=== PATIENT | female | born 1925 | race Caucasian/White ===

== ENCOUNTER 2016-04-01 08:57 | Inpatient (IN) | payer OTHER ==
[2016-04-01] VITALS (7 sets, daily range): BP systolic 138–169; BP diastolic 48–67; PULSE 56–63; TEMP 36.7–37.2; O2SAT 90–96; Ht 154.9 cm; Wt 88.8 kg
[~2016-04-01] VITALS: Ht 154.9 cm; Wt 88.8 kg
[~2016-04-01 08:57] MED LIST: ACET30TA PO; ASPEC81 PO; ATOR10TA88 PO; ATV5 PO; CHOL1TAB46 PO; CLOP1TAB15 PO; COEN1CAP17 PO; CZR50 PO; FURO-85 PO; HYDR100T12 PO; IPRA1AER2 INH; ISOS120T5 PO; LSX20 PO; METO1TAB69 PO; MULT-506 PO; NRV5 PO; NTRGSL/4 UT; OXGN; PRLSR20 PO; [UNRECOGNIZED DRUG - CODE] PO
[2016-04-01 09:45] LABS: BASO % 0.4 %; BASO ABS # 0.03 K/uL (0-0.2); COMPLETE YES; EOS % 4.8 %; HEMATOCRIT 33.4 % (37-47); IG% 0.3 %; LYMPH % 13.2 %; LYMPH ABS # 1.04 K/uL (1.2-3.4); MEAN CELL VOLUME 95.7 fL (80-100); MEAN CORPUSCULAR HEMOGLOBIN 29.5 pg (25-34); MEAN CORPUSCULAR HGB CONC 30.8 g/dl (32-36); MEAN PLATELET VOLUME 10.5 fL (7.4-10.4); MONO % 7.4 %; NEUT % 73.9 %; PLATELET COUNT 337 K/uL (130-400); RED BLOOD COUNT 3.49 M/uL (4.2-5.4); WHITE BLOOD COUNT 7.87 K/uL (4.8-10.8)
--- NOTE | 2016-04-01 09:50 | DIAGNOSTIC IMAGING REPORT ---
SINGLE VIEW CHEST CLINICAL HISTORY: Dyspnea. Hypoxia. FINDINGS: An AP, portable, upright chest radiograph is compared to study dated 01/14/2016 and correlated with chest CT dated 08/26/2015. The examination is degraded by portable technique and patient rotation. The patient is status post midline sternotomy. The heart is enlarged and there is mild pulmonary vascular congestion. Changes of chronic interstitial lung disease are similar to previous. There is no evidence of superimposed airspace consolidation. Small pleural effusions are suspected. No pneumothorax is seen. The skeletal structures are osteopenic. Degenerative change is noted in the shoulders and thoracic spine. IMPRESSION: 1. Cardiomegaly with mild pulmonary vascular congestion. 2. Changes of chronic interstitial lung disease are similar to previous. There is no evidence of superimposed airspace consolidation. 3. Small pleural effusions are suspected. Electronically signed by: Audi Dunn M.D. 04/01/2016 9:48 AM Dictated Date/Time: 04/01/2016 9:46 AM
[2016-04-01 09:52] LABS: CALCIUM 9.1 mg/dl (8.5-10.1); CREATININE 1.7 mg/dl (0.60-1.20); POTASSIUM 4.6 mmol/L (3.5-5.1)
[2016-04-01 09:55] LABS: POINT OF CARE TROPONIN I 0.02 ng/ml (0-0.045)
[2016-04-01 09:55] LABS: PARTIAL THROMBOPLASTIN RATIO 1.1; PROTHROMBIN TIME (PATIENT) 10.8 SECONDS (9.0-12.0)
[2016-04-01 09:56] LABS: CKMB/CK RATIO 1.6 (0-3.0)
[2016-04-01] MEDS ORDERED: ONDANSETRON INJ 2 MG/ML 2 ML VIAL IV PRN (11:45)
[2016-04-01] MEDS ORDERED: FUROSEMIDE INJ 40 MG in SYRINGE 0 ML IV ONE (11:45)
[2016-04-01] MEDS ORDERED: NITROGLYCERIN 0.4 MG SL PER TAB CHARGE SL PRN (11:45)
[2016-04-01] MEDS ORDERED: FUROSEMIDE 40 MG/4 ML VIAL ONE (11:51)
[2016-04-01] MEDS ORDERED: TRAM-453 PO (11:54)
[2016-04-01] MEDS ORDERED: ASPEC81 PO (11:54)
[2016-04-01] MEDS ORDERED: ESCI1TAB9 PO (11:54)
[2016-04-01] MEDS ORDERED: LORAZEPAM 0.5 MG TAB PO PRN (12:00)
[2016-04-01] MEDS ORDERED: TRAMADOL HCL 50 MG TAB PO PRN (12:00)
[2016-04-01 12:03] LABS: URINE APPEARANCE CLEAR (CLEAR); URINE BILIRUBIN NEG (NEG); URINE COLOR YELLOW; URINE NITRITE NEG (NEG); URINE PH 5.5 (4.5-7.5); URINE SPECIFIC GRAVITY 1.004 (1.000-1.030); UROBILINOGEN NEG (NEG); ZZUR CULT IF INDIC CLEAN CATCH YES
[2016-04-01 12:07] LABS: MANUAL MICROSCOPIC REQUIRED? NO; REVIEW REQ? NO
--- NOTE | 2016-04-01 12:17 | History and Physical ---
History & Physical Date & Time of Service: Apr 01, 2016 at 11:56 Chief Complaint: Low Oxygen Levels Primary Care Physician: Chuck Luna D.OKalani History of Present Illness Source: patient, family, clinic records, hospital records Patient seen and examined. 89 year old female with PMHx of Interstitial lung disease with chronic respiratory failure, USMAN on CPAP HS, Systolic CHF, Pulmonary HTN, CAD, PAD, Depression and other problems listed below presents to the ED complaining of increased SOB/low pulse ox readings x 1 month. Patient and family report that her respiratory status has been gradually worsening over the last month. A month ago she was saturating well on 4L NC. Since then she has been having worsening SOB and low pulse ox readings. They called her Deportation Examiner Dr. Gonzalez who suggested increasing her oxygen but if she ever needed more than 7L to come to the ED. She then saw her PCP who recommended she take her Combivent QID which has provided little relief. The patient has continued to increase her Oxygen and over the last week she has been using 6- 6.5 liters continuously. She continues to have hypoxic episodes. Patient is 14 steps from her bathroom and she routinely becomes hypoxic with this exertion. Today family went to visit patient and she was a sleep. He nocturnal pulse ox was in the 80s. When she awoke she ambulated to the bathroom 14 steps away and her saturations decreased to 62%. At this point the family decided to bring the patient to the ED. Patient reports that she has been an extra pillow at night d/ t SOB. She states her weight is stable and denies increased peripheral edema. She states she has been having some nausea and poor po intake. She denies fevers , chills, URI symptoms, cough, chest pain, palpitations, vomiting, diarrhea, dysuria, calf pain and edema. In the ED patient was hypoxic at 88% on 7L. She is saturating well on 10L via mask at 95%. BP is slightly elevated. CXR shows mild vascular congestion, BNP is 1941. Troponin is negative. She will be admitted for further workup and treatment. Past Medical/Surgical History Medical Problems: (1) Carotid stenosis Status: Chronic (2) Chronic respiratory failure Permanent Comment: home O2 Status: Chronic (3) Coronary artery disease Status: Chronic (4) Diverticulosis of colon Status: Chronic (5) DM type 2 (diabetes mellitus, type 2) Status: Chronic (6) Dyslipidemia Status: Chronic (7) GERD (gastroesophageal reflux disease) Status: Chronic (8) History of breast cancer Permanent Comment: right breast Status: Chronic (9) Hypertension Status: Chronic (10) Osteoarthritis Status: Chronic (11) Pulmonary fibrosis Permanent Comment: Followed by Dr. Gonzalez Status: Chronic (12) Renal artery stenosis, [place] Permanent Comment: [place] [facility] Status: Chronic (13) Sleep apnea Status: Chronic Surgical Problems: (1) S/P CABG (coronary artery bypass graft) Permanent Comment: x2 Status: Chronic (2) S/P carotid endarterectomy Status: Chronic (3) S/P cholecystectomy Status: Chronic (4) S/P coronary artery stent placement Status: Chronic (5) S/P insertion of iliac artery stent Permanent Comment: 2005- bilateral Status: Chronic (6) S/P laparoscopic cholecystectomy Status: Chronic (7) s/p renal artery stent Permanent Comment: 2005- right Status: Chronic (8) Status post partial mastectomy of right breast Status: Chronic Family History FH: cancer FH: gallbladder disease FH: heart disease FH: lung disease Hypertension Social History Smoking Status: Never Smoker Alcohol Use: none Drug Use: none Marital Status: Housing status: lives alone Occupational Status: retired Immunizations History of Influenza Vaccine: Yes History of Tetanus Vaccine?: Yes History of Pneumococcal: Yes History of Hepatitis B Vaccine: No Multi-Drug Resistant Organisms History of MDRO: No Allergies Coded Allergies: Adhesives (Verified Adverse Reaction, Unknown, TAPE - IRRITATION AT SITE, 04/01/16) Clonidine (Verified Adverse Reaction, Unknown, CATAPRES PATCH ALLERGY, 01/05) Home Medications Scheduled Amlodipine Besylate (Amlodipine Besylate), 10 MG PO QAM Aspirin (Aspirin EC Low Dose), 81 MG PO DAILY Atorvastatin (Lipitor), 10 MG PO 5XD Cholecalciferol (Vitamin D3), 1 TAB PO DAILY Clopidogrel (Plavix), 75 MG PO DAILY Coenzyme Q10 (Ubidecarenone) (Co Q 10), 200 MG PO DAILY Escitalopram Oxalate (Lexapro), 1 TAB PO DAILY Furosemide (Furosemide), 20 MG PO Q2D Furosemide (Lasix), 40 MG PO Q2D Hydralazine Hcl (Apresoline), 1 TAB PO TID Ipratropium-Albuterol (Combivent Respimat), 1 PUFFS INH QID Isosorbide Mononitrate Ext Rel (Imdur Ext Rel), 120 MG PO DAILY Losartan Potassium (Losartan Potassium), 50 MG PO BID17 Methyldopa (Aldomet), 1,000 MG PO BID Metoprolol Succ (Toprol Xl) (Toprol-Xl ), 100 MG PO DAILY Multivitamin (Multivitamin), 1 TAB PO DAILY Nitroglycerin (Nitrostat), 0.4 MG UT PRN Omeprazole (Prilosec), 20 MG PO BID Oxygen (Oxygen), 3-4 LITERS NA CONTINOUS Scheduled PRN Lorazepam (Lorazepam), 0.5 MG PO Q12 PRN for Anxiety Tramadol Hcl (Ultram), 50 MG PO Q12H PRN for Pain Review of Systems Constitutional: No chills, No fever Eyes: No worsening of vision ENT: No nasal symptoms Respiratory: + dyspnea at rest, + dyspnea on exertion, + shortness of breath, No cough Cardiovascular: + edema, + orthopnea, No chest pain, No palpitations Abdomen: + nausea, No constipation, No diarrhea, No pain, No vomiting Musculoskeletal: No calf pain, No swelling Genitourinary - Female: No dysuria Neurologic: No numbness/tingling, No vertigo Psychiatric: No anxiety Endocrine: No fatigue Hematologic / Lymphatic: No abnormal bleeding/bruising, No clotting problems Integumentary: No itch, No rash Allergic / Immunologic: No environmental allergies Physical Exam Vital Signs Date Time Temp Pulse Resp B/P Pulse Ox O2 Delivery O2 Flow Rate FiO2 04/01/16 11:04 70 24 178/60 94 Mask 9.0 04/01/16 09:44 65 20 178/79 95 Mask 10.0 04/01/16 09:20 67 04/01/16 09:12 96 Mask 10.0 04/01/16 09:10 96 Mask 10.0 04/01/16 09:05 88 Nasal Cannula 7.0 04/01/16 09:01 37.1 69 22 162/58 88 7.0 General Appearance: + pertinent finding (Very pleasant WD/WN 89 year old female lying in bed in NAD with family at bedside ) Head: normocephalic, atraumatic Eyes: PERRL, EOMI, sclerae normal ENT: hearing grossly normal, pharynx normal Neck: supple, no JVD Respiratory/Chest: chest non-tender, no respiratory distress, no accessory muscle use, + pertinent finding (Trace Bibasilar crackles, trace scattered wheezes ) Cardiovascular: regular rate, rhythm, no gallop, no JVD, no murmur, normal peripheral pulses Abdomen/GI: normal bowel sounds, non tender, soft Back: normal inspection, no muscle spasm Extremities/Musculoskelatal: no calf tenderness, normal capillary refill, + pedal edema (+1-2 BL pitting edema to mid doe ) Neurologic/Psych: alert, oriented x 3, + pertinent finding (no motor or sensory deficits noted on gross exam ) Skin: normal color, warm/dry, no rash Lymphatic: no adenopathy Diagnostics Laboratory Results Results Past 24 Hours Test 04/01/16 09:14 04/01/16 09:35 04/01/16 11:04 Range/Units White Blood Count 7.87 4.8-10.8 K/uL Red Blood Count 3.49 4.2-5.4 M/uL Hemoglobin 10.3 12.0-16.0 g/dL Hematocrit 33.4 37-47 % Mean Corpuscular Volume 95.7 80-100 fL Mean Corpuscular Hemoglobin 29.5 25-34 pg Mean Corpuscular Hemoglobin Concent 30.8 32-36 g/dl Platelet Count 337 130-400 K/uL Mean Platelet Volume 10.5 7.4-10.4 fL Neutrophils (%) (Auto) 73.9 % Lymphocytes (%) (Auto) 13.2 % Monocytes (%) (Auto) 7.4 % Eosinophils (%) (Auto) 4.8 % Basophils (%) (Auto) 0.4 % Neutrophils # (Auto) 5.82 1.4-6.5 K/uL Lymphocytes # (Auto) 1.04 1.2-3.4 K/uL Monocytes # (Auto) 0.58 0.11-0.59 K/uL Eosinophils # (Auto) 0.38 0-0.5 K/uL Basophils # (Auto) 0.03 0-0.2 K/uL RDW Standard Deviation 53.7 36.4-46.3 fL RDW Coefficient of Variation 15.6 11.5-14.5 % Immature Granulocyte % (Auto) 0.3 % Immature Granulocyte # (Auto) 0.02 0.00-0.02 K/uL Prothrombin Time 10.8 9.0-12.0 SECONDS Prothromb Time International Ratio 1.0 0.9-1.1 Activated Partial Thromboplast Time 28.9 21.0-31.0 SECONDS Partial Thromboplastin Ratio 1.1 Sodium Level 139 136-145 mmol/L Potassium Level 4.6 3.5-5.1 mmol/L Chloride Level 100 98-107 mmol/L Carbon Dioxide Level 29 21-32 mmol/L Anion Gap 10.0 3-11 mmol/L Blood Urea Nitrogen 31 7-18 mg/dl Creatinine 1.70 0.60-1.20 mg/dl Est Creatinine Clear Calc Drug Dose 23.6 ml/min Estimated GFR () 30.7 Estimated GFR (Non- 26.5 BUN/Creatinine Ratio 18.0 10-20 Random Glucose 116 70-99 mg/dl Calcium Level 9.1 8.5-10.1 mg/dl Total Bilirubin 0.6 0.2-1 mg/dl Direct Bilirubin 0.2 0-0.2 mg/dl Aspartate Amino Transf (AST/SGOT) 13 15-37 U/L Alanine Aminotransferase (ALT/SGPT) 17 12-78 U/L Alkaline Phosphatase 85 45-117 U/L Total Creatine Kinase 43 26-192 U/L Creatine Kinase MB 0.7 0.5-3.6 ng/ml Creatine Kinase MB Ratio 1.6 0-3.0 Total Protein 6.9 6.4-8.2 gm/dl Albumin 3.0 3.4-5.0 gm/dl Lipase 248 73-393 U/L Bedside Troponin I 0.020 0-0.045 ng/ml RY-Xbn-T-Type Natriuretic Peptide 1941 0-1800 pg/ml Diagnostic Radiology CXR Per radiologist read: IMPRESSION: 1. Cardiomegaly with mild pulmonary vascular congestion. 2. Changes of chronic interstitial lung disease are similar to previous. There is no evidence of superimposed airspace consolidation. 3. Small pleural effusions are suspected. EKG Sinus Rhythmn with PACs 74 BPM, incomplete RBBB QTc 439 Impression Assessment and Plan 89 year old female with interstitial lung disease presents to the ED with gradual worsening of SOB and hypoxia over the last month ACUTE ON CHRONIC HYPOXIC RESPIRATORY FAILURE -Admit to tele -? cause differential diagnosis to include worsening chronic lung disease, acute exacerbation of CHF, infectious causes, and other etiology -Continue oxygen supplementation as need -Continue home inhalers -1 dose IV Lasix now for possible CHF -Pulmonology consult placed for further input - R/O Influenza, PCR flu pending -no indication for Abx, steroids at this time -CBC, PRP, Mg daily POSSIBLE ACUTE DECOMPENSATION OF CHRONIC SYSTOLIC HEART FAILURE -? CXR with mild vascular congestion, BNP 194 +orthopnea, +crackles, +edema -Last Echo with EF of 50-55%, mild valvular disease, pulmonary HTN -Give 40mg IV Lasix now -AHA, Low sodium diet -Monitor I&Os, Daily weights -Check repeat CXR in AM -Check PRP in AM - assess renal function in AM prior to additional doses of Lasix -Potassium 4.6, follow supplement prn in setting of diuretic use -defer repeat Echo to attending physician INTERSTITIAL LUNG DISEASE -Follows with Dr. Gonzalez, consult placed -?if current symptomatology is the result of worsening chronic lung disease -continue Oxygen -Continue Combivent CKD STAGE 3 -Crea 1.7, has been running between 1.3-1.6 over last several months -Avoid nephrotoxic agents as able -cautious dosing of diuretics -follow PRP daily CAD -stable -continue BB, Statin, ASA, Plavix, Imdur -follows with Luis Fernando Borrero as outpatient -monitor in tele PULMONARY HTN -Per last Echo -continue Losartan HTN -running slightly high - review of records patient's BP is usually high -continue Hydralazine, Imdur, Losartan, BB, methyldopa -monitor in tele PERIPHERAL ARTERIAL DISEASE -H/O renal artery stent, carotid endarterectomy -continue ASA, Plavix DEPRESSION -continue Lexapro -Ativan prn USAMN -continue CPAP HS DVT PROPHYLAXIS: Sq heparin CODE STATUS: LEVEL 5 DNR per my discussion with the patient DISPO:In my clinical judgment this beneficiary meets acute admission criteria, established by [facility], that includes being hospitalized through two midnights. discharge planning eval Patient seen in collaboration with Dr. Coe VTE Prophylaxis VTE Risk Assessment Done? Y/N: Yes Risk Level: Moderate Note ATTENDING ADDENDUM Record reviewed. Patient interviewed and examined. Care coordinated with Yesenia Corey PA-C. Please refer to her documentation for patient's history. Briefly, 89 YO female with progressive interstitial lung disease on home O2. Gradually worsening dyspnea at rest and on exertion over past several weeks requiring increasing amounts of O2 to maintain oxygenation. Chronic nonproductive cough unchanged. No fever. No chest pain. Dependent edema about the same. Does not weigh herself daily; wts felt to be fairly stable. More dyspneic today with O2 sats on 6-7 L in the 80's at rest and down to 60's with minimal exertion. EXAM: General- no acute distress VS- as noted Neck- + JVD Lungs- diffuse rales, more pronounced at bases Heart- RRR, III/ systolic murmur at base and left sternal border; no gallop appreciated Abdomen- + BS, soft, mild epigastric / RUQ tenderness Extremities- 3+ pretibial edema; no calf tenderness Neuro- alert DATA: WBC 7870, Hgb 10.3 creatinine 1.7 BNP 1941 Other lab studies as noted. EKG performed at 09:12 reviewed and demonstrated NSR with PAC's with aberrancy at 74 / minute, inverted T-waves inferiorly. Portable chest x-ray: IMPRESSION: 1. Cardiomegaly with mild pulmonary vascular congestion. 2. Changes of chronic interstitial lung disease are similar to previous. There is no evidence of superimposed airspace consolidation. 3. Small pleural effusions are suspected. Electronically signed by: Audi Dunn M.D. 04/01/2016 9:48 AM ASSESSMENT AND PLAN: Progressive interstitial lung disease with cor pulmonale requiring home O2. Gradually worsening hypoxia and associated dyspnea. Does not have fever, worsening cough, leukocytosis, or radiographic evidence of pulmonary infection. Chest x-ray shows pulmonary vascular congestion and BNP is elevated. May benefit from more aggressive diuresis. Furosemide 40 mg IV x 1 today, then reassess symptoms, exam, labs in the morning. Consult Pulmonary Medicine for their input. UA ordered in ED- moderate leukocyte esterase, 10-30 WBC's, 10-20 epithelial cells, no bacteria. Urine C&S pending. No fever, leukocytosis, or urinary symptoms. Will not Rx at this time. Please refer to RICK Corey's documentation for discussion of other issues. Daniel Coe MD .
[2016-04-01] MEDS ORDERED: FUROSEMIDE 40 MG/4 ML VIAL IV ONE (12:30)
--- NOTE | 2016-04-01 15:34 | EMERGENCY ROOM VISIT NOTE ---
History First contact with patient: 09:07 Chief Complaint: SHORTNESS OF BREATH Stated Complaint: LOW OXYGEN LEVELS Nursing Triage Summary: Increased SOB, history of pulmonary fibrosis. History of Present Illness The patient is a 89 year old female who presents to the Emergency Room with complaints of increasing shortness of breath. The patient has a history of pulmonary fibrosis. She is normally on 5 L of oxygen and on continuous pulse ox while she is at home. She has been getting more short of breath the last week. The daughter states that she increased her oxygen to 6 L over the past several days and the patient still seems short of breath. The patient states today and yesterday when she walked about 12-14 steps her oxygen saturation went down to 65. The patient denies any chest pain, dizziness. She does admit to seeing images twice last evening. She states this has happened in the past when her oxygen was low. The patient also states that she has an appointment to see Dr. Lieberman in 2 weeks to reevaluate her C Pap which she has had for at least 10 years. The patient is followed by Dr. Gonzalez for her pulmonary issues. The patient states she has chronic lower extremity edema. She denies any recent URI symptoms of fever, cough, head congestion, ear pain or sore throat Review of Systems 10 system review was performed and was negative unless stated otherwise history of present illness. Past Medical/Surgical History Medical Problems: (1) Acute and chronic respiratory failure (2) Carotid stenosis (3) Chronic respiratory failure (4) Coronary artery disease (5) Diverticulosis of colon (6) DM type 2 (diabetes mellitus, type 2) (7) Dyslipidemia (8) GERD (gastroesophageal reflux disease) (9) History of breast cancer (10) Hypertension (11) Osteoarthritis (12) Pulmonary fibrosis (13) Renal artery stenosis, [place] (14) Sleep apnea Surgical Problems: (1) S/P CABG (coronary artery bypass graft) (2) S/P carotid endarterectomy (3) S/P cholecystectomy (4) S/P coronary artery stent placement (5) S/P insertion of iliac artery stent (6) S/P laparoscopic cholecystectomy (7) s/p renal artery stent (8) Status post partial mastectomy of right breast Family History FH: cancer FH: gallbladder disease FH: heart disease FH: lung disease Hypertension Social History Smoking Status: Never Smoker Alcohol Use: none Drug Use: none Marital Status: Housing Status: lives alone Occupation Status: retired Current/Historical Medications Scheduled Amlodipine Besylate (Amlodipine Besylate), 10 MG PO QAM Aspirin (Aspirin EC Low Dose), 81 MG PO DAILY Atorvastatin (Lipitor), 10 MG PO 5XD Cholecalciferol (Vitamin D3), 1 TAB PO DAILY Clopidogrel (Plavix), 75 MG PO DAILY Coenzyme Q10 (Ubidecarenone) (Co Q 10), 200 MG PO DAILY Escitalopram Oxalate (Lexapro), 1 TAB PO DAILY Furosemide (Furosemide), 20 MG PO Q2D Furosemide (Lasix), 40 MG PO Q2D Hydralazine Hcl (Apresoline), 1 TAB PO TID Ipratropium-Albuterol (Combivent Respimat), 1 PUFFS INH QID Isosorbide Mononitrate Ext Rel (Imdur Ext Rel), 120 MG PO DAILY Losartan Potassium (Losartan Potassium), 50 MG PO BID17 Methyldopa (Aldomet), 1,000 MG PO BID Metoprolol Succ (Toprol Xl) (Toprol-Xl ), 100 MG PO DAILY Multivitamin (Multivitamin), 1 TAB PO DAILY Nitroglycerin (Nitrostat), 0.4 MG UT PRN Omeprazole (Prilosec), 20 MG PO BID Oxygen (Oxygen), 3-4 LITERS NA CONTINOUS Scheduled PRN Lorazepam (Lorazepam), 0.5 MG PO Q12 PRN for Anxiety Tramadol Hcl (Ultram), 50 MG PO Q12H PRN for Pain Allergies Coded Allergies: Adhesives (Verified Adverse Reaction, Unknown, TAPE - IRRITATION AT SITE, 04/01/16) Clonidine (Verified Adverse Reaction, Unknown, CATAPRES PATCH ALLERGY, 01/05) Physical Exam Vital Signs Date Time Temp Pulse Resp B/P Pulse Ox O2 Delivery O2 Flow Rate FiO2 04/01/16 09:44 65 20 178/79 95 Mask 10.0 04/01/16 09:20 67 04/01/16 09:12 96 Mask 10.0 04/01/16 09:10 96 Mask 10.0 04/01/16 09:05 88 Nasal Cannula 7.0 04/01/16 09:01 37.1 69 22 162/58 88 7.0 Physical Exam GENERAL: 89-year-old white female appears in mild respiratory distress. MENTAL STATUS: Alert and oriented 3. EYES: PERRLA. EOMs intact. EARS: Canals clear. TMs without fluid level noted. NECK: Supple, no lymphadenopathy noted. No carotid bruits noted. LUNGS: Poor air exchange bilaterally. The patient has crackles noted at both bases CARDIAC: Regular rate and rhythm with a 2/6 murmur noted at the left sternal border. Pulses is full and equal throughout. ABDOMEN: Positive bowel sounds all 4 quadrants. Soft, nontender to palpation without organomegaly or masses. LOWER EXTREMITIES: Patient has 1+ pitting edema of bilateral lower extremities. No cyanosis or erythema noted. Calves are nontender. Medical Decision & Procedures ER Provider Diagnostic Interpretation: SINGLE VIEW CHEST CLINICAL HISTORY: Dyspnea. Hypoxia. FINDINGS: An AP, portable, upright chest radiograph is compared to study dated 01/14/2016 and correlated with chest CT dated 08/26/2015. The examination is degraded by portable technique and patient rotation. The patient is status post midline sternotomy. The heart is enlarged and there is mild pulmonary vascular congestion. Changes of chronic interstitial lung disease are similar to previous. There is no evidence of superimposed airspace consolidation. Small pleural effusions are suspected. No pneumothorax is seen. The skeletal structures are osteopenic. Degenerative change is noted in the shoulders and thoracic spine. IMPRESSION: 1. Cardiomegaly with mild pulmonary vascular congestion. 2. Changes of chronic interstitial lung disease are similar to previous. There is no evidence of superimposed airspace consolidation. 3. Small pleural effusions are suspected. Electronically signed by: Audi Dunn M.D. 04/01/2016 9:48 AM Dictated Date/Time: 04/01/2016 9:46 AM Laboratory Results 04/01/16 09:14 Red Blood Count 3.49, Mean Corpuscular Volume 95.7, Mean Corpuscular Hemoglobin 29.5, Mean Corpuscular Hemoglobin Concent 30.8, Mean Platelet Volume 10.5, Neutrophils (%) (Auto) 73.9, Lymphocytes (%) (Auto) 13.2, Monocytes (%) (Auto) 7.4, Eosinophils (%) (Auto) 4.8, Basophils (%) (Auto) 0.4, Neutrophils # (Auto) 5.82, Lymphocytes # (Auto) 1.04, Monocytes # (Auto) 0.58, Eosinophils # (Auto) 0.38, Basophils # (Auto) 0.03 04/01/16 09:14 Test 04/01/16 09:14 04/01/16 09:35 White Blood Count 7.87 K/uL (4.8-10.8) Red Blood Count 3.49 M/uL (4.2-5.4) Hemoglobin 10.3 g/dL (12.0-16.0) Hematocrit 33.4 % (37-47) Mean Corpuscular Volume 95.7 fL (80-100) Mean Corpuscular Hemoglobin 29.5 pg (25-34) Mean Corpuscular Hemoglobin Concent 30.8 g/dl (32-36) Platelet Count 337 K/uL (130-400) Mean Platelet Volume 10.5 fL (7.4-10.4) Neutrophils (%) (Auto) 73.9 % Lymphocytes (%) (Auto) 13.2 % Monocytes (%) (Auto) 7.4 % Eosinophils (%) (Auto) 4.8 % Basophils (%) (Auto) 0.4 % Neutrophils # (Auto) 5.82 K/uL (1.4-6.5) Lymphocytes # (Auto) 1.04 K/uL (1.2-3.4) Monocytes # (Auto) 0.58 K/uL (0.11-0.59) Eosinophils # (Auto) 0.38 K/uL (0-0.5) Basophils # (Auto) 0.03 K/uL (0-0.2) RDW Standard Deviation 53.7 fL (36.4-46.3) RDW Coefficient of Variation 15.6 % (11.5-14.5) Immature Granulocyte % (Auto) 0.3 % Immature Granulocyte # (Auto) 0.02 K/uL (0.00-0.02) Prothrombin Time 10.8 SECONDS (9.0-12.0) Prothromb Time International Ratio 1.0 (0.9-1.1) Activated Partial Thromboplast Time 28.9 SECONDS (21.0-31.0) Partial Thromboplastin Ratio 1.1 Anion Gap 10.0 mmol/L (3-11) Est Creatinine Clear Calc Drug Dose 23.6 ml/min Estimated GFR () 30.7 Estimated GFR (Non- 26.5 BUN/Creatinine Ratio 18.0 (10-20) Calcium Level 9.1 mg/dl (8.5-10.1) Total Bilirubin 0.6 mg/dl (0.2-1) Direct Bilirubin 0.2 mg/dl (0-0.2) Aspartate Amino Transf (AST/SGOT) 13 U/L (15-37) Alanine Aminotransferase (ALT/SGPT) 17 U/L (12-78) Alkaline Phosphatase 85 U/L (45-117) Total Creatine Kinase 43 U/L (26-192) Creatine Kinase MB 0.7 ng/ml (0.5-3.6) Creatine Kinase MB Ratio 1.6 (0-3.0) Total Protein 6.9 gm/dl (6.4-8.2) Albumin 3.0 gm/dl (3.4-5.0) Lipase 248 U/L (73-393) Bedside Troponin I 0.020 ng/ml (0-0.045) KE-Bac-V-Type Natriuretic Peptide 1941 pg/ml (0-1800) ECG Indication: SOB/dyspnea Rhythm: normal sinus Findings: no acute ischemic change Change: no significant change ED Course The patient was evaluated. The patient's EMR was reviewed. EKG was ordered and interpreted as above without any acute findings The patient was placed on 10 L of oxygen by mask to get her O2 sat up to 94. IV access was obtained. She was placed on a monitor and continuous pulse ox. CBC and differential, renal profile, coags, troponin, BNP was ordered. Urinalysis was ordered. Chest x-ray was interpreted as above without any acute findings. Her chronic state was unchanged.. The patient was independently evaluated by Dr. Turner who agreed with treatment plan. The patient's labs are reviewed. The patient's white count was normal. Troponin was negative. BNP was elevated. Coags were normal. The hospitalist was consulted for admission. Medical Decision Differential diagnosis include pneumonia, influenza, worsening pulmonary fibrosis, acute [place], Impression Primary Impression: Shortness of breath Additional Impressions: Pulmonary fibrosis Hypoxia Departure Information Dispostion Being Evaluated By Hospitalist Condition GOOD Referrals Chuck Luna D.O. (PCP) Patient Instructions [facility] Problem Qualifiers
[2016-04-01] MEDS: IPRATROPIUM BROMIDE/ALBUTEROL respimat INH INH SCH ×3 (16:53→20:25)
[2016-04-01 17:21] LABS: INFLUENZA A PCR Neg for Influ A (NEG); INFLUENZA B PCR Neg for Influ B (NEG)
[2016-04-01] MEDS: LOSARTAN POTASSIUM 50 MG TAB PO SCH (17:29)
[2016-04-01] MEDS: PANTOprazole SOD 40 MG TAB PO SCH (20:25)
[2016-04-01] MEDS: ATORVASTATIN 10 MG TAB PO SCH (20:25)
[2016-04-01] MEDS: METHYLDOPA 250 MG TAB PO SCH (20:25)
[2016-04-01] MEDS: HEPARIN SOD 5000 UNIT/0.5 ML CARP SQ SCH (20:27)
[2016-04-01] MEDS ORDERED: HEPARIN SOD 5000 UNIT/0.5 ML CARP SQ SCH (21:00)
[2016-04-02] VITALS (9 sets, daily range): BP systolic 117–149; BP diastolic 47–69; PULSE 51–60; TEMP 36.6–37.1; O2SAT 91–97
[2016-04-02] MEDS: ACETAMINOPHEN 325 MG TAB PO PRN (00:32)
[2016-04-02] MEDS ORDERED: ALUMINUM/MAGNESIUM/SIMETH (MAALOX MAX) 30 ML UDC PO PRN (03:45)
[2016-04-02] MEDS: HEPARIN SOD 5000 UNIT/0.5 ML CARP SQ SCH ×3 (05:38→21:00)
[2016-04-02 07:05] LABS: HEMATOCRIT 29.5 % (37-47); MEAN CELL VOLUME 95.5 fL (80-100); MEAN CORPUSCULAR HEMOGLOBIN 29.4 pg (25-34); MEAN CORPUSCULAR HGB CONC 30.8 g/dl (32-36); MEAN PLATELET VOLUME 10.3 fL (7.4-10.4); PLATELET COUNT 292 K/uL (130-400); RED BLOOD COUNT 3.09 M/uL (4.2-5.4)
[2016-04-02 07:38] LABS: BUN/CREATININE RATIO 18.1 (10-20); CALCIUM 8.9 mg/dl (8.5-10.1); MAGNESIUM 2.3 mg/dl (1.8-2.4); POTASSIUM 4.5 mmol/L (3.5-5.1)
[2016-04-02] MEDS: LOSARTAN POTASSIUM 50 MG TAB PO SCH ×2 (08:17→17:02)
[2016-04-02] MEDS: IPRATROPIUM BROMIDE/ALBUTEROL respimat INH INH SCH ×4 (08:17→19:28)
[2016-04-02] MEDS: METHYLDOPA 250 MG TAB PO SCH ×2 (08:17→19:30)
[2016-04-02] MEDS: ISOSORBIDE MONONITRATE 60 MG TABCR PO SCH (08:18)
[2016-04-02] MEDS: ASPIRIN 81 MG ECTAB PO SCH (08:18)
[2016-04-02] MEDS: MULTIVITAMIN TAB PO SCH (08:18)
[2016-04-02] MEDS: AMLODIPINE BESYLATE 5 MG TAB PO SCH (08:18)
[2016-04-02] MEDS: ESCITALOPRAM OXALATE 10 MG TAB PO SCH (08:18)
[2016-04-02] MEDS: CLOPIDOGREL BISULFATE 75 MG TAB PO SCH (08:18)
[2016-04-02] MEDS: PANTOprazole SOD 40 MG TAB PO SCH ×2 (08:19→19:31)
[2016-04-02] MEDS: CHOLECALCIFEROL 1000 INTER.UNIT TAB PO SCH (08:19)
[2016-04-02] MEDS: METOPROLOL SUCC 50MG EXT REL TAB PO SCH (08:19)
--- NOTE | 2016-04-02 08:37 | PULMONARY CONSULTATION ---
DATE OF CONSULTATION: 04/02/2016 HISTORY OF PRESENT ILLNESS: The patient is a very pleasant 89-year-old female whom I have followed since spring with interstitial lung disease. She had been seen in [facility] interstitial lung disease clinic, but I never did receive those records. She had been followed by the [facility] system, is now followed by Dr. Chuck Luna. She was admitted yesterday, Dr. Coe called and asked me to evaluate the patient from a pulmonary standpoint. She has had worsening oxygen desaturation at home, especially with walking. She has had worsening shortness of breath over the last month to the point that she has difficulty with even going out shopping. She has a pulse oximeter at home and apparently has been down in the low 80s. She increased her oxygen to 7 liters, feels great at the present time. She denies cough, aspiration, hoarseness, sore throat or any symptoms of infection. She did develop some peripheral edema if she sits for long periods of time, has not been on a low-salt diet. With Lasix yesterday that has resolved. She denies any other significant symptoms. I reviewed her outpatient records. She has never had a lung biopsy but her CT scan is consistent with probable usual interstitial pneumonitis with traction bronchiectasis, honeycombing at the lung bases, subpleural reticulation, thickening of the pulmonary septae with minimal ground-glass abnormalities. She does have some mild pleural involvement as well. Her weight has been stable. Her travel history and environmental histories have been unremarkable. Review of systems is otherwise unremarkable. In the ER, her oxygen saturation is 88%, initially up to 95% on a 10 liter mask. PAST MEDICAL HISTORY: Well outlined in records includes obstructive sleep apnea which is severe and she had that study done in [address] Ferrer. She has been on CPAP, probably as auto CPAP 03/07. She has a history of carotid stenosis, chronic respiratory failure, obesity, diabetes mellitus, hyperlipidemia, GERD, carcinoma of the right breast around 1997 where she had a partial mastectomy by Dr. Desouza. She has a history of renal artery stenosis, coronary artery disease with bypass surgery done in the past and carotid endarterectomy, cholecystectomy, stent placement in the coronary artery, stent placement in the iliac artery, renal artery stent and again the partial mastectomy. FAMILY HISTORY: Significant for gallbladder disease, chronic obstructive lung disease and hypertension. SOCIAL HISTORY: She has never been a tobacco or alcohol user. She is , lives alone and has not had any industrial exposures. She is up to date with her immunizations. ALLERGIES: CLONIDINE AND ADHESIVE TAPE CAUSES SKIN IRRITATION. MEDICATIONS: Noted. She has not been on steroids. From what I can glean from the records I do not believe she has been treated with prednisone in the past. According to the patient when she was in [place] no treatment was recommended. PHYSICAL EXAMINATION: VITAL SIGNS: Her blood pressure 149/64, pulse is 60 and regular, respiratory rate 20, oxygen saturation is 92% on 6 liters. She is afebrile. Her weight is stable at 94.4 kilograms, is 90 kilograms stated by the patient. According to nurses' note she had a fairly good night last night with no significant problems. She had been on CPAP. HEENT: Reveals a very small posterior pharynx with no thrush. She has a normal pendulous uvula, large tongue, normal soft palate. No adenopathy is noted. Temporomandibular joints and mandible normal. No adenopathy is noted. No muscular hypertrophy noted. CHEST: Shows good expansion with deep inspiration. HEART: Regular rate and rhythm, second heart sound is accentuated. No murmurs are heard. LUNGS: Reveal Velcro type crackles in all the lung nettles. From my last visit last year this is worse. No wheezing is noted. ABDOMEN: Soft and obese, nontender. EXTREMITIES: She has no cyanosis, clubbing or edema and there is no clinical evidence of DVT. DIAGNOSTIC DATA: Electrocardiogram reveals normal sinus rhythm with premature ventricular contractions, incomplete right bundle-branch block and age indeterminate anterior wall AL. When compared to previous EKG of December of last year PVCs are new and anterior infarction is present. The chest film reveals changes consistent with chronic interstitial lung disease with cardiomegaly. The patient is rotated. There is a small pleural effusion perhaps on the right side is suggested as well. No significant masses or infiltrates are noted. LABORATORY DATA: White count 7.87, hemoglobin 10.3, hematocrit 33.4%, platelet count 337,000 with an unremarkable differential. Coagulation profile unremarkable. BUN is elevated at 31, creatinine 1.7, sugar 116, CK enzymes are unremarkable. BNP 1941. Urinalysis revealed a few inflammatory cells and the culture is pending. The influenza PCR for A and B is negative. IMPRESSION: 1. Interstitial lung disease. I suspect this by the CT scan is usual interstitial pneumonitis and is worse. This explains her hypoxemia. She also has some myocardial ischemia and perhaps an anterior wall AL noted on the EKG and I would be concerned about worsening coronary artery disease since she has known coronary artery disease with bypass surgery and stent in the past. She does not have any symptoms of angina. 2. Obstructive sleep apnea. 3. Pulmonary hypertension, grade IV. 4. Diabetes mellitus. RECOMMENDATIONS: 1. At this point, I have placed the patient on some Solu-Medrol. I think 80 mg IV q. 8 hours for 3 days would be appropriate to see if there is an improvement in the crackles in her lungs, to see if she would have an improvement in her overall functional capability. 2. Echocardiogram to assess the anterior wall for a right ventricular dysfunction. She did have peripheral edema suggesting she may have some cor pulmonale. 3. High flow O2. That can be adjusted to keep her saturation above 88%. 4. Good glucose control on the steroids. 5. Good DVT prophylaxis. Thanks for asking me to evaluate Kalani Sherman and Dr. Ramirez will be on this week and I will ask him to follow her during her hospital stay.
[2016-04-02] MEDS ORDERED: NON-FORMULARY MEDICATION (Coenzyme Q10 (Ubidecarenone) (Co Q 10) 200 MG) PO SCH (09:00)
--- NOTE | 2016-04-02 09:41 | DIAGNOSTIC IMAGING REPORT ---
CHEST 2 VIEWS ROUTINE CLINICAL HISTORY: Hypoxia. Follow-up possible congestive heart failure. COMPARISON STUDY: Chest radiograph April 01, 2016. FINDINGS: There are median sternotomy wires. Cardiomegaly is unchanged. There is a small left pleural effusion. Interstitial thickening and bilateral opacities persist. There is no pneumothorax. IMPRESSION: 1. Interstitial thickening and bilateral opacities. The findings could reflect pulmonary edema or an infectious process superimposed upon chronic interstitial lung disease. 2. Small left pleural effusion. Electronically signed by: Ryan Rich M.D. 04/02/2016 9:39 AM Dictated Date/Time: 04/02/2016 9:36 AM
--- NOTE | 2016-04-02 10:29 | EMERGENCY ROOM VISIT NOTE ---
ED Visit Note First contact with patient: 09:07 89-year-old female with fibrotic lung disease was fully evaluated by Lisa Sagastume PA-C. Please see her note. I also independently evaluated the patient. The patient is hypoxic. The patient will require further evaluation in the hospital. The hospitalist was consulted.
--- NOTE | 2016-04-02 15:39 | Progress Note ---
Medicine Progress Note Date & Time of Visit: Apr 02, 2016 at 15:17. Subjective Patient seen and examined. Family present at bedside. Patient denies any chest pain or SOB. Feels tired. Objective Last 8 Hrs Date Time Temp Pulse Resp B/P Pulse Ox O2 Delivery O2 Flow Rate FiO2 04/02/16 12:22 95 Nasal Cannula 6.0 04/02/16 12:06 36.6 51 19 117/65 97 Nasal Cannula 5.0 04/02/16 08:01 95 Nasal Cannula 6.0 Physical Exam: General-sleeping but arousable Eyes-EOMI; no scleral icterus Neck-no stridor; trachea midline Lungs-diffuse expiratory crackles Heart-RRR Abdomen-soft; NTND; nBS Extremities-trace LE edema; no deformity Neuro-no gross focal deficits; oriented x3 Laboratory Results: Last 24 Hours Test 04/01/16 15:25 04/02/16 06:44 04/02/16 07:34 Influenza Type A (RT-PCR) Neg for Influ A Influenza Type B (RT-PCR) Neg for Influ B White Blood Count 6.40 K/uL Red Blood Count 3.09 M/uL Hemoglobin 9.1 g/dL Hematocrit 29.5 % Mean Corpuscular Volume 95.5 fL Mean Corpuscular Hemoglobin 29.4 pg Mean Corpuscular Hemoglobin Concent 30.8 g/dl RDW Standard Deviation 54.0 fL RDW Coefficient of Variation 15.5 % Platelet Count 292 K/uL Mean Platelet Volume 10.3 fL Sodium Level 140 mmol/L Potassium Level 4.5 mmol/L Chloride Level 98 mmol/L Carbon Dioxide Level 34 mmol/L Anion Gap 8.0 mmol/L Blood Urea Nitrogen 36 mg/dl Creatinine 2.00 mg/dl Est Creatinine Clear Calc Drug Dose 20.4 ml/min Estimated GFR () 25.2 Estimated GFR (Non- 21.7 BUN/Creatinine Ratio 18.1 Random Glucose 96 mg/dl Calcium Level 8.9 mg/dl Magnesium Level 2.3 mg/dl Bedside Glucose 112 mg/dl Assessment & Plan 89 year old female with interstitial lung disease presents to the ED with gradual worsening of SOB and hypoxia over the last month ACUTE ON CHRONIC HYPOXIC RESPIRATORY FAILURE -most likely related to worsening underlying interstitial lung disease -continue oxygen supplementation -continue Combivent inhaler -Pulmonology consulted -flu negative -methylprednisolone 80mg q8 x3 days -may require BiPAP for respiratory support CAD -Echo with EF of 50-55%, mild valvular disease, pulmonary HTN (06/2014) -received 40mg IV Lasix -troponin negative and EKG without acute ischemic changes -continue metoprolol, atorvastatin, ASA, Plavix, Imdur, losartan CKD STAGE 3 -creatinine 1.7 (on admission) -has been running between 1.3-1.6 over last several months -slight bump in creatinine after Lasix dose HTN -elevated on admission -improved -continue Hydralazine, Imdur, Losartan, metoprolol, methyldopa PERIPHERAL ARTERIAL DISEASE -H/O renal artery stent, carotid endarterectomy -continue ASA, Plavix DEPRESSION -continue Lexapro -Ativan prn USMAN -continue CPAP HS DVT PROPHYLAXIS: Sq heparin CODE STATUS: LEVEL 5 DNR Consultants: Pulmonary Current Inpatient Medications: Current Inpatient Medications Medications (Trade) Dose Ordered Sig/Rey Route Start Time Stop Time Status Last Admin Dose Admin Acetaminophen (Tylenol Tab) 650 mg Q4H PRN PO 04/01/16 11:45 05/01/16 11:44 04/02/16 00:32 650 MG Ondansetron HCl (Zofran Inj) 4 mg Q6H PRN IV 04/01/16 11:45 05/01/16 11:44 04/02/16 03:25 4 MG Nitroglycerin (Nitrostat Tab) 0.4 mg UD PRN SL 04/01/16 11:45 05/01/16 11:44 Amlodipine Besylate (Norvasc Tab) 10 mg QAM PO 04/02/16 09:00 05/02/16 08:59 04/02/16 08:18 10 MG Aspirin (Ecotrin Tab) 81 mg DAILY PO 04/02/16 09:00 05/02/16 08:59 04/02/16 08:18 81 MG Atorvastatin Calcium (Lipitor Tab) 10 mg HS PO 04/01/16 21:00 05/01/16 20:59 04/01/16 20:25 10 MG Clopidogrel Bisulfate (plAVix TAB) 75 mg DAILY PO 04/02/16 09:00 05/02/16 08:59 04/02/16 08:18 75 MG Escitalopram Oxalate (Lexapro Tab) 10 mg DAILY PO 04/02/16 09:00 05/02/16 08:59 04/02/16 08:18 10 MG Hydralazine HCl (Apresoline Tab) 100 mg TID PO 04/01/16 14:00 05/01/16 13:59 04/02/16 13:09 100 MG Albuterol/ Ipratropium (Combivent Respimat Inh) 1 puffs QID INH 04/01/16 13:00 05/01/16 12:59 04/02/16 13:08 1 PUFFS Isosorbide Mononitrate (Imdur Ext Rel Tab) 120 mg DAILY PO 04/02/16 09:00 05/02/16 08:59 04/02/16 08:18 120 MG Lorazepam (Ativan Tab) 0.5 mg Q12 PRN PO 04/01/16 12:00 05/01/16 11:59 Losartan Potassium (coZAAR TAB) 50 mg BID17 PO 04/01/16 17:00 05/01/16 16:59 04/02/16 08:17 50 MG Methyldopa (Aldomet Tab) 1,000 mg BID PO 04/01/16 21:00 05/01/16 20:59 04/02/16 08:17 1,000 MG Metoprolol Succinate (Toprol Xl Tab) 100 mg DAILY PO 04/02/16 09:00 05/02/16 08:59 04/02/16 08:19 100 MG Multivitamins (Multivitamin Tab) 1 tab DAILY PO 04/02/16 09:00 05/02/16 08:59 04/02/16 08:18 1 TAB Tramadol HCl (Ultram Tab) 50 mg Q12H PRN PO 04/01/16 12:00 05/01/16 11:59 Cholecalciferol (Vitamin D Tab) 5,000 inter.unit DAILY PO 04/02/16 09:00 05/02/16 08:59 04/02/16 08:19 5,000 INTER.UNIT Pantoprazole Sodium (Protonix Tab) 40 mg BID PO 04/01/16 21:00 05/01/16 20:59 04/02/16 08:19 40 MG Heparin Sodium (Porcine) (Heparin Sq 5000 Unit/0.5ml) 5,000 unit Q8 SQ 04/01/16 21:00 05/01/16 20:59 04/02/16 13:15 5,000 UNIT Al Hydrox/Mg Hydrox/ Simethicone 15 ml 15 ml Q6H PRN PO 04/02/16 03:45 05/02/16 03:44 04/02/16 03:47 15 ML Methylprednisolone Sodium Succinate/ Syringe (Solu-Medrol IV/ Syringe) 1.28 ml @ 1.5 mls/min Q8H IV 04/02/16 16:00 05/02/16 14:29
[2016-04-02] MEDS: METHYLPREDNISOLONE IV 80 MG in SYRINGE 0 ML IV SCH (17:04)
[2016-04-02] MEDS: ATORVASTATIN 10 MG TAB PO SCH (19:30)
[2016-04-03] VITALS (7 sets, daily range): BP systolic 135–172; BP diastolic 64–89; PULSE 58–62; TEMP 36.3–36.9; O2SAT 92–98
[2016-04-03] MEDS: METHYLPREDNISOLONE IV 80 MG in SYRINGE 0 ML IV SCH ×4 (00:17→23:40)
[2016-04-03] MEDS: HEPARIN SOD 5000 UNIT/0.5 ML CARP SQ SCH ×3 (05:38→21:44)
--- NOTE | 2016-04-03 06:59 | Clinical Documentation Query ---
[facility] : CLINICAL DOCUMENTATION QUERY Patient is an 89 year old female admitted with acute on chronic hypoxic respiratory failure, "most likely related to worsening underlying interstitial lung disease". Per pulmonary consultation, "Interstitial lung disease. I suspect this by the CT scan is usual interstitial pneumonitis and is worse". She is being treated with IV steroids, supplemental oxygen, Combivent inhaler, and is being monitored on telemetry. In your clinical opinion is this patient being managed for: ( X ) (Acute) Interstitial pneumonitis ( ) Other explanation of clinical findings (Please Explain) ( ) Unable to determine (Please Define) ( ) Need to Discuss ( ) Not Agree The medical record reflects the following clinical findings, treatment, and risk factors. Clinical Indicators: As above Treatment: She is being treated with IV steroids, supplemental oxygen, Combivent inhaler, and is being monitored on telemetry. Risk Factors: Known ILD Please clarify and document your clinical opinion in the progress notes and discharge summary. Terms such as "probable", "suspected", "likely", "questionable", "possible", or "still to be ruled out" are acceptable. IF IN AGREEMENT, YOU MUST DOCUMENT ABOVE DIAGNOSTIC STATEMENT IN DAILY PROGRESS NOTES AND DISCHARGE SUMMARY. This document is not part of the patient's record. Thank You, Shakeel Sierra RN [phone]
[2016-04-03 07:29] LABS: HEMATOCRIT 30.9 % (37-47); MEAN CELL VOLUME 94.2 fL (80-100); MEAN CORPUSCULAR HEMOGLOBIN 29.3 pg (25-34); MEAN CORPUSCULAR HGB CONC 31.1 g/dl (32-36); MEAN PLATELET VOLUME 10.6 fL (7.4-10.4); PLATELET COUNT 297 K/uL (130-400); RED BLOOD COUNT 3.28 M/uL (4.2-5.4); WHITE BLOOD COUNT 4.93 K/uL (4.8-10.8)
[2016-04-03] MEDS: IPRATROPIUM BROMIDE/ALBUTEROL respimat INH INH SCH ×4 (07:41→20:45)
[2016-04-03] MEDS: ESCITALOPRAM OXALATE 10 MG TAB PO SCH (07:41)
[2016-04-03] MEDS: CLOPIDOGREL BISULFATE 75 MG TAB PO SCH (07:41)
[2016-04-03] MEDS: METOPROLOL SUCC 50MG EXT REL TAB PO SCH (07:42)
[2016-04-03] MEDS: ISOSORBIDE MONONITRATE 60 MG TABCR PO SCH (07:42)
[2016-04-03] MEDS: MULTIVITAMIN TAB PO SCH (07:43)
[2016-04-03] MEDS: LOSARTAN POTASSIUM 50 MG TAB PO SCH (07:43)
[2016-04-03] MEDS: PANTOprazole SOD 40 MG TAB PO SCH ×2 (07:43→20:44)
[2016-04-03] MEDS: METHYLDOPA 250 MG TAB PO SCH ×2 (07:43→20:44)
[2016-04-03] MEDS: ASPIRIN 81 MG ECTAB PO SCH (07:44)
[2016-04-03] MEDS: AMLODIPINE BESYLATE 5 MG TAB PO SCH (07:44)
[2016-04-03] MEDS: CHOLECALCIFEROL 1000 INTER.UNIT TAB PO SCH (07:44)
[2016-04-03 08:22] LABS: BUN/CREATININE RATIO 22.1 (10-20); CALCIUM 8.8 mg/dl (8.5-10.1); CREATININE 2.3 mg/dl (0.60-1.20); MAGNESIUM 2.6 mg/dl (1.8-2.4); POTASSIUM 5.2 mmol/L (3.5-5.1)
--- NOTE | 2016-04-03 16:02 | Pulmonology Progress Note ---
Pulmonary Progress Note Date of Service Apr 03, 2016. Attending Cable Subjective Dyspnea is controlled at rest. Did ambulate to the restroom today with O2 maurizio : 82% - per patient. No increased cough or wheeze. Reports increased dyspnea in supine position and reports she is more comfortable in chair. Appetite in-tact. Denies chest pain. Objective 89-yo female admitted to [facility] 04/01/16 with hypoxia and dyspnea. Prior records were reviewed. PMHx includes: O2-dependant ILD with traction bronchiectasis, Pulmonary nodules, CKD III, right sided breast CA s/p excision and radiation, CAD s/p CABG x 2 + PCTA, severe sleep apnea on auto-CPAP, diabetes mellitus, GERD, Severe PVD s/p stent to right renal artery and bilateral iliacs. PFTs 10/2014: moderate restriction with reduction in DLCO. Patient admitted to [facility] with 1-month history of progressive dyspnea and hypoxia requiring up-titration of her home O2. On admission CT suggestive of progression of her ILD with mild pulmonary vascular congestion. ProBNP: 1941. Other labs indicated mild anemia, no leukocytosis and FRANDY on CKD III. She is treated with supplemental O2 and IV steroid. Today: - Slept on CPAP - O2: 94-96% 5LPM via NC - WBC: 4.93, Hgb.Hct: 9.6/30.9 - Creatinine increased to 2.3 Physical Exam: Constitutional: Well developed, well nourished obese elderly female. No acute distress. Head: + facial symmetry Eyes: EOMi, PERRLA, no conjunctival injection Mouth: Moist mucous membranes. No erythema, exudate, or post nasal gtt Neck: Trachea midline. No adenopathy or masses Respiratory: Non-labored respirations. Fine bilateral rales most prominent at bases. Decreased breath sounds right posterionr. No clubbing or cyanosis. Cardiovascular: RRR, I/ systolic murmur +2 radial pulses. <1s capillary refill. MSK/Extremities: Moving and developed symmetrically. No peripheral edema. No calf tenderness. Neurologic: A&O, data recall in-tact. Appropriate affect. Assessment & Plan 89-yo female presents to the office progression of ILD and hypoxia. She is currently stable on current O2 and treatment plan. Would recommend echocardiogram at this time. Additionally, avoidance of nephrotoxins, aggressive diuresis and consider nephrology consultation if continued decline in renal function on AM labs. Data Medications: Current Inpatient Medications Medications (Trade) Dose Ordered Sig/Rey Route Start Time Stop Time Status Last Admin Dose Admin Acetaminophen (Tylenol Tab) 650 mg Q4H PRN PO 04/01/16 11:45 05/01/16 11:44 04/02/16 00:32 650 MG Ondansetron HCl (Zofran Inj) 4 mg Q6H PRN IV 04/01/16 11:45 05/01/16 11:44 04/02/16 03:25 4 MG Nitroglycerin (Nitrostat Tab) 0.4 mg UD PRN SL 04/01/16 11:45 05/01/16 11:44 Amlodipine Besylate (Norvasc Tab) 10 mg QAM PO 04/02/16 09:00 05/02/16 08:59 04/03/16 07:44 10 MG Aspirin (Ecotrin Tab) 81 mg DAILY PO 04/02/16 09:00 05/02/16 08:59 04/03/16 07:44 81 MG Atorvastatin Calcium (Lipitor Tab) 10 mg HS PO 04/01/16 21:00 05/01/16 20:59 04/02/16 19:30 10 MG Clopidogrel Bisulfate (plAVix TAB) 75 mg DAILY PO 04/02/16 09:00 05/02/16 08:59 04/03/16 07:41 75 MG Escitalopram Oxalate (Lexapro Tab) 10 mg DAILY PO 04/02/16 09:00 05/02/16 08:59 04/03/16 07:41 10 MG Hydralazine HCl (Apresoline Tab) 100 mg TID PO 04/01/16 14:00 05/01/16 13:59 04/03/16 13:14 100 MG Albuterol/ Ipratropium (Combivent Respimat Inh) 1 puffs QID INH 04/01/16 13:00 05/01/16 12:59 04/03/16 13:14 1 PUFFS Isosorbide Mononitrate (Imdur Ext Rel Tab) 120 mg DAILY PO 04/02/16 09:00 05/02/16 08:59 04/03/16 07:42 120 MG Lorazepam (Ativan Tab) 0.5 mg Q12 PRN PO 04/01/16 12:00 05/01/16 11:59 Losartan Potassium (coZAAR TAB) 50 mg BID17 PO 04/01/16 17:00 05/01/16 16:59 04/03/16 07:43 50 MG Methyldopa (Aldomet Tab) 1,000 mg BID PO 04/01/16 21:00 05/01/16 20:59 04/03/16 07:43 1,000 MG Metoprolol Succinate (Toprol Xl Tab) 100 mg DAILY PO 04/02/16 09:00 05/02/16 08:59 04/03/16 07:42 100 MG Multivitamins (Multivitamin Tab) 1 tab DAILY PO 04/02/16 09:00 05/02/16 08:59 04/03/16 07:43 1 TAB Tramadol HCl (Ultram Tab) 50 mg Q12H PRN PO 04/01/16 12:00 05/01/16 11:59 Cholecalciferol (Vitamin D Tab) 5,000 inter.unit DAILY PO 04/02/16 09:00 05/02/16 08:59 04/03/16 07:44 5,000 INTER.UNIT Pantoprazole Sodium (Protonix Tab) 40 mg BID PO 04/01/16 21:00 05/01/16 20:59 04/03/16 07:43 40 MG Heparin Sodium (Porcine) (Heparin Sq 5000 Unit/0.5ml) 5,000 unit Q8 SQ 04/01/16 21:00 05/01/16 20:59 04/03/16 13:18 5,000 UNIT Al Hydrox/Mg Hydrox/ Simethicone 15 ml 15 ml Q6H PRN PO 04/02/16 03:45 05/02/16 03:44 04/02/16 03:47 15 ML Methylprednisolone Sodium Succinate/ Syringe (Solu-Medrol IV/ Syringe) 1.28 ml @ 1.5 mls/min Q8H IV 04/02/16 16:00 05/02/16 14:29 04/03/16 07:40 1.5 MLS/MIN I & O: 24-Hour Column 04/03/16 07:59 Intake Total 1450 ml Output Total 1100 ml Balance 350 ml Vital Signs: Date Time Temp Pulse Resp B/P Pulse Ox O2 Delivery O2 Flow Rate FiO2 04/03/16 12:19 36.4 60 18 159/64 92 Nasal Cannula 4.0 04/03/16 12:00 Nasal Cannula 04/03/16 08:00 Nasal Cannula 04/03/16 07:59 36.5 58 18 172/89 96 CPAP 04/03/16 04:00 Nasal Cannula 5.0 04/03/16 03:43 36.8 61 21 171/71 97 BiPAP 04/03/16 00:02 36.9 62 19 159/66 94 Nasal Cannula 04/03/16 00:00 Nasal Cannula 5.0 04/02/16 22:15 6.0 04/02/16 20:00 Nasal Cannula 5.0 04/02/16 19:24 37.1 58 20 130/47 96 Nasal Cannula 6.0 04/02/16 16:24 95 Nasal Cannula 6.0 04/02/16 15:24 36.9 52 22 127/55 91 BiPAP Laboratory Results: Last 24 Hours Test 04/03/16 06:35 04/03/16 11:25 White Blood Count 4.93 K/uL Red Blood Count 3.28 M/uL Hemoglobin 9.6 g/dL Hematocrit 30.9 % Mean Corpuscular Volume 94.2 fL Mean Corpuscular Hemoglobin 29.3 pg Mean Corpuscular Hemoglobin Concent 31.1 g/dl RDW Standard Deviation 51.5 fL RDW Coefficient of Variation 15.2 % Platelet Count 297 K/uL Mean Platelet Volume 10.6 fL Sodium Level 137 mmol/L Potassium Level 5.2 mmol/L Chloride Level 97 mmol/L Carbon Dioxide Level 34 mmol/L Anion Gap 6.0 mmol/L Blood Urea Nitrogen 51 mg/dl Creatinine 2.30 mg/dl Est Creatinine Clear Calc Drug Dose 17.2 ml/min Estimated GFR () 21.3 Estimated GFR (Non- 18.4 BUN/Creatinine Ratio 22.1 Random Glucose 135 mg/dl Calcium Level 8.8 mg/dl Magnesium Level 2.6 mg/dl Bedside Glucose 152 mg/dl
--- NOTE | 2016-04-03 16:03 | Progress Note ---
Medicine Progress Note Date & Time of Visit: Apr 03, 2016 at 15:55. Subjective Patient seen and examined. Sister present at bedside. Patient feels well today. Denies chest pain or SOB. Oxygenation has improved today compared to yesterday. Nursing staff reported that patient ambulated to bathroom and O2 sat did not drop below 88%. Objective Last 8 Hrs Date Time Temp Pulse Resp B/P Pulse Ox O2 Delivery O2 Flow Rate FiO2 04/03/16 15:39 36.5 58 22 135/69 98 Nasal Cannula 6.0 04/03/16 12:19 36.4 60 18 159/64 92 Nasal Cannula 4.0 04/03/16 12:00 Nasal Cannula 04/03/16 08:00 Nasal Cannula 04/03/16 07:59 36.5 58 18 172/89 96 CPAP Physical Exam: General-awake; alert; NAD; sitting in bedside chair Eyes-EOMI; no scleral icterus Neck-no stridor; trachea midline Lungs-diffuse expiratory crackles Heart-RRR Abdomen-soft; NTND; nBS Extremities-trace LE edema; no deformity Neuro-no gross focal deficits; oriented x3 Laboratory Results: Last 24 Hours Test 04/03/16 06:35 04/03/16 11:25 White Blood Count 4.93 K/uL Red Blood Count 3.28 M/uL Hemoglobin 9.6 g/dL Hematocrit 30.9 % Mean Corpuscular Volume 94.2 fL Mean Corpuscular Hemoglobin 29.3 pg Mean Corpuscular Hemoglobin Concent 31.1 g/dl RDW Standard Deviation 51.5 fL RDW Coefficient of Variation 15.2 % Platelet Count 297 K/uL Mean Platelet Volume 10.6 fL Sodium Level 137 mmol/L Potassium Level 5.2 mmol/L Chloride Level 97 mmol/L Carbon Dioxide Level 34 mmol/L Anion Gap 6.0 mmol/L Blood Urea Nitrogen 51 mg/dl Creatinine 2.30 mg/dl Est Creatinine Clear Calc Drug Dose 17.2 ml/min Estimated GFR () 21.3 Estimated GFR (Non- 18.4 BUN/Creatinine Ratio 22.1 Random Glucose 135 mg/dl Calcium Level 8.8 mg/dl Magnesium Level 2.6 mg/dl Bedside Glucose 152 mg/dl Assessment & Plan 89 year old female with interstitial lung disease presented to the ED with gradual worsening of SOB and hypoxia over the last month ACUTE INTERSTITIAL PNEUMONITIS -most likely related to worsening underlying interstitial lung disease -continue oxygen supplementation -continue Combivent inhaler -Pulmonology consulted -flu negative -methylprednisolone 80mg q8 x3 days (started 04/02/16) and then likely taper -may require BiPAP for respiratory support ACUTE RENAL INSUFFICIENCY -likely 2/2 IV Lasix dose received on admission -hold losartan -avoid nephrotoxins CAD -Echo with EF of 50-55%, mild valvular disease, pulmonary HTN (06/2014) -received 40mg IV Lasix on admission -troponin negative and EKG without acute ischemic changes -continue metoprolol, atorvastatin, ASA, Plavix, Imdur -TTE pending CKD STAGE 3 -creatinine 1.7 (on admission) -has been running between 1.3-1.6 over last several months HTN -elevated on admission -improved -continue Hydralazine, Imdur, metoprolol, methyldopa -hold losartan as above PERIPHERAL ARTERIAL DISEASE -H/O renal artery stent, carotid endarterectomy -continue ASA, Plavix DEPRESSION -continue Lexapro -Ativan prn USMAN -continue CPAP HS DVT PROPHYLAXIS: Sq heparin CODE STATUS: LEVEL 5 DNR Patient's family requesting discharge to rehab when medically stable. PT/OT evaluations recommending rehab. enterprise services manager consulted. Consultants: Pulmonary Current Inpatient Medications: Current Inpatient Medications Medications (Trade) Dose Ordered Sig/Rey Route Start Time Stop Time Status Last Admin Dose Admin Acetaminophen (Tylenol Tab) 650 mg Q4H PRN PO 04/01/16 11:45 05/01/16 11:44 04/02/16 00:32 650 MG Ondansetron HCl (Zofran Inj) 4 mg Q6H PRN IV 04/01/16 11:45 05/01/16 11:44 04/02/16 03:25 4 MG Nitroglycerin (Nitrostat Tab) 0.4 mg UD PRN SL 04/01/16 11:45 05/01/16 11:44 Amlodipine Besylate (Norvasc Tab) 10 mg QAM PO 04/02/16 09:00 05/02/16 08:59 04/03/16 07:44 10 MG Aspirin (Ecotrin Tab) 81 mg DAILY PO 04/02/16 09:00 05/02/16 08:59 04/03/16 07:44 81 MG Atorvastatin Calcium (Lipitor Tab) 10 mg HS PO 04/01/16 21:00 05/01/16 20:59 04/02/16 19:30 10 MG Clopidogrel Bisulfate (plAVix TAB) 75 mg DAILY PO 04/02/16 09:00 05/02/16 08:59 04/03/16 07:41 75 MG Escitalopram Oxalate (Lexapro Tab) 10 mg DAILY PO 04/02/16 09:00 05/02/16 08:59 04/03/16 07:41 10 MG Hydralazine HCl (Apresoline Tab) 100 mg TID PO 04/01/16 14:00 05/01/16 13:59 04/03/16 13:14 100 MG Albuterol/ Ipratropium (Combivent Respimat Inh) 1 puffs QID INH 04/01/16 13:00 05/01/16 12:59 04/03/16 13:14 1 PUFFS Isosorbide Mononitrate (Imdur Ext Rel Tab) 120 mg DAILY PO 04/02/16 09:00 05/02/16 08:59 04/03/16 07:42 120 MG Lorazepam (Ativan Tab) 0.5 mg Q12 PRN PO 04/01/16 12:00 05/01/16 11:59 Losartan Potassium (coZAAR TAB) 50 mg BID17 PO 04/01/16 17:00 05/01/16 16:59 04/03/16 07:43 50 MG Methyldopa (Aldomet Tab) 1,000 mg BID PO 04/01/16 21:00 05/01/16 20:59 04/03/16 07:43 1,000 MG Metoprolol Succinate (Toprol Xl Tab) 100 mg DAILY PO 04/02/16 09:00 05/02/16 08:59 04/03/16 07:42 100 MG Multivitamins (Multivitamin Tab) 1 tab DAILY PO 04/02/16 09:00 05/02/16 08:59 04/03/16 07:43 1 TAB Tramadol HCl (Ultram Tab) 50 mg Q12H PRN PO 04/01/16 12:00 05/01/16 11:59 Cholecalciferol (Vitamin D Tab) 5,000 inter.unit DAILY PO 04/02/16 09:00 05/02/16 08:59 04/03/16 07:44 5,000 INTER.UNIT Pantoprazole Sodium (Protonix Tab) 40 mg BID PO 04/01/16 21:00 05/01/16 20:59 04/03/16 07:43 40 MG Heparin Sodium (Porcine) (Heparin Sq 5000 Unit/0.5ml) 5,000 unit Q8 SQ 04/01/16 21:00 05/01/16 20:59 04/03/16 13:18 5,000 UNIT Al Hydrox/Mg Hydrox/ Simethicone 15 ml 15 ml Q6H PRN PO 04/02/16 03:45 05/02/16 03:44 04/02/16 03:47 15 ML Methylprednisolone Sodium Succinate/ Syringe (Solu-Medrol IV/ Syringe) 1.28 ml @ 1.5 mls/min Q8H IV 04/02/16 16:00 05/02/16 14:29 04/03/16 07:40 1.5 MLS/MIN
[2016-04-03] MEDS: ATORVASTATIN 10 MG TAB PO SCH (20:45)
[2016-04-03] MEDS: ACETAMINOPHEN 325 MG TAB PO PRN (23:40)
[2016-04-04] VITALS (8 sets, daily range): BP systolic 148–186; BP diastolic 52–71; PULSE 54–60; TEMP 36.3–36.6; O2SAT 93–96
[2016-04-04] MEDS: HEPARIN SOD 5000 UNIT/0.5 ML CARP SQ SCH ×3 (06:02→21:45)
[2016-04-04] MEDS: METHYLPREDNISOLONE IV 80 MG in SYRINGE 0 ML IV SCH (07:31)
[2016-04-04] MEDS: CLOPIDOGREL BISULFATE 75 MG TAB PO SCH (07:31)
[2016-04-04] MEDS: ESCITALOPRAM OXALATE 10 MG TAB PO SCH (07:31)
[2016-04-04] MEDS: IPRATROPIUM BROMIDE/ALBUTEROL respimat INH INH SCH ×4 (07:31→20:12)
[2016-04-04] MEDS: AMLODIPINE BESYLATE 5 MG TAB PO SCH (07:32)
[2016-04-04] MEDS: ISOSORBIDE MONONITRATE 60 MG TABCR PO SCH (07:32)
[2016-04-04] MEDS: METOPROLOL SUCC 50MG EXT REL TAB PO SCH (07:32)
[2016-04-04] MEDS: ASPIRIN 81 MG ECTAB PO SCH (07:33)
[2016-04-04] MEDS: CHOLECALCIFEROL 1000 INTER.UNIT TAB PO SCH (07:34)
[2016-04-04] MEDS: METHYLDOPA 250 MG TAB PO SCH ×2 (07:35→20:12)
[2016-04-04] MEDS: PANTOprazole SOD 40 MG TAB PO SCH ×2 (07:36→20:13)
[2016-04-04] MEDS: MULTIVITAMIN TAB PO SCH (07:36)
[2016-04-04 07:51] LABS: HEMATOCRIT 32.1 % (37-47); MEAN CELL VOLUME 94.1 fL (80-100); MEAN CORPUSCULAR HEMOGLOBIN 29.3 pg (25-34); MEAN CORPUSCULAR HGB CONC 31.2 g/dl (32-36); MEAN PLATELET VOLUME 10.8 fL (7.4-10.4); PLATELET COUNT 333 K/uL (130-400); RED BLOOD COUNT 3.41 M/uL (4.2-5.4); WHITE BLOOD COUNT 9.07 K/uL (4.8-10.8)
[2016-04-04 08:15] LABS: BUN/CREATININE RATIO 28.2 (10-20); CALCIUM 8.6 mg/dl (8.5-10.1); CREATININE 2.1 mg/dl (0.60-1.20); MAGNESIUM 2.9 mg/dl (1.8-2.4)
--- NOTE | 2016-04-04 11:40 | ECHOCARDIOGRAM REPORT ---
*NOTICE TO RECEIVING [employer] This information is strictly Confidential and protected under [place] law. [place] law prohibits you from making any further disclosure of this information unless further disclosure is expressly permitted by the written consent of the person to whom it pertains or is authorized by law. A general authorization for the release of medical or other information is not sufficient for this purpose. Hospital accepts no responsibility if the information is made available to any other person, INCLUDING THE PATIENT. Interpretation Summary * Name: RUBEN RODRIGUEZ Study Date: 04/04/2016 07:19 AM * Patient Location: .2T\S\E222\S\1 HR: 60 * : 1925 (M/d/yyyy) Gender: Female Height: 61 in * Age: 89 yrs Ethnicity: [place] Weight: 197 lb * Ordering Physician: Piedad Sanchez * Referring Physician: Self, Referred * Performed By: Nisha Tubbs RCS * * Reason For Study: MURMUR / HYPOXIA * BSA: 1.9 m2 * -- Conclusions -- * There is moderate concentric left ventricular hypertrophy. * The left ventricular wall motion is normal. * Ejection Fraction = 55-60%. * The right ventricle is normal in size and function. * Moderate aortic valve sclerosis without stenosis is present. * Mild aortic regurgitation. * Moderate pulmonic valvular regurgitation. * There is moderate mitral regurgitation. * There is moderate tricuspid regurgitation. * Moderate pulmonary hypertension is present. * The pulmonary artery systolic pressure is calculated to be 57 mmHg. * Compared to the prior study dated 12/11/14, there is no significant interval change. Procedure Details * A complete two-dimensional transthoracic echocardiogram was performed (2D, M-mode, Doppler and color flow Doppler). Left Ventricle * The left ventricle is normal in size. * There is moderate concentric left ventricular hypertrophy. * Left ventricular systolic function is normal. * Ejection Fraction = 55-60%. * The left ventricular wall motion is normal. Right Ventricle * The right ventricle is normal in size and function. * The right ventricular systolic function is normal as assessed by tricuspid annular plane systolic excursion (TAPSE) (normal >1.5 cm). Atria * The left atrium is moderately dilated. * Right atrial size is normal. * There is no evidence of atrial septal defect, but resolution does not allow assessment for a patent foramen ovale. Mitral Valve * The mitral valve is normal. * There is no mitral valve stenosis. * There is moderate mitral regurgitation. Tricuspid Valve * The tricuspid valve is normal. * There is no tricuspid stenosis. * There is moderate tricuspid regurgitation. * Moderate pulmonary hypertension is present. The pulmonary artery systolic pressure is calculated to be 57 mmHg. Aortic Valve * The aortic valve is trileaflet. * Moderate aortic valve sclerosis without stenosis is present. * Mild aortic regurgitation. Pulmonic Valve * The pulmonary valve is inadequately visualized, but the Doppler data is adequate for interpretation. * Pulmonic stenosis is absent. * Moderate pulmonic valvular regurgitation. Great Vessels * The aortic root and proximal ascending aorta are normal sized. Pericardium/Pleural * There is no pericardial effusion. Great Vessels * Normal inferior vena cava diameter and respiratory variation suggests normal central venous pressure. Left Ventricular Diastolic Function * The LV diastolic function is abnormal but not graded due to the presence of underlying mitral valve pathology. MMode 2D Measurements and Calculations IVSd 1.9 cm IVSs 2.7 cm LVIDd 4.1 cm LVIDs 3.0 cm LVPWd 1.3 cm LVPWs 1.6 cm IVS/LVPW 1.4 FS 26.8 % EDV(Teich) 75.8 ml ESV(Teich) 35.8 ml EF(Teich) 52.8 % EDV(cubed) 70.8 ml ESV(cubed) 27.7 ml EF(cubed) 60.8 % % IVS thick 45.1 % % LVPW thick 25.6 % LV mass(C)d 264.7 grams LV mass(C)dI 141.0 grams/m\S\2 LV mass(C)s 308.6 grams LV mass(C)sI 164.4 grams/m\S\2 SV(Teich) 40.0 ml SI(Teich) 21.3 ml/m\S\2 SV(cubed) 43.1 ml SI(cubed) 22.9 ml/m\S\2 Ao root diam 3.4 cm Ao root area 9.1 cm\S\2 LA dimension 5.1 cm LA/Ao 1.5 LVOT diam 1.7 cm LVOT area 2.4 cm\S\2 LVAd ap4 32.6 cm\S\2 LVLd ap4 8.4 cm EDV(MOD-sp4) 100.6 ml EDV(sp4-el) 108.0 ml LVAs ap4 17.6 cm\S\2 LVLs ap4 6.0 cm ESV(MOD-sp4) 41.1 ml ESV(sp4-el) 43.5 ml EF(MOD-sp4) 59.1 % EF(sp4-el) 59.7 % LVAd ap2 24.8 cm\S\2 LVLd ap2 7.6 cm EDV(MOD-sp2) 66.4 ml EDV(sp2-el) 68.7 ml LVAs ap2 14.3 cm\S\2 LVLs ap2 6.4 cm ESV(MOD-sp2) 26.7 ml ESV(sp2-el) 27.4 ml EF(MOD-sp2) 59.9 % EF(sp2-el) 60.1 % LVLd %diff -9.97 % EDV(MOD-bp) 86.6 ml LVLs %diff 5.5 % ESV(MOD-bp) 34.0 ml EF(MOD-bp) 60.7 % SV(MOD-sp4) 59.5 ml SI(MOD-sp4) 31.7 ml/m\S\2 SV(MOD-sp2) 39.8 ml SI(MOD-sp2) 21.2 ml/m\S\2 SV(MOD-bp) 52.6 ml SI(MOD-bp) 28.0 ml/m\S\2 SV(sp4-el) 64.4 ml SI(sp4-el) 34.3 ml/m\S\2 SV(sp2-el) 41.3 ml SI(sp2-el) 22.0 ml/m\S\2 Doppler Measurements and Calculations MV E max placido 132.1 cm/sec MV A max placido 107.8 cm/sec MV E/A 1.2 MV P1/2t max placido 146.0 cm/sec MV P1/2t 40.0 msec MVA(P1/2t) 5.5 cm\S\2 MV dec slope 1069.6 cm/sec\S\2 MV dec time 0.17 sec Ao V2 max 172.6 cm/sec Ao max PG 11.9 mmHg Ao max PG (full) 9.2 mmHg KEVIN(V,A) 1.1 cm\S\2 KEVIN(V,D) 1.1 cm\S\2 AI max placido 339.5 cm/sec AI max PG 46.1 mmHg AI dec slope 249.0 cm/sec\S\2 AI P1/2t 399.3 msec LV V1 max PG 2.8 mmHg LV V1 max 83.0 cm/sec MR max placido 528.1 cm/sec MR max PG 111.9 mmHg PA V2 max 96.5 cm/sec PA max PG 3.7 mmHg PI max placido 220.1 cm/sec PI max PG 19.4 mmHg PI dec slope 234.9 cm/sec\S\2 PI P1/2t 274.5 msec TR max placido 334.5 cm/sec
--- NOTE | 2016-04-04 12:21 | PROGRESS NOTE ---
DATE: 04/04/2016 PROBLEM LIST: Includes: 1. Hypoxia. 2. Oxygen dependent interstitial lung disease. 3. Pulmonary fibrosis. SUBJECTIVE: The patient reports that she is feeling better today. Her daughter was in the room with her today as well and reports that she seems to be feeling better and looks better according to the daughter. The patient reports that she is not as short of breath. She does not have to work as hard to breathe. She is not really having any coughing at this time. No increased wheezing. She states that she is able to use her walker and move back and forth from the bathroom. She states that she does get short of breath and her oxygen drops down to the low 80% range, but comes right back up right away. She denies any other concerns or problems at this time. She is not having any chest pain. No palpitations, no chest heaviness. She is voiding pretty well. She does have some swelling in her legs that comes and goes. She states that she is still feeling very weak and run down and that her strength is not back yet. OBJECTIVE: GENERAL: The patient is an 89-year-old female sitting at bedside in no acute distress, does not appear in any respiratory distress, appears comfortable. She is interactive and cooperative. She is alert and oriented. VITAL SIGNS: Temp 36.6, pulse 58, respirations 24, blood pressure is 186/71, pulse ox 96% on 6 liters. HEENT: Normocephalic, atraumatic. Pupils equal, round and reactive to light and accommodation. Extraocular movements are intact. [place] moist gingival and buccal mucosa. NECK: Supple. There is no mass. No adenopathy. No bruit. Trachea is in midline. No JVD. CHEST: The patient does have some decreased breath sounds predominantly on the right. There are a few faint bibasilar rales noted. No rhonchi or wheezing noted. CARDIOVASCULAR: Regular rate and rhythm. The patient has a 2/6 systolic murmur. No gallops or rubs noted. ABDOMEN: Bowel sounds are present. Abdomen soft, nontender. No guarding, rigidity or organomegaly. EXTREMITIES: No erythema, no edema, no cyanosis or clubbing noted. NEUROLOGIC: Cranial nerves II-XII are intact. No focal deficit. LABORATORY DATA: Shows white count of 9000, H\T\H of 10.0 and 32.1, platelet count of 333,000. BUN is 59, creatinine is down to 2.1, was 2.3 yesterday. No new imaging data. IMPRESSION: This is an 89-year-old female with longstanding history of interstitial lung disease/pulmonary fibrosis who presented due to hypoxia and was felt to have progression, as well as possible pneumonitis. At this time, the patient has responded well to steroids. Currently is still on 80 mg IV q. 8 hours. At this time, I would like to decrease the patient's steroids to 60 mg q. 8 hours and taper slowly, as I am afraid that patient may not tolerate too rapid of a drop. This was explained to the patient and daughter and they are agreeable to this. I would also like for the patient to have a CAT scan without contrast to see if we can get a better evaluation if there has been progression of her disease. The family is agreeable to this as well. Otherwise, would recommend to continue meds as they are. Her creatinine has bumped down from 2.3 to 2.1. Continue to monitor. In reviewing the chart, it does look like it was recommended that the patient go to therapy. Family is in agreement with this. I also feel that due to patient's overall decline, short term rehabilitation would be prudent for this patient. Will continue to follow through hospitalization.
--- NOTE | 2016-04-04 13:16 | DIAGNOSTIC IMAGING REPORT ---
CHEST CT WITHOUT CONTRAST CT DOSE: 492.12 mGy.cm HISTORY: Dyspnea Dyspnea, ILD/Pulm Fibrosis TECHNIQUE: Multiaxial CT images of the chest were performed without contrast. COMPARISON: 08/26/2015 FINDINGS: Diffuse bilateral parenchymal fibrotic change. Superimposed components of mild congestive failure. Chronic pleural thickening over both hemithoraces. Left pleural effusion slightly increased in volume from the prior study. IMPRESSION: Diffuse chronic parenchymal fibrosis with superimposed components of mild congestive failure. 2. Moderate stable cardiomegaly. 3. Small left pleural effusion slightly increased in volume from the prior study. Electronically signed by: Luis Fernando Sagastume M.D. 04/04/2016 1:14 PM Dictated Date/Time: 04/04/2016 1:06 PM
[2016-04-04] MEDS: METHYLPREDNISOLONE IV 60 MG in SYRINGE 0 ML IV SCH ×2 (16:20→23:26)
--- NOTE | 2016-04-04 16:37 | Progress Note ---
Subjective Date of Service: Apr 04, 2016. Subjective Pt evaluation today including: conversation w/ patient, physical exam, lab review, review of studies, review of inpatient medication list Saw/examined the patient in room 222 breathing status improved slightly Still requiring 6L O2 via nasal cannula +ambulating - hypoxic during ambulation Problem List Medical Problems: (1) Hypoxia Status: Acute (2) Pulmonary fibrosis Permanent Comment: Followed by Dr. Gonzalez Status: Chronic (3) Shortness of breath Status: Acute (4) Weakness Status: Acute Review of Systems Constitutional: + fatigue, + weakness, No chills, No fever Respiratory: + dyspnea on exertion, No cough, No shortness of breath, No sputum Cardiac: No chest pain, No edema, No palpitations Abdomen: No diarrhea, No nausea, No pain, No vomiting Medications Current Inpatient Medications Medications (Trade) Dose Ordered Sig/Rey Route Start Time Stop Time Status Last Admin Dose Admin Acetaminophen (Tylenol Tab) 650 mg Q4H PRN PO 04/01/16 11:45 05/01/16 11:44 04/03/16 23:40 650 MG Ondansetron HCl (Zofran Inj) 4 mg Q6H PRN IV 04/01/16 11:45 05/01/16 11:44 04/02/16 03:25 4 MG Nitroglycerin (Nitrostat Tab) 0.4 mg UD PRN SL 04/01/16 11:45 05/01/16 11:44 Amlodipine Besylate (Norvasc Tab) 10 mg QAM PO 04/02/16 09:00 05/02/16 08:59 04/04/16 07:32 10 MG Aspirin (Ecotrin Tab) 81 mg DAILY PO 04/02/16 09:00 05/02/16 08:59 04/04/16 07:33 81 MG Atorvastatin Calcium (Lipitor Tab) 10 mg HS PO 04/01/16 21:00 05/01/16 20:59 04/03/16 20:45 10 MG Clopidogrel Bisulfate (plAVix TAB) 75 mg DAILY PO 04/02/16 09:00 05/02/16 08:59 04/04/16 07:31 75 MG Escitalopram Oxalate (Lexapro Tab) 10 mg DAILY PO 04/02/16 09:00 05/02/16 08:59 04/04/16 07:31 10 MG Hydralazine HCl (Apresoline Tab) 100 mg TID PO 04/01/16 14:00 05/01/16 13:59 04/04/16 13:17 100 MG Albuterol/ Ipratropium (Combivent Respimat Inh) 1 puffs QID INH 04/01/16 13:00 05/01/16 12:59 04/04/16 16:20 1 PUFFS Isosorbide Mononitrate (Imdur Ext Rel Tab) 120 mg DAILY PO 04/02/16 09:00 05/02/16 08:59 04/04/16 07:32 120 MG Lorazepam (Ativan Tab) 0.5 mg Q12 PRN PO 04/01/16 12:00 05/01/16 11:59 Losartan Potassium (coZAAR TAB) 50 mg BID17 PO 04/01/16 17:00 05/01/16 16:59 Future Hold 04/03/16 07:43 50 MG Methyldopa (Aldomet Tab) 1,000 mg BID PO 04/01/16 21:00 05/01/16 20:59 04/04/16 07:35 1,000 MG Metoprolol Succinate (Toprol Xl Tab) 100 mg DAILY PO 04/02/16 09:00 05/02/16 08:59 04/04/16 07:32 100 MG Multivitamins (Multivitamin Tab) 1 tab DAILY PO 04/02/16 09:00 05/02/16 08:59 04/04/16 07:36 1 TAB Tramadol HCl (Ultram Tab) 50 mg Q12H PRN PO 04/01/16 12:00 05/01/16 11:59 Cholecalciferol (Vitamin D Tab) 5,000 inter.unit DAILY PO 04/02/16 09:00 05/02/16 08:59 04/04/16 07:34 5,000 INTER.UNIT Pantoprazole Sodium (Protonix Tab) 40 mg BID PO 04/01/16 21:00 05/01/16 20:59 04/04/16 07:36 40 MG Heparin Sodium (Porcine) (Heparin Sq 5000 Unit/0.5ml) 5,000 unit Q8 SQ 04/01/16 21:00 05/01/16 20:59 04/04/16 13:19 5,000 UNIT Al Hydrox/Mg Hydrox/ Simethicone 15 ml 15 ml Q6H PRN PO 04/02/16 03:45 05/02/16 03:44 04/02/16 03:47 15 ML Methylprednisolone Sodium Succinate/ Syringe (Solu-Medrol IV/ Syringe) 0.96 ml @ 1.5 mls/min Q8H IV 04/04/16 16:00 05/04/16 15:59 04/04/16 16:20 1.5 MLS/MIN Objective Vital Signs Date Time Temp Pulse Resp B/P Pulse Ox O2 Delivery O2 Flow Rate FiO2 04/04/16 16:00 Nasal Cannula 6.0 04/04/16 12:04 36.3 55 20 149/52 93 Nasal Cannula 6.0 04/04/16 12:00 Nasal Cannula 6.0 04/04/16 11:27 Nasal Cannula 6.0 04/04/16 08:00 Nasal Cannula 6.0 04/04/16 07:36 36.6 58 24 186/71 96 Nasal Cannula 6.0 04/04/16 04:00 CPAP 04/04/16 03:35 36.6 60 20 175/63 94 BiPAP 04/04/16 00:35 95 6.0 04/04/16 00:01 Nasal Cannula 6.0 04/03/16 23:26 36.4 58 20 165/65 96 Nasal Cannula 6.0 04/03/16 20:00 Nasal Cannula 6.0 04/03/16 19:40 36.3 58 22 164/67 97 Nasal Cannula 6.0 Physical Exam General Appearance: no apparent distress Respiratory/Chest: no respiratory distress, no accessory muscle use, + decreased breath sounds Cardiovascular: regular rate, rhythm, no edema, no murmur Abdomen: normal bowel sounds, non tender, soft Extremities: normal inspection, no pedal edema Neurologic/Psychiatric: no motor/sensory deficits, alert, normal mood/affect Laboratory Results Last 24 Hours Test 04/03/16 20:12 04/04/16 06:34 04/04/16 07:01 04/04/16 11:09 Bedside Glucose 155 mg/dl 134 mg/dl 170 mg/dl White Blood Count 9.07 K/uL Red Blood Count 3.41 M/uL Hemoglobin 10.0 g/dL Hematocrit 32.1 % Mean Corpuscular Volume 94.1 fL Mean Corpuscular Hemoglobin 29.3 pg Mean Corpuscular Hemoglobin Concent 31.2 g/dl RDW Standard Deviation 52.3 fL RDW Coefficient of Variation 15.2 % Platelet Count 333 K/uL Mean Platelet Volume 10.8 fL Sodium Level 136 mmol/L Potassium Level 5.0 mmol/L Chloride Level 95 mmol/L Carbon Dioxide Level 29 mmol/L Anion Gap 12.0 mmol/L Blood Urea Nitrogen 59 mg/dl Creatinine 2.10 mg/dl Est Creatinine Clear Calc Drug Dose 19.2 ml/min Estimated GFR () 23.8 Estimated GFR (Non- 20.5 BUN/Creatinine Ratio 28.2 Random Glucose 132 mg/dl Calcium Level 8.6 mg/dl Magnesium Level 2.9 mg/dl Assessment and Plan This is an 89 year old female with PMH of oxygen dependent interstitial lung disease and pulmonary fibrosis, CAD s/p CABG, USMAN on CPAP nocturnally, PAD presents with worsening shortness of breath Acute on Chronic Respiratory Failure secondary to interstitial lung disease progression patient presented with respiratory failure, worse than baseline dyspnea at rest and exertion on presentation with oxygen therapy, nebulizers, and steroids, patient feels slightly better appreciate pulmonary input steroids tapered to 60mg q8hrs continue oxygen as needed to maintain O2 saturation > 92% chest CT obtained showing interstitial lung disease and possible congestion Acute Kidney Injury superimposed on CKD stage 3 patient presented with creat of 1.7 received Lasix in the ER on presentation causing creat to jump to 2.3 it is now down to 2.0 and will monitor closely; avoiding nephrotoxic agents when able holding ARB for now CAD s/p CABG no acute findings, troponin negative no EKG changes noted continue current regimen of medications, including aspirin, Plavix, Imdur, b- kareem, CCB, statin HTN continue current medications holding ARB while kidneys are recovering Peripheral Artery Disease significant vascular issues including bilateral carotid disease s/p carotid endarterectomy renal artery stenosis - requiring renal artery stenting 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 home meds USMAN continue CPAP HS DVT ppx subq heparin DNR
[2016-04-04] MEDS: ATORVASTATIN 10 MG TAB PO SCH (20:13)
[2016-04-04 22:03] LABS: COMPLETE YES; HEMATOCRIT 31.1 % (37-47); IG% 0.1 %; LYMPH % 3.6 %; MEAN CELL VOLUME 93.4 fL (80-100); MEAN CORPUSCULAR HEMOGLOBIN 29.4 pg (25-34); MEAN CORPUSCULAR HGB CONC 31.5 g/dl (32-36); MEAN PLATELET VOLUME 10.1 fL (7.4-10.4); MONO % 4.3 %; PLATELET COUNT 311 K/uL (130-400); RED BLOOD COUNT 3.33 M/uL (4.2-5.4); WHITE BLOOD COUNT 8.43 K/uL (4.8-10.8)
--- NOTE | 2016-04-04 23:40 | Progress Note ---
Internal Med Progress Note Date of Service: Apr 04, 2016. Provider Documentation: Made aware by RN of blood oozing from Heparin SQ admin sites on the px's abd wall. HH stable Hold antiplatelet rx, Heparin SQ for now. Will relay to AM provider. Vital Signs: Date Time Temp Pulse Resp B/P Pulse Ox O2 Delivery O2 Flow Rate FiO2 04/05/16 07:30 36.5 55 20 170/71 97 CPAP 04/05/16 04:00 95 CPAP 6.0 04/05/16 03:19 36.5 58 18 168/66 96 CPAP 04/05/16 00:28 60 93 6.0 04/05/16 00:01 CPAP 04/04/16 23:00 36.4 55 18 157/71 93 Nasal Cannula 5.0 04/04/16 20:00 95 Nasal Cannula 6.0 04/04/16 19:35 36.3 55 18 157/70 95 Nasal Cannula 6.0 04/04/16 16:36 36.3 54 16 148/67 96 Nasal Cannula 6.0 04/04/16 16:00 Nasal Cannula 6.0 04/04/16 12:04 36.3 55 20 149/52 93 Nasal Cannula 6.0 04/04/16 12:00 Nasal Cannula 6.0 04/04/16 11:27 Nasal Cannula 6.0 Lab Results: Results Past 24 Hours Test 04/04/16 11:09 04/04/16 16:05 04/04/16 20:06 04/04/16 21:55 Range/Units Bedside Glucose 170 135 165 70-90 mg/dl White Blood Count 8.43 4.8-10.8 K/uL Red Blood Count 3.33 4.2-5.4 M/uL Hemoglobin 9.8 12.0-16.0 g/dL Hematocrit 31.1 37-47 % Mean Corpuscular Volume 93.4 80-100 fL Mean Corpuscular Hemoglobin 29.4 25-34 pg Mean Corpuscular Hemoglobin Concent 31.5 32-36 g/dl Platelet Count 311 130-400 K/uL Mean Platelet Volume 10.1 7.4-10.4 fL Neutrophils (%) (Auto) 92.0 % Lymphocytes (%) (Auto) 3.6 % Monocytes (%) (Auto) 4.3 % Eosinophils (%) (Auto) 0.0 % Basophils (%) (Auto) 0.0 % Neutrophils # (Auto) 7.76 1.4-6.5 K/uL Lymphocytes # (Auto) 0.30 1.2-3.4 K/uL Monocytes # (Auto) 0.36 0.11-0.59 K/uL Eosinophils # (Auto) 0.00 0-0.5 K/uL Basophils # (Auto) 0.00 0-0.2 K/uL RDW Standard Deviation 51.3 36.4-46.3 fL RDW Coefficient of Variation 15.0 11.5-14.5 % Immature Granulocyte % (Auto) 0.1 % Immature Granulocyte # (Auto) 0.01 0.00-0.02 K/uL Test 04/05/16 05:58 04/05/16 06:29 Range/Units White Blood Count 6.92 4.8-10.8 K/uL Red Blood Count 3.33 4.2-5.4 M/uL Hemoglobin 9.8 12.0-16.0 g/dL Hematocrit 30.8 37-47 % Mean Corpuscular Volume 92.5 80-100 fL Mean Corpuscular Hemoglobin 29.4 25-34 pg Mean Corpuscular Hemoglobin Concent 31.8 32-36 g/dl RDW Standard Deviation 50.9 36.4-46.3 fL RDW Coefficient of Variation 15.0 11.5-14.5 % Platelet Count 287 130-400 K/uL Mean Platelet Volume 10.5 7.4-10.4 fL Sodium Level 134 136-145 mmol/L Potassium Level 5.2 3.5-5.1 mmol/L Chloride Level 96 98-107 mmol/L Carbon Dioxide Level 30 21-32 mmol/L Anion Gap 8.0 3-11 mmol/L Blood Urea Nitrogen 71 7-18 mg/dl Creatinine 2.00 0.60-1.20 mg/dl Est Creatinine Clear Calc Drug Dose 20.0 ml/min Estimated GFR () 25.2 Estimated GFR (Non- 21.7 BUN/Creatinine Ratio 35.6 10-20 Random Glucose 134 70-99 mg/dl Calcium Level 8.4 8.5-10.1 mg/dl Magnesium Level 2.8 1.8-2.4 mg/dl Bedside Glucose 134 70-90 mg/dl
[2016-04-05] VITALS (8 sets, daily range): BP systolic 149–172; BP diastolic 61–74; PULSE 54–66; TEMP 36.3–36.6; O2SAT 93–97
[2016-04-05] MEDS: ACETAMINOPHEN 325 MG TAB PO PRN (01:09)
[2016-04-05 06:20] LABS: HEMATOCRIT 30.8 % (37-47); MEAN CELL VOLUME 92.5 fL (80-100); MEAN CORPUSCULAR HEMOGLOBIN 29.4 pg (25-34); MEAN CORPUSCULAR HGB CONC 31.8 g/dl (32-36); MEAN PLATELET VOLUME 10.5 fL (7.4-10.4); PLATELET COUNT 287 K/uL (130-400); RED BLOOD COUNT 3.33 M/uL (4.2-5.4); WHITE BLOOD COUNT 6.92 K/uL (4.8-10.8)
[2016-04-05 06:54] LABS: BUN/CREATININE RATIO 35.6 (10-20); CALCIUM 8.4 mg/dl (8.5-10.1); MAGNESIUM 2.8 mg/dl (1.8-2.4); POTASSIUM 5.2 mmol/L (3.5-5.1)
[2016-04-05] MEDS: METOPROLOL SUCC 50MG EXT REL TAB PO SCH (07:37)
[2016-04-05] MEDS: ISOSORBIDE MONONITRATE 60 MG TABCR PO SCH (07:37)
[2016-04-05] MEDS: IPRATROPIUM BROMIDE/ALBUTEROL respimat INH INH SCH ×4 (07:37→20:31)
[2016-04-05] MEDS: METHYLPREDNISOLONE IV 60 MG in SYRINGE 0 ML IV SCH (07:37)
[2016-04-05] MEDS: AMLODIPINE BESYLATE 5 MG TAB PO SCH (07:38)
[2016-04-05] MEDS: CHOLECALCIFEROL 1000 INTER.UNIT TAB PO SCH (07:38)
[2016-04-05] MEDS: ESCITALOPRAM OXALATE 10 MG TAB PO SCH (07:38)
[2016-04-05] MEDS: METHYLDOPA 250 MG TAB PO SCH ×2 (07:39→20:33)
[2016-04-05] MEDS: MULTIVITAMIN TAB PO SCH (07:39)
[2016-04-05] MEDS: PANTOprazole SOD 40 MG TAB PO SCH ×2 (07:39→20:34)
--- NOTE | 2016-04-05 11:35 | Progress Note ---
Subjective Date of Service: Apr 05, 2016. Subjective Pt evaluation today including: conversation w/ patient, physical exam, lab review, review of studies, conversation w/ senior product consultant, review of inpatient medication list Saw/examined the patient in room 222 Doing much better today Breathing seems to be closer to her baseline Denies chest pain or edema, no other problems to note today Problem List Medical Problems: (1) Hypoxia Status: Acute (2) Pulmonary fibrosis Permanent Comment: Followed by Dr. Gonzalez Status: Chronic (3) Shortness of breath Status: Acute (4) Weakness Status: Acute Review of Systems Constitutional: + fatigue, + weakness, No chills, No fever Respiratory: + dyspnea on exertion, + shortness of breath, No cough, No sputum , No wheezing Cardiac: No chest pain, No edema, No palpitations Abdomen: No diarrhea, No nausea, No pain, No vomiting Heme: No abnormal bleeding/bruising Medications Current Inpatient Medications Medications (Trade) Dose Ordered Sig/Rey Route Start Time Stop Time Status Last Admin Dose Admin Acetaminophen (Tylenol Tab) 650 mg Q4H PRN PO 04/01/16 11:45 05/01/16 11:44 04/05/16 01:09 650 MG Ondansetron HCl (Zofran Inj) 4 mg Q6H PRN IV 04/01/16 11:45 05/01/16 11:44 04/02/16 03:25 4 MG Nitroglycerin (Nitrostat Tab) 0.4 mg UD PRN SL 04/01/16 11:45 05/01/16 11:44 Amlodipine Besylate (Norvasc Tab) 10 mg QAM PO 04/02/16 09:00 05/02/16 08:59 04/05/16 07:38 10 MG Aspirin (Ecotrin Tab) 81 mg DAILY PO 04/02/16 09:00 05/02/16 08:59 Future Hold 04/04/16 07:33 81 MG Atorvastatin Calcium (Lipitor Tab) 10 mg HS PO 04/01/16 21:00 05/01/16 20:59 04/04/16 20:13 10 MG Clopidogrel Bisulfate (plAVix TAB) 75 mg DAILY PO 04/02/16 09:00 05/02/16 08:59 Future Hold 04/04/16 07:31 75 MG Escitalopram Oxalate (Lexapro Tab) 10 mg DAILY PO 04/02/16 09:00 05/02/16 08:59 04/05/16 07:38 10 MG Hydralazine HCl (Apresoline Tab) 100 mg TID PO 04/01/16 14:00 05/01/16 13:59 04/05/16 07:39 100 MG Albuterol/ Ipratropium (Combivent Respimat Inh) 1 puffs QID INH 04/01/16 13:00 05/01/16 12:59 04/05/16 07:37 1 PUFFS Isosorbide Mononitrate (Imdur Ext Rel Tab) 120 mg DAILY PO 04/02/16 09:00 05/02/16 08:59 04/05/16 07:37 120 MG Lorazepam (Ativan Tab) 0.5 mg Q12 PRN PO 04/01/16 12:00 05/01/16 11:59 Losartan Potassium (coZAAR TAB) 50 mg BID17 PO 04/01/16 17:00 05/01/16 16:59 Future Hold 04/03/16 07:43 50 MG Methyldopa (Aldomet Tab) 1,000 mg BID PO 04/01/16 21:00 05/01/16 20:59 04/05/16 07:39 1,000 MG Metoprolol Succinate (Toprol Xl Tab) 100 mg DAILY PO 04/02/16 09:00 05/02/16 08:59 04/05/16 07:37 100 MG Multivitamins (Multivitamin Tab) 1 tab DAILY PO 04/02/16 09:00 05/02/16 08:59 04/05/16 07:39 1 TAB Tramadol HCl (Ultram Tab) 50 mg Q12H PRN PO 04/01/16 12:00 05/01/16 11:59 Cholecalciferol (Vitamin D Tab) 5,000 inter.unit DAILY PO 04/02/16 09:00 05/02/16 08:59 04/05/16 07:38 5,000 INTER.UNIT Pantoprazole Sodium (Protonix Tab) 40 mg BID PO 04/01/16 21:00 05/01/16 20:59 04/05/16 07:39 40 MG Heparin Sodium (Porcine) (Heparin Sq 5000 Unit/0.5ml) 5,000 unit Q8 SQ 04/01/16 21:00 3/13/17 20:59 Future Hold 04/04/16 13:19 5,000 UNIT Al Hydrox/Mg Hydrox/Simethicone (Maalox Max Susp) 15 ml Q6H PRN PO 04/02/16 03:45 05/02/16 03:44 04/02/16 03:47 15 ML Diphenhydramine HCl 25 mg 25 mg Q6H PRN PO 04/05/16 01:45 05/05/16 01:44 04/05/16 01:39 25 MG Methylprednisolone Sodium Succinate/ Syringe (Solu-Medrol IV/ Syringe) 0.48 ml @ 1.5 mls/min Q8H IV 04/05/16 16:00 05/05/16 15:59 UNV Objective Vital Signs Date Time Temp Pulse Resp B/P Pulse Ox O2 Delivery O2 Flow Rate FiO2 04/05/16 08:00 Nasal Cannula 6.0 04/05/16 07:30 36.5 55 20 170/71 97 CPAP 04/05/16 04:00 95 CPAP 6.0 04/05/16 03:19 36.5 58 18 168/66 96 CPAP 04/05/16 00:28 60 93 6.0 04/05/16 00:01 CPAP 04/04/16 23:00 36.4 55 18 157/71 93 Nasal Cannula 5.0 04/04/16 20:00 95 Nasal Cannula 6.0 04/04/16 19:35 36.3 55 18 157/70 95 Nasal Cannula 6.0 04/04/16 16:36 36.3 54 16 148/67 96 Nasal Cannula 6.0 04/04/16 16:00 Nasal Cannula 6.0 04/04/16 12:04 36.3 55 20 149/52 93 Nasal Cannula 6.0 04/04/16 12:00 Nasal Cannula 6.0 Physical Exam General Appearance: no apparent distress Respiratory/Chest: lungs clear, normal breath sounds, no respiratory distress, no accessory muscle use Cardiovascular: regular rate, rhythm, no edema, no murmur Abdomen: normal bowel sounds, non tender, soft Extremities: normal inspection, no pedal edema Neurologic/Psychiatric: no motor/sensory deficits, alert, normal mood/affect Laboratory Results Last 24 Hours Test 04/04/16 16:05 04/04/16 20:06 04/04/16 21:55 04/05/16 05:58 Bedside Glucose 135 mg/dl 165 mg/dl White Blood Count 8.43 K/uL 6.92 K/uL Red Blood Count 3.33 M/uL 3.33 M/uL Hemoglobin 9.8 g/dL 9.8 g/dL Hematocrit 31.1 % 30.8 % Mean Corpuscular Volume 93.4 fL 92.5 fL Mean Corpuscular Hemoglobin 29.4 pg 29.4 pg Mean Corpuscular Hemoglobin Concent 31.5 g/dl 31.8 g/dl Platelet Count 311 K/uL 287 K/uL Mean Platelet Volume 10.1 fL 10.5 fL Neutrophils (%) (Auto) 92.0 % Lymphocytes (%) (Auto) 3.6 % Monocytes (%) (Auto) 4.3 % Eosinophils (%) (Auto) 0.0 % Basophils (%) (Auto) 0.0 % Neutrophils # (Auto) 7.76 K/uL Lymphocytes # (Auto) 0.30 K/uL Monocytes # (Auto) 0.36 K/uL Eosinophils # (Auto) 0.00 K/uL Basophils # (Auto) 0.00 K/uL RDW Standard Deviation 51.3 fL 50.9 fL RDW Coefficient of Variation 15.0 % 15.0 % Immature Granulocyte % (Auto) 0.1 % Immature Granulocyte # (Auto) 0.01 K/uL Sodium Level 134 mmol/L Potassium Level 5.2 mmol/L Chloride Level 96 mmol/L Carbon Dioxide Level 30 mmol/L Anion Gap 8.0 mmol/L Blood Urea Nitrogen 71 mg/dl Creatinine 2.00 mg/dl Est Creatinine Clear Calc Drug Dose 20.0 ml/min Estimated GFR () 25.2 Estimated GFR (Non- 21.7 BUN/Creatinine Ratio 35.6 Random Glucose 134 mg/dl Calcium Level 8.4 mg/dl Magnesium Level 2.8 mg/dl Test 04/05/16 06:29 Bedside Glucose 134 mg/dl Assessment and Plan This is an 89 year old female with PMH of oxygen dependent interstitial lung disease and pulmonary fibrosis, CAD s/p CABG, USMAN on CPAP nocturnally, PAD presents with worsening shortness of breath Acute on Chronic Respiratory Failure secondary to interstitial lung disease progression 04/05 patient is closer to her baseline requiring O2 - 5-6L O2, baseline is at around 5L steroids will be tapered off today 30mg q8 if she tolerates this, will change to PO steroids in AM d/c planning to rehab - referral made to [facility] 04/04 patient presented with respiratory failure, worse than baseline dyspnea at rest and exertion on presentation with oxygen therapy, nebulizers, and steroids, patient feels slightly better appreciate pulmonary input steroids tapered to 60mg q8hrs continue oxygen as needed to maintain O2 saturation > 92% chest CT obtained showing interstitial lung disease and possible congestion Acute Kidney Injury superimposed on CKD stage 3 patient presented with creat of 1.7 received Lasix in the ER on presentation causing creat to jump to 2.3 it is now down to 2.0 and will monitor closely; avoiding nephrotoxic agents when able holding ARB for now CAD s/p CABG no acute findings, troponin negative no EKG changes noted continue current regimen of medications, including aspirin, Plavix, Imdur, b- kareem, CCB, statin HTN continue current medications holding ARB while kidneys are recovering Peripheral Artery Disease significant vascular issues including bilateral carotid disease s/p carotid endarterectomy renal artery stenosis - requiring renal artery stenting 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 home meds USMAN continue CPAP HS DVT ppx subq heparin DNR Discharge planning: rehab hospital
--- NOTE | 2016-04-05 12:05 | PROGRESS NOTE ---
DATE: 04/05/2016 DATE: 04/05/2016. PROBLEM LIST: Includes: 1. Interstitial lung disease/pulmonary fibrosis. 2. Hypoxia. SUBJECTIVE: The patient reports that she is feeling better today. She states that her breathing continues to show improvement. We did try a tapering down the steroids a little bit yesterday and she did well. At this time I think we can be a little bit more aggressive with the taper. The patient reports that she does not really have any cough or congestion at this time, no wheezing. She states that she did have a little bit of difficulty with her breathing with her sleep last night. She states that the SCDs that were placed on her bilateral legs and she did not sleep well. She denies any other concerns or problems. She states that apparently she had a little bit of oozing from the heparin injection site, but otherwise she is doing well. She denies any other concerns or problems. No chest pain, no palpitations, no chest heaviness. No abdominal pain, no nausea or vomiting, no indigestion or heartburn. She has not had any difficulty with her bowels. No difficulty with her legs other than restless leg kept her from sleeping last night. The patient did have a CAT scan of her chest yesterday for evaluation of her pulmonary fibrosis. It does appear that her pulmonary fibrosis is worsened compared to August slightly. It also appears the patient has a little bit of pleural effusion which was a little bit worse in August as well. OBJECTIVE: GENERAL: The patient is an 89-year-old female sitting at the bedside. She is alert and oriented x3. Mood is good. Affect is good. VITAL SIGNS: Temp 36.5, pulse 55, respirations 20, blood pressure 170/71, pulse ox 97% on 6 liters. HEAD, EYES, EARS, NOSE, AND THROAT: Normocephalic, atraumatic. Pupils equal, round and reactive to light and accommodation. Extraocular movements are intact. [place] moist gingival and buccal mucosa. NECK: Supple. No mass. No adenopathy. No bruit. CHEST: Clear breath sounds throughout. She does have decreased breath sounds bilaterally, but I do not appreciate any wheeze at this time. There were some faint fibrotic/Velcro rales that I did hear that I do not remember hearing yesterday. This is in the bases, more on the left. CARDIOVASCULAR: Regular rate and rhythm. The patient has 2/6 systolic murmur. No gallops or rubs appreciated. ABDOMEN: Bowel sounds are present. Abdomen soft, nontender. No guarding, rigidity or organomegaly. EXTREMITIES: No erythema or edema. No cyanosis or clubbing. NEUROLOGIC: Cranial nerves II through XII are intact. No focal deficit. LABORATORY DATA: Shows white count 6,000, H\T\H 9.8 and 30.8, platelet count 287,000. Creatinine is down to 2.0. CAT scan as noted does show diffuse parenchymal fibrosis with some mild congestive changes and small left pleural effusion which is slightly increased from prior study. IMPRESSION: 1. Pulmonary fibrosis, interstitial lung disease with hypoxia. At this point the patient has responded well to steroids. She did tolerate the decrease in dose yesterday. Would like to decrease a little bit more aggressively today. Would like to take her down to 30 mg IV q. 8 hours and if she tolerates that then we can transition over to oral prednisone 40 b.i.d. starting tomorrow and do a slow taper off of there. In regards to her hypoxia I would recommend to continue oxygen and wean her down to her normal if possible. 2. Pleural effusion. I am not sure if this is from little bit of congestive change. May need to consider doing a low dose of Lasix or maybe 1 time dose of Lasix however will wait until tomorrow to see how she does. I do not feel that her pleural effusion on the left is contributing significantly to her hypoxia at this time. I will continue to follow through hospitalization.
[2016-04-05] MEDS: METHYLPREDNISOLONE IV 30 MG in SYRINGE 0 ML IV SCH (15:54)
[2016-04-05] MEDS: ATORVASTATIN 10 MG TAB PO SCH (20:33)
[2016-04-06] VITALS (8 sets, daily range): BP systolic 133–190; BP diastolic 62–79; PULSE 52–58; TEMP 36.4–36.7; O2SAT 95–98
[2016-04-06] MEDS: METHYLPREDNISOLONE IV 30 MG in SYRINGE 0 ML IV SCH ×2 (00:15→07:41)
[2016-04-06] MEDS: ISOSORBIDE MONONITRATE 60 MG TABCR PO SCH (07:38)
[2016-04-06] MEDS: CHOLECALCIFEROL 1000 INTER.UNIT TAB PO SCH (07:39)
[2016-04-06] MEDS: PANTOprazole SOD 40 MG TAB PO SCH ×2 (07:39→22:15)
[2016-04-06] MEDS: ESCITALOPRAM OXALATE 10 MG TAB PO SCH (07:39)
[2016-04-06] MEDS: IPRATROPIUM BROMIDE/ALBUTEROL respimat INH INH SCH ×4 (07:40→22:16)
[2016-04-06] MEDS: METOPROLOL SUCC 50MG EXT REL TAB PO SCH (07:40)
[2016-04-06] MEDS: METHYLDOPA 250 MG TAB PO SCH ×2 (07:40→22:16)
[2016-04-06] MEDS: MULTIVITAMIN TAB PO SCH (07:41)
[2016-04-06] MEDS: AMLODIPINE BESYLATE 5 MG TAB PO SCH (07:42)
[2016-04-06 07:46] LABS: HEMATOCRIT 30.5 % (37-47); MEAN CELL VOLUME 90.5 fL (80-100); MEAN CORPUSCULAR HEMOGLOBIN 29.4 pg (25-34); MEAN CORPUSCULAR HGB CONC 32.5 g/dl (32-36); MEAN PLATELET VOLUME 10.5 fL (7.4-10.4); PLATELET COUNT 297 K/uL (130-400); RED BLOOD COUNT 3.37 M/uL (4.2-5.4); WHITE BLOOD COUNT 5.63 K/uL (4.8-10.8)
[2016-04-06 08:53] LABS: BUN/CREATININE RATIO 43.1 (10-20); CALCIUM 8.8 mg/dl (8.5-10.1); CREATININE 1.7 mg/dl (0.60-1.20); MAGNESIUM 2.9 mg/dl (1.8-2.4); POTASSIUM 5.1 mmol/L (3.5-5.1)
--- NOTE | 2016-04-06 09:22 | DIAGNOSTIC IMAGING REPORT ---
CHEST 2 VIEWS ROUTINE CLINICAL HISTORY: Left pleural effusion. COMPARISON STUDY: Chest CT April 04, 2016. FINDINGS: There are median sternotomy wires. Moderate cardiomegaly is unchanged. No pneumothorax is present. Diffuse interstitial thickening persists. A small left pleural effusion is noted. There is a trace right pleural effusion. There is no pneumothorax. IMPRESSION: 1. Small left and trace right pleural effusions. 2. Interstitial thickening which may reflect pulmonary edema or an infectious process superimposed upon interstitial lung disease. Electronically signed by: Ryan Rich M.D. 04/06/2016 9:21 AM Dictated Date/Time: 04/06/2016 9:12 AM
[2016-04-06] MEDS ORDERED: LOSARTAN POTASSIUM 50 MG TAB PO ONE ×2 (10:00→10:45)
[2016-04-06] MEDS ORDERED: CLOPIDOGREL BISULFATE 75 MG TAB PO ONE (10:45)
[2016-04-06] MEDS ORDERED: ASPIRIN 81 MG ECTAB PO ONE (10:45)
--- NOTE | 2016-04-06 11:24 | Progress Note ---
Subjective Date of Service: Apr 06, 2016. Subjective Pt evaluation today including: conversation w/ patient, physical exam, lab review, review of studies, review of inpatient medication list Saw/examined the patient in room 222 She is feeling better today, daughter in the room with her Daughter states the patient looks much better Oxygen settings down to 5L daily Problem List Medical Problems: (1) Hypoxia Status: Acute (2) Pulmonary fibrosis Permanent Comment: Followed by Dr. Gonzalez Status: Chronic (3) Shortness of breath Status: Acute (4) Weakness Status: Acute Review of Systems Constitutional: No chills, No fever Respiratory: + cough, + shortness of breath, + sputum, No dyspnea at rest, No dyspnea on exertion, No hemoptysis, No wheezing Cardiac: No chest pain, No edema, No palpitations Abdomen: No diarrhea, No nausea, No pain, No vomiting Female : No dysuria, No urinary frequency Psychiatric: No depression symptoms Heme: No abnormal bleeding/bruising Medications Current Inpatient Medications Medications (Trade) Dose Ordered Sig/Rey Route Start Time Stop Time Status Last Admin Dose Admin Acetaminophen (Tylenol Tab) 650 mg Q4H PRN PO 04/01/16 11:45 05/01/16 11:44 04/05/16 01:09 650 MG Ondansetron HCl (Zofran Inj) 4 mg Q6H PRN IV 04/01/16 11:45 05/01/16 11:44 04/02/16 03:25 4 MG Nitroglycerin (Nitrostat Tab) 0.4 mg UD PRN SL 04/01/16 11:45 05/01/16 11:44 Amlodipine Besylate (Norvasc Tab) 10 mg QAM PO 04/02/16 09:00 05/02/16 08:59 04/06/16 07:42 10 MG Aspirin (Ecotrin Tab) 81 mg DAILY PO 04/02/16 09:00 05/02/16 08:59 Future hold 04/04/16 07:33 81 MG Atorvastatin Calcium (Lipitor Tab) 10 mg HS PO 04/01/16 21:00 05/01/16 20:59 04/05/16 20:33 10 MG Clopidogrel Bisulfate (plAVix TAB) 75 mg DAILY PO 04/02/16 09:00 05/02/16 08:59 Future hold 04/04/16 07:31 75 MG Escitalopram Oxalate (Lexapro Tab) 10 mg DAILY PO 04/02/16 09:00 05/02/16 08:59 04/06/16 07:39 10 MG Hydralazine HCl (Apresoline Tab) 100 mg TID PO 04/01/16 14:00 05/01/16 13:59 04/06/16 07:41 100 MG Albuterol/ Ipratropium (Combivent Respimat Inh) 1 puffs QID INH 04/01/16 13:00 05/01/16 12:59 04/06/16 07:40 1 PUFFS Isosorbide Mononitrate (Imdur Ext Rel Tab) 120 mg DAILY PO 04/02/16 09:00 05/02/16 08:59 04/06/16 07:38 120 MG Lorazepam (Ativan Tab) 0.5 mg Q12 PRN PO 04/01/16 12:00 05/01/16 11:59 Losartan Potassium (coZAAR TAB) 50 mg BID17 PO 04/01/16 17:00 05/01/16 16:59 Future hold 04/03/16 07:43 50 MG Methyldopa (Aldomet Tab) 1,000 mg BID PO 04/01/16 21:00 05/01/16 20:59 04/06/16 07:40 1,000 MG Metoprolol Succinate (Toprol Xl Tab) 100 mg DAILY PO 04/02/16 09:00 05/02/16 08:59 04/06/16 07:40 100 MG Multivitamins (Multivitamin Tab) 1 tab DAILY PO 04/02/16 09:00 05/02/16 08:59 04/06/16 07:41 1 TAB Tramadol HCl (Ultram Tab) 50 mg Q12H PRN PO 04/01/16 12:00 05/01/16 11:59 Cholecalciferol (Vitamin D Tab) 5,000 inter.unit DAILY PO 04/02/16 09:00 05/02/16 08:59 04/06/16 07:39 5,000 INTER.UNIT Pantoprazole Sodium (Protonix Tab) 40 mg BID PO 04/01/16 21:00 05/01/16 20:59 04/06/16 07:39 40 MG Heparin Sodium (Porcine) (Heparin Sq 5000 Unit/0.5ml) 5,000 unit Q8 SQ 04/01/16 21:00 05/01/16 20:59 Future hold 04/04/16 13:19 5,000 UNIT Al Hydrox/Mg Hydrox/Simethicone (Maalox Max Susp) 15 ml Q6H PRN PO 04/02/16 03:45 05/02/16 03:44 04/02/16 03:47 15 ML Diphenhydramine HCl 25 mg 25 mg Q6H PRN PO 04/05/16 01:45 05/05/16 01:44 04/05/16 20:52 25 MG Methylprednisolone Sodium Succinate/ Syringe (Solu-Medrol IV/ Syringe) 0.48 ml @ 1.5 mls/min Q8H IV 04/05/16 16:00 05/05/16 15:59 04/06/16 07:41 1.5 MLS/MIN Objective Vital Signs Date Time Temp Pulse Resp B/P Pulse Ox O2 Delivery O2 Flow Rate FiO2 04/06/16 08:59 179/79 04/06/16 08:00 Nasal Cannula 5.0 04/06/16 07:24 36.4 56 20 190/66 95 Nasal Cannula 5.0 187/70 04/06/16 04:11 36.7 58 20 174/63 98 BiPAP 04/06/16 04:00 98 CPAP 5.0 04/06/16 00:00 Nasal Cannula 5.0 04/05/16 23:45 36.4 57 20 172/66 95 Nasal Cannula 5.0 04/05/16 20:00 Nasal Cannula 5.0 04/05/16 19:55 36.6 66 20 149/70 96 04/05/16 16:00 Nasal Cannula 5.0 04/05/16 15:59 36.3 56 18 158/61 97 Nasal Cannula 5.0 04/05/16 12:00 36.4 54 20 154/74 93 5.0 04/05/16 12:00 Nasal Cannula 5.0 Physical Exam General Appearance: no apparent distress Respiratory/Chest: no respiratory distress, no accessory muscle use, + decreased breath sounds Cardiovascular: regular rate, rhythm, no edema, no murmur Abdomen: normal bowel sounds, non tender, soft Extremities: normal inspection, no pedal edema Neurologic/Psychiatric: no motor/sensory deficits, alert, normal mood/affect Laboratory Results Last 24 Hours Test 04/05/16 16:28 04/06/16 06:31 04/06/16 07:00 04/06/16 07:20 Bedside Glucose 151 mg/dl 134 mg/dl Sodium Level 136 mmol/L Potassium Level 5.1 mmol/L Chloride Level 99 mmol/L Carbon Dioxide Level 26 mmol/L Anion Gap 11.0 mmol/L Blood Urea Nitrogen 73 mg/dl Creatinine 1.70 mg/dl Est Creatinine Clear Calc Drug Dose 24.1 ml/min Estimated GFR () 30.7 Estimated GFR (Non- 26.5 BUN/Creatinine Ratio 43.1 Random Glucose 127 mg/dl Calcium Level 8.8 mg/dl Magnesium Level 2.9 mg/dl White Blood Count 5.63 K/uL Red Blood Count 3.37 M/uL Hemoglobin 9.9 g/dL Hematocrit 30.5 % Mean Corpuscular Volume 90.5 fL Mean Corpuscular Hemoglobin 29.4 pg Mean Corpuscular Hemoglobin Concent 32.5 g/dl RDW Standard Deviation 50.0 fL RDW Coefficient of Variation 15.1 % Platelet Count 297 K/uL Mean Platelet Volume 10.5 fL Assessment and Plan This is an 89 year old female with PMH of oxygen dependent interstitial lung disease and pulmonary fibrosis, CAD s/p CABG, USMAN on CPAP nocturnally, PAD presents with worsening shortness of breath Acute on Chronic Respiratory Failure secondary to interstitial lung disease progression 04/06 clinically improved appreciate pulm input will send out with a prednisone taper - slow taper currently on 5L of O2 - baseline d/c [facility]u for bipap setting adjustments 04/05 patient is closer to her baseline requiring O2 - 5-6L O2, baseline is at around 5L steroids will be tapered off today 30mg q8 if she tolerates this, will change to PO steroids in AM d/c planning to rehab - [facility] 04/04 patient presented with respiratory failure, worse than baseline dyspnea at rest and exertion on presentation with oxygen therapy, nebulizers, and steroids, patient feels slightly better appreciate pulmonary input steroids tapered to 60mg q8hrs continue oxygen as needed to maintain O2 saturation > 92% chest CT obtained showing interstitial lung disease and possible congestion Acute Kidney Injury superimposed on CKD stage 3 04/06 creat down to 1.7, probably closer to baseline follows with nephrology as an outpatient, to see after [facility] 04/04 patient presented with creat of 1.7 received Lasix in the ER on presentation causing creat to jump to 2.3 it is now down to 2.0 and will monitor closely; avoiding nephrotoxic agents when able holding ARB for now CAD s/p CABG no acute findings, troponin negative no EKG changes noted continue current regimen of medications, including aspirin, Plavix, Imdur, b- kareem, CCB, statin HTN continue current medications restarted ARB on 04/06 Peripheral Artery Disease significant vascular issues including bilateral carotid disease s/p carotid endarterectomy renal artery stenosis - requiring renal artery stenting 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 home meds USMAN continue CPAP HS DVT ppx subq heparin DNR Discharge planning: rehab hospital
--- NOTE | 2016-04-06 12:55 | PROGRESS NOTE ---
DATE: 04/06/2016 PROBLEM LIST: Includes 1. Interstitial lung disease/pulmonary fibrosis. 2. Hypoxia. SUBJECTIVE: The patient reports that she is feeling better today. She states that she slept well last night and that has made a big difference for her. States that in regards to her breathing she is continuing to improve. She states that she is having less shortness of breath. She feels that she is breathing much easier. She states that she does notice that when she talks her oxygen saturations drop, but she does not feel any different. She has not had any difficulty with coughing or wheezing at this time. No chest congestion or tightness. No chest heaviness. She states that her appetite is doing well. No nausea or vomiting, no indigestion or heartburn. She has not had any difficulty with her bowels. No difficulty voiding. No swelling in her extremities. OBJECTIVE: GENERAL: The patient is an 89-year-old female sitting at bedside eating her lunch. She is alert and oriented x3. Mood is good. Affect is good. VITAL SIGNS: Temp 36.6, pulse 62, respirations 20, blood pressure is 162/72, pulse ox 97% on 5 liters. HEENT: Normocephalic, atraumatic. Pupils equal, round and reactive to light and accommodation. Extraocular movements are intact. [place] moist gingival and buccal mucosa. NECK: Short and thick. No mass. No adenopathy. No bruit. CHEST: The patient has some faint Velcro type rales at the bases bilaterally. Rest of lung nettles are pretty clear. I do not appreciate any wheeze, rale or rhonchi at this time. CARDIOVASCULAR: Regular rate and rhythm. The patient has a 2/6 systolic murmur. No gallops or rubs appreciated. ABDOMEN: Bowel sounds are present throughout. Abdomen soft, nontender. No guarding, rigidity or organomegaly. EXTREMITIES: No erythema or edema. No cyanosis or clubbing. NEUROLOGIC: Cranial nerves II through XII are intact. There are no focal deficits noted. LABORATORY DATA: Shows white count of 5000, H\T\H 11.9 and 30.5, platelet count 297,000. Creatinine is down to 1.7. The patient did have a chest x-ray done today continues to show small left and trace right pleural effusion, unchanged from previous. IMPRESSION: Pulmonary fibrosis/interstitial lung disease with hypoxia. The patient seems to be doing well. Her oxygen saturation is in the upper 90s on 5 liters, I believe she was at 4 liters on baseline. Also seems like she is tolerating the transition down on the steroids, so at this point I would like to transition her over to oral prednisone and do 30 mg twice daily. In this case with Raya I would like for her to have a slow taper consisting of tapering by 5 mg about every 3 days. 2. Pleural effusion. At this point, this is stable, I do not feel we need to do anything with this. 3. General debility. Patient is working with physical therapy and recommendation is that the patient go to [facility]. She is agreeable to this. From pulmonary standpoint, I think if she tolerate the transition over to oral prednisone over the next 24 hours that she should be ready for transitional if bed is available. I will continue to follow through hospitalization. MTDD
[2016-04-06] MEDS: HEPARIN SOD 5000 UNIT/0.5 ML CARP SQ SCH ×2 (15:18→22:22)
[2016-04-06] MEDS: LOSARTAN POTASSIUM 50 MG TAB PO SCH (17:13)
[2016-04-06] MEDS ORDERED: PRED10TA PO (17:40)
--- NOTE | 2016-04-06 17:44 | Discharge Instructions ---
Discharge Instructions Admission Reason for Admission: Acute And Chronic Respiratory Failure Discharge Discharge Diagnosis / Problem: Acute on Chronic Respiratory Failure secondary to Interstitial Lung Disease Discharge Goals Goal(s): Decrease discomfort, Improve function, Increase independence Activity Recommendations Activity Limitations: resume your previous activity . Instructions / Follow-Up Instructions / Follow-Up Please take the following prednisone taper: Patient should be on 10mg of prednisone twice a day for 04/12 and 04/13 Patient should be on 10mg of prednisone daily on 04/14, 04/15, 04/16 Patient should be on 5mg of prednisone on 04/17, 04/18, 04/19 Follow with pulmonology after stay at [facility] Follow with PCP after stay at [facility] Follow up with nephrology after [facility] You may need a repeat sleep study for adjustments to CPAP machine Current Hospital Diet Patient's current hospital diet: AHA Diet (Heart Healthy), Renal Diet, Low Sodium Diet (2gm Na) Discharge Diet Recommended Diet: AHA Diet (Heart Healthy), Renal Diet Pending Studies Studies pending at discharge: no Laboratory Results Hemoglobin A1c Test 01/15/16 05:29 Range/Units Estimated Average Glucose 128 mg/dl Hemoglobin A1c 6.1 H 4.5-5.6 % Medical Emergencies . Who to Call and When: Medical Emergencies: If at any time you feel your situation is an emergency, please call 911 immediately. . Non-Emergent Contact Non-Emergency issues call your: Primary Care Provider, Gymnastics Coach . . "Provider Documentation" section prepared by Cristhian Lance. VTE Core Measure Inpt VTE Proph given/why not?: Unfractionated heparin SQ
[2016-04-06] MEDS: ATORVASTATIN 10 MG TAB PO SCH (22:15)
[2016-04-07] VITALS (11 sets, daily range): BP systolic 149–199; BP diastolic 52–67; PULSE 49–61; TEMP 36.3–36.6; O2SAT 95–98
[2016-04-07] MEDS: HEPARIN SOD 5000 UNIT/0.5 ML CARP SQ SCH (05:30)
[2016-04-07 07:00] LABS: HEMATOCRIT 32.8 % (37-47); MEAN CELL VOLUME 91.9 fL (80-100); MEAN CORPUSCULAR HEMOGLOBIN 29.1 pg (25-34); MEAN CORPUSCULAR HGB CONC 31.7 g/dl (32-36); MEAN PLATELET VOLUME 10.6 fL (7.4-10.4); PLATELET COUNT 315 K/uL (130-400); RED BLOOD COUNT 3.57 M/uL (4.2-5.4); WHITE BLOOD COUNT 8.47 K/uL (4.8-10.8)
[2016-04-07 07:30] LABS: BUN/CREATININE RATIO 41.3 (10-20); CALCIUM 8.5 mg/dl (8.5-10.1); CREATININE 1.8 mg/dl (0.60-1.20); MAGNESIUM 2.8 mg/dl (1.8-2.4); POTASSIUM 5.1 mmol/L (3.5-5.1)
[2016-04-07] MEDS: ASPIRIN 81 MG ECTAB PO SCH (08:52)
[2016-04-07] MEDS: ISOSORBIDE MONONITRATE 60 MG TABCR PO SCH (08:53)
[2016-04-07] MEDS: CLOPIDOGREL BISULFATE 75 MG TAB PO SCH (08:53)
[2016-04-07] MEDS: ESCITALOPRAM OXALATE 10 MG TAB PO SCH (08:53)
[2016-04-07] MEDS: PANTOprazole SOD 40 MG TAB PO SCH ×2 (08:53→20:55)
[2016-04-07] MEDS: CHOLECALCIFEROL 1000 INTER.UNIT TAB PO SCH (08:53)
[2016-04-07] MEDS: AMLODIPINE BESYLATE 5 MG TAB PO SCH (08:53)
[2016-04-07] MEDS: IPRATROPIUM BROMIDE/ALBUTEROL respimat INH INH SCH ×4 (08:54→20:53)
[2016-04-07] MEDS: MULTIVITAMIN TAB PO SCH (08:54)
[2016-04-07] MEDS: METOPROLOL SUCC 50MG EXT REL TAB PO SCH (08:54)
[2016-04-07] MEDS: LOSARTAN POTASSIUM 50 MG TAB PO SCH (08:54)
[2016-04-07] MEDS: METHYLDOPA 250 MG TAB PO SCH ×2 (08:55→20:54)
--- NOTE | 2016-04-07 12:23 | PULMONARY PROGRESS NOTE ---
DATE: 04/07/2016 FOR: Dr. Connor Ramirez. PROBLEM LIST: Includes: 1. Interstitial lung disease/pulmonary fibrosis. 2. Hypoxia. Subjective: The patient reports that she feels well today. She has no difficulty or problems. She states that her breathing is getting closer to be back towards her baseline. She states that she was able to wash her hair this morning without becoming significantly short of breath and her oxygen level didn't drop tremendously. She feels overall much improved. She is having some difficulty with weakness. She states that her legs are weak and unsteady, but otherwise she feels well. She denies any other problem since the time. No chest pain or palpitations. No abdominal pain, no nausea or vomiting, no difficulty with her bowels or with voiding. No swelling in her extremities. OBJECTIVE: VITAL SIGNS: The patient is an 89-year-old female, in no acute distress. She is alert and oriented x3. Mood is good. Affect is good. VITAL SIGNS: Temperature 36.6, pulse 56, respirations 18, blood pressure is 174/52, pulse ox 95% on 5 liters. HEENT: Normocephalic, atraumatic. Pupils equal, round and reactive to light and accommodation. Extraocular movements are intact. [place] and moist gingiva with buccal mucosa. NECK: Supple. There is no mass, no adenopathy, no bruit. CHEST: Actually improved breath sounds. I do not appreciate the rhonchi or rales as loud as yesterday. No rhonchi noted. No wheezing noted. CARDIOVASCULAR: Regular rate and rhythm. There are no murmurs, gallops or rubs. ABDOMEN: Bowel sounds are present. Abdomen is soft and nontender. No significant edema. No cyanosis or clubbing noted. LABORATORY DATA: Shows white count of 8,000, H\T\H 10.4, 32.8, platelet count of 315,000. Creatinine did bump slightly to 1.8 from 1.7. IMPRESSION: Pulmonary fibrosis/interstitial lung disease and hypoxia. PLAN: The patient is doing well. Oxygen saturation is in the mid to upper 90s on 5 liters. At this time, she is doing well on the oral prednisone and I feel that currently from a pulmonary standpoint, she is stable for discharge. In my note yesterday, I mentioned about slowly tapering her prednisone, however, Dr. Ramirez made the recommendation for her to continue her prednisone at 40 mg a day until she is seen in the office. So, will follow his recommendation. Will continue to follow the patient through hospitalization. AMAN
[2016-04-07] MEDS ORDERED: NURSING VERBAL MED ORDER ONE (13:00)
[2016-04-07] MEDS: ATORVASTATIN 10 MG TAB PO SCH (20:55)
--- NOTE | 2016-04-07 21:21 | Progress Note ---
Internal Med Progress Note Date of Service: Apr 07, 2016. Provider Documentation: SUBJECTIVE: sitting up on chair feels much better on 5 L via nasal canula denies of any SOB OBJECTIVE: Vital Signs-as noted below Exam: General-very please elderly female , no sign of distress Eyes-sclera non icteric Lungs-no wheeze or rales Heart-regular S1/S2 Abdomen-soft , non tender Extremities-no lower ext edema Neuro-no focal deficit Lab data as noted below. ASSESSMENT & PLAN: Acute on Chronic Respiratory Failure secondary to interstitial lung disease progression clinically improved chest CT obtained showing interstitial lung disease and possible congestion appreciate pulm input on slow prednisone taper currently respiratory status at baseline( chronically on 5L of O2 - baseline ) Acute Kidney Injury superimposed on CKD stage 3 creat down to 1.7, probably closer to baseline follows with nephrology as an outpatient, CAD s/p CABG no acute findings, troponin negative no EKG changes noted continue current regimen of medications, including aspirin, Plavix, Imdur, b- kareem, CCB, statin HTN continue current medications restarted ARB on 04/06 Peripheral Artery Disease significant vascular issues including bilateral carotid disease s/p carotid endarterectomy renal artery stenosis - s/p renal artery stenting 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 home meds USMAN continue CPAP HS DVT ppx subq heparin DNR DISPOSITION referral made for [facility] transfer to Rehab on Sunday04/10/16 Vital Signs: Date Time Temp Pulse Resp B/P Pulse Ox O2 Delivery O2 Flow Rate FiO2 04/07/16 21:11 61 199/66 04/07/16 16:17 36.3 54 22 163/56 97 Nasal Cannula 5.0 04/07/16 16:00 95 Nasal Cannula 5.0 04/07/16 14:33 36.6 56 18 95 5.0 04/07/16 12:04 Nasal Cannula 5.0 04/07/16 11:19 36.6 56 18 174/52 95 5.0 04/07/16 08:06 Nasal Cannula 5.0 04/07/16 07:50 36.5 49 18 179/65 95 5.0 04/07/16 04:05 36.5 50 16 149/66 97 BiPAP 04/07/16 04:00 98 CPAP 5.0 04/07/16 00:27 36.6 52 18 160/67 95 04/07/16 00:00 97 Nasal Cannula 5.0 04/06/16 22:31 57 97 6.0 Lab Results: Results Past 24 Hours Test 04/07/16 06:22 Range/Units White Blood Count 8.47 4.8-10.8 K/uL Red Blood Count 3.57 4.2-5.4 M/uL Hemoglobin 10.4 12.0-16.0 g/dL Hematocrit 32.8 37-47 % Mean Corpuscular Volume 91.9 80-100 fL Mean Corpuscular Hemoglobin 29.1 25-34 pg Mean Corpuscular Hemoglobin Concent 31.7 32-36 g/dl RDW Standard Deviation 51.3 36.4-46.3 fL RDW Coefficient of Variation 15.1 11.5-14.5 % Platelet Count 315 130-400 K/uL Mean Platelet Volume 10.6 7.4-10.4 fL Sodium Level 138 136-145 mmol/L Potassium Level 5.1 3.5-5.1 mmol/L Chloride Level 100 98-107 mmol/L Carbon Dioxide Level 28 21-32 mmol/L Anion Gap 10.0 3-11 mmol/L Blood Urea Nitrogen 74 7-18 mg/dl Creatinine 1.80 0.60-1.20 mg/dl Est Creatinine Clear Calc Drug Dose 22.6 ml/min Estimated GFR () 28.6 Estimated GFR (Non- 24.7 BUN/Creatinine Ratio 41.3 10-20 Random Glucose 115 70-99 mg/dl Calcium Level 8.5 8.5-10.1 mg/dl Magnesium Level 2.8 1.8-2.4 mg/dl
[2016-04-07] MEDS: HydrALAZINE HCL 20 MG/ML VIAL IV. PRN (23:40)
[2016-04-08] VITALS (15 sets, daily range): BP systolic 145–198; BP diastolic 53–78; PULSE 51–62; TEMP 36.3–36.8; O2SAT 94–99
[2016-04-08 07:41] LABS: BUN/CREATININE RATIO 39.6 (10-20); CALCIUM 8.4 mg/dl (8.5-10.1); CREATININE 1.8 mg/dl (0.60-1.20); MAGNESIUM 2.8 mg/dl (1.8-2.4); POTASSIUM 5.3 mmol/L (3.5-5.1)
[2016-04-08] MEDS: IPRATROPIUM BROMIDE/ALBUTEROL respimat INH INH SCH ×4 (08:20→21:08)
[2016-04-08] MEDS: METHYLDOPA 250 MG TAB PO SCH ×2 (08:22→21:11)
[2016-04-08] MEDS: ASPIRIN 81 MG ECTAB PO SCH (08:24)
[2016-04-08] MEDS: ESCITALOPRAM OXALATE 10 MG TAB PO SCH (08:25)
[2016-04-08] MEDS: ISOSORBIDE MONONITRATE 60 MG TABCR PO SCH (08:25)
[2016-04-08] MEDS: MULTIVITAMIN TAB PO SCH (08:26)
[2016-04-08] MEDS: AMLODIPINE BESYLATE 5 MG TAB PO SCH (08:26)
[2016-04-08] MEDS: CLOPIDOGREL BISULFATE 75 MG TAB PO SCH (08:27)
[2016-04-08] MEDS: PANTOprazole SOD 40 MG TAB PO SCH ×2 (08:28→21:14)
[2016-04-08] MEDS: METOPROLOL SUCC 50MG EXT REL TAB PO SCH (08:29)
[2016-04-08] MEDS: CHOLECALCIFEROL 1000 INTER.UNIT TAB PO SCH (08:30)
[2016-04-08] MEDS ORDERED: SODIUM POLYST. SULF SUSP 15G/60ML PO STA (16:18)
--- NOTE | 2016-04-08 16:23 | Progress Note ---
Internal Med Progress Note Date of Service: Apr 08, 2016. Provider Documentation: SUBJECTIVE: offers no complain bed was uncomfortable ,able to fall asleep in salesperson hosiery no worsening of SOB , has minimum no productive cough no fever or chills on 5 L 02 via nasal canula ( baseline ) OBJECTIVE: Vital Signs-as noted below Exam: General-very please elderly female , no sign of distress Eyes-sclera non icteric Lungs-no wheeze or rales Heart-regular S1/S2 Abdomen-soft , non tender Extremities-no lower ext edema Neuro-no focal deficit Lab data as noted below. ASSESSMENT & PLAN: Acute on Chronic Respiratory Failure secondary to interstitial lung disease progression clinically improved-remains stable chest CT obtained showing interstitial lung disease and possible congestion appreciate pulm input on slow prednisone taper currently respiratory status at baseline( chronically on 5L of O2 - baseline ) Acute Kidney Injury superimposed on CKD stage 3 CR 1.8 follow PRP Hyperkalemia : due to above not on any ACEI /ARB on low K /renal diet ordered for Kayexalate repeat PRP nephrology eval if renal function and K level continued to worsen CAD s/p CABG no acute findings, troponin negative no EKG changes noted continue current regimen of medications, including aspirin, Plavix, Imdur, b- kareem, CCB, statin BRADYCARDIA : HR in 50's at baseline no symptom of dizzy spell will reduce Toprol XL to 50 mg daily to be held if HR is < 60 HTN on multiple BP meds Beta kareem dose adjusted due3 to bradycardia Peripheral Artery Disease significant vascular issues including bilateral carotid disease s/p carotid endarterectomy renal artery stenosis - s/p renal artery stenting 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 home meds USMAN continue CPAP HS DVT ppx subq heparin DNR DISPOSITION [facility] transfer [facility] Rehab on Sunday04/10/16 Vital Signs: Date Time Temp Pulse Resp B/P Pulse Ox O2 Delivery O2 Flow Rate FiO2 04/08/16 15:26 36.5 54 18 170/65 95 Nasal Cannula 4.5 04/08/16 14:28 36.8 51 21 145/62 95 Nasal Cannula 4.5 04/08/16 08:10 62 04/08/16 08:00 96 Nasal Cannula 5.0 04/08/16 07:17 36.7 53 20 150/53 99 BiPAP 04/08/16 00:25 54 98 5.0 04/08/16 00:20 168/64 04/08/16 00:14 36.4 54 18 189/70 97 5.0 04/08/16 00:00 Nasal Cannula 5.0 04/07/16 21:11 61 199/66 Lab Results: Results Past 24 Hours Test 04/08/16 06:42 Range/Units Sodium Level 140 136-145 mmol/L Potassium Level 5.3 3.5-5.1 mmol/L Chloride Level 104 98-107 mmol/L Carbon Dioxide Level 28 21-32 mmol/L Anion Gap 8.0 3-11 mmol/L Blood Urea Nitrogen 71 7-18 mg/dl Creatinine 1.80 0.60-1.20 mg/dl Est Creatinine Clear Calc Drug Dose 22.1 ml/min Estimated GFR () 28.6 Estimated GFR (Non- 24.7 BUN/Creatinine Ratio 39.6 10-20 Random Glucose 138 70-99 mg/dl Calcium Level 8.4 8.5-10.1 mg/dl Magnesium Level 2.8 1.8-2.4 mg/dl
[2016-04-08] MEDS ORDERED: FUROSEMIDE 20 MG TAB PO SCH (16:30)
[2016-04-08] MEDS: HydrALAZINE HCL 20 MG/ML VIAL IV. PRN (19:15)
[2016-04-08] MEDS: ATORVASTATIN 10 MG TAB PO SCH (21:15)
[2016-04-09] VITALS (12 sets, daily range): BP systolic 86–195; BP diastolic 54–80; PULSE 53–71; TEMP 36.2–36.5; O2SAT 91–98
[2016-04-09] MEDS ORDERED: AMLODIPINE BESYLATE 5 MG TAB PO STA (00:21)
[2016-04-09 00:28] LABS: BUN/CREATININE RATIO 40.2 (10-20); CALCIUM 8.5 mg/dl (8.5-10.1); CREATININE 1.8 mg/dl (0.60-1.20); MAGNESIUM 2.6 mg/dl (1.8-2.4); POTASSIUM 4.9 mmol/L (3.5-5.1)
--- NOTE | 2016-04-09 01:16 | Progress Note ---
Internal Med Progress Note Date of Service: Apr 09, 2016. Provider Documentation: Made aware by RN of consistently elevated BP yesterday 140-190s. Px asymptomatic. EMR /med regimen reviewed. change Lopressor to Coreg for now. Will relay to AM provider. Vital Signs: Date Time Temp Pulse Resp B/P Pulse Ox O2 Delivery O2 Flow Rate FiO2 04/09/16 09:11 71 160/54 04/09/16 07:37 36.5 53 20 173/55 98 BiPAP 04/09/16 05:55 53 174/67 04/09/16 01:00 57 98 6.0 04/09/16 00:41 58 162/65 04/09/16 00:00 CPAP 5.0 04/08/16 23:21 36.3 58 20 94 5.0 04/08/16 23:19 60 190/78 04/08/16 22:50 198/56 04/08/16 21:10 58 190/63 04/08/16 20:26 62 163/61 04/08/16 20:00 Nasal Cannula 5.0 04/08/16 18:47 61 172/61 04/08/16 16:00 94 Nasal Cannula 5.0 04/08/16 15:26 36.5 54 18 170/65 95 Nasal Cannula 4.5 04/08/16 14:28 36.8 51 21 145/62 95 Nasal Cannula 4.5 Lab Results: Results Past 24 Hours Test 04/08/16 23:49 04/09/16 06:10 Range/Units Sodium Level 141 140 136-145 mmol/L Potassium Level 4.9 5.0 3.5-5.1 mmol/L Chloride Level 105 104 98-107 mmol/L Carbon Dioxide Level 27 29 21-32 mmol/L Anion Gap 9.0 7.0 3-11 mmol/L Blood Urea Nitrogen 72 72 7-18 mg/dl Creatinine 1.80 1.70 0.60-1.20 mg/dl Est Creatinine Clear Calc Drug Dose 22.1 23.3 ml/min Estimated GFR () 28.6 30.7 Estimated GFR (Non- 24.7 26.5 BUN/Creatinine Ratio 40.2 42.1 10-20 Random Glucose 119 124 70-99 mg/dl Calcium Level 8.5 8.4 8.5-10.1 mg/dl Magnesium Level 2.6 2.6 1.8-2.4 mg/dl
[2016-04-09 07:34] LABS: BUN/CREATININE RATIO 42.1 (10-20); CALCIUM 8.4 mg/dl (8.5-10.1); CREATININE 1.7 mg/dl (0.60-1.20); MAGNESIUM 2.6 mg/dl (1.8-2.4)
[2016-04-09] MEDS: PANTOprazole SOD 40 MG TAB PO SCH ×2 (07:50→20:39)
[2016-04-09] MEDS: CHOLECALCIFEROL 1000 INTER.UNIT TAB PO SCH (07:51)
[2016-04-09] MEDS: MULTIVITAMIN TAB PO SCH (07:53)
[2016-04-09] MEDS: ESCITALOPRAM OXALATE 10 MG TAB PO SCH (07:53)
[2016-04-09] MEDS: CLOPIDOGREL BISULFATE 75 MG TAB PO SCH (07:53)
[2016-04-09] MEDS: ASPIRIN 81 MG ECTAB PO SCH (07:54)
[2016-04-09] MEDS: ISOSORBIDE MONONITRATE 60 MG TABCR PO SCH (07:54)
[2016-04-09] MEDS: METHYLDOPA 250 MG TAB PO SCH ×2 (07:54→20:38)
[2016-04-09] MEDS: IPRATROPIUM BROMIDE/ALBUTEROL respimat INH INH SCH ×4 (07:56→20:35)
[2016-04-09] MEDS: CARVEDILOL 3.125 MG TAB PO SCH ×2 (07:57→20:37)
[2016-04-09] MEDS ORDERED: METOPROLOL SUCC 50MG EXT REL TAB PO SCH (08:00)
--- NOTE | 2016-04-09 20:19 | Progress Note ---
Internal Med Progress Note Date of Service: Apr 09, 2016. Provider Documentation: SUBJECTIVE: had episode of Hypertension last night BP remains stable in AM denies of any symptom no cough or SOB OBJECTIVE: Vital Signs-as noted below Exam: General-very please elderly female , no sign of distress Eyes-sclera non icteric Lungs-no wheeze or rales Heart-regular S1/S2 Abdomen-soft , non tender Extremities-no lower ext edema Neuro-no focal deficit Lab data as noted below. ASSESSMENT & PLAN: Acute on Chronic Respiratory Failure secondary to interstitial lung disease progression respiratory status improve to baseline clinically improved-remains stable chest CT obtained showing interstitial lung disease and possible congestion appreciate pulm input on slow prednisone taper currently respiratory status at baseline( chronically on 5L of O2 - baseline ) Acute Kidney Injury superimposed on CKD stage 3 resolved Cr 1,7 baseline Hyperkalemia : resolved not on any ACEI /ARB on low K /renal diet given Kayexalate Lasix resumed CAD s/p CABG no acute findings, troponin negative no EKG changes noted continue current regimen of medications, including aspirin, Plavix, Imdur, b- kareem, CCB, statin HTN on multiple meds Beta kareem changed to Coreg for relative bradycardia BP improved after adjustment of meds cont to monitor Peripheral Artery Disease significant vascular issues including bilateral carotid disease s/p carotid endarterectomy renal artery stenosis - s/p renal artery stenting 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 home meds USMAN continue CPAP HS DVT ppx subq heparin DNR DISPOSITION referral made for [facility] transfer to Rehab on Sunday04/10/16 Vital Signs: Date Time Temp Pulse Resp B/P Pulse Ox O2 Delivery O2 Flow Rate FiO2 04/09/16 20:00 Nasal Cannula 5.0 04/09/16 16:00 Nasal Cannula 5.0 04/09/16 14:41 36.2 67 20 131/62 91 Nasal Cannula 2.0 04/09/16 09:50 64 150/80 04/09/16 09:11 71 160/54 04/09/16 08:00 98 BiPAP 6.0 04/09/16 07:37 36.5 53 20 173/55 98 BiPAP 04/09/16 05:55 53 174/67 04/09/16 01:00 57 98 6.0 04/09/16 00:41 58 162/65 04/09/16 00:00 CPAP 5.0 04/08/16 23:21 36.3 58 20 94 5.0 04/08/16 23:19 60 190/78 04/08/16 22:50 198/56 04/08/16 21:10 58 190/63 04/08/16 20:26 62 163/61 Lab Results: Results Past 24 Hours Test 04/08/16 23:49 04/09/16 06:10 Range/Units Sodium Level 141 140 136-145 mmol/L Potassium Level 4.9 5.0 3.5-5.1 mmol/L Chloride Level 105 104 98-107 mmol/L Carbon Dioxide Level 27 29 21-32 mmol/L Anion Gap 9.0 7.0 3-11 mmol/L Blood Urea Nitrogen 72 72 7-18 mg/dl Creatinine 1.80 1.70 0.60-1.20 mg/dl Est Creatinine Clear Calc Drug Dose 22.1 23.3 ml/min Estimated GFR () 28.6 30.7 Estimated GFR (Non- 24.7 26.5 BUN/Creatinine Ratio 40.2 42.1 10-20 Random Glucose 119 124 70-99 mg/dl Calcium Level 8.5 8.4 8.5-10.1 mg/dl Magnesium Level 2.6 2.6 1.8-2.4 mg/dl
[2016-04-09] MEDS: ATORVASTATIN 10 MG TAB PO SCH (20:36)
[2016-04-09] MEDS: HydrALAZINE HCL 20 MG/ML VIAL IV. PRN (23:54)
[2016-04-10] VITALS (11 sets, daily range): BP systolic 137–197; BP diastolic 53–72; PULSE 58–66; TEMP 36.5–36.7; O2SAT 93–98
[2016-04-10 07:32] LABS: BUN/CREATININE RATIO 42.4 (10-20); CALCIUM 8.5 mg/dl (8.5-10.1); CREATININE 1.5 mg/dl (0.60-1.20); MAGNESIUM 2.5 mg/dl (1.8-2.4); POTASSIUM 5.2 mmol/L (3.5-5.1)
[2016-04-10] MEDS: MULTIVITAMIN TAB PO SCH (08:58)
[2016-04-10] MEDS: IPRATROPIUM BROMIDE/ALBUTEROL respimat INH INH SCH ×4 (08:58→21:46)
[2016-04-10] MEDS: PANTOprazole SOD 40 MG TAB PO SCH ×2 (08:59→21:47)
[2016-04-10] MEDS: ASPIRIN 81 MG ECTAB PO SCH (09:00)
[2016-04-10] MEDS: METHYLDOPA 250 MG TAB PO SCH ×2 (09:00→21:47)
[2016-04-10] MEDS: CLOPIDOGREL BISULFATE 75 MG TAB PO SCH (09:01)
[2016-04-10] MEDS: AMLODIPINE BESYLATE 5 MG TAB PO SCH (09:01)
[2016-04-10] MEDS: ISOSORBIDE MONONITRATE 60 MG TABCR PO SCH (09:02)
[2016-04-10] MEDS: CHOLECALCIFEROL 1000 INTER.UNIT TAB PO SCH (09:04)
[2016-04-10] MEDS: CARVEDILOL 3.125 MG TAB PO SCH (09:04)
[2016-04-10] MEDS: ESCITALOPRAM OXALATE 10 MG TAB PO SCH (09:05)
[2016-04-10] MEDS ORDERED: LOSARTAN POTASSIUM 50 MG TAB PO ONE (11:45)
[2016-04-10] MEDS ORDERED: METOPROLOL SUCC 50MG EXT REL TAB PO STA (14:40)
[2016-04-10] MEDS ORDERED: FUROSEMIDE 20 MG TAB PO ONE (14:45)
--- NOTE | 2016-04-10 15:01 | Cardiology Consultation ---
Cardiology Consultation Date of Consultation: Apr 10, 2016 History of Present Illness Patient is a 89 year old female seen in cardiology consultation per the request of Dr Whiteside for evaluation of difficult to control HTN. Pt is well known to our cardiology service and typically follows as an outpt with Luis Fernando Borrero PA-C with most recent oupt visit last month. Patient was admitted for shortness of breath which as improved with treatment for an acute exacerbation of COPD. I was asked to see patient to assist in blood pressure treatment. Patient has baseline difficult to control BP and is on multiple medications. She was previously admitted for hypertensive urgency. Last evening blood pressures had trended up, with reading of 195/61 mm Hg. Pt had been on high dose methylprednisolone which has since been weaned. She denies chest discomfort. History Past Medical History: Diffuse atherosclerotic disease Bilateral carotid occlusive disease s/p bilateral carotid endarterectomies in May and July 2004 ASCVD s/p CABG x 2 in 1997 with an SVG to the distal RCA and LAD Presentation with unstable angina in June 2007 with catheterization demonstrating significant vein graft stenosis requiring PCI of the SVG to the LAD with a BMS and PCI of the SVG to the RCA with two BMS's STEMI in June [address] Thibodeaux revealing a total occlusion in the proximal segment of the right PDA which was the area of prior stenting. She underwent PTCA and stenting of the saphenous vein bypass graft to the right posterior descending coronary arter with a Promus drug eluting stent uneventfully. Complete angiography at that time revealed a total proximal LAD stenosis with a patent SVG to the mid LAD, mild atherosclertoic disease in the left circumflex coronary artery, and a total mid RCA occlusion with the total proximal SVG to the right PDA. Overall LV systolic function was perserved with inferior and inferoapical hypokinesis. Her post intervention course was complicated by mild CHF. Renal artery stenosis status post right renal artery stenting in August 2005 PAD with bilateral aortoiliac stenting in October 2005. Severe end stage pulmonary fibrosis with profound hypoxemia Right upper lobe pulmonary nodules. Hypertension with hypertensive heart disease Hyperlipidemia Valvular heart disease Type II diabetes mellitus Past hyperkalemia with ACEI/A2RBs Obesity Obstructive sleep apnea currently on BiPAP therapy Breast cancer status post radiation therapy Hepatic steatosis Review Of Systems SOB improving. 10 point ROS otherwise negative Allergies Coded Allergies: Adhesives (Verified Adverse Reaction, Unknown, TAPE - IRRITATION AT SITE, 04/01/16) Clonidine (Verified Adverse Reaction, Unknown, CATAPRES PATCH ALLERGY, 01/05) Medications Prehospital Home Medications Scheduled Amlodipine Besylate (Amlodipine Besylate), 10 MG PO QAM Furosemide (Furosemide), 20 MG PO daily alternating with 40 mg daily Hydralazine Hcl (Apresoline) 100 mg, 1 TAB PO TID Isosorbide Mononitrate Ext Rel (Imdur Ext Rel), 120 MG PO DAILY Losartan Potassium (Losartan Potassium), 50 MG PO BID Methyldopa (Aldomet), 1,000 MG PO BID Metoprolol Succ (Toprol Xl) (Toprol-Xl ), 100 MG PO DAILY Current Inpatient Medications Medications (Trade) Dose Ordered Sig/Rey Route Start Time Stop Time Status Last Admin Dose Admin Acetaminophen (Tylenol Tab) 650 mg Q4H PRN PO 04/01/16 11:45 05/01/16 11:44 04/05/16 01:09 650 MG Ondansetron HCl (Zofran Inj) 4 mg Q6H PRN IV 04/01/16 11:45 05/01/16 11:44 04/02/16 03:25 4 MG Nitroglycerin (Nitrostat Tab) 0.4 mg UD PRN SL 04/01/16 11:45 05/01/16 11:44 Aspirin (Ecotrin Tab) 81 mg DAILY PO 04/02/16 09:00 05/02/16 08:59 Future hold 04/10/16 09:00 81 MG Atorvastatin Calcium (Lipitor Tab) 10 mg HS PO 04/01/16 21:00 05/01/16 20:59 04/09/16 20:36 10 MG Clopidogrel Bisulfate (plAVix TAB) 75 mg DAILY PO 04/02/16 09:00 05/02/16 08:59 Future hold 04/10/16 09:01 75 MG Escitalopram Oxalate (Lexapro Tab) 10 mg DAILY PO 04/02/16 09:00 05/02/16 08:59 04/10/16 09:05 10 MG Hydralazine HCl (Apresoline Tab) 100 mg TID PO 04/01/16 14:00 05/01/16 13:59 04/10/16 13:51 100 MG Albuterol/ Ipratropium (Combivent Respimat Inh) 1 puffs QID INH 04/01/16 13:00 05/01/16 12:59 04/10/16 12:07 1 PUFFS Isosorbide Mononitrate (Imdur Ext Rel Tab) 120 mg DAILY PO 04/02/16 09:00 05/02/16 08:59 04/10/16 09:02 120 MG Lorazepam (Ativan Tab) 0.5 mg Q12 PRN PO 04/01/16 12:00 05/01/16 11:59 Methyldopa (Aldomet Tab) 1,000 mg BID PO 04/01/16 21:00 05/01/16 20:59 04/10/16 09:00 1,000 MG Multivitamins (Multivitamin Tab) 1 tab DAILY PO 04/02/16 09:00 05/02/16 08:59 04/10/16 08:58 1 TAB Tramadol HCl (Ultram Tab) 50 mg Q12H PRN PO 04/01/16 12:00 05/01/16 11:59 Cholecalciferol (Vitamin D Tab) 5,000 inter.unit DAILY PO 04/02/16 09:00 05/02/16 08:59 04/10/16 09:04 5,000 INTER.UNIT Pantoprazole Sodium (Protonix Tab) 40 mg BID PO 04/01/16 21:00 05/01/16 20:59 04/10/16 08:59 40 MG Al Hydrox/Mg Hydrox/Simethicone (Maalox Max Susp) 15 ml Q6H PRN PO 04/02/16 03:45 05/02/16 03:44 04/02/16 03:47 15 ML Diphenhydramine HCl (Benadryl Cap) 25 mg Q6H PRN PO 04/05/16 01:45 05/05/16 01:44 04/07/16 19:04 25 MG Hydralazine HCl (HydrALAZINE INJ) 10 mg Q8 PRN IV. 04/07/16 14:30 05/07/16 14:29 04/09/16 23:54 10 MG Prednisone (PredniSONE TAB) 20 mg BID PO 04/08/16 20:00 05/08/16 19:59 04/10/16 09:00 20 MG Furosemide (Lasix Tab) 20 mg Q2D PO 04/08/16 16:30 05/08/16 16:29 04/08/16 17:33 20 MG Amlodipine Besylate (Norvasc Tab) 10 mg QAM PO 04/10/16 08:00 05/10/16 07:59 04/10/16 09:01 10 MG Carvedilol (Coreg Tab) 3.125 mg BID PO 04/09/16 08:00 05/09/16 07:59 04/10/16 09:04 3.125 MG Losartan Potassium (coZAAR TAB) 50 mg BID PO 04/10/16 20:00 05/10/16 19:59 Physical Exam Vital Signs (Last 8hrs): Last 8 Hrs Date Time Temp Pulse Resp B/P Pulse Ox O2 Delivery O2 Flow Rate FiO2 04/10/16 13:23 151/72 165/56 04/10/16 11:30 59 172/62 04/10/16 11:12 173/61 04/10/16 10:11 61 173/69 04/10/16 07:33 36.6 59 17 169/72 98 Blood pressure measurements performed personally by Dr Rosenthal with appropriately sized manual BP cuff (regular sized) Right upper Arm: 151/72 Left upper Arm: 142/70 left upper arm with dynamap in her room, taken just after the above reading, 165 /56. General Appearance: Alert and Oriented x3. NAD. Head: Normocephalic Atraumatic. Eyes: PERRLA, EOMI, conjunctiva and sclera clear Neck: Supple. No carotid bruits noted. No JVD. No HJD. Respiratory: Breath sounds clear to auscultation bilaterally. No w/r/r. Cardiovascular: Reg rate and rhythm. S1 and S2 noted. No murmurs, rubs, gallops. PMI non displace. Abdomen: Normal bowel sounds, soft nontender. no abdominal bruits. Extremities:1+ ankle , pedal edema Neuro: No focal deficits. Psychiatric: Normal affect. Data Last Resulted 04/07/16 06:22 Last Resulted 04/10/16 06:08 Assessment & Plan Impression: Elevated blood pressure readings. Mild hyperkalemia s/p FRANDY with improving creatine Discussion / Plan: Patient is on maximum doses of losartan, amlodipine, and methyldopa at baseline. She is on high dose metoprolol succinate. There have been recent changes/ outpt BP meds transiently held. Last metoprolol dose was on 04/08/16. Then received coreg last nigh as ordered by taxation agent provider. Lasix had been held due to FRANDY. High bp likely exacerbated by the IV steroids. In addition , I do have concerns the pt may have component of pseudohypertension , from upper extremity atherosclerosis. BP readings taken personally with manual cuff = SBP reading of 23 mm Hg less than automated machine. Recommend all BP s taken with manual cuff, and appropriate cuff size. DC coreg. Resume prior to hospital metoprolol succinate dose as of tomorrow. Resume prior to hospital furosemide 20 mg daily / alternating with 40 Mg daily. DC multivitamin due to hyperkalemia, hypermagnesemia. Repeat Chem panel in am. Stable for transfer to rehab from my standpoint as long as BMP can be followed. Zulay Rosenthal, DO
[2016-04-10] MEDS: ATORVASTATIN 10 MG TAB PO SCH (21:49)
[2016-04-10] MEDS: LOSARTAN POTASSIUM 50 MG TAB PO SCH (21:49)
--- NOTE | 2016-04-10 22:35 | Progress Note ---
Internal Med Progress Note Date of Service: Apr 10, 2016. Provider Documentation: SUBJECTIVE: transfer to [facility] was cancelled as patient remains persistently hypertensive today denies of any symptom of chest pain or sob respiratory status remains stable no fever or chills no cough OBJECTIVE: Vital Signs-as noted below Exam: General-very please elderly female , no sign of distress Eyes-sclera non icteric Lungs-no wheeze or rales Heart-regular S1/S2 Abdomen-soft , non tender Extremities-no lower ext edema Neuro-no focal deficit Lab data as noted below. ASSESSMENT & PLAN: Acute on Chronic Respiratory Failure secondary to interstitial lung disease progression respiratory status improve to baseline clinically improved-remains stable chest CT obtained showing interstitial lung disease and possible congestion appreciate pulm input on slow prednisone taper currently respiratory status at baseline( chronically on 5L of O2 - baseline ) HYPERTENSIVE URGENCY : difficult to control BP on multiple antihypertensive meds Cardiology consulted appreciate input Losartan resumed Out pt Lasix resumed with prior dose cont to monitor transfer pt to rehab when BP remains controlled Daughter given update over the phone Acute Kidney Injury superimposed on CKD stage 3 resolved Cr 1,7 baseline Hyperkalemia : resolved not on any ACEI /ARB on low K /renal diet given Kayexalate Lasix resumed CAD s/p CABG no acute findings, troponin negative no EKG changes noted continue current regimen of medications, including aspirin, Plavix, Imdur, b- kareem, CCB, statin Peripheral Artery Disease significant vascular issues including bilateral carotid disease s/p carotid endarterectomy renal artery stenosis - s/p renal artery stenting 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 home meds USMAN continue CPAP HS DVT ppx subq heparin DNR DISPOSITION accepted at [facility] transfer to Rehab when BP better controlled Vital Signs: Date Time Temp Pulse Resp B/P Pulse Ox O2 Delivery O2 Flow Rate FiO2 04/10/16 23:52 36.5 59 20 192/53 93 Nasal Cannula 5.0 04/10/16 16:11 60 152/67 04/10/16 16:00 Nasal Cannula 5.0 04/10/16 15:08 36.7 58 18 137/55 93 5.0 04/10/16 13:23 151/72 165/56 04/10/16 11:30 59 172/62 04/10/16 11:12 173/61 04/10/16 10:11 61 173/69 04/10/16 08:00 Nasal Cannula 5.0 04/10/16 07:33 36.6 59 17 169/72 98 04/10/16 02:09 64 162/69 Lab Results: Results Past 24 Hours Test 04/10/16 06:08 Range/Units Sodium Level 142 136-145 mmol/L Potassium Level 5.2 3.5-5.1 mmol/L Chloride Level 105 98-107 mmol/L Carbon Dioxide Level 29 21-32 mmol/L Anion Gap 8.0 3-11 mmol/L Blood Urea Nitrogen 64 7-18 mg/dl Creatinine 1.50 0.60-1.20 mg/dl Est Creatinine Clear Calc Drug Dose 26.4 ml/min Estimated GFR () 35.7 Estimated GFR (Non- 30.8 BUN/Creatinine Ratio 42.4 10-20 Random Glucose 112 70-99 mg/dl Calcium Level 8.5 8.5-10.1 mg/dl Magnesium Level 2.5 1.8-2.4 mg/dl
[2016-04-11 07:10] LABS: BUN/CREATININE RATIO 37.5 (10-20); CALCIUM 8.2 mg/dl (8.5-10.1); CREATININE 1.7 mg/dl (0.60-1.20); MAGNESIUM 2.3 mg/dl (1.8-2.4); POTASSIUM 4.7 mmol/L (3.5-5.1)
[2016-04-11 07:22] VITALS: BP 169/55; PULSE 76; TEMP 36.6; O2SAT 97
[2016-04-11 07:54] VITALS: BP 146/68
[2016-04-11] MEDS ORDERED: METOPROLOL SUCC 50MG EXT REL TAB PO SCH (08:00)
[2016-04-11] MEDS: IPRATROPIUM BROMIDE/ALBUTEROL respimat INH INH SCH ×2 (08:14→11:28)
[2016-04-11] MEDS: CLOPIDOGREL BISULFATE 75 MG TAB PO SCH (08:15)
[2016-04-11] MEDS: ISOSORBIDE MONONITRATE 60 MG TABCR PO SCH (08:15)
[2016-04-11] MEDS: ESCITALOPRAM OXALATE 10 MG TAB PO SCH (08:15)
[2016-04-11] MEDS: AMLODIPINE BESYLATE 5 MG TAB PO SCH (08:15)
[2016-04-11] MEDS: LOSARTAN POTASSIUM 50 MG TAB PO SCH (08:16)
[2016-04-11] MEDS: CHOLECALCIFEROL 1000 INTER.UNIT TAB PO SCH (08:17)
[2016-04-11] MEDS: PANTOprazole SOD 40 MG TAB PO SCH (08:18)
[2016-04-11] MEDS: ASPIRIN 81 MG ECTAB PO SCH (08:18)
[2016-04-11] MEDS: METHYLDOPA 250 MG TAB PO SCH (08:19)
[2016-04-11] MEDS ORDERED: FUROSEMIDE 40 MG TAB PO SCH (09:00)
--- NOTE | 2016-04-11 09:37 | Cardiology Follow-Up ---
Subjective General Date of Service: Apr 11, 2016. Chief Complaint: Hypertension Pt evaluation today including: conversation w/ patient, physical exam, chart review, lab review, review of studies, review of inpatient medication list History of Present Illness Admitted on 04/01/2016 with worsening dyspnea and hypoxemia. Known severe pulmonary fibrosis with profound hypoxemia. Cardiology consultation obtained on 04/10/2016 secondary to hypertensive urgency. Known significant coronary artery disease and hypertensive cardiovascular disease BP 146/68 this AM No chest pain. No palpitations. Life limiting dyspnea is at baseline ROS + for a cough with difficulty expectorating, chest congestion, and mild epistasis. Telemetry: Nonmonitored bed Allergies Coded Allergies: Adhesives (Verified Adverse Reaction, Unknown, TAPE - IRRITATION AT SITE, 04/01/16) Clonidine (Verified Adverse Reaction, Unknown, CATAPRES PATCH ALLERGY, 01/05) Social History Smoking Status: Never Smoker Hx Tobacco Use In Past Year?: No Hx Alcohol Use - Type And Amou: No Hx Substance Use - Type And Am: No Problem List Medical Problems: (1) Hypoxia Status: Acute (2) Pulmonary fibrosis Permanent Comment: Followed by Dr. Gonzalez Status: Chronic (3) Shortness of breath Status: Acute (4) Weakness Status: Acute Physical Exam Vital Signs Last Vital Signs Documentation Date Time Temp Pulse Resp B/P Pulse Ox O2 Delivery O2 Flow Rate FiO2 04/11/16 08:00 Nasal Cannula 5.0 04/11/16 07:54 146/68 04/11/16 07:22 36.6 76 18 97 Physical Exam Constitutional: General Apperance: overweight Level of Distress: NAD Psychiatric: Mental Status: active & alert Orientation: to time, to place, to person Memory: recent memory normal, remote memory normal Head: normocephalic, atraumatic Eyes: Pupils: PERRLA Neck: pertinent finding (Bilateral carotid endarterectomy scars. Bilateral carotid bruits. No JVD) Lungs: Auscultation: no wheezing, deminished air movement, decreased breath sounds , rales/crackles on the left, rales/crackles on the right Cardiovascular: Heart Auscultation: RRR, II/ LIVE Peripheral Pulses: Dorsalis Pedis Pulse: absent on the left, absent on the right Abdomen: Bowel Sounds: normal Extremities: edema (1+ left greater than right lower extremity edema. ) Neurologic: Cranial Nerves: grossly intact Assessment and Plan Assessment and Plan Admission on 04/01/2016 with worsening dyspnea and hypoxemia. Known severe pulmonary fibrosis with profound hypoxemia. Hypertensive urgency. History of hypertension, hypertensive cardiovascular disease Diffuse atherosclerotic disease including significant coronary artery disease. Stable. Chronic kidney disease with intermittent hyperkalemia. Continue current medications as prescribed. Closely monitor renal function and potassium Outpatient cardiology follow-up on 05/03/2016 at 10:15 AM, sooner if needed. CARDIOLOGY ATTENDING ADDENDUM: Case discussed with Mr. BernabeGissell. Patient discharged before I had opportunity to see her. Agree with Luis Fernando Borrero PA-C's findings and plans as documented above. Laboratory Results Last 24 Hours Test 04/11/16 06:10 Sodium Level 142 mmol/L Potassium Level 4.7 mmol/L Chloride Level 105 mmol/L Carbon Dioxide Level 28 mmol/L Anion Gap 9.0 mmol/L Blood Urea Nitrogen 64 mg/dl Creatinine 1.70 mg/dl Est Creatinine Clear Calc Drug Dose 23.2 ml/min Estimated GFR () 30.7 Estimated GFR (Non- 26.5 BUN/Creatinine Ratio 37.5 Random Glucose 92 mg/dl Calcium Level 8.2 mg/dl Magnesium Level 2.3 mg/dl
--- NOTE | 2016-04-11 12:50 | Progress Note ---
Subjective Date of Service: Apr 11, 2016. Subjective Pt evaluation today including: conversation w/ patient, physical exam, lab review, review of studies, review of inpatient medication list Saw/examined the patient in room 450 Doing well today Denies shortness of breath - seems to be at baseline Denies chest pain/palpitations Problem List Medical Problems: (1) Hypoxia Status: Acute (2) Pulmonary fibrosis Permanent Comment: Followed by Dr. Gonzalez Status: Chronic (3) Shortness of breath Status: Acute (4) Weakness Status: Acute Review of Systems Constitutional: No chills, No fever Respiratory: + shortness of breath (baseline), No cough, No dyspnea at rest, No dyspnea on exertion, No hemoptysis, No sputum, No wheezing Cardiac: No chest pain, No edema, No palpitations Abdomen: No diarrhea, No nausea, No pain, No vomiting Heme: No abnormal bleeding/bruising Medications Current Inpatient Medications Medications (Trade) Dose Ordered Sig/Rey Route Start Time Stop Time Status Last Admin Dose Admin Acetaminophen (Tylenol Tab) 650 mg Q4H PRN PO 04/01/16 11:45 05/01/16 11:44 04/05/16 01:09 650 MG Ondansetron HCl (Zofran Inj) 4 mg Q6H PRN IV 04/01/16 11:45 05/01/16 11:44 04/02/16 03:25 4 MG Nitroglycerin (Nitrostat Tab) 0.4 mg UD PRN SL 04/01/16 11:45 05/01/16 11:44 Aspirin (Ecotrin Tab) 81 mg DAILY PO 04/02/16 09:00 05/02/16 08:59 Future hold 04/11/16 08:18 81 MG Atorvastatin Calcium (Lipitor Tab) 10 mg HS PO 04/01/16 21:00 05/01/16 20:59 04/10/16 21:49 10 MG Clopidogrel Bisulfate (plAVix TAB) 75 mg DAILY PO 04/02/16 09:00 05/02/16 08:59 Future hold 04/11/16 08:15 75 MG Escitalopram Oxalate (Lexapro Tab) 10 mg DAILY PO 04/02/16 09:00 05/02/16 08:59 04/11/16 08:15 10 MG Hydralazine HCl (Apresoline Tab) 100 mg TID PO 04/01/16 14:00 05/01/16 13:59 04/11/16 08:16 100 MG Albuterol/ Ipratropium (Combivent Respimat Inh) 1 puffs QID INH 04/01/16 13:00 05/01/16 12:59 04/11/16 11:28 1 PUFFS Isosorbide Mononitrate (Imdur Ext Rel Tab) 120 mg DAILY PO 04/02/16 09:00 05/02/16 08:59 04/11/16 08:15 120 MG Lorazepam (Ativan Tab) 0.5 mg Q12 PRN PO 04/01/16 12:00 05/01/16 11:59 Methyldopa (Aldomet Tab) 1,000 mg BID PO 04/01/16 21:00 05/01/16 20:59 04/11/16 08:19 1,000 MG Tramadol HCl (Ultram Tab) 50 mg Q12H PRN PO 04/01/16 12:00 05/01/16 11:59 Cholecalciferol (Vitamin D Tab) 5,000 inter.unit DAILY PO 04/02/16 09:00 05/02/16 08:59 04/11/16 08:17 5,000 INTER.UNIT Pantoprazole Sodium (Protonix Tab) 40 mg BID PO 04/01/16 21:00 05/01/16 20:59 04/11/16 08:18 40 MG Al Hydrox/Mg Hydrox/Simethicone (Maalox Max Susp) 15 ml Q6H PRN PO 04/02/16 03:45 05/02/16 03:44 04/02/16 03:47 15 ML Diphenhydramine HCl (Benadryl Cap) 25 mg Q6H PRN PO 04/05/16 01:45 05/05/16 01:44 04/07/16 19:04 25 MG Hydralazine HCl (HydrALAZINE INJ) 10 mg Q8 PRN IV. 04/07/16 14:30 05/07/16 14:29 04/09/16 23:54 10 MG Amlodipine Besylate (Norvasc Tab) 10 mg QAM PO 04/10/16 08:00 05/10/16 07:59 04/11/16 08:15 10 MG Losartan Potassium (coZAAR TAB) 50 mg BID PO 04/10/16 20:00 05/10/16 19:59 04/11/16 08:16 50 MG Furosemide (Lasix Tab) 40 mg Q2D@0900 PO 04/11/16 09:00 05/11/16 08:59 04/11/16 08:17 40 MG Metoprolol Succinate (Toprol Xl Tab) 100 mg QAM PO 04/11/16 08:00 05/11/16 07:59 04/11/16 08:18 100 MG Furosemide (Lasix Tab) 20 mg Q2D@0900 PO 04/12/16 09:00 05/12/16 08:59 Prednisone (PredniSONE TAB) 10 mg BID PO 04/10/16 20:00 05/10/16 19:59 04/11/16 08:18 10 MG Objective Vital Signs Date Time Temp Pulse Resp B/P Pulse Ox O2 Delivery O2 Flow Rate FiO2 04/11/16 08:00 Nasal Cannula 5.0 04/11/16 07:54 146/68 04/11/16 07:22 36.6 76 18 169/55 97 CPAP 5.0 04/10/16 23:59 Nasal Cannula 5.0 04/10/16 23:52 36.5 59 20 192/53 93 Nasal Cannula 5.0 04/10/16 23:00 62 97 6.0 04/10/16 16:11 60 152/67 04/10/16 16:00 Nasal Cannula 5.0 04/10/16 15:08 36.7 58 18 137/55 93 5.0 04/10/16 13:23 151/72 165/56 Physical Exam General Appearance: no apparent distress Respiratory/Chest: lungs clear, normal breath sounds, no respiratory distress, no accessory muscle use Cardiovascular: regular rate, rhythm, no edema, no murmur Abdomen: normal bowel sounds, non tender, soft Extremities: normal inspection, no pedal edema Neurologic/Psychiatric: no motor/sensory deficits, alert, normal mood/affect Laboratory Results Last 24 Hours Test 04/11/16 06:10 Sodium Level 142 mmol/L Potassium Level 4.7 mmol/L Chloride Level 105 mmol/L Carbon Dioxide Level 28 mmol/L Anion Gap 9.0 mmol/L Blood Urea Nitrogen 64 mg/dl Creatinine 1.70 mg/dl Est Creatinine Clear Calc Drug Dose 23.2 ml/min Estimated GFR () 30.7 Estimated GFR (Non- 26.5 BUN/Creatinine Ratio 37.5 Random Glucose 92 mg/dl Calcium Level 8.2 mg/dl Magnesium Level 2.3 mg/dl Assessment and Plan This is an 89 year old female with PMH of oxygen dependent interstitial lung disease and pulmonary fibrosis, CAD s/p CABG, USMAN on CPAP nocturnally, PAD presents with worsening shortness of breath Acute on Chronic Respiratory Failure secondary to interstitial lung disease progression 04/11 I saw the patient today; clinically feeling much better on 5L of O2 currently, uses between 4-5L at home will discharge on prednisone d/c to [facility] 04/06 clinically improved appreciate pulm input will send out with a prednisone taper - slow taper currently on 5L of O2 - baseline d/c planning to [facility] outpatient f/u for bipap setting adjustments 04/05 patient is closer to her baseline requiring O2 - 5-6L O2, baseline is at around 5L steroids will be tapered off today 30mg q8 if she tolerates this, will change to PO steroids in AM d/c planning to rehab - referral made to [facility] 04/04 patient presented with respiratory failure, worse than baseline dyspnea at rest and exertion on presentation with oxygen therapy, nebulizers, and steroids, patient feels slightly better appreciate pulmonary input steroids tapered to 60mg q8hrs continue oxygen as needed to maintain O2 saturation > 92% chest CT obtained showing interstitial lung disease and possible congestion Acute Kidney Injury superimposed on CKD stage 3 04/06 creat down to 1.7, probably closer to baseline follows with nephrology as an outpatient, to see after stay at [facility] 04/04 patient presented with creat of 1.7 received Lasix in the ER on presentation causing creat to jump to 2.3 it is now down to 2.0 and will monitor closely; avoiding nephrotoxic agents when able holding ARB for now CAD s/p CABG no acute findings, troponin negative no EKG changes noted continue current regimen of medications, including aspirin, Plavix, Imdur, b- kareem, CCB, statin HTN continue current medications restarted ARB on 04/06 Peripheral Artery Disease significant vascular issues including bilateral carotid disease s/p carotid endarterectomy renal artery stenosis - requiring renal artery stenting 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 home meds USMAN continue CPAP HS DVT ppx subq heparin DNR Discharge planning: rehab hospital
[2016-04-11] MEDS ORDERED: PRED10TA PO (12:51)
--- NOTE | 2016-04-11 12:55 | Discharge Summary ---
Discharge Summary Admission Date: Apr 01, 2016 at 10:56 Discharge Date: Apr 10, 2016 Discharge Disposition: residential facility Principal Diagnosis: Oxygen dependent interstitial lung disease and pulmonary fibrosis CAD s/p CABG USMAN on CPAP nocturnally PAD presents Consultations: Pulmonary Medication Reconciliation New Medications: Prednisone Tab (Prednisone) 10 Mg Tab 10 MG PO BID for 5 Days, #5 TAB use as directed Continued Medications: Amlodipine Besylate (Amlodipine Besylate) 5 Mg Tab 10 MG PO QAM for 30 Days, #60 TAB Aspirin (Aspirin EC Low Dose) 81 Mg Ectab 81 MG PO DAILY Atorvastatin (Lipitor) 10 Mg Tab 10 MG PO 5XD, TAB Cholecalciferol (Vitamin D3) 5,000 Unit Tab 1 TAB PO DAILY Clopidogrel (Plavix) 75 Mg Tab 75 MG PO DAILY Coenzyme Q10 (Ubidecarenone) (Co Q 10) 100 Mg Cap 200 MG PO DAILY Escitalopram Oxalate (Lexapro) 10 Mg Tab 1 TAB PO DAILY for 30 Days, #30 TAB 3 Refills Furosemide (Furosemide) 20 Mg Tab 20 MG PO Q2D, #135 Furosemide (Lasix) 20 Mg Tab 40 MG PO Q2D, TAB Hydralazine Hcl (Apresoline) 100 Mg Tab 1 TAB PO TID for 30 Days, #90 TAB 5 Refills Ipratropium-Albuterol (Combivent Respimat) 1 Aer Aer 1 PUFFS INH QID, INH Isosorbide Mononitrate Ext Rel (Imdur Ext Rel) 120 Mg Ertab 120 MG PO DAILY, #31 Lorazepam (Lorazepam) 0.5 Mg Tab 0.5 MG PO Q12 PRN for Anxiety for 10 Days, #20 TAB Take 1/2 to 1 tab po BID prn for anxiety Losartan Potassium (Losartan Potassium) 50 Mg Tab 50 MG PO BID17 for 30 Days, #60 TAB Methyldopa (Aldomet) 500 Mg Tab 1000 MG PO BID, #120 Metoprolol Succ (Toprol Xl) (Toprol-Xl ) 100 Mg Tabcr 100 MG PO DAILY Multivitamin (Multivitamin) Tab 1 TAB PO DAILY, TAB Nitroglycerin (Nitrostat) 0.4 Mg Tab 0.4 MG UT PRN, 0 Refills Omeprazole (Prilosec) 20 Mg Capcr 20 MG PO BID, CAP Oxygen (Oxygen) Gas 3-4 LITERS NA CONTINOUS MAY INCREASE TO 5 LITERS FOR ACTIVITY Tramadol Hcl (Ultram) 50 Mg Tab 50 MG PO Q12H PRN for Pain, TAB PRN PAIN Admission Information HPI (per Admitting provider): Patient seen and examined. 89 year old female with PMHx of Interstitial lung disease with chronic respiratory failure, USMAN on CPAP HS, Systolic CHF, Pulmonary HTN, CAD, PAD, Depression and other problems listed below presents to the ED complaining of increased SOB/low pulse ox readings x 1 month. Patient and family report that her respiratory status has been gradually worsening over the last month. A month ago she was saturating well on 4L NC. Since then she has been having worsening SOB and low pulse ox readings. They called her C[employer] Dr. Gonzalez who suggested increasing her oxygen but if she ever needed more than 7L to come to the ED. She then saw her PCP who recommended she take her Combivent QID which has provided little relief. The patient has continued to increase her Oxygen and over the last week she has been using 6- 6.5 liters continuously. She continues to have hypoxic episodes. Patient is 14 steps from her bathroom and she routinely becomes hypoxic with this exertion. Today family went to visit patient and she was a sleep. He nocturnal pulse ox was in the 80s. When she awoke she ambulated to the bathroom 14 steps away and her saturations decreased to 62%. At this point the family decided to bring the patient to the ED. Patient reports that she has been an extra pillow at night d/ t SOB. She states her weight is stable and denies increased peripheral edema. She states she has been having some nausea and poor po intake. She denies fevers , chills, URI symptoms, cough, chest pain, palpitations, vomiting, diarrhea, dysuria, calf pain and edema. In the ED patient was hypoxic at 88% on 7L. She is saturating well on 10L via mask at 95%. BP is slightly elevated. CXR shows mild vascular congestion, BNP is 1941. Troponin is negative. She will be admitted for further workup and treatment. Physical Exam (per Admitting): General Appearance: + pertinent finding (Very pleasant WD/WN 89 year old female lying in bed in NAD with family at bedside ) Head: normocephalic, atraumatic Eyes: PERRL, EOMI, sclerae normal ENT: hearing grossly normal, pharynx normal Neck: supple, no JVD Respiratory/Chest: chest non-tender, no respiratory distress, no accessory muscle use, + pertinent finding (Trace Bibasilar crackles, trace scattered wheezes ) Cardiovascular: regular rate, rhythm, no gallop, no JVD, no murmur, normal peripheral pulses Abdomen/GI: normal bowel sounds, non tender, soft Back: normal inspection, no muscle spasm Extremities/Musculoskelatal: no calf tenderness, normal capillary refill, + pedal edema (+1-2 BL pitting edema to mid doe ) Neurologic/Psych: alert, oriented x 3, + pertinent finding (no motor or sensory deficits noted on gross exam ) Skin: normal color, warm/dry, no rash Lymphatic: no adenopathy Hospital Course This is an 89 year old female with PMH of oxygen dependent interstitial lung disease and pulmonary fibrosis, CAD s/p CABG, USMAN on CPAP nocturnally, PAD presents with worsening shortness of breath Acute on Chronic Respiratory Failure secondary to interstitial lung disease progression 04/11 I saw the patient today; clinically feeling much better on 5L of O2 currently, uses between 4-5L at home will discharge on prednisone d/c to [facility] 04/06 clinically improved appreciate pulm input will send out with a prednisone taper - slow taper currently on 5L of O2 - baseline d/c planning to [facility] outpatient f/u for bipap setting adjustments 04/05 patient is closer to her baseline requiring O2 - 5-6L O2, baseline is at around 5L steroids will be tapered off today 30mg q8 if she tolerates this, will change to PO steroids in AM d/c planning to rehab - referral made to [facility] 04/04 patient presented with respiratory failure, worse than baseline dyspnea at rest and exertion on presentation with oxygen therapy, nebulizers, and steroids, patient feels slightly better appreciate pulmonary input steroids tapered to 60mg q8hrs continue oxygen as needed to maintain O2 saturation > 92% chest CT obtained showing interstitial lung disease and possible congestion Acute Kidney Injury superimposed on CKD stage 3 04/06 creat down to 1.7, probably closer to baseline follows with nephrology as an outpatient, to see after stay at [facility] 04/04 patient presented with creat of 1.7 received Lasix in the ER on presentation causing creat to jump to 2.3 it is now down to 2.0 and will monitor closely; avoiding nephrotoxic agents when able holding ARB for now CAD s/p CABG no acute findings, troponin negative no EKG changes noted continue current regimen of medications, including aspirin, Plavix, Imdur, b- kareem, CCB, statin HTN continue current medications restarted ARB on 04/06 Peripheral Artery Disease significant vascular issues including bilateral carotid disease s/p carotid endarterectomy renal artery stenosis - requiring renal artery stenting 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 home meds USMAN continue CPAP HS DVT ppx subq heparin DNR Discharge planning: rehab hospital Total time spent on discharge = 40 minutes This includes examination of the patient, discharge planning, medication reconciliation, and communication with other providers. Discharge Instructions Please take the following prednisone taper: Patient should be on 10mg of prednisone twice a day for 04/12 and 04/13 Patient should be on 10mg of prednisone daily on 04/14, 04/15, 04/16 Patient should be on 5mg of prednisone on 04/17, 04/18, 04/19 Follow with pulmonology after stay at [facility] Follow with PCP after stay at [facility] Follow up with nephrology after [facility] You may need a repeat sleep study for adjustments to CPAP machine
[2016-04-11 13:19] VITALS: BP 136/60
[2016-04-11 13:44] VITALS: PULSE 60; O2SAT 96
[2016-04-11 14:37] VITALS: BP 136/60; PULSE 60; TEMP 36.6; O2SAT 96
[2016-04-11 15:37] VITALS: BP 142/63; PULSE 52; TEMP 36.6; O2SAT 97
[2016-04-12] MEDS ORDERED: FUROSEMIDE 20 MG TAB PO SCH (09:00)
[2016-04-27] MEDS ORDERED: ATV5 PO (11:02)
[2016-04-27] MEDS ORDERED: CRG125 PO (11:02)
[2016-04-27] MEDS ORDERED: IPRA1AER2 INH (11:02)
[2016-04-27] MEDS ORDERED: PRD10 PO (11:02)
[2016-05-17] MEDS ORDERED: PRED-301 PO (11:36)
[2016-05-17] MEDS ORDERED: FURO40TA3 PO (11:36)
[2016-07-24] MEDS ORDERED: CALC0.2510 PO (15:43)
[2016-07-24] MEDS ORDERED: CARV12.52 PO (15:49)
[2016-07-24] MEDS ORDERED: ACET-1311 PO (16:04)
[2016-07-24] MEDS ORDERED: GUAI100S25 PO (16:11)
[2016-07-24] MEDS ORDERED: RBTUDL5 PO (16:16)
[2016-07-24] MEDS ORDERED: IPRASOL4 INH (16:19)
[2016-07-24] MEDS ORDERED: SALINE NASAL SPRAY NAE (16:21)
[2016-07-27] MEDS ORDERED: PRED10TA PO (11:40)
[2016-07-27] MEDS ORDERED: LSX80 PO (11:40)
[2016-07-27] MEDS ORDERED: CRG125 PO (11:40)
[2016-07-27] MEDS ORDERED: SACC250C3 PO (11:40)
[2016-07-27] MEDS ORDERED: LEVO1TAB35 PO (11:40)
[2016-07-27] MEDS ORDERED: LXP10 PO (11:40)
== END 2016-04-11 16:08 | DRG 196 ==
LOC: ENRESERVDT → ENRESERVTM → C.EDB 08:58 → C.2T 10:56 → C.MS4W 04-07 16:06
PROVIDERS: ADMIT Hospitalist; ATTEND Family Medicine
DX: J84.9 Interstitial pulmonary disease, unspecified (principal); J96.21 Acute and chronic respiratory failure with hypoxia; I50.23 Acute on chronic systolic (congestive) heart failure; I13.0 Hypertensive heart and chronic kidney disease with heart failure and stage 1 through stage 4 chronic kidney disease, or unspecified chronic kidney disease; J84.114 Acute interstitial pneumonitis; N17.9 Acute kidney failure, unspecified; G47.33 Obstructive sleep apnea (adult) (pediatric); I25.10 Atherosclerotic heart disease of native coronary artery without angina pectoris; N18.3 Chronic kidney disease, stage 3 (moderate); E11.21 Type 2 diabetes mellitus with diabetic nephropathy; I70.1 Atherosclerosis of renal artery; Z95.5 Presence of coronary angioplasty implant and graft; Z79.82 Long term (current) use of aspirin; Z66 Do not resuscitate; I73.9 Peripheral vascular disease, unspecified; F32.9 Major depressive disorder, single episode, unspecified; Z85.3 Personal history of malignant neoplasm of breast; Z92.3 Personal history of irradiation; Z99.81 Dependence on supplemental oxygen

== ENCOUNTER 2016-04-20 12:10 | Inpatient (IN) | payer OTHER ==
[2016-04-20] VITALS (9 sets, daily range): BP systolic 132–148; BP diastolic 63–66; PULSE 57–81; TEMP 36.6–36.9; O2SAT 90–94; Ht 154.9 cm; Wt 83.8 kg
[~2016-04-20] VITALS: Ht 154.9 cm; Wt 83.8 kg
[~2016-04-20 12:10] MED LIST changes: -ACET30TA PO; +ESCI1TAB9 PO; +PRED10TA PO; +TRAM-453 PO
[2016-04-20] MEDS ORDERED: ALBUT/IPRATROP 3MG/0.5MG NEB 3 ML VIAL INH ONE (13:30)
[2016-04-20 13:33] LABS: BASO % 0.1 %; BASO ABS # 0.01 K/uL (0-0.2); EOS % 1.3 %; HEMATOCRIT 27.9 % (37-47); IG% 0.3 %; LYMPH % 6.2 %; LYMPH ABS # 0.49 K/uL (1.2-3.4); MEAN CELL VOLUME 92.7 fL (80-100); MEAN CORPUSCULAR HEMOGLOBIN 29.2 pg (25-34); MEAN CORPUSCULAR HGB CONC 31.5 g/dl (32-36); MEAN PLATELET VOLUME 10.9 fL (7.4-10.4); NEUT % 85.1 %; PLATELET COUNT 189 K/uL (130-400); RED BLOOD COUNT 3.01 M/uL (4.2-5.4); WHITE BLOOD COUNT 7.89 K/uL (4.8-10.8)
[2016-04-20 13:37] LABS: PROTHROMBIN TIME (PATIENT) 11.1 SECONDS (9.0-12.0)
[2016-04-20 13:41] LABS: BUN/CREATININE RATIO 35.3 (10-20); CALCIUM 8.3 mg/dl (8.5-10.1); CREATININE 1.6 mg/dl (0.60-1.20); MAGNESIUM 2.5 mg/dl (1.8-2.4); POTASSIUM 4.6 mmol/L (3.5-5.1)
--- NOTE | 2016-04-20 13:43 | EMERGENCY ROOM VISIT NOTE ---
History Report prepared by Olga: Heaven Kothari Under the Supervision of: Dr. Nella Joseph M.D. First contact with patient: 12:18 Stated Complaint: sob History of Present Illness The patient is a 89 year old female who presents to the Emergency Room with complaints of persistent shortness of breath for the last couple of weeks. She has previously been to the ED for hypoxia. She has a history of respiratory failure, pulmonary fibrosis, and sleep apnea. The patient is unsure if her symptoms are due to her lung disease. She denies any fever or abdominal pain. She reports that she is currently on antibiotics for pneumonia. She is on 5 L of oxygen through nasal cannula at home. Source of History: patient Onset: couple weeks ago Position: other (lungs) Quality: other (shortness of breath) Associated Symptoms: No abdominal pain, No fevers Review of Systems See HPI for pertinent positives & negatives. A total of 10 systems reviewed and were otherwise negative. Past Medical & Surgical Medical Problems: (1) Carotid stenosis (2) Chronic respiratory failure (3) Coronary artery disease (4) Diverticulosis of colon (5) DM type 2 (diabetes mellitus, type 2) (6) Dyslipidemia (7) GERD (gastroesophageal reflux disease) (8) History of breast cancer (9) Hypertension (10) Osteoarthritis (11) Pulmonary fibrosis (12) Renal artery stenosis, nondalton (13) Sleep apnea Surgical Problems: (1) S/P CABG (coronary artery bypass graft) (2) S/P carotid endarterectomy (3) S/P cholecystectomy (4) S/P coronary artery stent placement (5) S/P insertion of iliac artery stent (6) S/P laparoscopic cholecystectomy (7) s/p renal artery stent (8) Status post partial mastectomy of right breast Family History FH: cancer FH: gallbladder disease FH: heart disease FH: lung disease Hypertension Social History Smoking Status: Never Smoker Alcohol Use: none Drug Use: none Marital Status: Housing Status: lives alone Occupation Status: retired Current/Historical Medications Scheduled Amlodipine Besylate (Amlodipine Besylate), 10 MG PO QAM Amoxicillin & Pot Clavulanate (Augmentin 875-125 mg), 1 TAB PO BID Aspirin (Aspirin EC Low Dose), 81 MG PO DAILY Atorvastatin (Lipitor), 10 MG PO DAILY Cholecalciferol (Vitamin D3), 1 TAB PO DAILY Clopidogrel (Plavix), 75 MG PO DAILY Escitalopram Oxalate (Lexapro), 1 TAB PO DAILY Furosemide (Furosemide), 20 MG PO Q2D Furosemide (Lasix), 40 MG PO Q2D Hydralazine Hcl (Apresoline), 1 TAB PO TID Ipratropium-Albuterol (Combivent Respimat), 1 PUFFS INH QID Isosorbide Mononitrate Ext Rel (Imdur Ext Rel), 120 MG PO DAILY Losartan Potassium (Losartan Potassium), 50 MG PO BID17 Methyldopa (Aldomet), 1,000 MG PO BID Metoprolol Succinate (Toprol Xl), 50 MG PO DAILY Multivitamin (Multivitamin), 1 TAB PO DAILY Nitroglycerin (Nitrostat), 0.4 MG UT PRN Oxygen (Oxygen), 3-4 LITERS NA CONTINOUS Pantoprazole Sodium (Protonix), 40 MG PO DAILY Scheduled PRN Lorazepam (Lorazepam), 0.5 MG PO Q12 PRN for Anxiety Tramadol Hcl (Ultram), 50 MG PO Q12H PRN for Pain Allergies Coded Allergies: Adhesives (Verified Adverse Reaction, Unknown, TAPE - IRRITATION AT SITE, 04/20/16) Clonidine (Verified Adverse Reaction, Unknown, CATAPRES PATCH ALLERGY, 04/20) Physical Exam Vital Signs Date Time Temp Pulse Resp B/P Pulse Ox O2 Delivery O2 Flow Rate FiO2 04/20/16 15:12 65 25 138/54 92 Nasal Cannula 5.0 04/20/16 14:07 59 24 152/49 100 Nebulizer 04/20/16 13:46 55 22 134/47 100 Nebulizer 04/20/16 13:40 57 25 94 Nasal Cannula 5.0 04/20/16 13:03 54 22 141/57 92 Nasal Cannula 5.0 04/20/16 12:56 93 Nasal Cannula 5.0 04/20/16 12:55 87 Nasal Cannula 5.0 04/20/16 12:54 90 Nasal Cannula 5.0 04/20/16 12:41 61 04/20/16 12:25 36.8 52 24 150/52 100 Non-Rebreather 04/20/16 12:25 100 Non-Rebreather 15.0 Physical Exam Vital signs reviewed. General: Elderly, chronically ill-appearing, in no significant distress. On NRB. HEENT: No scleral icterus, PERRLA, neck supple. Atraumatic. Cardiovascular: Rate controlled and irregular rhythm, no extra sounds. Pulmonary: Scattered wheezes to bilateral lung nettles, increased work of breathing. Abdomen: Soft, nontender, nondistended, positive bowel sounds. Musculoskeletal: Atraumatic, no peripheral edema. Neurologic: Patient awake alert and oriented x 3, full strength in all 4 extremities. Cranial nerves 2 through 12 grossly intact. Skin: Warm, dry, no rash Medical Decision & Procedures ER Provider Diagnostic Interpretation: X-ray results as stated below per interpretation by me and the radiologist: CHEST ONE VIEW PORTABLE CLINICAL HISTORY: SOB WHEEZING COMPARISON STUDY: 04/06/2016 FINDINGS: There are postsurgical changes of a midline sternotomy. The heart remains enlarged. There is diffuse interstitial thickening similar to the prior study.[ IMPRESSION: Cardiomegaly and diffuse interstitial thickening/edema, relatively similar to the preceding study given the differences in technique. Underlying interstitial lung disease is suspected. Superimposed pulmonary edema or an inflammatory process may be present Electronically signed by: Dhaval Wilson M.D. 04/20/2016 1:41 PM Laboratory Results Test 04/20/16 12:52 04/20/16 13:35 Red Blood Cell Morphology Unremarkable Prothrombin Time 11.1 SECONDS (9.0-12.0) Prothromb Time International Ratio 1.0 (0.9-1.1) Activated Partial Thromboplast Time 26.8 SECONDS (21.0-31.0) Partial Thromboplastin Ratio 1.0 Total Bilirubin 0.4 mg/dl (0.2-1) Direct Bilirubin 0.1 mg/dl (0-0.2) Aspartate Amino Transf (AST/SGOT) 12 U/L (15-37) Alanine Aminotransferase (ALT/SGPT) 36 U/L (12-78) Alkaline Phosphatase 70 U/L (45-117) Total Creatine Kinase 22 U/L (26-192) Total Protein 6.2 gm/dl (6.4-8.2) Albumin 2.3 gm/dl (3.4-5.0) Bedside Troponin I 0.090 ng/ml (0-0.045) [id number]-Lfn-[id number]-Type Natriuretic Peptide 3392 pg/ml (0-1800) Laboratory results per my review. Medications Administered Medications (Trade) Dose Ordered Sig/Rey Route Start Time Stop Time Status Last Admin Dose Admin Albuterol/ Ipratropium (Duoneb) 12 ml ONE ONCE INH 04/20/16 13:30 04/20/16 13:31 DC 04/20/16 13:39 12 ML Furosemide (Lasix Inj) 20 mg NOW STAT IV 04/20/16 14:00 04/20/16 14:01 DC 04/20/16 14:08 20 MG Methylprednisolone Sodium Succinate (Solu-Medrol IV) 125 mg NOW STAT IV 04/20/16 14:53 04/20/16 14:55 DC 04/20/16 15:12 125 MG Acetaminophen (Tylenol Tab) 650 mg Q4H PRN PO 04/20/16 15:30 05/20/16 15:29 04/22/16 20:40 650 MG ECG Indication: SOB/dyspnea Rate (beats per minute): 57 Rhythm: sinus bradycardia (with sinus arrythmia) Findings: nonspecific-ST abn (Inferior), no ectopy ED Course 1241: Past medical records reviewed. The patient was evaluated in room C7. A complete history and physical examination was performed. 1330: Duoneb 12 ml INH. 1400: Lasix Inj 20 mg IV. 1453: Solu-Medrol IV 125 mg IV. 1456: I spoke with Amarilys Breen NP - [facility]. We discussed the patients results and treatment plan. The patient will be evaluated by the [employer] Hospitalist for further management. 1513: I reassessed the patient at this time. She is feeling better and resting comfortably. I discussed the results and treatment plan with the patient. I answered all pertaining questions that she had. She expressed understanding and verbalized agreement. Medical Decision Differential diagnosis: Etiologies such as infections, reactive airway disease, pneumonia, pneumothorax , COPD, CHF, cardiac ischemia, pulmonary embolism, musculoskeletal, gastrointestinal, as well as others were entertained. This pt was evaluated and appeared to be in no distress. IV access was obtained and lab work was drawn. Pt was placed on the ict trainer. CXR was obtained and reveals chronic interstitial dx and superimposed edema. Lab work reveals elevated BNP and trop (0.09). EKG reveals a sinus tirso with nonspecific ST changes. Pt was given 20 mg IV lasix as her creatinine is 1.6 with BUN of 56. Pt was resting comfortably on NRB on my eval, but I switched her to 5 L n/c for which she is tolerating. Pt had a desat on her home 5 L n/c on arrival. Pt was d/w the hospitalist service for further management. Consults Time Called: 1450 Consulting Physician: LESLEY Read. Returned Call: [phone] We discussed the patients results and treatment plan. The patient will be evaluated by the [facility] Hospitalist for further management. Impression Primary Impression: Pulmonary fibrosis Additional Impression: Pulmonary edema Scribe Attestation The scribe's documentation has been prepared under my direction and personally reviewed by me in its entirety. I confirm that the note above accurately reflects all work, treatment, procedures, and medical decision making performed by me. Departure Information Dispostion Being Evaluated By Hospitalist Referrals Chuck Luna, D.O. (PCP) Problem Qualifiers Additional Impression: Pulmonary edema Chronicity: acute Qualified Codes: J81.0 - Acute pulmonary edema
[2016-04-20 13:46] LABS: CKMB/CK RATIO 2.3 (0-3.0)
[2016-04-20 13:54] LABS: POINT OF CARE TROPONIN I 0.09 ng/ml (0-0.045)
[2016-04-20 13:56] LABS: COMPLETE YES
[2016-04-20] MEDS ORDERED: FUROSEMIDE 40 MG/4 ML VIAL IV STA (14:00)
[2016-04-20] MEDS ORDERED: METHYLPREDNISOLONE 125 MG VIAL IV STA (14:53)
[2016-04-20] MEDS ORDERED: AMOX875T PO (15:23)
[2016-04-20] MEDS ORDERED: PRED-441 PO (15:23)
[2016-04-20] MEDS ORDERED: METO1TAB66 PO (15:23)
[2016-04-20] MEDS ORDERED: PANT40TA PO (15:23)
[2016-04-20] MEDS ORDERED: ACETAMINOPHEN 325 MG TAB PO PRN (15:30)
[2016-04-20] MEDS ORDERED: ONDANSETRON INJ 2 MG/ML 2 ML VIAL IV PRN (15:30)
[2016-04-20] MEDS ORDERED: TRAMADOL HCL 50 MG TAB PO PRN (16:00)
[2016-04-20] MEDS ORDERED: ALBUT/IPRATROP 3MG/0.5MG NEB 3 ML VIAL INH SCH (16:00)
[2016-04-20] MEDS ORDERED: LORAZEPAM 0.5 MG TAB PO PRN (16:00)
[2016-04-20] MEDS: AMOXICILLIN/CLAVULANATE TAB 875 MG TAB PO SCH (17:21)
[2016-04-20] MEDS: LOSARTAN POTASSIUM 50 MG TAB PO SCH (17:21)
--- NOTE | 2016-04-20 17:38 | History and Physical ---
History & Physical Date & Time of Service: Apr 20, 2016 at 17:02 Chief Complaint: Shortness of Breath, Hypoxia Primary Care Physician: Chuck Lnua D.O. History of Present Illness 89 year old female who was sent to the ER from [facility] for shortness of breath and hypoxia. Patient has history of severe oxygen dependent pulmonary fibrosis. She was admitted to [facility] 04/01 - 04/11 for acute on chronic hypoxic respiratory failure. She was treated with one dose of IV diuresis and IV steroids. Patient was discharged to [facility] on a steroid taper. Per the staff at [facility], patient has been having intermittent episodes of hypoxia since being there. She had been running low grade fevers and a chest XR was obtained that showed BL lower lobes infiltrates vs congestion, R>L. Patient was started on a 10 day course of Augmentin on 04/16. She has been afebrile since then. This morning patient's oxygen was set to a lower rate than she normally uses and was found to be hypoxic. Oxygen was increased and patient continued to have hypoxia. She was then placed on BiPap and hypoxia still continued. EMS was then called. En route, patient reports one episode of left lower chest pain that was brought on with deep breaths. She was given nitro spray x 1. She reports resolution of the pain. She also had associated nausea. She denies diaphoresis. She has chronic lower extremity edema which is unchanged. She reports therapy has been overall going well at [facility]. She denies abdominal pain, vomiting, and diarrhea. No urinary symptoms. In the ER, patient was 87% on her chronic 5L. This improved with nebulizer treatment. CXR shows chronic changes. She was also given IV steroids. Trop was also mildly elevated at 0.09. EKG is unchanged from prior. Past Medical/Surgical History Medical Problems: (1) Carotid stenosis Status: Chronic (2) Chronic respiratory failure Permanent Comment: home O2 Status: Chronic (3) Coronary artery disease Permanent Comment: 1997 - CABG x 2 2007 - vein graft stenosis, PCI of SVG -> LAD s/p BMS, PCI of SVG -> RCA s/p BMS x 20 Jun 2010 - STEMI, total occlusion of proximal segment of the right PDA which was the area of prior stenting, s/p PTCA and stenting of the saphenous vein bypass graft to the right PDA with REBEL posterior Complete angiography at that time revealed a total proximal LAD stenosis with a patent SVG to the mid LAD, mild atherosclertoic disease in the left circumflex coronary artery, and a total mid RCA occlusion with the total proximal SVG to the right PDA. Status: Chronic (4) Diverticulosis of colon Status: Chronic (5) DM type 2 (diabetes mellitus, type 2) Status: Chronic (6) Dyslipidemia Status: Chronic (7) GERD (gastroesophageal reflux disease) Status: Chronic (8) History of breast cancer Permanent Comment: right breast Status: Chronic (9) Hypertension Status: Chronic (10) Osteoarthritis Status: Chronic (11) Pulmonary fibrosis Permanent Comment: Followed by Dr. Gonzalez Status: Chronic (12) Renal artery stenosis, [place] Permanent Comment: [place] [facility] [place] Status: Chronic (13) Sleep apnea Status: Chronic Surgical Problems: (1) S/P CABG (coronary artery bypass graft) Permanent Comment: x2 Status: Chronic (2) S/P carotid endarterectomy Status: Chronic (3) S/P cholecystectomy Status: Chronic (4) S/P coronary artery stent placement Status: Chronic (5) S/P insertion of iliac artery stent Permanent Comment: 2005- bilateral Status: Chronic (6) S/P laparoscopic cholecystectomy Status: Chronic (7) s/p renal artery stent Permanent Comment: 2005- right Status: Chronic (8) Status post partial mastectomy of right breast Status: Chronic Family History non contributory due to patient's age Social History Smoking Status: Never Smoker Alcohol Use: none Immunizations History of Influenza Vaccine: Yes Influenza Vaccine Date: Dec 07, 2015 History of Tetanus Vaccine?: Yes Tetanus Immunization Date: Oct 27, 2014 History of Pneumococcal: Yes Pneumococcal Date: June 26, 2014 Multi-Drug Resistant Organisms History of MDRO: No Allergies Coded Allergies: Adhesives (Verified Adverse Reaction, Unknown, TAPE - IRRITATION AT SITE, 04/20/16) Clonidine (Verified Adverse Reaction, Unknown, CATAPRES PATCH ALLERGY, 04/20) Home Medications Scheduled Amlodipine Besylate (Amlodipine Besylate), 10 MG PO QAM Amoxicillin & Pot Clavulanate (Augmentin 875-125 mg), 1 TAB PO BID Aspirin (Aspirin EC Low Dose), 81 MG PO DAILY Atorvastatin (Lipitor), 10 MG PO DAILY Cholecalciferol (Vitamin D3), 1 TAB PO DAILY Clopidogrel (Plavix), 75 MG PO DAILY Escitalopram Oxalate (Lexapro), 1 TAB PO DAILY Furosemide (Furosemide), 20 MG PO Q2D Furosemide (Lasix), 40 MG PO Q2D Hydralazine Hcl (Apresoline), 1 TAB PO TID Ipratropium-Albuterol (Combivent Respimat), 1 PUFFS INH QID Isosorbide Mononitrate Ext Rel (Imdur Ext Rel), 120 MG PO DAILY Losartan Potassium (Losartan Potassium), 50 MG PO BID17 Methyldopa (Aldomet), 1,000 MG PO BID Metoprolol Succinate (Toprol Xl), 50 MG PO DAILY Multivitamin (Multivitamin), 1 TAB PO DAILY Nitroglycerin (Nitrostat), 0.4 MG UT PRN Oxygen (Oxygen), 3-4 LITERS NA CONTINOUS Pantoprazole Sodium (Protonix), 40 MG PO DAILY Scheduled PRN Lorazepam (Lorazepam), 0.5 MG PO Q12 PRN for Anxiety Tramadol Hcl (Ultram), 50 MG PO Q12H PRN for Pain Review of Systems 10 point review of systems was completed with the pertinent positives and negatives noted per the HPI Physical Exam Vital Signs Date Time Temp Pulse Resp B/P Pulse Ox O2 Delivery O2 Flow Rate FiO2 04/20/16 16:19 69 18 136/44 97 04/20/16 16:02 36.6 78 25 138/63 91 Mask 4.0 04/20/16 15:12 65 25 138/54 92 Nasal Cannula 5.0 04/20/16 14:07 59 24 152/49 100 Nebulizer 04/20/16 13:46 55 22 134/47 100 Nebulizer 04/20/16 13:40 57 25 94 Nasal Cannula 5.0 04/20/16 13:03 54 22 141/57 92 Nasal Cannula 5.0 04/20/16 12:56 93 Nasal Cannula 5.0 04/20/16 12:55 87 Nasal Cannula 5.0 04/20/16 12:54 90 Nasal Cannula 5.0 04/20/16 12:41 61 04/20/16 12:25 36.8 52 24 150/52 100 Non-Rebreather 04/20/16 12:25 100 Non-Rebreather 15.0 General Appearance: no apparent distress Head: normocephalic Eyes: normal inspection ENT: hearing grossly normal Neck: supple, no JVD Respiratory/Chest: no respiratory distress, + wheezing (I/E throughout all lung nettles), + pertinent finding (coarse breath sounds throughout all lung nettles ) Cardiovascular: regular rate, rhythm, + pertinent finding (+1-2 edema BLLE ) Abdomen/GI: normal bowel sounds, non tender, soft Extremities/Musculoskelatal: normal inspection, no calf tenderness Neurologic/Psych: no motor/sensory deficits, alert, normal mood/affect, oriented x 3 Skin: normal color, warm/dry Diagnostics Laboratory Results Results Past 24 Hours Test 04/20/16 12:52 04/20/16 13:35 Range/Units White Blood Count 7.89 4.8-10.8 K/uL Red Blood Count 3.01 4.2-5.4 M/uL Hemoglobin 8.8 12.0-16.0 g/dL Hematocrit 27.9 37-47 % Mean Corpuscular Volume 92.7 80-100 fL Mean Corpuscular Hemoglobin 29.2 25-34 pg Mean Corpuscular Hemoglobin Concent 31.5 32-36 g/dl Platelet Count 189 130-400 K/uL Mean Platelet Volume 10.9 7.4-10.4 fL Neutrophils (%) (Auto) 85.1 % Lymphocytes (%) (Auto) 6.2 % Monocytes (%) (Auto) 7.0 % Eosinophils (%) (Auto) 1.3 % Basophils (%) (Auto) 0.1 % Neutrophils # (Auto) 6.72 1.4-6.5 K/uL Lymphocytes # (Auto) 0.49 1.2-3.4 K/uL Monocytes # (Auto) 0.55 0.11-0.59 K/uL Eosinophils # (Auto) 0.10 0-0.5 K/uL Basophils # (Auto) 0.01 0-0.2 K/uL RDW Standard Deviation 53.1 36.4-46.3 fL RDW Coefficient of Variation 15.7 11.5-14.5 % Immature Granulocyte % (Auto) 0.3 % Immature Granulocyte # (Auto) 0.02 0.00-0.02 K/uL Red Blood Cell Morphology Unremarkable Prothrombin Time 11.1 9.0-12.0 SECONDS Prothromb Time International Ratio 1.0 0.9-1.1 Activated Partial Thromboplast Time 26.8 21.0-31.0 SECONDS Partial Thromboplastin Ratio 1.0 Sodium Level 138 136-145 mmol/L Potassium Level 4.6 3.5-5.1 mmol/L Chloride Level 100 98-107 mmol/L Carbon Dioxide Level 30 21-32 mmol/L Anion Gap 8.0 3-11 mmol/L Blood Urea Nitrogen 56 7-18 mg/dl Creatinine 1.60 0.60-1.20 mg/dl Est Creatinine Clear Calc Drug Dose 24.3 ml/min Estimated GFR () 32.8 Estimated GFR (Non- 28.3 BUN/Creatinine Ratio 35.3 10-20 Random Glucose 119 70-99 mg/dl Calcium Level 8.3 8.5-10.1 mg/dl Magnesium Level 2.5 1.8-2.4 mg/dl Total Bilirubin 0.4 0.2-1 mg/dl Direct Bilirubin 0.1 0-0.2 mg/dl Aspartate Amino Transf (AST/SGOT) 12 15-37 U/L Alanine Aminotransferase (ALT/SGPT) 36 12-78 U/L Alkaline Phosphatase 70 45-117 U/L Total Creatine Kinase 22 26-192 U/L Creatine Kinase MB 0.5 0.5-3.6 ng/ml Creatine Kinase MB Ratio 2.3 0-3.0 Total Protein 6.2 6.4-8.2 gm/dl Albumin 2.3 3.4-5.0 gm/dl Bedside Troponin I 0.090 0-0.045 ng/ml BZ-[id number]-I-Type Natriuretic Peptide 3392 0-1800 pg/ml Diagnostic Radiology CXR IMPRESSION: Cardiomegaly and diffuse interstitial thickening/edema, relatively similar to the preceding study given the differences in technique. Underlying interstitial lung disease is suspected. Superimposed pulmonary edema or an inflammatory process may be present Impression Assessment and Plan ACUTE ON CHRONIC RESPIRATORY FAILURE, SEVERE PULMONARY FIBROSIS, PULMONARY HTN - admit to tele - patient presenting from [facility] with hypoxia despite use of BiPap; started treatment for pneumonia on 04/16 - s/p neb in ED, now saturating well on chronic 5L - will start IV steroids and around the clock nebs - currently on Augmentin for pneumonia since 04/16 - will continue to completed course; currently afebrile and normal WBC - s/p Lasix 20mg IV in ED; for now, will just continue patient on her home doses of diuretics starting tomorrow - pulmonary consult ATYPICAL EPISODE OF CHEST PAIN, MILDLY ELEVATED TROP, HX CAD - patient reports one episode of pleuritic chest pain en route to the ED; received one spray nitro - initial trop 0.09, EKG without changes - continue to cycle cardiac enzymes - had echo during recent admission - cardio consult - further testing deferred - continue ASA, Plavix, statin, nitrate, and beta kareem HTN - has had difficult to control BPs in the past, currently controlled - continue hydralazine, isosorbide, methyldopa, metoprolol, and amlodipine CKD STAGE III - baseline creat runs in the mid 1's - creat noted to be 1.6 today - continue to monitor, avoid nephrotoxic agents when able ANEMIA - likely due to chronic disease - hgb at baseline, no signs of bleeding, continue to monitor DVT PROPHYLAXIS - SQ Heparin CODE STATUS - Patient is a DNR as per my discussion with her. DISPO - In my clinical judgment this beneficiary meets acute admission criteria, established by [facility], that includes being hospitalized through two midnights. - PT/OT, case management - Possible return back to [facility] I have seen, examined and discussed this patient with Amarilys Breen and I agree with the above note. Patient admitted with hypoxia. Also had episode of chest pain en route. Vitals reviewed. PE: General- sleeping but arousable Eyes- EOMI; no scleral icterus Neck- no stridor; trachea midline Lungs- diffuse inspiratory and expiratory crackles and rubs Heart- RRR; +murmur Abdomen- soft; NTND; nBS Back- no gross abnormalities Extremities- wearing compression stockings; 1+edema bilateral LE Neuro- no focal deficits Skin- no appreciable rash Labs, imaging and EKG reviewed. Pulmonary fibrosis: Pulmonary consulted. Started methylprednisolone and nebulizers. Complete course of Augmentin started previously at [facility]. Should hospice be considered in this patient for end stage lung disease? Elevated troponin: Cardiology consulted given significant cardiac history. Trend enzymes. Had recent echo last admission so will defer any further evaluation to Cardiology. Continue outpatient medications as outlined above. . Advanced Directives Existing Living Will: No Existing Power of Motorboat Mechanic: Yes VTE Prophylaxis VTE Risk Assessment Done? Y/N: Yes Risk Level: Moderate
[2016-04-20] MEDS: ALBUT/IPRATROP 3MG/0.5MG NEB 3 ML VIAL INH SCH (19:55)
[2016-04-20] MEDS: METHYLDOPA 250 MG TAB PO SCH (20:37)
[2016-04-20] MEDS: HEPARIN SOD 5000 UNIT/0.5 ML CARP SQ SCH (20:40)
[2016-04-20] MEDS: METHYLPREDNISOLONE IV 40 MG in SYRINGE 0 ML IV SCH (22:52)
[2016-04-20 22:58] LABS: URINE APPEARANCE CLEAR (CLEAR); URINE BILIRUBIN NEG (NEG); URINE COLOR YELLOW; URINE NITRITE NEG (NEG); URINE SPECIFIC GRAVITY 1.008 (1.000-1.030); UROBILINOGEN NEG (NEG); ZZUR CULT IF INDIC CLEAN CATCH NO
[2016-04-20 23:02] LABS: MANUAL MICROSCOPIC REQUIRED? NO
[2016-04-20 23:08] LABS: REVIEW REQ? NO
[2016-04-21] VITALS (15 sets, daily range): BP systolic 141–154; BP diastolic 54–72; PULSE 60–77; TEMP 36.4–36.9; O2SAT 89–98
[2016-04-21] MEDS: ALBUT/IPRATROP 3MG/0.5MG NEB 3 ML VIAL INH SCH ×4 (01:59→19:45)
[2016-04-21] MEDS: METHYLPREDNISOLONE IV 40 MG in SYRINGE 0 ML IV SCH ×3 (06:35→21:51)
[2016-04-21] MEDS: AMOXICILLIN/CLAVULANATE TAB 875 MG TAB PO SCH ×2 (07:57→17:28)
[2016-04-21] MEDS: METHYLDOPA 250 MG TAB PO SCH ×2 (07:58→21:51)
[2016-04-21] MEDS: HEPARIN SOD 5000 UNIT/0.5 ML CARP SQ SCH ×3 (07:59→21:00)
[2016-04-21] MEDS: CLOPIDOGREL BISULFATE 75 MG TAB PO SCH (08:00)
[2016-04-21] MEDS: AMLODIPINE BESYLATE 5 MG TAB PO SCH (08:00)
[2016-04-21] MEDS: ASPIRIN 81 MG ECTAB PO SCH (08:00)
[2016-04-21] MEDS: CHOLECALCIFEROL 1000 INTER.UNIT TAB PO SCH (08:00)
[2016-04-21] MEDS: ATORVASTATIN 10 MG TAB PO SCH (08:00)
[2016-04-21] MEDS: ESCITALOPRAM OXALATE 10 MG TAB PO SCH (08:00)
[2016-04-21] MEDS: FUROSEMIDE 40 MG TAB PO SCH (08:01)
[2016-04-21] MEDS: METOPROLOL SUCC 50MG EXT REL TAB PO SCH (08:03)
[2016-04-21] MEDS: LOSARTAN POTASSIUM 50 MG TAB PO SCH ×2 (08:05→17:28)
[2016-04-21] MEDS: ISOSORBIDE MONONITRATE 60 MG TABCR PO SCH (08:05)
[2016-04-21] MEDS: PANTOprazole SOD 40 MG TAB PO SCH (08:05)
[2016-04-21] MEDS: MULTIVITAMIN TAB PO SCH (08:05)
[2016-04-21 08:13] LABS: HEMATOCRIT 26.7 % (37-47); MEAN CELL VOLUME 89.6 fL (80-100); MEAN CORPUSCULAR HEMOGLOBIN 29.2 pg (25-34); MEAN CORPUSCULAR HGB CONC 32.6 g/dl (32-36); MEAN PLATELET VOLUME 10.1 fL (7.4-10.4); PLATELET COUNT 188 K/uL (130-400); RED BLOOD COUNT 2.98 M/uL (4.2-5.4); WHITE BLOOD COUNT 4.55 K/uL (4.8-10.8)
[2016-04-21 08:45] LABS: BUN/CREATININE RATIO 30.7 (10-20); CALCIUM 8.8 mg/dl (8.5-10.1); CREATININE 1.8 mg/dl (0.60-1.20); POTASSIUM 5.1 mmol/L (3.5-5.1)
--- NOTE | 2016-04-21 08:50 | PULMONARY CONSULTATION ---
DATE OF CONSULTATION: 04/21/2016 DATE OF CONSULTATION: 04/21/2016. SUBJECTIVE: The patient is an 89-year-old female well known to me since I followed her for pulmonary fibrosis. This is ongoing. She had been hospitalized here recently, discharged and sent to the rehab hospital on the . She continued to have problems with worsening shortness of breath, intermittent episodes of hypoxemia and was noted to have a low grade fever, although I do not have any of the records. Chest x-ray showed continued interstitial ground-glass infiltrates with changes consistent with heart failure. Apparently she was started on Augmentin. She was then noted to have worsening shortness of breath with hypoxemia, placed on BIPAP or CPAP and sent to the Emergency Room, seen by Dr. Nella Joseph. In the ER, her oxygen saturation was 92% on 5 liters at 100% on nonrebreather. She was admitted to the hospital and QUENTIN Read has asked me to evaluate the patient from a pulmonary standpoint. She is comfortable at the present time on BiPAP. She carries a history of obstructive sleep apnea, has been using that device for several years. She denies cough or chest pain, fevers, night sweats or orthopnea. She has developed worsening peripheral edema during her last hospitalization. She had an echocardiogram read by Dr. Rosenthal that revealed significant pulmonary hypertension with estimated pulmonary artery pressure at about 58 mmHg. Fairly well preserved left ventricular function. This suggests that she has developed some cor pulmonale related to the interstitial lung disease. She has not had any night sweats or weight loss. Denies any aspiration. REVIEW OF SYSTEMS: Otherwise is unremarkable now. PAST MEDICAL HISTORY: Well outlined in the records and includes pulmonary fibrosis, diverticulosis, obstructive sleep apnea, hypertension, osteoarthritis, GERD which is under good control now, hyperlipidemia, diabetes, renal artery stenosis, coronary artery disease, atherosclerotic vascular disease. PAST SURGICAL HISTORY: Positive for coronary artery stent placement, iliac artery stent, bypass surgery of the heart with 2-vessel bypass in the past, cholecystectomy and carotid endarterectomy. She has had a partial mastectomy of the right breast as well. SOCIAL HISTORY: She has never been a tobacco or alcohol user. From an occupational standpoint, she has not had any industrial exposures. ALLERGIES: CLONIDINE, WHICH APPARENTLY CAUSED A RASH, CATAPRES PATCH AND ADHESIVE TAPE CAUSES IRRITATION AT THIS SITE ON THE SKIN. MEDICATIONS: Noted. FAMILY HISTORY: Unknown. PHYSICAL EXAMINATION: VITAL SIGNS: Her oxygen saturation is 97% now on 5 liters on BiPAP on nasal cannula. It is 91% on 5 liters, blood pressure 141/54, oxygen saturation is stable. Her pulse is 65 and regular, respiratory rate 18. She is afebrile. Her weight is 87 kilograms. When she was here in December her weight was 86 kilograms on 14 of January and 90.4 kilograms on the . I believe her weight is relatively stable. HEAD, EYES, EARS, NOSE, AND THROAT: Reveals a small posterior pharynx with a large tongue, normal mandible and TM joints, soft palate is unremarkable. No lesions noted in the upper airway. Trachea midline. No neck vein distention or HJR. Carotid upstroke is decreased. No nodes are noted. Expansion of the thorax is good with deep inspiration. HEART: Regular rate and rhythm. Second heart some may be accentuated, but it is difficult to hear. No murmurs or gallops are auscultated. No diastolic murmurs are heard. LUNGS: Reveal Velcro type crackles at the lung bases to the upper lung nettles. No wheezing is noted. There is no fremitus or dullness to percussion. No muscle weakness is noted. Expansion of the thorax actually is fairly good with deep inspiration. ABDOMEN: Soft, obese, nontender. Liver and spleen are nonpalpable. Femoral pulses are normal. I do not hear any bruits over the abdomen. EXTREMITIES: She has +2 edema of the pretibial area. Chest x-ray reveals changes consistent with interstitial lung disease. LABORATORY DATA: White count 7.89, hemoglobin 8.8, hematocrit 27.9%, platelet count of 189,000 with 85% segmented neutrophils and 6% lymphocytes. Troponin was elevated but CK-MB is negative. BUN is 56, creatinine 1.6 and that is stable with a BUN of 64, creatinine 1.7 on 04/11/2016. Urinalysis was unremarkable. The electrocardiogram done in the Emergency Room reveals sinus bradycardia with widening of the QRS complex, which is mild, nonspecific ST-T wave changes. When compared to previous EKG of 04/01/2016, incomplete right bundle branch block has resolved and changes consistent with anterior wall DC have resolved. She may have some left atrial enlargement with some dicrotic P-waves noted in leads V3 and V4 and 5 and 6. IMPRESSION: 1. Interstitial fibrosis. This probably is most certainly is etiology for her hypoxemia. This is complicated by pulmonary hypertension related to interstitial lung disease. 2. Probable cor pulmonale now. I do not detect any neck vein distention on her exam, but she has developed significant peripheral edema, although her weight is stable. 3. Chronic kidney disease. 4. Diabetes mellitus. RECOMMENDATIONS: 1. Continue on Lasix and follow BUN and creatinine carefully. 2. Oxygen. That will be the main therapy for improving pulmonary artery pressures, although may not improve dramatically because of the significant shunt noted with pulmonary fibrosis. 3. Continue on the Solu-Medrol for now. Otherwise, I think I would taper that down and perhaps place her on 20 mg of the taper down to 10 mg and keep her on 10 mg indefinitely. In the literature corticosteroids may not help with this stage of interstitial fibrosis and most of the people just develop a good feeling effect from the medication, but I think it may be helpful in case there is any inflammation that may improve slightly for her. I think if the Aldomet could be discontinued that would be helpful as well. I do not think she needs any antimicrobial agents and I would discontinue the Augmentin. I think her prognosis is poor. For now, I would continue on CPAP or BiPAP each time she sleeps. Apparently she has obstructive sleep apnea, has been seen by Dr. Ferrer in the past and has been on CPAP for an extended period of time. Thanks for asking me to evaluate Ms. Skelton and I will be glad to follow along with you during her hospital stay.
[2016-04-21] MEDS ORDERED: CHOLECALCIFEROL 1000 INTER.UNIT TAB PO SCH (09:00)
--- NOTE | 2016-04-21 13:39 | Palliative Care Consultation ---
Consultation Date of Consultation: Apr 21, 2016. Requesting Physician: Dr. Mireles Attending Physician: Dr. Mireles Reason for Consultation: Goals of care History of Present Illness This 89 year old female patient presented to the ED yesterday from [facility] with complaints of SOB and hypoxia. She was recently in the hospital from 04/01-04/11 for acute on chronic hypoxic respiratory failure in the setting of severe pulmonary fibrosis and pulmonary hypertension. She was discharged to [facility] , and apparently she was having periods of hypoxia intermittently throughout her stay. A chest x-ray was obtained which showed bilateral lower lobe infiltrates, she was started on 10 day course of Augmentin on 04/16. Yesterday morning was again found to be hypoxic, she was placed on bipap but no improvement, so EMS was called. According to record patient had an episode of chest pain and was given 2 sprays of nitro en route, EKG here was negative for acute changes, but troponin slightly elevated. CXR showed "Cardiomegaly and diffuse interstitial thickening/edema, relatively similar to the preceding study given the differences in technique. Underlying interstitial lung disease is suspected. Superimposed pulmonary edema or an inflammatory process may be present." Patient was seen by Dr. Gonzalez for pulmonology consult. She does wear CPAP at night for obstructive sleep apnea. She remained on Bipap here over night , is now on nasal cannula and doing well. Patient' daughter was very upset today , crying, stating that she knows her mother is with end-stage lung disease. She requested to speak with palliative care. I met with the patient, her daughter/POA Ginny Molina, son Damian Skelton, son- in-law Jon, and another family member in room 420. The patient stated that she is no pain and only gets short of breath with any exertion or ambulation at this point. Prior to her hospital stay in March, she was on a slow decline in function since about Sheri time. She was getting very SOB at home, only able to really walk from her chair to the bathroom which is about 14 steps. We discussed her medical issues, she does understand the nature of her lung disease , so does the family. They are uncertain where to go from here. We discussed goals of care, but the patient is not sure at this point. She would like to be at home, but understands that it's not possible at this time. Her goal for now is to be able to participate in therapy and hopefully get stronger to be able to go home. Her and her family have discussed end-of-life decision making and the patient states that once she feels she does not have good quality of life, she would want to be made comfortable and to not come back to the hospital for any life prolonging treatment. She would not want CPR, intubation, or feeding tube specifically. Patient and her family are in agreement that they'd like to continue current treatment and see how the patient does over the next couple days and decide what level of care she will need at discharge. Past Medical/Surgical History Medical History: Breast cancer Carotid stenosis Chronic respiratory failure CAD Diverticulosis DM type 2 Dyslipidemia GERD HTN Osteoarthritis Pulmonary fibrosis Pulmonary hypertension Renal artery stenosis Sleep apnea Surgical History: Iliac artery stent Partial mastectomy of right breast CABG x2 vessels Carotid endarterectomy Cholecystectomy Cardiac stent placement Social History Smoking Status: Never Smoker History of Alcohol Use: No Housing Status: lives alone Review of Systems Constitutional: + weakness, No chills, No fever Respiratory: + cough, + dyspnea on exertion Cardiac: + edema, No chest pain Abdomen: No nausea, No pain, No vomiting Female : No problem reported Allergies Coded Allergies: Adhesives (Verified Adverse Reaction, Unknown, TAPE - IRRITATION AT SITE, 04/20/16) Clonidine (Verified Adverse Reaction, Unknown, CATAPRES PATCH ALLERGY, 04/20) Medications Current Inpatient Medications Medications (Trade) Dose Ordered Sig/Rey Route Start Time Stop Time Status Last Admin Dose Admin Heparin Sodium (Porcine) (Heparin Sq 5000 Unit/0.5ml) 5,000 unit Q12 SQ 04/20/16 21:00 05/20/16 20:59 Acetaminophen (Tylenol Tab) 650 mg Q4H PRN PO 04/20/16 15:30 05/20/16 15:29 Ondansetron HCl 4 mg 4 mg Q6H PRN IV 04/20/16 15:30 05/20/16 15:29 Methylprednisolone Sodium Succinate/ Syringe (Solu-Medrol IV/ Syringe) 0.64 ml @ 1.5 mls/min Q8H IV 04/20/16 23:00 05/20/16 22:59 04/21/16 06:35 1.5 MLS/MIN Amlodipine Besylate (Norvasc Tab) 10 mg QAM PO 04/21/16 09:00 05/21/16 08:59 04/21/16 08:00 10 MG Amoxicillin/ Clavulanate Potassium (Augmentin Tab) 875 mg BIDM PO 04/20/16 16:46 04/27/16 17:59 04/21/16 07:57 875 MG Aspirin (Ecotrin Tab) 81 mg DAILY PO 04/21/16 09:00 05/21/16 08:59 04/21/16 08:00 81 MG Atorvastatin Calcium (Lipitor Tab) 10 mg DAILY PO 04/21/16 09:00 05/21/16 08:59 04/21/16 08:00 10 MG Clopidogrel Bisulfate (plAVix TAB) 75 mg DAILY PO 04/21/16 09:00 05/21/16 08:59 04/21/16 08:00 75 MG Escitalopram Oxalate (Lexapro Tab) 10 mg DAILY PO 04/21/16 09:00 05/21/16 08:59 04/21/16 08:00 10 MG Furosemide (Lasix Tab) 20 mg Q2D@0900 PO 04/22/16 09:00 05/22/16 08:59 Furosemide (Lasix Tab) 40 mg Q2D@0900 PO 04/21/16 09:00 05/21/16 08:59 04/21/16 08:01 40 MG Hydralazine HCl (Apresoline Tab) 100 mg TID PO 04/20/16 21:00 05/20/16 20:59 04/21/16 07:58 100 MG Isosorbide Mononitrate (Imdur Ext Rel Tab) 120 mg DAILY PO 04/21/16 09:00 05/21/16 08:59 04/21/16 08:05 120 MG Lorazepam (Ativan Tab) 0.5 mg Q12 PRN PO 04/20/16 16:00 05/20/16 15:59 Losartan Potassium (coZAAR TAB) 50 mg BID17 PO 04/20/16 17:00 05/20/16 16:59 04/21/16 08:05 50 MG Methyldopa (Aldomet Tab) 1,000 mg BID PO 04/20/16 21:00 05/20/16 20:59 04/21/16 07:58 1,000 MG Metoprolol Succinate (Toprol Xl Tab) 50 mg DAILY PO 04/21/16 09:00 05/21/16 08:59 04/21/16 08:03 50 MG Multivitamins (Multivitamin Tab) 1 tab DAILY PO 04/21/16 09:00 05/21/16 08:59 04/21/16 08:05 1 TAB Pantoprazole Sodium (Protonix Tab) 40 mg DAILY PO 04/21/16 09:00 05/21/16 08:59 04/21/16 08:05 40 MG Tramadol HCl (Ultram Tab) 50 mg Q12H PRN PO 04/20/16 16:00 05/20/16 15:59 Cholecalciferol (Vitamin D Tab) 5,000 inter.unit DAILY PO 04/21/16 09:00 05/21/16 08:59 04/21/16 08:00 5,000 INTER.UNIT Albuterol/ Ipratropium (Duoneb) 3 ml Q6R INH 04/20/16 21:00 05/20/16 20:59 04/21/16 07:15 3 ML Physical Exam Date Time Temp Pulse Resp B/P Pulse Ox O2 Delivery O2 Flow Rate FiO2 04/21/16 11:02 63 98 5.0 04/21/16 10:30 36.9 60 18 93 4.0 04/21/16 08:21 36.9 60 18 148/63 93 4.0 04/21/16 08:00 98 Nasal Cannula 5.0 04/21/16 07:15 68 20 98 Nasal Cannula 5.0 04/21/16 04:16 36.9 65 18 141/54 91 04/21/16 04:00 91 Nasal Cannula 5.0 04/21/16 02:00 68 97 5.0 04/21/16 01:59 68 20 97 BiPAP/CPAP 5.0 04/20/16 23:59 92 CPAP 5.0 04/20/16 23:55 36.9 62 18 148/66 04/20/16 23:32 92 CPAP 04/20/16 23:00 81 94 5.0 04/20/16 20:00 94 Nasal Cannula 5.0 04/20/16 19:55 68 22 90 Nasal Cannula 5.0 04/20/16 19:44 36.8 80 18 132/64 94 04/20/16 16:19 69 18 136/44 97 04/20/16 16:02 36.6 78 25 138/63 91 Mask 4.0 04/20/16 15:12 65 25 138/54 92 Nasal Cannula 5.0 04/20/16 14:07 59 24 152/49 100 Nebulizer 04/20/16 13:46 55 22 134/47 100 Nebulizer 04/20/16 13:40 57 25 94 Nasal Cannula 5.0 General Appearance: no apparent distress, + obese Neck: no JVD Respiratory: no respiratory distress, no accessory muscle use, + decreased breath sounds, + crackles (bilateral bases), + pertinent finding (4LNC, Bipap when sleeping for USMAN) Cardiovascular: regular rate, rhythm, + systolic murmur, + normal peripheral pulses, + pertinent finding (+2 pitting edema to bilateral ankles) Abdomen: normal bowel sounds, non tender, soft Neurologic/Psychiatric: alert, normal mood/affect, oriented x 3 Laboratory Results Last 24 Hours Test 04/20/16 18:00 04/20/16 18:05 04/20/16 22:20 04/21/16 00:00 Creatine Kinase MB Ratio Creatine Kinase MB 0.9 ng/ml Troponin I 0.120 ng/ml Urine Color YELLOW Urine Appearance CLEAR Urine pH 5.0 Urine Specific [place] 1.008 Urine Protein NEG Urine Glucose (UA) NEG Urine Ketones NEG Urine Occult Blood NEG Urine Nitrite NEG Urine Bilirubin NEG Urine Urobilinogen NEG Urine Leukocyte Esterase NEG Test 04/21/16 00:13 04/21/16 07:50 Creatine Kinase MB 0.6 ng/ml Troponin I 0.083 ng/ml White Blood Count 4.55 K/uL Red Blood Count 2.98 M/uL Hemoglobin 8.7 g/dL Hematocrit 26.7 % Mean Corpuscular Volume 89.6 fL Mean Corpuscular Hemoglobin 29.2 pg Mean Corpuscular Hemoglobin Concent 32.6 g/dl RDW Standard Deviation 50.2 fL RDW Coefficient of Variation 15.3 % Platelet Count 188 K/uL Mean Platelet Volume 10.1 fL Erythrocyte Sedimentation Rate 55 mm/hr Sodium Level 138 mmol/L Potassium Level 5.1 mmol/L Chloride Level 100 mmol/L Carbon Dioxide Level 29 mmol/L Anion Gap 9.0 mmol/L Blood Urea Nitrogen 55 mg/dl Creatinine 1.80 mg/dl Est Creatinine Clear Calc Drug Dose 21.2 ml/min Estimated GFR () 28.4 Estimated GFR (Non- 24.5 BUN/Creatinine Ratio 30.7 Random Glucose 140 mg/dl Calcium Level 8.8 mg/dl Assessment & Plan Palliative Performance Scale: 50 % Problem list: Dyspnea on exertion Weakness Acute on chronic respiratory failure in the setting of severe pulmonary fibrosis CKD CAD Atypical episode of chest pain, elevated troponin Goals of care (Z51.5) Palliative care plan: Discussed with patient and her family including her two children/POAs, Damian and Ginny. -Remains DNR/DNI -Goal is for patient to get well enough to go to rehab. Patient and family unsure if they want her to go back to [facility], may be "too much." They are thinking about options such as SNF placement. Ultimately patient would like to go home, but she understands this may not be possible. I also presented option of hospice eventually as well. -Continue with current treatment managed by hospitalist and fan mail clerk for now. See how patient does over the next couple days. -Shortness of breath normally is well controlled with her home oxygen, PO lasix dose every other day, and use of CPAP at night for USMAN. She currently is not SOB at rest, just with activity, but she feels that she is pretty much at her baseline. She has no pain at this time. Thank you for including me in the care of the this patient. I will follow as needed.
--- NOTE | 2016-04-21 17:41 | Progress Note ---
Internal Med Progress Note Date of Service: Apr 21, 2016. Provider Documentation: SUBJECTIVE: patient says she is feeling better today sob is better has dry cough no chest pain today afebrile OBJECTIVE: Vital Signs-as noted below Exam: General-alert and awake . Not in distress. ENT-normal hearing Neck-no neck masses Lungs-cta b/l no wheezing bibasilar crackles Heart-s1 and s2 heard, regular rate and rhythm no murmurs Abdomen-soft bowel sounds present non tender no distension Extremities- no erythema mild pedal edema Neuro-alert and awake moves extremities Lab data as noted below. ASSESSMENT & PLAN: ACUTE ON CHRONIC RESPIRATORY FAILURE, SEVERE PULMONARY FIBROSIS, PULMONARY HTN Acute right sided heart failure? cor pulmonale Patient coming from [facility] was started on Augmentin fo possible pneumonia on 04/16 was sob on bipap and was bought to ER started on iv steroids received a dose of iv lasix continuing Augmentin and home po Lasix feeling better today appreciate pulmonary inputs overall poor prognosis palliative consulted and appreciate inputs to continue current tx for now ATYPICAL EPISODE OF CHEST PAIN, MILDLY ELEVATED TROP, HX CAD - patient reports one episode of pleuritic chest pain en route to the ED; received one spray nitro EKG without changes mild elevation of poponin which trended down currently asymptomatic to continue ASA, Plavix, statin, nitrate, and beta kareem HTN On hydralazine, isosorbide, methyldopa, metoprolol, and amlodipine will monitor ARF on CKD STAGE III baseline creat runs in the mid 1's cr 1.8 today will f/u labs ANEMIA likely due to chronic disease hb 8.7 hgb at baseline, will f/u labs. DVT PROPHYLAXIS SQ Heparin CODE STATUS DNR DISPOSITION transfer to medical floor to be determined Vital Signs: Date Time Temp Pulse Resp B/P Pulse Ox O2 Delivery O2 Flow Rate FiO2 04/21/16 16:00 Nasal Cannula 04/21/16 15:54 36.7 61 16 147/58 98 5.0 04/21/16 15:07 68 14 98 Nasal Cannula 5.0 04/21/16 15:04 154/67 04/21/16 11:02 63 98 5.0 04/21/16 10:30 36.9 60 18 93 4.0 04/21/16 08:21 36.9 60 18 148/63 93 4.0 04/21/16 08:00 98 Nasal Cannula 5.0 04/21/16 07:15 68 20 98 Nasal Cannula 5.0 04/21/16 04:16 36.9 65 18 141/54 91 04/21/16 04:00 91 Nasal Cannula 5.0 04/21/16 02:00 68 97 5.0 04/21/16 01:59 68 20 97 BiPAP/CPAP 5.0 04/20/16 23:59 92 CPAP 5.0 04/20/16 23:55 36.9 62 18 148/66 04/20/16 23:32 92 CPAP 04/20/16 23:00 81 94 5.0 04/20/16 20:00 94 Nasal Cannula 5.0 04/20/16 19:55 68 22 90 Nasal Cannula 5.0 04/20/16 19:44 36.8 80 18 132/64 94 Lab Results: Results Past 24 Hours Test 04/20/16 18:00 04/20/16 18:05 04/20/16 22:20 04/21/16 00:00 Range/Units Creatine Kinase MB Ratio 0-3.0 Creatine Kinase MB 0.9 0.5-3.6 ng/ml Troponin I 0.120 0-0.045 ng/ml Urine Color YELLOW Urine Appearance CLEAR CLEAR Urine pH 5.0 4.5-7.5 Urine Specific [place] 1.008 1.000-1.030 Urine Protein NEG NEG Urine Glucose (UA) NEG NEG Urine Ketones NEG NEG Urine Occult Blood NEG NEG Urine Nitrite NEG NEG Urine Bilirubin NEG NEG Urine Urobilinogen NEG NEG Urine Leukocyte Esterase NEG NEG Test 04/21/16 00:13 04/21/16 07:50 Range/Units Creatine Kinase MB 0.6 0.5-3.6 ng/ml Troponin I 0.083 0-0.045 ng/ml White Blood Count 4.55 4.8-10.8 K/uL Red Blood Count 2.98 4.2-5.4 M/uL Hemoglobin 8.7 12.0-16.0 g/dL Hematocrit 26.7 37-47 % Mean Corpuscular Volume 89.6 80-100 fL Mean Corpuscular Hemoglobin 29.2 25-34 pg Mean Corpuscular Hemoglobin Concent 32.6 32-36 g/dl RDW Standard Deviation 50.2 36.4-46.3 fL RDW Coefficient of Variation 15.3 11.5-14.5 % Platelet Count 188 130-400 K/uL Mean Platelet Volume 10.1 7.4-10.4 fL Erythrocyte Sedimentation Rate 55 0-21 mm/hr Sodium Level 138 136-145 mmol/L Potassium Level 5.1 3.5-5.1 mmol/L Chloride Level 100 98-107 mmol/L Carbon Dioxide Level 29 21-32 mmol/L Anion Gap 9.0 3-11 mmol/L Blood Urea Nitrogen 55 7-18 mg/dl Creatinine 1.80 0.60-1.20 mg/dl Est Creatinine Clear Calc Drug Dose 21.2 ml/min Estimated GFR () 28.4 Estimated GFR (Non- 24.5 BUN/Creatinine Ratio 30.7 10-20 Random Glucose 140 70-99 mg/dl Calcium Level 8.8 8.5-10.1 mg/dl
[2016-04-22] VITALS (13 sets, daily range): BP systolic 127–163; BP diastolic 53–66; PULSE 18–69; TEMP 36.4; O2SAT 95–99
[2016-04-22] MEDS: ALBUT/IPRATROP 3MG/0.5MG NEB 3 ML VIAL INH SCH ×4 (01:35→20:41)
[2016-04-22] MEDS: METHYLPREDNISOLONE IV 40 MG in SYRINGE 0 ML IV SCH ×2 (07:37→14:59)
[2016-04-22] MEDS: MULTIVITAMIN TAB PO SCH (08:05)
[2016-04-22] MEDS: ATORVASTATIN 10 MG TAB PO SCH (08:06)
[2016-04-22] MEDS: ISOSORBIDE MONONITRATE 60 MG TABCR PO SCH (08:06)
[2016-04-22] MEDS: AMOXICILLIN/CLAVULANATE TAB 875 MG TAB PO SCH ×2 (08:06→17:32)
[2016-04-22] MEDS: FUROSEMIDE 20 MG TAB PO SCH (08:06)
[2016-04-22] MEDS: METHYLDOPA 250 MG TAB PO SCH ×2 (08:06→20:25)
[2016-04-22] MEDS: CLOPIDOGREL BISULFATE 75 MG TAB PO SCH (08:06)
[2016-04-22] MEDS: METOPROLOL SUCC 50MG EXT REL TAB PO SCH (08:07)
[2016-04-22] MEDS: AMLODIPINE BESYLATE 5 MG TAB PO SCH (08:07)
[2016-04-22] MEDS: ASPIRIN 81 MG ECTAB PO SCH (08:07)
[2016-04-22] MEDS: PANTOprazole SOD 40 MG TAB PO SCH (08:07)
[2016-04-22] MEDS: ESCITALOPRAM OXALATE 10 MG TAB PO SCH (08:07)
[2016-04-22] MEDS: HEPARIN SOD 5000 UNIT/0.5 ML CARP SQ SCH ×2 (08:08→20:31)
[2016-04-22] MEDS: LOSARTAN POTASSIUM 50 MG TAB PO SCH ×2 (08:08→18:09)
[2016-04-22] MEDS: CHOLECALCIFEROL 1000 INTER.UNIT TAB PO SCH (08:09)
--- NOTE | 2016-04-22 08:43 | PROGRESS NOTE ---
DATE: 04/22/2016 SUBJECTIVE: The patient is comfortable this morning on BiPAP. She states she had a fairly good night last night and feels considerably improved than she did at the time of admission. She has not had any cough or sputum production. She is sleeping up at about 30 degrees on BiPAP. Her respiratory rate was 18 and she is comfortable. OBJECTIVE: VITAL SIGNS: Stable. Blood pressure is 148/72 oxygen saturation 97% on five liters on BiPAP, temperature is 36.4 and pulse is 70 and regular. IOs; 350 in and 200 out. Weight 86.1 kilograms down from 89.5 kilograms on the 2nd. GENERAL: Nurses' notes were reviewed. Nothing is charted since 11:30 yesterday. HEENT: Posterior pharynx shows no thrush. Nose exam is unremarkable. No excoriations noted over the face. NECK: No neck vein distention or HJR is noted. HEART: Regular rate and rhythm. Heart sounds are distant. No murmurs are heard. Second heart sound is difficult to hear. LUNGS: Continue to reveal Velcro type crackles at the lung bases to the mid lung nettles. ABDOMEN: Soft and nontender. No organomegaly noted. EXTREMITIES: She has no cyanosis, clubbing or edema. LABORATORY DATA: Sed rate was 55, hemoglobin 8.7, hematocrit 26.7% and platelet count 188,000. BUN 55 and creatinine 1.8 yesterday. Coagulation profile and urinalysis were unremarkable. Chest film was noted. IMPRESSION: 1. Interstitial lung disease; this probably is nonspecific interstitial pneumonitis that is chronic, it has been relatively stable for her. This exacerbation probably is related to fluid gain. 2. Chronic kidney disease. 3. Obesity. 4. Hypertension. RECOMMENDATION: 1. Continue with her present medications at this point. 2. Adjust diuretics and follow BUN and creatinine carefully. She has no significant edema and BUN and creatinine are elevated. Lasix may need to be discontinued, probably just put her on 20 mg daily and follow her weights daily. 3. The methylprednisolone could be changed to prednisone and probably put her on 30 mg a day; taper down to 20 mg a day in about a week to ten days and then may need to keep her on 10 mg or 15 mg daily. Overall, she is stable today. MTDD
--- NOTE | 2016-04-22 17:43 | Progress Note ---
Internal Med Progress Note Date of Service: Apr 22, 2016. Provider Documentation: SUBJECTIVE: sitting on the chair comfortably sob much improved talking in sentences denies any chest pain afebrile ambulated in the room OBJECTIVE: Vital Signs-as noted below Exam: General-alert and awake . Not in distress. ENT-normal hearing Neck-no neck masses Lungs-cta b/l no wheezing mild bibasilar crackles Heart-s1 and s2 heard, regular rate and rhythm no murmurs Abdomen-soft bowel sounds present non tender no distension Extremities- no erythema pedal edema present Neuro-alert and awake moves extremities Lab data as noted below. ASSESSMENT & PLAN: ACUTE ON CHRONIC RESPIRATORY FAILURE, SEVERE PULMONARY FIBROSIS, PULMONARY HTN Acute right sided heart failure? cor pulmonale Patient coming from [facility] was started on Augmentin fo possible pneumonia on 04/16 was sob on bipap and was bought to ER started on iv steroids received a dose of iv lasix continuing Augmentin and home po Lasix feeling better today appreciate pulmonary inputs overall poor prognosis palliative consulted and appreciate inputs much improved today will taper iv steroids to po in am ATYPICAL EPISODE OF CHEST PAIN, MILDLY ELEVATED TROP, HX CAD - patient reports one episode of pleuritic chest pain en route to the ED; received one spray nitro EKG without changes mild elevation of poponin which trended down currently asymptomatic to continue ASA, Plavix, statin, nitrate, and beta kareem asymptomatic now HTN On hydralazine, isosorbide, methyldopa, metoprolol, and amlodipine will monitor ARF on CKD STAGE III baseline creat runs in the mid 1's cr 1.8 today will f/u labs ANEMIA likely due to chronic disease hb 8.7 hgb at baseline, will f/u labs. DVT PROPHYLAXIS SQ Heparin CODE STATUS DNR DISPOSITION to be determined pt/ot social service for d/c planning Vital Signs: Date Time Temp Pulse Resp B/P Pulse Ox O2 Delivery O2 Flow Rate FiO2 04/22/16 17:33 147/63 04/22/16 15:58 36.4 62 22 149/65 99 Nasal Cannula Mask 04/22/16 15:30 Nasal Cannula 5.0 04/22/16 14:59 65 127/53 04/22/16 14:18 61 16 95 Nasal Cannula 5.0 04/22/16 08:00 Nasal Cannula 5.0 04/22/16 07:35 36.4 69 18 163/66 98 BiPAP 04/22/16 07:16 67 97 5.0 04/22/16 07:16 67 16 97 BiPAP/CPAP 5.0 04/22/16 01:36 68 16 97 BiPAP/CPAP 5.0 04/22/16 01:35 68 97 5.0 04/22/16 00:00 96 CPAP 5.0 04/21/16 23:29 36.4 60 20 148/72 94 BiPAP 04/21/16 22:21 62 96 5.0 04/21/16 19:48 77 14 89 Nasal Cannula 4.0
[2016-04-23] VITALS (22 sets, daily range): BP systolic 145–187; BP diastolic 54–79; PULSE 54–78; TEMP 36–39.3; O2SAT 88–100
[2016-04-23] MEDS: ALBUT/IPRATROP 3MG/0.5MG NEB 3 ML VIAL INH SCH ×4 (02:35→20:01)
[2016-04-23 05:55] LABS: HEMATOCRIT 25.8 % (37-47); IG% 0.4 %; LYMPH % 4.2 %; LYMPH ABS # 0.28 K/uL (1.2-3.4); MEAN CELL VOLUME 89.3 fL (80-100); MEAN CORPUSCULAR HEMOGLOBIN 28.4 pg (25-34); MEAN CORPUSCULAR HGB CONC 31.8 g/dl (32-36); MEAN PLATELET VOLUME 9.7 fL (7.4-10.4); MONO % 5.1 %; NEUT % 90.3 %; PLATELET COUNT 231 K/uL (130-400); RED BLOOD COUNT 2.89 M/uL (4.2-5.4)
[2016-04-23 06:27] LABS: BUN/CREATININE RATIO 38.6 (10-20); CALCIUM 8.4 mg/dl (8.5-10.1); CREATININE 1.7 mg/dl (0.60-1.20); MAGNESIUM 2.5 mg/dl (1.8-2.4)
[2016-04-23 06:28] LABS: COMPLETE YES
--- NOTE | 2016-04-23 07:19 | PROGRESS NOTE ---
DATE: 04/23/2016 SUBJECTIVE: The patient is comfortable this morning, lying at about 10 degrees. She just removed BiPAP, went to the bathroom, came back and her respiratory rate was 16. She states she feels better. She has not had any cough. She was complaining of a dry nose and throat related to the oxygen. It does not have humidification. Nursing personnel this morning are already working on getting a humidifier for that and for the BiPAP. She has been able to get out of bed yesterday. Apparently she may be going to a jail according to the patient. PHYSICAL EXAMINATION: VITAL SIGNS: Stable and she is afebrile, blood pressure is 152/54, oxygen saturation 98% on 5 liters. IO 540 in and unknown amount out. Weight 86.3 kilograms. She was 89.5 kilograms at the time of admission, but they were different scales. According to nurses' notes she had a fairly good night last night. HEENT: Unremarkable. Mucosa is dry but not inappropriately dry. It appears to be related to the BiPAP. No adenopathy noted. HEART: Regular rate and rhythm. Heart sounds are easily detectable today and I thought the second heart sound was accentuated. No murmurs or gallops or diastolic murmurs heard. LUNGS: Reveal Velcro type crackles at the lung bases to the mid lung nettles. I thought the anterior they were improved. ABDOMEN: Soft, nontender. EXTREMITIES: She has no cyanosis, clubbing or edema. LABORATORY DATA: White count was 6.7 yesterday, hemoglobin down from 8.8 to 8.2 with hematocrit of 25.8% and platelet count of 231,000. BUN is 55, creatinine 1.8. IMPRESSION: 1. Pulmonary fibrosis. 2. Respiratory failure with profound hypoxemia secondary to pulmonary fibrosis. 3. Anemia. RECOMMENDATIONS: 1. Heme test the stools. 2. Workup for the anemia. She may benefit from a transfusion with 2 units of packed cells to keep her hemoglobin up around 10. That will help with oxygen delivery and her ability to exercise. 3. Continue taper the prednisone. 4. May consider holding the diuretics for a day or two, although she does have trace peripheral edema in the pretibial area. She may have worsening prerenal azotemia. 5. Added a humidifier to the oxygen and I would decrease that to 4 liters per minute and check a 6-minute walk test. She will need O2 heated humidification with BiPAP as well. Overall, she is improved. AMAN
[2016-04-23] MEDS: METHYLDOPA 250 MG TAB PO SCH ×2 (08:26→19:53)
[2016-04-23] MEDS: CLOPIDOGREL BISULFATE 75 MG TAB PO SCH (08:27)
[2016-04-23] MEDS: ATORVASTATIN 10 MG TAB PO SCH (08:27)
[2016-04-23] MEDS: ISOSORBIDE MONONITRATE 60 MG TABCR PO SCH (08:27)
[2016-04-23] MEDS: ESCITALOPRAM OXALATE 10 MG TAB PO SCH (08:27)
[2016-04-23] MEDS: PANTOprazole SOD 40 MG TAB PO SCH (08:27)
[2016-04-23] MEDS: FUROSEMIDE 40 MG TAB PO SCH (08:28)
[2016-04-23] MEDS: CHOLECALCIFEROL 1000 INTER.UNIT TAB PO SCH (08:28)
[2016-04-23] MEDS: AMOXICILLIN/CLAVULANATE TAB 875 MG TAB PO SCH ×2 (08:29→16:42)
[2016-04-23] MEDS: MULTIVITAMIN TAB PO SCH (08:31)
[2016-04-23] MEDS: LOSARTAN POTASSIUM 50 MG TAB PO SCH ×2 (08:31→16:41)
[2016-04-23] MEDS: AMLODIPINE BESYLATE 5 MG TAB PO SCH (08:32)
[2016-04-23] MEDS: ASPIRIN 81 MG ECTAB PO SCH (08:33)
[2016-04-23] MEDS: METOPROLOL SUCC 50MG EXT REL TAB PO SCH (08:33)
[2016-04-23] MEDS: HEPARIN SOD 5000 UNIT/0.5 ML CARP SQ SCH ×2 (08:34→19:54)
[2016-04-23] MEDS ORDERED: ACETAMINOPHEN 325 MG TAB PO SCH (17:30)
[2016-04-23] MEDS ORDERED: FUROSEMIDE INJ 20 MG in SYRINGE 0 ML IV SCH (18:00)
--- NOTE | 2016-04-23 18:11 | Progress Note ---
Internal Med Progress Note Date of Service: Apr 23, 2016. Provider Documentation: SUBJECTIVE: sitting on the chair comfortably ambulating in room ok eating ok denies any blood in stools sob improved OBJECTIVE: Vital Signs-as noted below Exam: General-alert and awake . Not in distress. ENT-normal hearing Neck-no neck masses Lungs-cta b/l no wheezing mild bibasilar crackles Heart-s1 and s2 heard, regular rate and rhythm no murmurs Abdomen-soft bowel sounds present non tender no distension Extremities- no erythema pedal edema present Neuro-alert and awake moves extremities Lab data as noted below. ASSESSMENT & PLAN: ACUTE ON CHRONIC RESPIRATORY FAILURE, SEVERE PULMONARY FIBROSIS, PULMONARY HTN Acute right sided heart failure? cor pulmonale Patient coming from [facility] [place] was started on Augmentin for possible pneumonia on 04/16 was sob on bipap and was bought to ER started on iv steroids received a dose of iv lasix continuing Augmentin and home po Lasix feeling much better now appreciate pulmonary inputs overall poor prognosis palliative consulted and appreciate inputs much improved tapered iv steroids to po stable pt/ot ATYPICAL EPISODE OF CHEST PAIN, MILDLY ELEVATED TROP, HX CAD - patient reports one episode of pleuritic chest pain en route to the ED; received one spray nitro EKG without changes mild elevation of poponin which trended down currently asymptomatic to continue ASA, Plavix, statin, nitrate, and beta kareem asymptomatic now Anemia acute on chronic vs anemia of chronic disease hb 8.2 stool for Hemoccult will transfuse prbc f/u hb. HTN On hydralazine, isosorbide, methyldopa, metoprolol, and amlodipine will monitor ARF on CKD STAGE III baseline creat runs in the mid 1's cr 1.7 today will f/u labs DVT PROPHYLAXIS SQ Heparin CODE STATUS DNR DISPOSITION possible d/c in 1-2 days pt/ot social service for d/c planning Vital Signs: Date Time Temp Pulse Resp B/P Pulse Ox O2 Delivery O2 Flow Rate FiO2 04/23/16 15:55 18 96 Nasal Cannula 3.0 Humidified Oxygen 04/23/16 15:51 22 88 Nasal Cannula 3.0 Humidified Oxygen 04/23/16 14:59 93 Nasal Cannula 3.0 04/23/16 14:53 145/63 04/23/16 14:14 58 16 97 Nasal Cannula 5.0 04/23/16 08:00 Nasal Cannula 5.0 04/23/16 08:00 Nasal Cannula 5.0 04/23/16 07:31 73 16 91 Nasal Cannula 5.0 04/23/16 07:30 36.4 78 24 178/70 93 Nasal Cannula 3.0 04/23/16 07:30 36.4 78 24 178/70 93 Nasal Cannula 3.0 04/23/16 02:36 62 98 5.0 04/23/16 02:35 62 16 98 BiPAP/CPAP 5.0 04/23/16 00:15 36.0 69 20 152/54 93 Nasal Cannula 2.0 04/23/16 00:00 CPAP 5.0 04/22/16 23:58 60 98 5.0 04/22/16 21:55 65 98 5.0 04/22/16 20:27 20 160/63 96 Nasal Cannula 5.0 04/22/16 19:30 64 16 95 Nasal Cannula 5.0 Lab Results: Results Past 24 Hours Test 04/23/16 05:43 Range/Units White Blood Count 6.70 4.8-10.8 K/uL Red Blood Count 2.89 4.2-5.4 M/uL Hemoglobin 8.2 12.0-16.0 g/dL Hematocrit 25.8 37-47 % Mean Corpuscular Volume 89.3 80-100 fL Mean Corpuscular Hemoglobin 28.4 25-34 pg Mean Corpuscular Hemoglobin Concent 31.8 32-36 g/dl Platelet Count 231 130-400 K/uL Mean Platelet Volume 9.7 7.4-10.4 fL Neutrophils (%) (Auto) 90.3 % Lymphocytes (%) (Auto) 4.2 % Monocytes (%) (Auto) 5.1 % Eosinophils (%) (Auto) 0.0 % Basophils (%) (Auto) 0.0 % Neutrophils # (Auto) 6.05 1.4-6.5 K/uL Lymphocytes # (Auto) 0.28 1.2-3.4 K/uL Monocytes # (Auto) 0.34 0.11-0.59 K/uL Eosinophils # (Auto) 0.00 0-0.5 K/uL Basophils # (Auto) 0.00 0-0.2 K/uL RDW Standard Deviation 50.3 36.4-46.3 fL RDW Coefficient of Variation 15.4 11.5-14.5 % Immature Granulocyte % (Auto) 0.4 % Immature Granulocyte # (Auto) 0.03 0.00-0.02 K/uL Red Blood Cell Morphology Unremarkable Sodium Level 139 136-145 mmol/L Potassium Level 5.0 3.5-5.1 mmol/L Chloride Level 102 98-107 mmol/L Carbon Dioxide Level 30 21-32 mmol/L Anion Gap 7.0 3-11 mmol/L Blood Urea Nitrogen 66 7-18 mg/dl Creatinine 1.70 0.60-1.20 mg/dl Est Creatinine Clear Calc Drug Dose 22.4 ml/min Estimated GFR () 30.5 Estimated GFR (Non- 26.3 BUN/Creatinine Ratio 38.6 10-20 Random Glucose 124 70-99 mg/dl Calcium Level 8.4 8.5-10.1 mg/dl Magnesium Level 2.5 1.8-2.4 mg/dl
[2016-04-24] VITALS (11 sets, daily range): BP systolic 140–185; BP diastolic 53–68; PULSE 58–72; TEMP 36.5–36.9; O2SAT 88–100
[2016-04-24] MEDS: ALBUT/IPRATROP 3MG/0.5MG NEB 3 ML VIAL INH SCH ×4 (02:12→19:28)
[2016-04-24 06:20] LABS: COMPLETE YES; EOS % 0.2 %; IG% 0.4 %; LYMPH % 8.5 %; LYMPH ABS # 0.48 K/uL (1.2-3.4); MEAN CELL VOLUME 90.4 fL (80-100); MEAN CORPUSCULAR HGB CONC 32.1 g/dl (32-36); MEAN PLATELET VOLUME 10.2 fL (7.4-10.4); NEUT % 81.9 %; PLATELET COUNT 241 K/uL (130-400); RED BLOOD COUNT 3.76 M/uL (4.2-5.4); WHITE BLOOD COUNT 5.65 K/uL (4.8-10.8)
[2016-04-24 06:52] LABS: BUN/CREATININE RATIO 35.2 (10-20); CALCIUM 8.7 mg/dl (8.5-10.1); CREATININE 1.8 mg/dl (0.60-1.20); MAGNESIUM 2.3 mg/dl (1.8-2.4); POTASSIUM 4.9 mmol/L (3.5-5.1)
[2016-04-24] MEDS: HEPARIN SOD 5000 UNIT/0.5 ML CARP SQ SCH ×2 (08:40→20:33)
[2016-04-24] MEDS: METHYLDOPA 250 MG TAB PO SCH ×2 (08:41→20:33)
[2016-04-24] MEDS: ASPIRIN 81 MG ECTAB PO SCH (08:41)
[2016-04-24] MEDS: CLOPIDOGREL BISULFATE 75 MG TAB PO SCH (08:42)
[2016-04-24] MEDS: MULTIVITAMIN TAB PO SCH (08:42)
[2016-04-24] MEDS: AMLODIPINE BESYLATE 5 MG TAB PO SCH (08:42)
[2016-04-24] MEDS: ISOSORBIDE MONONITRATE 60 MG TABCR PO SCH (08:42)
[2016-04-24] MEDS: ATORVASTATIN 10 MG TAB PO SCH (08:42)
[2016-04-24] MEDS: PANTOprazole SOD 40 MG TAB PO SCH (08:42)
[2016-04-24] MEDS: ESCITALOPRAM OXALATE 10 MG TAB PO SCH (08:42)
[2016-04-24] MEDS: FUROSEMIDE 20 MG TAB PO SCH (08:43)
[2016-04-24] MEDS: LOSARTAN POTASSIUM 50 MG TAB PO SCH ×2 (08:43→17:00)
[2016-04-24] MEDS: METOPROLOL SUCC 50MG EXT REL TAB PO SCH (08:43)
[2016-04-24] MEDS: CHOLECALCIFEROL 1000 INTER.UNIT TAB PO SCH (08:43)
[2016-04-24] MEDS: AMOXICILLIN/CLAVULANATE TAB 875 MG TAB PO SCH ×2 (08:44→17:00)
--- NOTE | 2016-04-24 10:47 | PULMONARY PROGRESS NOTE ---
DATE: 04/24/2016 TIME: 10:10 a.m. SUBJECTIVE: The patient is generally feeling better. She did cough up some discolored mucus this morning. She states that is unusual for her. She has not been more short of breath than normal. Her breathing has been gradually improving. Her daughter was with her during this evaluation. Her daughter discussed numerous aspects of her mother's care including the search for a place for her mom to go to. They are looking for some form of assisted living and exactly how much care she needs is still pending. The patient states her appetite is good. Her strength is getting a little better. Her oxygenation has been staying in good, although I do not believe she has been exerting herself a whole lot. The patient did receive 2 units of packed cells yesterday because of decreased hemoglobin. OBJECTIVE: GENERAL: The patient appears comfortable at rest. She was in no distress. Temperature is 36.9. HEENT: Eye exam suggested cataract surgeries. Nares were clear. Mouth exam showed a Mallampati grade 4 pharynx. There was marked crowding. NECK: Palpation of the neck reveals no lymph nodes. CHEST: Has a scar from prior surgery. HEART: Rate is 72 per minute. Extrasystoles were heard. Blood pressure 185/66. LUNGS: Lung nettles revealed diffuse dry rales bilaterally. This involved the lower two-thirds of both lungs posteriorly. Oxygen saturation was 96% done by myself on 3 liters. ABDOMEN: Soft. Good bowel sounds were heard. There was no tenderness to palpation. EXTREMITIES: Reveal approximately +1 to +2 edema bilaterally. This is most seen at her sock line. LABORATORY DATA: White count today is 5.65. Hemoglobin 10.9. Platelets 241,000. Hemoglobin yesterday was 8.2. Electrolytes show sodium 141, potassium 4.9, chloride 102, and bicarbonate 30. The BUN was 63 with a creatinine of 1.8. IMPRESSIONS: 1. Pulmonary fibrosis. 2. Chronic respiratory failure with profound hypoxemia. 3. Anemia -- improved with transfusions. 4. Renal insufficiency. COMMENTS: The patient's daughter has been in touch with care management trying to find a place for her mother. If she goes to a regular intermediate, BiPAP could be ordered. I believe that if she goes to a personal fdc, they would be dependent upon the patient having her own CPAP or BiPAP. Her own CPAP machine is about 15 years old according to her daughter. Typically BiPAP works better for patients with chronic respiratory failure. I agree with current therapy and with the other suggestions as had been noted by Dr. Gonzalez in his progress note from yesterday. He routinely takes care of her. Her daughter did bring up the issue of the fact that there is a CAT scan scheduled for later this month. She just had a CAT scan when she was hospitalized last month. I told her that she should call the radiology department and cancel that because she just had one done.
--- NOTE | 2016-04-24 17:16 | Progress Note ---
Internal Med Progress Note Date of Service: Apr 24, 2016. Provider Documentation: SUBJECTIVE: sitting on the chair comfortably says ambulating in room ok denies sob afebrile eating ok daughter in room and wants the patient to be placed snf/pch for manager terminal OBJECTIVE: Vital Signs-as noted below Exam: General-alert and awake . Not in distress. ENT-normal hearing Neck-no neck masses Lungs-cta b/l no wheezing mild bibasilar crackles Heart-s1 and s2 heard, regular rate and rhythm no murmurs Abdomen-soft bowel sounds present non tender no distension Extremities- no erythema pedal edema present Neuro-alert and awake moves extremities Lab data as noted below. ASSESSMENT & PLAN: 89F with severe Pulmonary fibrosis presents with flare and right sided chf requiring bipap. Pulmonary recommends penitentiary steroid taper. ACUTE ON CHRONIC RESPIRATORY FAILURE, SEVERE PULMONARY FIBROSIS, PULMONARY HTN Acute right sided heart failure? cor pulmonale Patient coming from [facility] was started on Augmentin for possible pneumonia on 04/16 was sob on bipap and was bought to ER started on iv steroids received a dose of iv lasix continuing Augmentin and home po Lasix feeling much better now appreciate pulmonary inputs overall poor prognosis palliative consulted and appreciate inputs much improved tapered iv steroids to po as per pulmonary recommendations stable Family request placement ATYPICAL EPISODE OF CHEST PAIN, MILDLY ELEVATED TROP, HX CAD - patient reports one episode of pleuritic chest pain en route to the ED; received one spray nitro EKG without changes mild elevation of poponin which trended down currently asymptomatic to continue ASA, Plavix, statin, nitrate, and beta kareem asymptomatic now Anemia acute on chronic vs anemia of chronic disease hb 8.2 stool for Hemoccult transfused two units of prbc to help with the above symptoms hb 10.9 today HTN On hydralazine, isosorbide, methyldopa, metoprolol, and amlodipine will monitor ARF on CKD STAGE III baseline creat runs in the mid 1's cr 1.8 today will f/u labs DVT PROPHYLAXIS SQ Heparin CODE STATUS DNR DISPOSITION pt/ot Family request snf/personal care placement social service for d/c planning Vital Signs: Date Time Temp Pulse Resp B/P Pulse Ox O2 Delivery O2 Flow Rate FiO2 04/24/16 16:02 36.5 68 20 155/53 95 Nasal Cannula 3.0 04/24/16 15:49 Nasal Cannula 3.0 04/24/16 14:14 59 16 98 Nasal Cannula 3.0 04/24/16 11:20 140/53 04/24/16 10:02 Nasal Cannula 3.0 04/24/16 08:47 36.9 72 19 185/66 90 Nasal Cannula 3.0 04/24/16 07:51 66 16 92 BiPAP/CPAP 4.0 04/24/16 07:51 66 92 4.0 04/24/16 02:13 58 16 88 BiPAP/CPAP 3.0 04/24/16 02:12 58 88 3.0 04/24/16 00:20 36.5 67 18 163/62 100 3.0 04/24/16 00:00 Nasal Cannula 3.0 04/23/16 23:50 36.3 64 18 185/68 100 3.0 04/23/16 23:20 36.3 64 18 153/70 100 3.0 04/23/16 23:18 64 98 3.0 04/23/16 23:05 36.5 69 18 158/67 100 3.0 04/23/16 22:46 36.4 65 18 176/65 96 04/23/16 22:30 36.3 61 18 175/72 96 3.0 04/23/16 21:30 36.5 67 18 169/79 100 3.0 04/23/16 20:35 36.4 56 18 165/72 100 3.0 04/23/16 20:11 Nasal Cannula 3.0 04/23/16 20:01 54 16 98 Nasal Cannula 3.0 04/23/16 20:00 39.3 56 18 187/71 100 04/23/16 19:48 36.5 58 18 161/77 96 04/23/16 19:28 36.4 57 18 166/66 97 Lab Results: Results Past 24 Hours Test 04/24/16 06:07 04/24/16 08:50 Range/Units White Blood Count 5.65 4.8-10.8 K/uL Red Blood Count 3.76 4.2-5.4 M/uL Hemoglobin 10.9 12.0-16.0 g/dL Hematocrit 34.0 37-47 % Mean Corpuscular Volume 90.4 80-100 fL Mean Corpuscular Hemoglobin 29.0 25-34 pg Mean Corpuscular Hemoglobin Concent 32.1 32-36 g/dl Platelet Count 241 130-400 K/uL Mean Platelet Volume 10.2 7.4-10.4 fL Neutrophils (%) (Auto) 81.9 % Lymphocytes (%) (Auto) 8.5 % Monocytes (%) (Auto) 9.0 % Eosinophils (%) (Auto) 0.2 % Basophils (%) (Auto) 0.0 % Neutrophils # (Auto) 4.63 1.4-6.5 K/uL Lymphocytes # (Auto) 0.48 1.2-3.4 K/uL Monocytes # (Auto) 0.51 0.11-0.59 K/uL Eosinophils # (Auto) 0.01 0-0.5 K/uL Basophils # (Auto) 0.00 0-0.2 K/uL RDW Standard Deviation 51.1 36.4-46.3 fL RDW Coefficient of Variation 15.2 11.5-14.5 % Immature Granulocyte % (Auto) 0.4 % Immature Granulocyte # (Auto) 0.02 0.00-0.02 K/uL Sodium Level 141 136-145 mmol/L Potassium Level 4.9 3.5-5.1 mmol/L Chloride Level 102 98-107 mmol/L Carbon Dioxide Level 30 21-32 mmol/L Anion Gap 9.0 3-11 mmol/L Blood Urea Nitrogen 63 7-18 mg/dl Creatinine 1.80 0.60-1.20 mg/dl Est Creatinine Clear Calc Drug Dose 21.0 ml/min Estimated GFR () 28.4 Estimated GFR (Non- 24.5 BUN/Creatinine Ratio 35.2 10-20 Random Glucose 101 70-99 mg/dl Calcium Level 8.7 8.5-10.1 mg/dl Magnesium Level 2.3 1.8-2.4 mg/dl Stool Occult Blood NEGATIVE NEGATIVE
[2016-04-25] VITALS (13 sets, daily range): BP systolic 147–181; BP diastolic 54–68; PULSE 60–78; TEMP 36.6–37; O2SAT 82–97
[2016-04-25] MEDS: ALBUT/IPRATROP 3MG/0.5MG NEB 3 ML VIAL INH SCH ×4 (01:47→20:07)
[2016-04-25 06:31] LABS: COMPLETE YES; EOS % 0.4 %; HEMATOCRIT 34.4 % (37-47); IG% 0.6 %; LYMPH % 7.5 %; LYMPH ABS # 0.38 K/uL (1.2-3.4); MEAN CELL VOLUME 90.8 fL (80-100); MEAN CORPUSCULAR HEMOGLOBIN 28.8 pg (25-34); MEAN CORPUSCULAR HGB CONC 31.7 g/dl (32-36); MONO % 8.3 %; NEUT % 83.2 %; PLATELET COUNT 256 K/uL (130-400); RED BLOOD COUNT 3.79 M/uL (4.2-5.4); WHITE BLOOD COUNT 5.08 K/uL (4.8-10.8)
[2016-04-25 06:56] LABS: BUN/CREATININE RATIO 33.7 (10-20); CALCIUM 8.2 mg/dl (8.5-10.1); CREATININE 1.6 mg/dl (0.60-1.20); MAGNESIUM 2.3 mg/dl (1.8-2.4); POTASSIUM 4.7 mmol/L (3.5-5.1)
[2016-04-25] MEDS: CHOLECALCIFEROL 1000 INTER.UNIT TAB PO SCH (08:12)
[2016-04-25] MEDS: FUROSEMIDE 40 MG TAB PO SCH (08:13)
[2016-04-25] MEDS: AMOXICILLIN/CLAVULANATE TAB 875 MG TAB PO SCH ×2 (08:14→17:15)
[2016-04-25] MEDS: METOPROLOL SUCC 50MG EXT REL TAB PO SCH (08:23)
[2016-04-25] MEDS: MULTIVITAMIN TAB PO SCH (08:24)
[2016-04-25] MEDS: PANTOprazole SOD 40 MG TAB PO SCH (08:25)
[2016-04-25] MEDS: ISOSORBIDE MONONITRATE 60 MG TABCR PO SCH (08:25)
[2016-04-25] MEDS: ESCITALOPRAM OXALATE 10 MG TAB PO SCH (08:25)
[2016-04-25] MEDS: CLOPIDOGREL BISULFATE 75 MG TAB PO SCH (08:25)
[2016-04-25] MEDS: LOSARTAN POTASSIUM 50 MG TAB PO SCH ×2 (08:25→17:15)
[2016-04-25] MEDS: ASPIRIN 81 MG ECTAB PO SCH (08:26)
[2016-04-25] MEDS: ATORVASTATIN 10 MG TAB PO SCH (08:26)
[2016-04-25] MEDS: AMLODIPINE BESYLATE 5 MG TAB PO SCH (08:26)
[2016-04-25] MEDS: HEPARIN SOD 5000 UNIT/0.5 ML CARP SQ SCH ×2 (08:27→20:07)
[2016-04-25] MEDS: METHYLDOPA 250 MG TAB PO SCH ×2 (08:27→19:59)
--- NOTE | 2016-04-25 11:21 | Palliative Care Progress Note ---
Palliative Care Progress Note Date of Service Apr 25, 2016. Subjective Pt evaluation today including: conversation w/ patient, conversation w/ family , physical exam, chart review, conversation w/ exchange underwriting consultant Pain: 0/10 PO Intake: tolerating diet Voiding: no voiding problems -Patient sitting in chair looking comfortable today. States she is feeling pretty well. -Now on 3LNC and tolerating well. States she only gets dyspneic when walking to the bathroom which is normal for her. -Spoke with patient's daughter yesterday, plan is still for patient to go to SNF for rehab, then possibly to personal care facility. Patient agrees that this is the plan. PT/OT both recommend rehab as well. Review of Systems Constitutional: No chills, No fever Respiratory: + cough, + dyspnea on exertion, No dyspnea at rest, No wheezing Cardiac: + edema, No chest pain Abdomen: No nausea, No pain, No vomiting Female : No problem reported Psychiatric: No anxiety Objective Vital Signs Date Time Temp Pulse Resp B/P Pulse Ox O2 Delivery O2 Flow Rate FiO2 04/25/16 10:37 60 163/65 04/25/16 08:15 Nasal Cannula 3.0 04/25/16 07:13 37.0 64 17 181/63 95 Room Air 04/25/16 01:47 65 18 93 BiPAP/CPAP 3.0 04/25/16 00:00 Nasal Cannula 04/24/16 23:56 36.6 65 18 162/68 95 3.0 04/24/16 22:41 69 94 3.0 04/24/16 20:00 Nasal Cannula 04/24/16 19:28 71 20 92 Nasal Cannula 3.0 04/24/16 16:02 36.5 68 20 155/53 95 Nasal Cannula 3.0 04/24/16 15:49 Nasal Cannula 3.0 04/24/16 14:14 59 16 98 Nasal Cannula 3.0 04/24/16 11:20 140/53 Physical Exam General Appearance: no apparent distress Neck: no JVD Respiratory/Chest: no respiratory distress, no accessory muscle use, + decreased breath sounds, + crackles (few in bilateral bases), + pertinent finding (3LNC) Cardiovascular: regular rate, rhythm, + systolic murmur, + normal peripheral pulses, + pertinent finding (+2 pitting edema to bilateral ankles) Abdomen: normal bowel sounds, non tender, soft Neurologic/Psychiatric: alert, normal mood/affect, oriented x 3 Laboratory Results Last 24 Hours Test 04/25/16 06:05 White Blood Count 5.08 K/uL Red Blood Count 3.79 M/uL Hemoglobin 10.9 g/dL Hematocrit 34.4 % Mean Corpuscular Volume 90.8 fL Mean Corpuscular Hemoglobin 28.8 pg Mean Corpuscular Hemoglobin Concent 31.7 g/dl Platelet Count 256 K/uL Mean Platelet Volume 10.0 fL Neutrophils (%) (Auto) 83.2 % Lymphocytes (%) (Auto) 7.5 % Monocytes (%) (Auto) 8.3 % Eosinophils (%) (Auto) 0.4 % Basophils (%) (Auto) 0.0 % Neutrophils # (Auto) 4.23 K/uL Lymphocytes # (Auto) 0.38 K/uL Monocytes # (Auto) 0.42 K/uL Eosinophils # (Auto) 0.02 K/uL Basophils # (Auto) 0.00 K/uL RDW Standard Deviation 51.9 fL RDW Coefficient of Variation 15.5 % Immature Granulocyte % (Auto) 0.6 % Immature Granulocyte # (Auto) 0.03 K/uL Sodium Level 141 mmol/L Potassium Level 4.7 mmol/L Chloride Level 102 mmol/L Carbon Dioxide Level 31 mmol/L Anion Gap 8.0 mmol/L Blood Urea Nitrogen 54 mg/dl Creatinine 1.60 mg/dl Est Creatinine Clear Calc Drug Dose 23.5 ml/min Estimated GFR () 32.8 Estimated GFR (Non- 28.3 BUN/Creatinine Ratio 33.7 Random Glucose 99 mg/dl Calcium Level 8.2 mg/dl Magnesium Level 2.3 mg/dl Assessment and Plan Problem list: Dyspnea on exertion Weakness Acute on chronic respiratory failure in the setting of severe pulmonary fibrosis CKD CAD Atypical episode of chest pain, elevated troponin Goals of care (Z51.5) Palliative care plan: -Plan is to continue current treatment. -Go to SNF for rehab, possibly personal snf after that. -Patient denies any pain or symptoms at this time, so I think she is well- managed for now. -Encouraged to do advance directive. Patient would like to continue talking with family about this. Please contact me if there are any further palliative care needs. Palliative Performance Scale: 60 % Continued [facility] stay due to: home environment unsafe for pt Discharge planning: long term facility
--- NOTE | 2016-04-25 11:34 | Pulmonology Progress Note ---
Pulmonary Progress Note Date of Service Apr 25, 2016. Attending Dr. Ramirez Subjective Feeling somewhat improved today regarding her respiratory status. Sleeping on BiPAP without difficulty. Has been ambulating to the restroom with dyspnea on exertion however feels comfortable at rest. Cough is reduced - no expectoration for several days. Appetite is in-tact. Objective 89-yo female admitted through [facility] ER from [facility] with several week history dyspnea and progressive hypoxia. Recent history notable for admission 2016 with acute on chronic hypoxic respiratory failure. Echocardiogram this prior admission suggestive of pulmonary HTN/Cor Pulmonale likely secondary to underlying pulmonary fibrosis. She was discharged to -Rehab. In rehab she developed low grade fever with suspected bilateral infiltrate on CXR for which she began a course of Augmentin however respiratory symptoms progressed and she was ultimately admitted. CXR in the ER consistent with cardiomegaly, diffuse interstitial thickening and suggestive of superimposed pulmonary edema. Labs noted a troponin leak and ProBNP: 3392 - no leukocytosis but notable for anemia and FRANDY. She was treated with diuresis, nebulized bronchodilators, tapered steroids, 2-unit PRBC (03/26), CPAP/BIPAP and continued Augmentin with clinical improvement. 04/21 palliative care consulted. Today: - O2: 93-95% 3LPM or BiPAP - Hypertensive, afebrile - Wt: 84.6kg (98.5kg on admission) - Current: 30mg prednisone daily Physical exam: Constitutional WDWN elderly female sitting in chair at bedside. No acute distress. Head: + facial symmetry. PERRLA, no conjunctival injection. Nasal cannula in place Respiratory: Non-labored respirations. Pronounced fine bibasilar rales extending to the lateral nettles. No wheeze. CV: Irregularly irregular. II/ systolic murmur. Warm and perfused peripherally. MSK/Extremities: Moving and developed symmetrically. +1 bilateral LE peripheral edema Neurologic: A&O. Good data recall appropriate affect. Assessment & Plan 89-yo female admitted with acute on chronic respiratory failure. Improving and back to baseline function. She should continue current PAP and will need follow- up with pulmonary Dr. Gonzalez for repeat titration study and consideration for a new home CPAP device within 1-2 weeks of discharge. Wean to 20mg prednisone tomorrow. Data Medications: Current Inpatient Medications Medications (Trade) Dose Ordered Sig/Rey Route Start Time Stop Time Status Last Admin Dose Admin Heparin Sodium (Porcine) (Heparin Sq 5000 Unit/0.5ml) 5,000 unit Q12 SQ 04/20/16 21:00 05/20/16 20:59 Acetaminophen (Tylenol Tab) 650 mg Q4H PRN PO 04/20/16 15:30 05/20/16 15:29 04/22/16 20:40 650 MG Ondansetron HCl (Zofran Inj) 4 mg Q6H PRN IV 04/20/16 15:30 05/20/16 15:29 Amlodipine Besylate (Norvasc Tab) 10 mg QAM PO 04/21/16 09:00 05/21/16 08:59 04/25/16 08:26 10 MG Amoxicillin/ Clavulanate Potassium (Augmentin Tab) 875 mg BIDM PO 04/20/16 16:46 04/27/16 17:59 04/25/16 08:14 875 MG Aspirin (Ecotrin Tab) 81 mg DAILY PO 04/21/16 09:00 05/21/16 08:59 04/25/16 08:26 81 MG Atorvastatin Calcium (Lipitor Tab) 10 mg DAILY PO 04/21/16 09:00 05/21/16 08:59 04/25/16 08:26 10 MG Clopidogrel Bisulfate (plAVix TAB) 75 mg DAILY PO 04/21/16 09:00 05/21/16 08:59 04/25/16 08:25 75 MG Escitalopram Oxalate (Lexapro Tab) 10 mg DAILY PO 04/21/16 09:00 05/21/16 08:59 04/25/16 08:25 10 MG Furosemide (Lasix Tab) 20 mg Q2D@0900 PO 04/22/16 09:00 05/22/16 08:59 04/24/16 08:43 20 MG Furosemide (Lasix Tab) 40 mg Q2D@0900 PO 04/21/16 09:00 05/21/16 08:59 04/25/16 08:13 40 MG Hydralazine HCl (Apresoline Tab) 100 mg TID PO 04/20/16 21:00 05/20/16 20:59 04/25/16 08:24 100 MG Isosorbide Mononitrate (Imdur Ext Rel Tab) 120 mg DAILY PO 04/21/16 09:00 05/21/16 08:59 04/25/16 08:25 120 MG Lorazepam (Ativan Tab) 0.5 mg Q12 PRN PO 04/20/16 16:00 05/20/16 15:59 Losartan Potassium (coZAAR TAB) 50 mg BID17 PO 04/20/16 17:00 05/20/16 16:59 04/25/16 08:25 50 MG Methyldopa (Aldomet Tab) 1,000 mg BID PO 04/20/16 21:00 05/20/16 20:59 04/25/16 08:27 1,000 MG Metoprolol Succinate (Toprol Xl Tab) 50 mg DAILY PO 04/21/16 09:00 05/21/16 08:59 04/25/16 08:23 50 MG Multivitamins (Multivitamin Tab) 1 tab DAILY PO 04/21/16 09:00 05/21/16 08:59 04/25/16 08:24 1 TAB Pantoprazole Sodium (Protonix Tab) 40 mg DAILY PO 04/21/16 09:00 05/21/16 08:59 04/25/16 08:25 40 MG Tramadol HCl (Ultram Tab) 50 mg Q12H PRN PO 04/20/16 16:00 05/20/16 15:59 Cholecalciferol (Vitamin D Tab) 5,000 inter.unit DAILY PO 04/21/16 09:00 05/21/16 08:59 04/25/16 08:12 5,000 INTER.UNIT Albuterol/ Ipratropium (Duoneb) 3 ml Q6R INH 04/20/16 21:00 05/20/16 20:59 04/25/16 01:47 3 ML Prednisone (PredniSONE TAB) 30 mg DAILY PO 04/23/16 08:00 05/23/16 07:59 04/25/16 08:26 30 MG I & O: 24-Hour Column 04/25/16 08:00 Intake Total 710 ml Balance 710 ml Vital Signs: Date Time Temp Pulse Resp B/P Pulse Ox O2 Delivery O2 Flow Rate FiO2 04/25/16 10:37 60 163/65 04/25/16 08:15 Nasal Cannula 3.0 04/25/16 07:13 37.0 64 17 181/63 95 Room Air 04/25/16 01:47 65 18 93 BiPAP/CPAP 3.0 04/25/16 00:00 Nasal Cannula 04/24/16 23:56 36.6 65 18 162/68 95 3.0 04/24/16 22:41 69 94 3.0 04/24/16 20:00 Nasal Cannula 04/24/16 19:28 71 20 92 Nasal Cannula 3.0 04/24/16 16:02 36.5 68 20 155/53 95 Nasal Cannula 3.0 04/24/16 15:49 Nasal Cannula 3.0 04/24/16 14:14 59 16 98 Nasal Cannula 3.0 Laboratory Results: Last 24 Hours Test 04/25/16 06:05 White Blood Count 5.08 K/uL Red Blood Count 3.79 M/uL Hemoglobin 10.9 g/dL Hematocrit 34.4 % Mean Corpuscular Volume 90.8 fL Mean Corpuscular Hemoglobin 28.8 pg Mean Corpuscular Hemoglobin Concent 31.7 g/dl Platelet Count 256 K/uL Mean Platelet Volume 10.0 fL Neutrophils (%) (Auto) 83.2 % Lymphocytes (%) (Auto) 7.5 % Monocytes (%) (Auto) 8.3 % Eosinophils (%) (Auto) 0.4 % Basophils (%) (Auto) 0.0 % Neutrophils # (Auto) 4.23 K/uL Lymphocytes # (Auto) 0.38 K/uL Monocytes # (Auto) 0.42 K/uL Eosinophils # (Auto) 0.02 K/uL Basophils # (Auto) 0.00 K/uL RDW Standard Deviation 51.9 fL RDW Coefficient of Variation 15.5 % Immature Granulocyte % (Auto) 0.6 % Immature Granulocyte # (Auto) 0.03 K/uL Sodium Level 141 mmol/L Potassium Level 4.7 mmol/L Chloride Level 102 mmol/L Carbon Dioxide Level 31 mmol/L Anion Gap 8.0 mmol/L Blood Urea Nitrogen 54 mg/dl Creatinine 1.60 mg/dl Est Creatinine Clear Calc Drug Dose 23.5 ml/min Estimated GFR () 32.8 Estimated GFR (Non- 28.3 BUN/Creatinine Ratio 33.7 Random Glucose 99 mg/dl Calcium Level 8.2 mg/dl Magnesium Level 2.3 mg/dl
--- NOTE | 2016-04-25 12:51 | Progress Note ---
Internal Med Progress Note Date of Service: Apr 25, 2016. Provider Documentation: SUBJECTIVE: Patient is doing well. Sitting in chair comfortably, having her lunch SOB at her baseline, no worsening of cough, no chest pain, fever, chills. On 3 L (as at home), CPAP at night OBJECTIVE: Vital Signs-as noted below Exam: General-AAOX3, no distress ENT-normal hearing Neck-no neck masses Lungs-AEBE decreased, few rales Heart-s1 and s2 heard, regular rate and rhythm no murmurs Extremities- no erythema Lab data as noted below. ASSESSMENT & PLAN: ASSESSMENT & PLAN: 89 F with severe Pulmonary fibrosis presents with flare and right sided chf requiring bipap. Pulmonary recommends care home steroid taper. ACUTE ON CHRONIC RESPIRATORY FAILURE (HYPOXIC), SEVERE PULMONARY FIBROSIS, PULMONARY HTN- Improved Acute right sided heart failure? cor pulmonale Patient came from [facility]- was initially started on Augmentin for possible pneumonia on 04/16; was sob on bipap and was bought to ER. At home CPAP night, 4- 5 L day time Here 3 L oxygen day, CPAP at night -Nebs, IV Steroids--> long taper, S/P IV lasix one dose -Continue with augmentin/Lasix PO as at home -Appreciate pulmonary inputs- recommends long taper -Family request placement S/P ATYPICAL EPISODE OF CHEST PAIN, MILDLY ELEVATED TROP, HX CAD - Patient reported one episode of pleuritic chest pain en route to the ED; received one spray nitro - EKG without changes; mild elevation of poponin which trended down - currently asymptomatic - Continue ASA, Plavix, statin, nitrate, and beta kareem ANEMIA Acute on chronic vs anemia of chronic disease Hb 8.2 on presentation, FOBT- Negative -S/P 2 units of PRBCs to help with above symptoms -Stable H & H HTN -On hydralazine, isosorbide, methyldopa, metoprolol, and amlodipine -Monitor CKD STAGE III Baseline creat runs in the mid 1's (1.6-1.8) -Near baseline -Monitor DVT PROPHYLAXIS -SQ Heparin CODE STATUS -DNR DISPOSITION PT/OT Family request SNF / personal care placement OK to discharge from medical point of view, awaiting placement social service for d/c planning Vital Signs: Date Time Temp Pulse Resp B/P Pulse Ox O2 Delivery O2 Flow Rate FiO2 04/25/16 11:30 150/54 04/25/16 10:37 60 163/65 04/25/16 08:15 Nasal Cannula 3.0 04/25/16 07:23 78 16 92 Nasal Cannula 3.0 04/25/16 07:13 37.0 64 17 181/63 95 Room Air 04/25/16 01:47 65 18 93 BiPAP/CPAP 3.0 04/25/16 00:00 Nasal Cannula 04/24/16 23:56 36.6 65 18 162/68 95 3.0 04/24/16 22:41 69 94 3.0 04/24/16 20:00 Nasal Cannula 04/24/16 19:28 71 20 92 Nasal Cannula 3.0 04/24/16 16:02 36.5 68 20 155/53 95 Nasal Cannula 3.0 04/24/16 15:49 Nasal Cannula 3.0 04/24/16 14:14 59 16 98 Nasal Cannula 3.0 Lab Results: Results Past 24 Hours Test 04/25/16 06:05 Range/Units White Blood Count 5.08 4.8-10.8 K/uL Red Blood Count 3.79 4.2-5.4 M/uL Hemoglobin 10.9 12.0-16.0 g/dL Hematocrit 34.4 37-47 % Mean Corpuscular Volume 90.8 80-100 fL Mean Corpuscular Hemoglobin 28.8 25-34 pg Mean Corpuscular Hemoglobin Concent 31.7 32-36 g/dl Platelet Count 256 130-400 K/uL Mean Platelet Volume 10.0 7.4-10.4 fL Neutrophils (%) (Auto) 83.2 % Lymphocytes (%) (Auto) 7.5 % Monocytes (%) (Auto) 8.3 % Eosinophils (%) (Auto) 0.4 % Basophils (%) (Auto) 0.0 % Neutrophils # (Auto) 4.23 1.4-6.5 K/uL Lymphocytes # (Auto) 0.38 1.2-3.4 K/uL Monocytes # (Auto) 0.42 0.11-0.59 K/uL Eosinophils # (Auto) 0.02 0-0.5 K/uL Basophils # (Auto) 0.00 0-0.2 K/uL RDW Standard Deviation 51.9 36.4-46.3 fL RDW Coefficient of Variation 15.5 11.5-14.5 % Immature Granulocyte % (Auto) 0.6 % Immature Granulocyte # (Auto) 0.03 0.00-0.02 K/uL Sodium Level 141 136-145 mmol/L Potassium Level 4.7 3.5-5.1 mmol/L Chloride Level 102 98-107 mmol/L Carbon Dioxide Level 31 21-32 mmol/L Anion Gap 8.0 3-11 mmol/L Blood Urea Nitrogen 54 7-18 mg/dl Creatinine 1.60 0.60-1.20 mg/dl Est Creatinine Clear Calc Drug Dose 23.5 ml/min Estimated GFR () 32.8 Estimated GFR (Non- 28.3 BUN/Creatinine Ratio 33.7 10-20 Random Glucose 99 70-99 mg/dl Calcium Level 8.2 8.5-10.1 mg/dl Magnesium Level 2.3 1.8-2.4 mg/dl
[2016-04-26] VITALS (12 sets, daily range): BP systolic 150–191; BP diastolic 64–90; PULSE 53–73; TEMP 35.6–36.6; O2SAT 85–97
[2016-04-26] MEDS: ALBUT/IPRATROP 3MG/0.5MG NEB 3 ML VIAL INH SCH ×2 (01:46→07:14)
[2016-04-26] MEDS: LOSARTAN POTASSIUM 50 MG TAB PO SCH ×2 (08:00→16:53)
[2016-04-26] MEDS: PANTOprazole SOD 40 MG TAB PO SCH (08:00)
[2016-04-26] MEDS: MULTIVITAMIN TAB PO SCH (08:00)
[2016-04-26] MEDS: METHYLDOPA 250 MG TAB PO SCH ×2 (08:00→19:57)
[2016-04-26] MEDS: FUROSEMIDE 20 MG TAB PO SCH (08:00)
[2016-04-26] MEDS: AMOXICILLIN/CLAVULANATE TAB 875 MG TAB PO SCH ×2 (08:00→16:52)
[2016-04-26] MEDS: CHOLECALCIFEROL 1000 INTER.UNIT TAB PO SCH (08:00)
[2016-04-26] MEDS: ESCITALOPRAM OXALATE 10 MG TAB PO SCH (08:01)
[2016-04-26] MEDS: ISOSORBIDE MONONITRATE 60 MG TABCR PO SCH (08:01)
[2016-04-26] MEDS: METOPROLOL SUCC 50MG EXT REL TAB PO SCH (08:01)
[2016-04-26] MEDS: ASPIRIN 81 MG ECTAB PO SCH (08:01)
[2016-04-26] MEDS: CLOPIDOGREL BISULFATE 75 MG TAB PO SCH (08:01)
[2016-04-26] MEDS: HEPARIN SOD 5000 UNIT/0.5 ML CARP SQ SCH ×2 (08:01→20:51)
[2016-04-26] MEDS: ATORVASTATIN 10 MG TAB PO SCH (08:01)
[2016-04-26] MEDS: AMLODIPINE BESYLATE 5 MG TAB PO SCH (08:01)
--- NOTE | 2016-04-26 10:58 | Pulmonology Progress Note ---
Pulmonary Progress Note Date of Service Apr 26, 2016. Attending Dr. Ramirez Subjective Feeling ok today. Ambulated through hallway with dyspnea on exertion similar to prior - no chest pain. Cough is dry. Has been sleeping well on CPAP without difficulty. Appetite and GI function in tact. Objective 89-yo female admitted 04/20/16 from [facility] with several week history dyspnea and progressive hypoxia. Symptoms progressesed despite initiation of Augmentin in Rehab for suspected bilateral pneumonia. PMHx notable for pulmonary fibrosis and Cor Pulmonale with recent admit 03/2016. CXR in the ER consistent with cardiomegaly, diffuse interstitial thickening and suggestive of superimposed pulmonary edema. Labs: + troponin leak and ProBNP: 3392 - no leukocytosis but + anemia and FRANDY. She was treated with diuresis, nebulized bronchodilators, tapered steroids, 2-unit PRBC (03/26), CPAP/BIPAP and continued Augmentin with clinical improvement. 04/21 palliative care consulted. Today: - O2: 95-97%% 3LPM or BiPAP - Hypertensive, afebrile - Wt: 883.7kg (98.5kg on admission) - Current: 30mg prednisone daily - Day # 7 Augmentin (in-patient) Physical exam: Constitutional WDWN elderly female sitting in chair at bedside. No acute distress. Head: + facial symmetry. PERRLA, no conjunctival injection. Nasal cannula in place Respiratory: Non-labored respirations. Pronounced fine bibasilar rales extending to the lateral nettles. No wheeze. CV: RRR II/ systolic murmur. Warm and perfused peripherally. MSK/Extremities: Moving and developed symmetrically. No peripheral edema with loose skin suggestive of fluid loss LEs bilatearally. Neurologic: A&O. Good data recall appropriate affect. Assessment & Plan 89-yo female admitted with acute on chronic respiratory failure - near functional baseline - placement pending 1. 2-step prior to discharge 2. Continue CPAP and arrange for titration study as outpatient 3. 20mg prednisone 04/27 - order placed 4. Recommend stop Augmentin 04/27 (complete 10-day course) Data Medications: Current Inpatient Medications Medications (Trade) Dose Ordered Sig/Rey Route Start Time Stop Time Status Last Admin Dose Admin Heparin Sodium (Porcine) (Heparin Sq 5000 Unit/0.5ml) 5,000 unit Q12 SQ 04/20/16 21:00 4/1/17 20:59 Acetaminophen (Tylenol Tab) 650 mg Q4H PRN PO 04/20/16 15:30 05/20/16 15:29 04/22/16 20:40 650 MG Ondansetron HCl (Zofran Inj) 4 mg Q6H PRN IV 04/20/16 15:30 05/20/16 15:29 Amlodipine Besylate (Norvasc Tab) 10 mg QAM PO 04/21/16 09:00 05/21/16 08:59 04/26/16 08:01 10 MG Amoxicillin/ Clavulanate Potassium (Augmentin Tab) 875 mg BIDM PO 04/20/16 16:46 04/27/16 17:59 04/26/16 08:00 875 MG Aspirin (Ecotrin Tab) 81 mg DAILY PO 04/21/16 09:00 05/21/16 08:59 04/26/16 08:01 81 MG Atorvastatin Calcium (Lipitor Tab) 10 mg DAILY PO 04/21/16 09:00 05/21/16 08:59 04/26/16 08:01 10 MG Clopidogrel Bisulfate (plAVix TAB) 75 mg DAILY PO 04/21/16 09:00 05/21/16 08:59 04/26/16 08:01 75 MG Escitalopram Oxalate (Lexapro Tab) 10 mg DAILY PO 04/21/16 09:00 05/21/16 08:59 04/26/16 08:01 10 MG Furosemide (Lasix Tab) 20 mg Q2D@0900 PO 04/22/16 09:00 05/22/16 08:59 04/26/16 08:00 20 MG Furosemide (Lasix Tab) 40 mg Q2D@0900 PO 04/21/16 09:00 05/21/16 08:59 04/25/16 08:13 40 MG Hydralazine HCl (Apresoline Tab) 100 mg TID PO 04/20/16 21:00 05/20/16 20:59 04/26/16 07:59 100 MG Isosorbide Mononitrate (Imdur Ext Rel Tab) 120 mg DAILY PO 04/21/16 09:00 05/21/16 08:59 04/26/16 08:01 120 MG Lorazepam (Ativan Tab) 0.5 mg Q12 PRN PO 04/20/16 16:00 05/20/16 15:59 Losartan Potassium (coZAAR TAB) 50 mg BID17 PO 04/20/16 17:00 05/20/16 16:59 04/26/16 08:00 50 MG Methyldopa (Aldomet Tab) 1,000 mg BID PO 04/20/16 21:00 05/20/16 20:59 04/26/16 08:00 1,000 MG Metoprolol Succinate (Toprol Xl Tab) 50 mg DAILY PO 04/21/16 09:00 05/21/16 08:59 04/26/16 08:01 50 MG Multivitamins (Multivitamin Tab) 1 tab DAILY PO 04/21/16 09:00 05/21/16 08:59 04/26/16 08:00 1 TAB Pantoprazole Sodium (Protonix Tab) 40 mg DAILY PO 04/21/16 09:00 05/21/16 08:59 04/26/16 08:00 40 MG Tramadol HCl (Ultram Tab) 50 mg Q12H PRN PO 04/20/16 16:00 05/20/16 15:59 Cholecalciferol (Vitamin D Tab) 5,000 inter.unit DAILY PO 04/21/16 09:00 05/21/16 08:59 04/26/16 08:00 5,000 INTER.UNIT Albuterol/ Ipratropium (Duoneb) 3 ml Q6R INH 04/20/16 21:00 05/20/16 20:59 04/26/16 07:14 3 ML Prednisone (PredniSONE TAB) 20 mg DAILY PO 04/27/16 08:00 05/27/16 07:59 I & O: 24-Hour Column 04/26/16 08:00 Intake Total 1480 ml Balance 1480 ml Vital Signs: Date Time Temp Pulse Resp B/P Pulse Ox O2 Delivery O2 Flow Rate FiO2 04/26/16 09:14 Nasal Cannula 3.0 04/26/16 07:42 36.6 73 18 187/65 95 3.0 04/26/16 07:14 69 16 97 Nasal Cannula 3.0 04/26/16 01:46 67 16 95 BiPAP/CPAP 3.0 04/26/16 01:17 68 160/64 04/26/16 00:55 Nasal Cannula 3.0 04/25/16 23:42 74 95 3.0 04/25/16 23:35 36.6 63 16 174/68 91 Nasal Cannula 3.0 04/25/16 20:07 63 16 97 Nasal Cannula 3.0 04/25/16 17:13 60 152/64 04/25/16 16:00 Nasal Cannula 3.0 04/25/16 15:01 68 82 04/25/16 14:26 36.6 64 18 148/55 93 04/25/16 14:24 78 16 94 Nasal Cannula 3.0 04/25/16 13:28 60 147/62 04/25/16 11:30 150/54
--- NOTE | 2016-04-26 12:30 | Progress Note ---
Internal Med Progress Note Date of Service: Apr 26, 2016. Provider Documentation: SUBJECTIVE: Patient is doing well. Sitting in chair comfortably, having her lunch SOB at her baseline, no worsening of cough, no chest pain, fever, chills. On 3 L (as at home), CPAP at night OBJECTIVE: Vital Signs-as noted below Exam: General-AAOX3, no distress ENT-normal hearing Neck-no neck masses Lungs-AEBE decreased, few rales Heart-s1 and s2 heard, regular rate and rhythm no murmurs Extremities- no erythema Lab data as noted below. ASSESSMENT & PLAN: ASSESSMENT & PLAN: 89 F with severe Pulmonary fibrosis presents with flare and right sided chf requiring bipap. Pulmonary recommends intermediate steroid taper. ACUTE ON CHRONIC RESPIRATORY FAILURE (HYPOXIC), SEVERE PULMONARY FIBROSIS, PULMONARY HTN- Improved Acute right sided heart failure? cor pulmonale Patient came from [facility]- was initially started on Augmentin for possible pneumonia on 04/16; was sob on bipap and was bought to ER. At home CPAP night, 4- 5 L day time Here 3 L oxygen day, CPAP at night -Nebs, IV Steroids --> long taper (20 mg today), S/P IV lasix one dose -Continue with Augmentin/Lasix PO as at home -Appreciate pulmonary inputs- recommends long taper HTN - Uncontrolled On multiple medications with maximum doses - Hydralazine 300 mg PO TID, Methyldopa 1200 mg PO BID, Amlodipine 10 mg daily, Isosorbide 120 mg daily, Lasix 60 mg q2 days, Metoprolol 50 mg daily, Allergic to clonidine. Unfortunately not too many options. Noted the pattern, BP up during morning time - Try to space out the medications- change amlodipine dosing to q HS -Will change Metoprolol to Carvedilol for better BP control -Monitor closely S/P ATYPICAL EPISODE OF CHEST PAIN, MILDLY ELEVATED TROP, HX CAD - Patient reported one episode of pleuritic chest pain en route to the ED; received one spray nitro - EKG without changes; mild elevation of poponin which trended down - currently asymptomatic - Continue ASA, Plavix, statin, nitrate, and beta kareem ANEMIA Acute on chronic vs anemia of chronic disease Hb 8.2 on presentation, FOBT- Negative -S/P 2 units of PRBCs to help with above symptoms -Stable H & H CKD STAGE III Baseline creat runs in the mid 1's (1.6-1.8) -Near baseline -Monitor DVT PROPHYLAXIS -SQ Heparin CODE STATUS -DNR DISPOSITION PT/OT Family request SNF / personal care placement OK to discharge from medical point of view, awaiting placement- tomorrow to [facility] Vital Signs: Date Time Temp Pulse Resp B/P Pulse Ox O2 Delivery O2 Flow Rate FiO2 04/26/16 12:23 152/90 04/26/16 12:14 191/67 04/26/16 09:14 Nasal Cannula 3.0 04/26/16 07:42 36.6 73 18 187/65 95 3.0 04/26/16 07:14 69 16 97 Nasal Cannula 3.0 04/26/16 01:46 67 16 95 BiPAP/CPAP 3.0 04/26/16 01:17 68 160/64 04/26/16 00:55 Nasal Cannula 3.0 04/25/16 23:42 74 95 3.0 04/25/16 23:35 36.6 63 16 174/68 91 Nasal Cannula 3.0 04/25/16 20:07 63 16 97 Nasal Cannula 3.0 04/25/16 17:13 60 152/64 04/25/16 16:00 Nasal Cannula 3.0 04/25/16 15:01 68 82 04/25/16 14:26 36.6 64 18 148/55 93 04/25/16 14:24 78 16 94 Nasal Cannula 3.0 04/25/16 13:28 60 147/62
[2016-04-26] MEDS: CARVEDILOL 12.5 MG TAB PO SCH ×2 (13:49→19:59)
[2016-04-26] MEDS ORDERED: ALBUT/IPRATROP 3MG/0.5MG NEB 3 ML VIAL INH PRN (15:00)
[2016-04-27 00:54] VITALS: BP 162/66; PULSE 60
[2016-04-27 07:15] VITALS: BP_SYST 174; BP_SYST 190; BP_DIAS 70; BP_DIAS 72; PULSE 63; TEMP 36.6; O2SAT 91
[2016-04-27] MEDS: CARVEDILOL 12.5 MG TAB PO SCH (07:28)
[2016-04-27] MEDS: AMOXICILLIN/CLAVULANATE TAB 875 MG TAB PO SCH (07:28)
[2016-04-27] MEDS: PANTOprazole SOD 40 MG TAB PO SCH (07:28)
[2016-04-27] MEDS: MULTIVITAMIN TAB PO SCH (07:29)
[2016-04-27] MEDS: CHOLECALCIFEROL 1000 INTER.UNIT TAB PO SCH (07:29)
[2016-04-27] MEDS: FUROSEMIDE 40 MG TAB PO SCH (07:29)
[2016-04-27] MEDS: ESCITALOPRAM OXALATE 10 MG TAB PO SCH (07:29)
[2016-04-27] MEDS: ISOSORBIDE MONONITRATE 60 MG TABCR PO SCH (07:30)
[2016-04-27] MEDS: LOSARTAN POTASSIUM 50 MG TAB PO SCH (07:30)
[2016-04-27] MEDS: ATORVASTATIN 10 MG TAB PO SCH (07:30)
[2016-04-27] MEDS: ASPIRIN 81 MG ECTAB PO SCH (07:30)
[2016-04-27] MEDS: METHYLDOPA 250 MG TAB PO SCH (07:30)
[2016-04-27] MEDS: CLOPIDOGREL BISULFATE 75 MG TAB PO SCH (07:30)
[2016-04-27] MEDS: HEPARIN SOD 5000 UNIT/0.5 ML CARP SQ SCH (07:34)
[2016-04-27 09:52] VITALS: BP 118/50; PULSE 51
[2016-04-27 10:51] VITALS: BP 118/50; PULSE 51; TEMP 36.6; O2SAT 91
--- NOTE | 2016-04-27 10:58 | Progress Note ---
Internal Med Progress Note Date of Service: Apr 27, 2016. Provider Documentation: SUBJECTIVE: Patient is doing well. Sitting in chair comfortably. SOB at her baseline, no worsening of cough, no chest pain, fever, chills. On 3 L (as at home), CPAP at night OBJECTIVE: Vital Signs-as noted below Exam: General-AAOX3, no distress ENT-normal hearing Neck-no neck masses Lungs-AEBE decreased, few rales Heart-s1 and s2 heard, regular rate and rhythm no murmurs Extremities- no erythema Lab data as noted below. ASSESSMENT & PLAN: ASSESSMENT & PLAN: 89 F with severe Pulmonary fibrosis presents with flare and right sided chf requiring bipap. Pulmonary recommends intermediate accountant steroid taper. ACUTE ON CHRONIC RESPIRATORY FAILURE (HYPOXIC), SEVERE PULMONARY FIBROSIS, PULMONARY HTN- Improved Secondary to pulmonary fibrosis flare, Acute right sided heart failure? cor pulmonale Patient came from [facility]- was initially started on Augmentin for possible pneumonia on 04/16; was sob on bipap and was bought to ER. At home CPAP night, 4- 5 L day time Here 3 L oxygen day, CPAP at night -Nebs, IV Steroids --> long taper (20 mg on 04/27/16--> reduce by 5 mg q 5 days and than discontinue), S/P IV lasix one dose -Continue with Augmentin (Day 05/29) /Lasix PO as at home -Appreciate pulmonary inputs. HTN - Fluctuations + On multiple medications with maximum doses - Hydralazine 300 mg PO TID, Methyldopa 1200 mg PO BID, Amlodipine 10 mg daily, Isosorbide 120 mg daily, Lasix 60 mg q2 days, Metoprolol 50 mg daily, Allergic to clonidine. Unfortunately not too many options. Noted the pattern, BP up during morning time - Try to space out the medications- change amlodipine dosing to q HS -Changed Metoprolol to Carvedilol for better BP control -Monitor closely S/P ATYPICAL EPISODE OF CHEST PAIN, MILDLY ELEVATED TROP, HX CAD - Patient reported one episode of pleuritic chest pain en route to the ED; received one spray nitro - EKG without changes; mild elevation of poponin which trended down - currently asymptomatic - Continue ASA, Plavix, statin, nitrate, and beta kareem ANEMIA Acute on chronic vs anemia of chronic disease Hb 8.2 on presentation, FOBT- Negative -S/P 2 units of PRBCs to help with above symptoms -Stable H & H CKD STAGE III Baseline creat runs in the mid 1's (1.6-1.8) -Near baseline -Monitor and follow up with nephrology outpatient DVT PROPHYLAXIS -SQ Heparin CODE STATUS -DNR DISPOSITION PT/OT OK to discharge to [facility] today 2 step prior to discharge today Vital Signs: Date Time Temp Pulse Resp B/P Pulse Ox O2 Delivery O2 Flow Rate FiO2 04/27/16 09:52 51 118/50 04/27/16 08:41 Nasal Cannula 3.0 04/27/16 07:15 36.6 63 18 190/70 91 Nasal Cannula 3.0 174/72 04/27/16 00:54 60 162/66 04/27/16 00:45 CPAP 3.0 04/26/16 23:42 35.6 59 20 184/73 94 BiPAP 04/26/16 23:12 63 92 3.0 04/26/16 19:57 53 150/64 04/26/16 16:23 57 16 91 Nasal Cannula 3.0 04/26/16 16:00 Nasal Cannula 3.0 04/26/16 15:06 36.5 55 18 150/65 92 Room Air 04/26/16 12:23 152/90 04/26/16 12:14 191/67
[2016-04-27] MEDS ORDERED: PRD10 PO (11:02)
[2016-04-27] MEDS ORDERED: ATV5 PO (11:02)
[2016-04-27] MEDS ORDERED: CRG125 PO (11:02)
[2016-04-27] MEDS ORDERED: IPRA1AER2 INH (11:02)
--- NOTE | 2016-04-27 11:05 | Discharge Instructions ---
Discharge Instructions Date of Service Apr 27, 2016. Admission Reason for Admission: Acute On Chronic Respiratory Failure Discharge Discharge Diagnosis / Problem: 1.Acute on chronic respiratory failure (Hypoxic ) 2. Pulmonary fibrosis Discharge Goals Goal(s): Decrease discomfort, Improve function, Increase independence, Improve disease control, Prevent Disease Progression Activity Recommendations Activity Limitations: resume your previous activity (as prior to admission-as tolerated ; PT/OT recommended) . Instructions / Follow-Up Instructions / Follow-Up MEDICATION CHANGES: 1. Prednisone - 20 mg daily x 5 days and than reduce it by 5 mg every 5 days and than discontinue 2. Metoprolol discontinued and started on coreg 12.5 mg PO BID for better control of BP 3. Please give amlodipine 10 mg at night time to space out the BP medications for better control of BP 4. Completed course of antibiotics- Augmentin on 04/27/16- no more antibiotics recommended OXYGEN 3L during day time at rest CPAP at night- Requires titration outpatient FOLLOW UP 1. Follow up with PCP 2. Follow up with cardiology, nephrology as per schedule Current Hospital Diet Patient's current hospital diet: AHA Diet (Heart Healthy), Diabetes Type 2 Diet , Low Sodium Diet (2gm Na) Discharge Diet Recommended Diet: AHA Diet (Heart Healthy), Low Sodium Diet (2gm Na) Pending Studies Studies pending at discharge: no Medical Emergencies . Who to Call and When: Medical Emergencies: If at any time you feel your situation is an emergency, please call 911 immediately. . Non-Emergent Contact Non-Emergency issues call your: Primary Care Provider . . "Provider Documentation" section prepared by Therese Helms. VTE Core Measure Inpt VTE Proph given/why not?: Unfractionated heparin SQ
--- NOTE | 2016-04-27 11:08 | Discharge Summary ---
Discharge Summary Date of Service Apr 27, 2016. Discharge Summary Admission Date: Apr 20, 2016 at 15:31 Discharge Date: Apr 27, 2016 Discharge Disposition: senior care facility ([facility]) Principal Diagnosis: 1. Acute on chronic hypoxic respiratory failure 2. Pulmonary fibrosis exacerbation 3. Acute on chronic CHF exacerbation, diastolic, right > left 4. Secondary Diagnoses/Problems: 1. HTN, difficult to control 2. Anemia 3. CKD-III 4. Physical deconditioning Procedures: Tele monitoring IV diuretics Antibiotics Nebs Steroids CXR PT/OT Consultations: Pulmonary Pending Studies/Follow-Up: Instructions / Follow-Up MEDICATION CHANGES: 1. Prednisone - 20 mg daily x 5 days and than reduce it by 5 mg every 5 days and than discontinue 2. Metoprolol discontinued and started on coreg 12.5 mg PO BID for better control of BP 3. Please give amlodipine 10 mg at night time to space out the BP medications for better control of BP 4. Completed course of antibiotics- Augmentin on 04/27/16- no more antibiotics recommended OXYGEN 3L during day time at rest CPAP at night- Requires titration outpatient FOLLOW UP 1. Follow up with PCP 2. Follow up with cardiology, nephrology as per schedule Medication Reconciliation New Medications: Prednisone (Prednisone) 10 Mg Tab 10 MG PO UD, #40 Carvedilol (Carvedilol) 12.5 Mg Tab 12.5 MG PO BID for 30 Days, TAB Changed Medications: Ipratropium-Albuterol (Combivent Respimat) 1 Aer Aer 1 PUFFS INH QID PRN for sob/wheezing for 30 Days, INH (Medication details modified) Continued Medications: Amlodipine Besylate (Amlodipine Besylate) 5 Mg Tab 10 MG PO QAM for 30 Days, #60 TAB Aspirin (Aspirin EC Low Dose) 81 Mg Ectab 81 MG PO DAILY Atorvastatin (Lipitor) 10 Mg Tab 10 MG PO DAILY, TAB Cholecalciferol (Vitamin D3) 5,000 Unit Tab 1 TAB PO DAILY Clopidogrel (Plavix) 75 Mg Tab 75 MG PO DAILY Escitalopram Oxalate (Lexapro) 10 Mg Tab 1 TAB PO DAILY for 30 Days, #30 TAB 3 Refills Furosemide (Furosemide) 20 Mg Tab 20 MG PO Q2D, #135 Furosemide (Lasix) 20 Mg Tab 40 MG PO Q2D, TAB Hydralazine Hcl (Apresoline) 100 Mg Tab 1 TAB PO TID for 30 Days, #90 TAB 5 Refills Isosorbide Mononitrate Ext Rel (Imdur Ext Rel) 120 Mg Ertab 120 MG PO DAILY, #31 Lorazepam (Lorazepam) 0.5 Mg Tab 0.5 MG PO Q12 PRN for Anxiety, #30 TAB (This prescription has been renewed) Take 1/2 to 1 tab po BID prn for anxiety Losartan Potassium (Losartan Potassium) 50 Mg Tab 50 MG PO BID17 for 30 Days, #60 TAB Methyldopa (Aldomet) 500 Mg Tab 1000 MG PO BID, #120 Multivitamin (Multivitamin) Tab 1 TAB PO DAILY, TAB Nitroglycerin (Nitrostat) 0.4 Mg Tab 0.4 MG UT PRN, 0 Refills Oxygen (Oxygen) Gas 3-4 LITERS NA CONTINOUS MAY INCREASE TO 5 LITERS FOR ACTIVITY Pantoprazole Sodium (Protonix) 40 Mg Tab 40 MG PO DAILY, #30 TAB Tramadol Hcl (Ultram) 50 Mg Tab 50 MG PO Q12H PRN for Pain, TAB PRN PAIN Discontinued Medications: Amoxicillin & Pot Clavulanate (Augmentin 875-125 mg) 1 Tab Tab 1 TAB PO BID, #10 TAB started 04/16 for 10 day course Metoprolol Succinate (Toprol Xl) 50 Mg Tab 50 MG PO DAILY, #30 TAB Admission Information HPI (per Admitting provider): 89 year old female who was sent to the ER from [facility] for shortness of breath and hypoxia. Patient has history of severe oxygen dependent pulmonary fibrosis. She was admitted to [facility] 04/01 - 04/11 for acute on chronic hypoxic respiratory failure. She was treated with one dose of IV diuresis and IV steroids. Patient was discharged to [facility] on a steroid taper. Per the staff at [facility], patient has been having intermittent episodes of hypoxia since being there. She had been running low grade fevers and a chest XR was obtained that showed BL lower lobes infiltrates vs congestion, R>L. Patient was started on a 10 day course of Augmentin on 04/16. She has been afebrile since then. This morning patient's oxygen was set to a lower rate than she normally uses and was found to be hypoxic. Oxygen was increased and patient continued to have hypoxia. She was then placed on BiPap and hypoxia still continued. EMS was then called. En route, patient reports one episode of left lower chest pain that was brought on with deep breaths. She was given nitro spray x 1. She reports resolution of the pain. She also had associated nausea. She denies diaphoresis. She has chronic lower extremity edema which is unchanged. She reports therapy has been overall going well at [facility]. She denies abdominal pain, vomiting, and diarrhea. No urinary symptoms. In the ER, patient was 87% on her chronic 5L. This improved with nebulizer treatment. CXR shows chronic changes. She was also given IV steroids. Trop was also mildly elevated at 0.09. EKG is unchanged from prior. Physical Exam (per Admitting): General Appearance: no apparent distress Head: normocephalic Eyes: normal inspection ENT: hearing grossly normal Neck: supple, no JVD Respiratory/Chest: no respiratory distress, + wheezing (I/E throughout all lung nettles), + pertinent finding (coarse breath sounds throughout all lung nettles ) Cardiovascular: regular rate, rhythm, + pertinent finding (+1-2 edema BLLE ) Abdomen/GI: normal bowel sounds, non tender, soft Extremities/Musculoskelatal: normal inspection, no calf tenderness Neurologic/Psych: no motor/sensory deficits, alert, normal mood/affect, oriented x 3 Skin: normal color, warm/dry Hospital Course ASSESSMENT & PLAN: 89 F with severe Pulmonary fibrosis presents with flare and right sided chf requiring bipap. Pulmonary recommends usp steroid taper. ACUTE ON CHRONIC RESPIRATORY FAILURE (HYPOXIC), SEVERE PULMONARY FIBROSIS, PULMONARY HTN- Improved Secondary to pulmonary fibrosis flare, Acute right sided heart failure? cor pulmonale Patient came from [facility]- was initially started on Augmentin for possible pneumonia on 04/16; was sob on bipap and was bought to ER. At home CPAP night, 4- 5 L day time Here 3 L oxygen day, CPAP at night -Nebs, IV Steroids --> long taper (20 mg on 04/27/16--> reduce by 5 mg q 5 days and than discontinue), S/P IV lasix one dose -Finished 10 days course of Augmentin on 04/27/16 -Appreciate pulmonary inputs. HTN - Fluctuations + On multiple medications with maximum doses - Hydralazine 300 mg PO TID, Methyldopa 1000 mg PO BID, Amlodipine 10 mg daily, Isosorbide 120 mg daily, Lasix 60 mg q2 days, Metoprolol 50 mg daily, Allergic to clonidine. Unfortunately not too many options. Noted the pattern, BP up during morning time - Try to space out the medications- change amlodipine dosing to q HS -Changed Metoprolol to Carvedilol for better BP control -Monitor closely S/P ATYPICAL EPISODE OF CHEST PAIN, MILDLY ELEVATED TROP, HX CAD - Patient reported one episode of pleuritic chest pain en route to the ED; received one spray nitro - EKG without changes; mild elevation of poponin which trended down - currently asymptomatic - Continue ASA, Plavix, statin, nitrate, and beta kareem ANEMIA Acute on chronic vs anemia of chronic disease Hb 8.2 on presentation, FOBT- Negative -S/P 2 units of PRBCs to help with above symptoms -Stable H & H CKD STAGE III Baseline creat runs in the mid 1's (1.6-1.8) -Near baseline -Monitor and follow up with nephrology outpatient DVT PROPHYLAXIS -SQ Heparin CODE STATUS -DNR DISPOSITION PT/OT OK to discharge to [facility] today 2 step prior to discharge today Total time spent on discharge = 35 minutes This includes examination of the patient, discharge planning, medication reconciliation, and communication with other providers. Discharge Instructions Discharge Diagnosis / Problem: 1.Acute on chronic respiratory failure (Hypoxic ) 2. Pulmonary fibrosis Discharge Goals Goal(s): Decrease discomfort, Improve function, Increase independence, Improve disease control, Prevent Disease Progression Activity Recommendations Activity Limitations: resume your previous activity (as prior to admission-as tolerated ; PT/OT recommended) . Instructions / Follow-Up Instructions / Follow-Up MEDICATION CHANGES: 1. Prednisone - 20 mg daily x 5 days and than reduce it by 5 mg every 5 days and than discontinue 2. Metoprolol discontinued and started on coreg 12.5 mg PO BID for better control of BP 3. Please give amlodipine 10 mg at night time to space out the BP medications for better control of BP 4. Completed course of antibiotics- Augmentin on 04/27/16- no more antibiotics recommended OXYGEN 3L during day time at rest CPAP at night- Requires titration outpatient FOLLOW UP 1. Follow up with PCP 2. Follow up with cardiology, nephrology as per schedule Current Hospital Diet Patient's current hospital diet: AHA Diet (Heart Healthy), Diabetes Type 2 Diet , Low Sodium Diet (2gm Na) Discharge Diet Recommended Diet: AHA Diet (Heart Healthy), Low Sodium Diet (2gm Na) Pending Studies Studies pending at discharge: no Medical Emergencies . Who to Call and When: Medical Emergencies: If at any time you feel your situation is an emergency, please call 911 immediately. . Non-Emergent Contact Non-Emergency issues call your: Primary Care Provider . . "Provider Documentation" section prepared by Therese Helms. VTE Core Measure Inpt VTE Proph given/why not?: Unfractionated heparin SQ
[2016-04-27] MEDS ORDERED: AMLODIPINE BESYLATE 5 MG TAB PO SCH (21:00)
[2016-05-17] MEDS ORDERED: FURO40TA3 PO (11:36)
[2016-05-17] MEDS ORDERED: PRED-301 PO (11:36)
[2016-07-24] MEDS ORDERED: CALC0.2510 PO (15:43)
[2016-07-24] MEDS ORDERED: CARV12.52 PO (15:49)
[2016-07-24] MEDS ORDERED: ACET-1311 PO (16:04)
[2016-07-24] MEDS ORDERED: GUAI100S25 PO (16:11)
[2016-07-24] MEDS ORDERED: RBTUDL5 PO (16:16)
[2016-07-24] MEDS ORDERED: IPRASOL4 INH (16:19)
[2016-07-24] MEDS ORDERED: SALINE NASAL SPRAY NAE (16:21)
[2016-07-27] MEDS ORDERED: SACC250C3 PO (11:40)
[2016-07-27] MEDS ORDERED: LEVO1TAB35 PO (11:40)
[2016-07-27] MEDS ORDERED: LSX80 PO (11:40)
[2016-07-27] MEDS ORDERED: CRG125 PO (11:40)
[2016-07-27] MEDS ORDERED: PRED10TA PO (11:40)
[2016-07-27] MEDS ORDERED: LXP10 PO (11:40)
== END 2016-04-27 13:43 | DRG 196 ==
LOC: ENRESERVDT → ENRESERVTM → EDBD 12:10 → C.EDC 12:16 → C.2T 15:31 → C.4E 04-21 10:47
PROVIDERS: ADMIT Internal Medicine; ATTEND Internal Medicine
DX: J84.10 Pulmonary fibrosis, unspecified (principal); J96.21 Acute and chronic respiratory failure with hypoxia; I50.33 Acute on chronic diastolic (congestive) heart failure; N17.9 Acute kidney failure, unspecified; I13.0 Hypertensive heart and chronic kidney disease with heart failure and stage 1 through stage 4 chronic kidney disease, or unspecified chronic kidney disease; Z90.12 Acquired absence of left breast and nipple; Z99.81 Dependence on supplemental oxygen; I25.10 Atherosclerotic heart disease of native coronary artery without angina pectoris; Z95.1 Presence of aortocoronary bypass graft; Z95.5 Presence of coronary angioplasty implant and graft; K21.9 Gastro-esophageal reflux disease without esophagitis; E78.5 Hyperlipidemia, unspecified; E11.22 Type 2 diabetes mellitus with diabetic chronic kidney disease; Z85.3 Personal history of malignant neoplasm of breast; M19.90 Unspecified osteoarthritis, unspecified site; Z90.11 Acquired absence of right breast and nipple; Z91.048 Other nonmedicinal substance allergy status; Z79.82 Long term (current) use of aspirin; Z79.02 Long term (current) use of antithrombotics/antiplatelets; Z79.899 Other long term (current) drug therapy; I27.2 Other secondary pulmonary hypertension; D63.8 Anemia in other chronic diseases classified elsewhere; Z66 Do not resuscitate; G47.33 Obstructive sleep apnea (adult) (pediatric); E66.9 Obesity, unspecified; Z68.34 Body mass index [BMI] 34.0-34.9, adult; J84.9 Interstitial pulmonary disease, unspecified; N18.3 Chronic kidney disease, stage 3 (moderate); Z51.5 Encounter for palliative care; I27.81 Cor pulmonale (chronic)

== ENCOUNTER 2016-05-13 10:03 | Inpatient (IN) | payer OTHER ==
[2016-05-13] VITALS (10 sets, daily range): BP systolic 136–147; BP diastolic 54–62; PULSE 56–89; TEMP 36.6–36.8; O2SAT 90–98; Ht 154.9 cm; Wt 87.7 kg
[~2016-05-13] VITALS: Ht 154.9 cm; Wt 87.7 kg
[~2016-05-13 10:03] MED LIST changes: +ATOR10TA82 PO; -ATOR10TA88 PO; -COEN1CAP17 PO; +CRG125 PO; -METO1TAB69 PO; +PANT40TA PO; +PRD10 PO; -PRED10TA PO; -PRLSR20 PO
[2016-05-13] MEDS ORDERED: METHYLPREDNISOLONE 125 MG VIAL IV STA (10:42)
[2016-05-13] MEDS ORDERED: ALBUT/IPRATROP 3MG/0.5MG NEB 3 ML VIAL INH ONE (10:45)
--- NOTE | 2016-05-13 10:50 | DIAGNOSTIC IMAGING REPORT ---
SINGLE VIEW CHEST CLINICAL HISTORY: Dyspnea. FINDINGS: An AP, portable, upright chest radiograph is compared to study dated 04/20/2016 and correlated with chest CT dated 04/04/2016. The examination is degraded by portable technique and patient rotation. The patient is status post midline sternotomy. The heart is enlarged and atherosclerotic calcification of the thoracic aorta. The pulmonary vasculature is congested. Changes of chronic interstitial lung disease are similar to previous. Bibasilar consolidation is noted and there are small pleural effusions. No pneumothorax is seen. The skeletal structures are osteopenic. Degenerative change is noted in the shoulders and thoracic spine. IMPRESSION: 1. Cardiomegaly with evidence of congestive failure. 2. Changes of chronic interstitial lung disease are similar to previous. 3. Small pleural effusions with bibasilar consolidation. This is likely related to chronic interstitial lung disease and is similar to previous. Superimposed pneumonia or pulmonary edema is not excluded. Clinical correlation will be required. Electronically signed by: Audi Dunn M.D. 05/13/2016 10:48 AM Dictated Date/Time: 05/13/2016 10:46 AM
[2016-05-13 10:56] LABS: BASO % 0.2 %; BASO ABS # 0.02 K/uL (0-0.2); COMPLETE YES; EOS % 2.3 %; HEMATOCRIT 33.8 % (37-47); IG% 0.9 %; LYMPH % 5.5 %; LYMPH ABS # 0.56 K/uL (1.2-3.4); MEAN CELL VOLUME 92.3 fL (80-100); MEAN CORPUSCULAR HEMOGLOBIN 30.1 pg (25-34); MEAN CORPUSCULAR HGB CONC 32.5 g/dl (32-36); MEAN PLATELET VOLUME 10.8 fL (7.4-10.4); MONO % 7.7 %; NEUT % 83.4 %; PLATELET COUNT 201 K/uL (130-400); RED BLOOD COUNT 3.66 M/uL (4.2-5.4); WHITE BLOOD COUNT 10.24 K/uL (4.8-10.8)
[2016-05-13] MEDS ORDERED: FUROSEMIDE 40 MG/4 ML VIAL IV STA (11:01)
[2016-05-13] MEDS ORDERED: IPRA1AER2 INH (11:08)
[2016-05-13] MEDS ORDERED: FRS/40 PO (11:08)
[2016-05-13] MEDS ORDERED: LORA-741 PO (11:08)
[2016-05-13] MEDS ORDERED: PRED10TA PO (11:08)
[2016-05-13] MEDS ORDERED: IPRASOL4 NEB (11:08)
[2016-05-13] MEDS ORDERED: NITR0.4S UT (11:08)
[2016-05-13] MEDS ORDERED: NRV/10 PO (11:08)
[2016-05-13 11:16] LABS: CALCIUM 8.9 mg/dl (8.5-10.1); CREATININE 1.8 mg/dl (0.60-1.20); POTASSIUM 4.5 mmol/L (3.5-5.1); PROTHROMBIN TIME (PATIENT) 10.7 SECONDS (9.0-12.0)
[2016-05-13 11:21] LABS: ALB/GLOB RATIO 0.8 (0.9-2)
[2016-05-13] MEDS ORDERED: NITROGLYCERIN 0.4 MG SL PER TAB CHARGE SL PRN (11:45)
[2016-05-13] MEDS ORDERED: ACETAMINOPHEN 325 MG TAB PO PRN (11:45)
[2016-05-13] MEDS ORDERED: ONDANSETRON INJ 2 MG/ML 2 ML VIAL IV PRN (11:45)
--- NOTE | 2016-05-13 11:54 | EMERGENCY ROOM VISIT NOTE ---
History Report prepared by Alainaibviral: Alicia Bey Under the Supervision of: Dr. Shakeel Garcia M.D. First contact with patient: 10:32 Chief Complaint: RESPIRATORY DISTRESS Stated Complaint: SHORTNESS OF BREATH Nursing Triage Summary: pt to the ED with c/o 2-3 days of SOB and LE edema +2-3 pitting no complaints of pain upon EMS arrival her O2 was 55% on cpap at [facility]. EMS administered 1.5 inches of nitro on her left chest History of Present Illness The patient is an 89 year old female who presents to the Emergency Room via EMS with complaints of worsening respiratory distress with onset two to three days ago. The patient is a resident at [facility]. The patient's daughter was called this morning and informed that the patient's oxygen saturation levels were not staying up without the BiPAP. The patient usually only wears BiPAP at night. Per EMS, the patient was at 55% on room air when they arrived. The patient denies chest pain, fevers, new swelling in legs. She states that she has been coughing. Additionally, the patient has a history of pulmonary fibrosis and has stents in place. Source of History: patient, family, EMS Onset: 2-3 days ago Position: chest Quality: other (respiratory distress) Timing: worsening Associated Symptoms: + cough, No chest pain, No fevers Note: She denies new swelling in her legs. Review of Systems See HPI for pertinent positives & negatives. A total of 10 systems reviewed and were otherwise negative. Past Medical & Surgical Medical Problems: (1) Acute and chronic respiratory failure (2) Carotid stenosis (3) Chronic respiratory failure (4) Coronary artery disease (5) Diverticulosis of colon (6) DM type 2 (diabetes mellitus, type 2) (7) Dyslipidemia (8) GERD (gastroesophageal reflux disease) (9) History of breast cancer (10) Hypertension (11) Osteoarthritis (12) Pulmonary fibrosis (13) Renal artery stenosis, [place] (14) Sleep apnea Surgical Problems: (1) S/P CABG (coronary artery bypass graft) (2) S/P carotid endarterectomy (3) S/P cholecystectomy (4) S/P coronary artery stent placement (5) S/P insertion of iliac artery stent (6) S/P laparoscopic cholecystectomy (7) s/p renal artery stent (8) Status post partial mastectomy of right breast Old medical records were reviewed. Nurse's notes were reviewed and I agree with. Family History FH: cancer FH: gallbladder disease FH: heart disease FH: lung disease Hypertension Social History Smoking Status: Never Smoker Alcohol Use: none Housing Status: lives alone Current/Historical Medications Scheduled Amlodipine Besylate (Amlodipine Besylate), 10 MG PO QPM Aspirin (Aspirin EC Low Dose), 81 MG PO DAILY Atorvastatin (Lipitor), 10 MG PO DAILY Carvedilol (Carvedilol), 12.5 MG PO BID Cholecalciferol (Vitamin D3), 5,000 UNITS PO DAILY Clopidogrel (Plavix), 75 MG PO DAILY Escitalopram Oxalate (Lexapro), 10 MG PO DAILY Furosemide (Furosemide), 20 MG PO Q2D Furosemide (Lasix), 40 MG PO Q2D Hydralazine Hcl (Apresoline), 100 MG PO TID Isosorbide Mononitrate Ext Rel (Imdur Ext Rel), 120 MG PO DAILY Losartan Potassium (Losartan Potassium), 50 MG PO BID17 Methyldopa (Aldomet), 1,000 MG PO BID Multivitamin (Multivitamin), 1 TAB PO DAILY Nitroglycerin (Nitrostat), 0.4 MG UT PRN Oxygen (Oxygen), 3-4 LITERS NA CONTINOUS Pantoprazole Sodium (Protonix), 40 MG PO DAILY Prednisone Tab (Prednisone), 10 MG PO DAILY Scheduled PRN Ipratropium-Albuterol (Duoneb), 1 TREATMENT NEB QID PRN for Wheezing Ipratropium-Albuterol (Combivent Respimat), 1 PUFFS INH QID PRN for Wheezing Lorazepam (Ativan), 0.5 MG PO Q12 PRN for Anxiety Tramadol Hcl (Ultram), 50 MG PO Q12H PRN for Pain Allergies Coded Allergies: Adhesives (Verified Adverse Reaction, Unknown, TAPE - IRRITATION AT SITE, 04/20/16) Clonidine (Verified Adverse Reaction, Unknown, CATAPRES PATCH ALLERGY, 04/20) Physical Exam Vital Signs Date Time Temp Pulse Resp B/P Pulse Ox O2 Delivery O2 Flow Rate FiO2 05/13/16 13:45 64 152/57 95 05/13/16 13:30 61 159/63 95 05/13/16 13:00 65 159/65 97 05/13/16 12:48 63 22 161/54 98 BiPAP 05/13/16 12:13 62 22 151/50 98 BiPAP Nebulizer 05/13/16 11:46 60 24 142/48 98 BiPAP Nebulizer 05/13/16 11:28 86 28 97 BiPAP/CPAP 60 05/13/16 11:28 89 98 60 05/13/16 11:15 63 25 140/54 98 BiPAP Nebulizer 05/13/16 10:47 66 25 155/47 99 CPAP 05/13/16 10:43 67 05/13/16 10:33 68 39 178/56 99 CPAP 05/13/16 10:29 BiPAP 05/13/16 10:18 37.2 68 32 181/77 100 BiPAP Physical Exam General: Chronically ill appearing older female who seems comfortable on BiPAP HEENT: Normal cephalic atraumatic. Pupils are equal round and reactive to light. Sclerae anicteric. Extraocular movements are intact. Oropharynx is pink with moist mucous membranes. No swelling of the mouth lips or tongue. Neck: Supple with a midline trachea. No meningeal signs or stiffness, no JVD or bruits. No Stridor. Chest: Crackles in the bases bilaterally, decreased air movement No wheezes or rhonchi. No increased work of breathing. Heart: regular rate and rhythm. Abdomen: Soft nontender, nondistended without rebound guarding or rigidity. Extremities: No cyanosis clubbing. 1+ bilateral lower extremity edema. No calf tenderness or assymetry Spine/Back. Non tender to palpation. No CVA tenderness Skin: Good turgor without rashes. Neurologic exam: Cranial nerves two through 12 are intact. Motor and sensation are intact and symmetrical throughout. Medical Decision & Procedures ER Provider Diagnostic Interpretation: X-ray results as stated below per interpretation by me and the radiologist: SINGLE VIEW CHEST CLINICAL HISTORY: Dyspnea. FINDINGS: An AP, portable, upright chest radiograph is compared to study dated 04/20/2016 and correlated with chest CT dated 04/04/2016. The examination is degraded by portable technique and patient rotation. The patient is status post midline sternotomy. The heart is enlarged and atherosclerotic calcification of the thoracic aorta. The pulmonary vasculature is congested. Changes of chronic interstitial lung disease are similar to previous. Bibasilar consolidation is noted and there are small pleural effusions. No pneumothorax is seen. The skeletal structures are osteopenic. Degenerative change is noted in the shoulders and thoracic spine. IMPRESSION: 1. Cardiomegaly with evidence of congestive failure. 2. Changes of chronic interstitial lung disease are similar to previous. 3. Small pleural effusions with bibasilar consolidation. This is likely related to chronic interstitial lung disease and is similar to previous. Superimposed pneumonia or pulmonary edema is not excluded. Clinical correlation will be required. Electronically signed by: Audi Dunn M.D. 05/13/2016 10:48 AM Dictated Date/Time: 05/13/2016 10:46 AM Laboratory Results 05/13/16 10:30 Red Blood Count 3.66, Mean Corpuscular Volume 92.3, Mean Corpuscular Hemoglobin 30.1, Mean Corpuscular Hemoglobin Concent 32.5, Mean Platelet Volume 10.8, Neutrophils (%) (Auto) 83.4, Lymphocytes (%) (Auto) 5.5, Monocytes (%) (Auto) 7.7, Eosinophils (%) (Auto) 2.3, Basophils (%) (Auto) 0.2, Neutrophils # (Auto) 8.54, Lymphocytes # (Auto) 0.56, Monocytes # (Auto) 0.79, Eosinophils # (Auto) 0.24, Basophils # (Auto) 0.02 05/13/16 10:30 Test 05/13/16 10:30 05/13/16 10:36 05/13/16 10:38 White Blood Count 10.24 K/uL (4.8-10.8) Red Blood Count 3.66 M/uL (4.2-5.4) Hemoglobin 11.0 g/dL (12.0-16.0) Hematocrit 33.8 % (37-47) Mean Corpuscular Volume 92.3 fL (80-100) Mean Corpuscular Hemoglobin 30.1 pg (25-34) Mean Corpuscular Hemoglobin Concent 32.5 g/dl (32-36) Platelet Count 201 K/uL (130-400) Mean Platelet Volume 10.8 fL (7.4-10.4) Neutrophils (%) (Auto) 83.4 % Lymphocytes (%) (Auto) 5.5 % Monocytes (%) (Auto) 7.7 % Eosinophils (%) (Auto) 2.3 % Basophils (%) (Auto) 0.2 % Neutrophils # (Auto) 8.54 K/uL (1.4-6.5) Lymphocytes # (Auto) 0.56 K/uL (1.2-3.4) Monocytes # (Auto) 0.79 K/uL (0.11-0.59) Eosinophils # (Auto) 0.24 K/uL (0-0.5) Basophils # (Auto) 0.02 K/uL (0-0.2) RDW Standard Deviation 54.7 fL (36.4-46.3) RDW Coefficient of Variation 16.4 % (11.5-14.5) Immature Granulocyte % (Auto) 0.9 % Immature Granulocyte # (Auto) 0.09 K/uL (0.00-0.02) Prothrombin Time 10.7 SECONDS (9.0-12.0) Prothromb Time International Ratio 1.0 (0.9-1.1) Activated Partial Thromboplast Time 26.1 SECONDS (21.0-31.0) Partial Thromboplastin Ratio 1.0 Anion Gap 8.0 mmol/L (3-11) Est Creatinine Clear Calc Drug Dose 21.8 ml/min Estimated GFR () 28.4 Estimated GFR (Non- 24.5 BUN/Creatinine Ratio 39.0 (10-20) Calcium Level 8.9 mg/dl (8.5-10.1) Total Bilirubin 0.5 mg/dl (0.2-1) Aspartate Amino Transf (AST/SGOT) 19 U/L (15-37) Alanine Aminotransferase (ALT/SGPT) 37 U/L (12-78) Alkaline Phosphatase 59 U/L (45-117) Pro-B-Type Natriuretic Peptide 2861 pg/ml (0-1800) Total Protein 6.3 gm/dl (6.4-8.2) Albumin 2.7 gm/dl (3.4-5.0) Globulin 3.6 gm/dl (2.5-4.0) Albumin/Globulin Ratio 0.8 (0.9-2) Bedside Lactic Acid Venous 1.15 mmol/L (0.90-1.70) Bedside Troponin I 0.040 ng/ml (0-0.045) Laboratory studies as stated above per my review. Medications Administered Medications (Trade) Dose Ordered Sig/Rey Route Start Time Stop Time Status Last Admin Dose Admin Methylprednisolone Sodium Succinate (Solu-Medrol IV) 125 mg NOW STAT IV 05/13/16 10:42 05/13/16 10:43 DC 05/13/16 10:50 125 MG Furosemide (Lasix Inj) 20 mg NOW STAT IV 05/13/16 11:01 05/13/16 11:03 DC 05/13/16 11:09 20 MG ECG Indication: SOB/dyspnea Rate (beats per minute): 68 Rhythm: normal sinus Findings: no acute ischemic change, other (questionable T wave amplification laterally ) Comparison ECG Date: April 23, 2016 Change: no significant change ED Course 1033: Past medical records reviewed. The patient was evaluated in room B1, and a complete history and physical examination were performed. 1042: Solu-Medrol 125 mg IV 1045: Duoneb 12 ml INH 1101: Lasix 20 mg IV 1106: I discussed the case with Yesenia Corey PA-C (Georgie); she will further evaluate the patient. 1220: I reevaluated the patient; she looks much better and has been seen by Georgie. Medical Decision Differentials include, but are not limited to; CHF, COPD, pneumonia, sepsis, pulmonary fibrosis, electrolyte or metabolic abnormality. This patient comes in as described above. She was placed in room B1. She comes in after being significant hypoxemic and having respiratory failure. She was placed on BiPAP in the field she was also given Nitropaste. She looks a significant feeling better. She seems comfortable on the BiPAP. I have reviewed her record she's been here several times recently for respiratory failure. She has underlying pulmonary fibrosis as well as CHF. She does have some peripheral edema. She has no chest pain. IV access established, chest x- ray, EKG was obtained ,her EKG does not suggest acute cardiac ischemia. Her chest x-ray does show congestive heart failure on top of pulmonary fibrosis. She has been treated with IV Solu-Medrol 125 mg as well as Albuterol/Atrovent nebs. She was a additionally diuresed with Lasix 20 mg IV. Talking to the family, it seems like when she has congestive heart failure that exacerbates this. Her BUN and creatinine are mildly elevated compared to baseline it's 70/ 1.8. I do think she needs to be admitted for further treatment and evaluation. Consults Time Called: 1100 Consulting Physician: Yesenia Corey PA-C (Georgie) Returned Call: 1106 I discussed the case with Yesenia Corey PA-C (Georgie); she will further evaluate the patient. Impression Primary Impression: Acute and chronic respiratory failure Additional Impressions: CHF (congestive heart failure) Hypoxemia Pulmonary fibrosis Critical Care Due to the patient's respiratory failure, need for BiPAP, frequent monitoring reassessment multiple IV medications and consultations, I have personally spent greater than 30 minutes of critical care time in the direct management of this patient. This includes bedside care, interpretation of diagnostic studies, and testing, discussion with consultants, patient, and family members, and other required patient management activities. This 30 minutes is in excess of all separately billable procedures. Scribe Attestation The scribe's documentation has been prepared under my direction and personally reviewed by me in its entirety. I confirm that the note above accurately reflects all work, treatment, procedures, and medical decision making performed by me. Departure Information Dispostion Being Evaluated By Hospitalist Referrals DoniphanMartine (PCP) Patient Instructions Asthma - [facility], COPD - [facility], Croup - [facility], My [facility] Health Problem Qualifiers
[2016-05-13] MEDS ORDERED: LORAZEPAM 0.5 MG TAB PO PRN (12:00)
[2016-05-13] MEDS: ALBUT/IPRATROP 3MG/0.5MG NEB 3 ML VIAL INH SCH ×3 (12:00→20:22)
[2016-05-13] MEDS ORDERED: TRAMADOL HCL 50 MG TAB PO PRN (12:00)
[2016-05-13] MEDS ORDERED: METHYLPREDNISOLONE IV 40 MG in SYRINGE 0 ML IV SCH (12:00)
--- NOTE | 2016-05-13 12:27 | History and Physical ---
History & Physical Date & Time of Service: May 13, 2016 at 12:02 Chief Complaint: Shortness Of Breath Primary Care Physician: Martine Oswald History of Present Illness Source: patient, family, clinic records, hospital records Patient seen and examined. 89 year old female with PMHx of Pulmonary fibrosis, CHF, CKD stage 3, HTN, CAD and other problems listed below presents to the ED complaining of SOB x 4 days. Patient reports she has started to become more SOB with minimal exertion for several days. This morning she became SOB and pulse ox was 55% on 4L. She was placed on BIPAP and transferred to the ED. She reports she feels like she is getting a "cold" she reports an occasional dry cough. She denies fevers, chills, sputum chest pain, nausea, vomiting, diarrhea , dysuria, calf pain and edema. She is at [facility] for rehab but will become a permanent resident. She is currently on a prednisone taper and currently at 10mg daily. She take Lasix 40mg every other day and 20mg on the other days. Family reports that her leg look more swollen. In the ED patient is saturating well on BIPAP. AG and bicarb are WNL. There is no leukocytosis, CXR shows CHF. She received duonebs, Lasix and Solu-Medrol. She is resting comfortably on BIPAP and reports she is feeling much better. She will be admitted for further workup and treatment. Past Medical/Surgical History Medical Problems: (1) Carotid stenosis Status: Chronic (2) Chronic respiratory failure Permanent Comment: home O2 Status: Chronic (3) Coronary artery disease Permanent Comment: 1997 - CABG x 2 2007 - vein graft stenosis, PCI of SVG -> LAD s/p BMS, PCI of SVG -> RCA s/p BMS x 20 Jun 2010 - STEMI, total occlusion of proximal segment of the right PDA which was the area of prior stenting, s/p PTCA and stenting of the saphenous vein bypass graft to the right PDA with REBEL posterior Complete angiography at that time revealed a total proximal LAD stenosis with a patent SVG to the mid LAD, mild atherosclertoic disease in the left circumflex coronary artery, and a total mid RCA occlusion with the total proximal SVG to the right PDA. Status: Chronic (4) Diverticulosis of colon Status: Chronic (5) DM type 2 (diabetes mellitus, type 2) Status: Chronic (6) Dyslipidemia Status: Chronic (7) GERD (gastroesophageal reflux disease) Status: Chronic (8) History of breast cancer Permanent Comment: right breast Status: Chronic (9) Hypertension Status: Chronic (10) Osteoarthritis Status: Chronic (11) Pulmonary fibrosis Permanent Comment: Followed by Dr. Gonzalez Status: Chronic (12) Renal artery stenosis, [place] Permanent Comment: Right renal artery stent, [facility] approximately in 2008 Status: Chronic (13) Sleep apnea Status: Chronic Surgical Problems: (1) S/P CABG (coronary artery bypass graft) Permanent Comment: x2 Status: Chronic (2) S/P carotid endarterectomy Status: Chronic (3) S/P cholecystectomy Status: Chronic (4) S/P coronary artery stent placement Status: Chronic (5) S/P insertion of iliac artery stent Permanent Comment: 2005- bilateral Status: Chronic (6) S/P laparoscopic cholecystectomy Status: Chronic (7) s/p renal artery stent Permanent Comment: 2005- right Status: Chronic (8) Status post partial mastectomy of right breast Status: Chronic Family History FH: cancer FH: gallbladder disease FH: heart disease FH: lung disease Hypertension Social History Smoking Status: Never Smoker Alcohol Use: none Housing status: senior living Occupational Status: retired Immunizations History of Influenza Vaccine: Yes Influenza Vaccine Date: Dec 07, 2015 History of Tetanus Vaccine?: Yes Tetanus Immunization Date: Oct 27, 2014 History of Pneumococcal: Yes Pneumococcal Date: June 26, 2014 Multi-Drug Resistant Organisms History of MDRO: No Allergies Coded Allergies: Adhesives (Verified Adverse Reaction, Unknown, TAPE - IRRITATION AT SITE, 04/20/16) Clonidine (Verified Adverse Reaction, Unknown, CATAPRES PATCH ALLERGY, 04/20) Home Medications Scheduled Amlodipine Besylate (Amlodipine Besylate), 10 MG PO QPM Aspirin (Aspirin EC Low Dose), 81 MG PO DAILY Atorvastatin (Lipitor), 10 MG PO DAILY Carvedilol (Carvedilol), 12.5 MG PO BID Cholecalciferol (Vitamin D3), 5,000 UNITS PO DAILY Clopidogrel (Plavix), 75 MG PO DAILY Escitalopram Oxalate (Lexapro), 10 MG PO DAILY Furosemide (Furosemide), 20 MG PO Q2D Furosemide (Lasix), 40 MG PO Q2D Hydralazine Hcl (Apresoline), 100 MG PO TID Isosorbide Mononitrate Ext Rel (Imdur Ext Rel), 120 MG PO DAILY Losartan Potassium (Losartan Potassium), 50 MG PO BID17 Methyldopa (Aldomet), 1,000 MG PO BID Multivitamin (Multivitamin), 1 TAB PO DAILY Nitroglycerin (Nitrostat), 0.4 MG UT PRN Oxygen (Oxygen), 3-4 LITERS NA CONTINOUS Pantoprazole Sodium (Protonix), 40 MG PO DAILY Prednisone Tab (Prednisone), 10 MG PO DAILY Scheduled PRN Ipratropium-Albuterol (Duoneb), 1 TREATMENT NEB QID PRN for Wheezing Ipratropium-Albuterol (Combivent Respimat), 1 PUFFS INH QID PRN for Wheezing Lorazepam (Ativan), 0.5 MG PO Q12 PRN for Anxiety Tramadol Hcl (Ultram), 50 MG PO Q12H PRN for Pain Review of Systems See above for pertinent positives & negatives. A total of 10 systems reviewed and were otherwise negative. Physical Exam Vital Signs Date Time Temp Pulse Resp B/P Pulse Ox O2 Delivery O2 Flow Rate FiO2 05/13/16 10:47 66 25 155/47 99 CPAP 05/13/16 10:43 67 05/13/16 10:33 68 39 178/56 99 CPAP 05/13/16 10:29 BiPAP 05/13/16 10:18 37.2 68 32 181/77 100 BiPAP General Appearance: + pertinent finding (Pleasant WD/WN 89 year old female lying inbed in NAD on BIPAP with family at bedside ) Head: normocephalic, atraumatic Eyes: PERRL, EOMI, sclerae normal ENT: hearing grossly normal, pharynx normal Neck: supple, no JVD Respiratory/Chest: chest non-tender, no respiratory distress, no accessory muscle use, + pertinent finding (decreased breath sounds, poor air entry ) Cardiovascular: regular rate, rhythm, no gallop, no JVD, no murmur, normal peripheral pulses Abdomen/GI: normal bowel sounds, non tender, soft Extremities/Musculoskelatal: no calf tenderness, normal capillary refill, + pedal edema (+2 edema, weeping skin ) Neurologic/Psych: alert, oriented x 3, + pertinent finding (no focal deficits noted ) Skin: normal color, warm/dry, no rash Lymphatic: no adenopathy Diagnostics Laboratory Results Results Past 24 Hours Test 3/25/17 10:30 05/13/16 10:36 05/13/16 10:38 Range/Units White Blood Count 10.24 4.8-10.8 K/uL Red Blood Count 3.66 4.2-5.4 M/uL Hemoglobin 11.0 12.0-16.0 g/dL Hematocrit 33.8 37-47 % Mean Corpuscular Volume 92.3 80-100 fL Mean Corpuscular Hemoglobin 30.1 25-34 pg Mean Corpuscular Hemoglobin Concent 32.5 32-36 g/dl Platelet Count 201 130-400 K/uL Mean Platelet Volume 10.8 7.4-10.4 fL Neutrophils (%) (Auto) 83.4 % Lymphocytes (%) (Auto) 5.5 % Monocytes (%) (Auto) 7.7 % Eosinophils (%) (Auto) 2.3 % Basophils (%) (Auto) 0.2 % Neutrophils # (Auto) 8.54 1.4-6.5 K/uL Lymphocytes # (Auto) 0.56 1.2-3.4 K/uL Monocytes # (Auto) 0.79 0.11-0.59 K/uL Eosinophils # (Auto) 0.24 0-0.5 K/uL Basophils # (Auto) 0.02 0-0.2 K/uL RDW Standard Deviation 54.7 36.4-46.3 fL RDW Coefficient of Variation 16.4 11.5-14.5 % Immature Granulocyte % (Auto) 0.9 % Immature Granulocyte # (Auto) 0.09 0.00-0.02 K/uL Prothrombin Time 10.7 9.0-12.0 SECONDS Prothromb Time International Ratio 1.0 0.9-1.1 Activated Partial Thromboplast Time 26.1 21.0-31.0 SECONDS Partial Thromboplastin Ratio 1.0 Sodium Level 143 136-145 mmol/L Potassium Level 4.5 3.5-5.1 mmol/L Chloride Level 105 98-107 mmol/L Carbon Dioxide Level 30 21-32 mmol/L Anion Gap 8.0 3-11 mmol/L Blood Urea Nitrogen 70 7-18 mg/dl Creatinine 1.80 0.60-1.20 mg/dl Est Creatinine Clear Calc Drug Dose 21.8 ml/min Estimated GFR () 28.4 Estimated GFR (Non- 24.5 BUN/Creatinine Ratio 39.0 10-20 Random Glucose 114 70-99 mg/dl Calcium Level 8.9 8.5-10.1 mg/dl Total Bilirubin 0.5 0.2-1 mg/dl Aspartate Amino Transf (AST/SGOT) 19 15-37 U/L Alanine Aminotransferase (ALT/SGPT) 37 12-78 U/L Alkaline Phosphatase 59 45-117 U/L Pro-B-Type Natriuretic Peptide 2861 0-1800 pg/ml Total Protein 6.3 6.4-8.2 gm/dl Albumin 2.7 3.4-5.0 gm/dl Globulin 3.6 2.5-4.0 gm/dl Albumin/Globulin Ratio 0.8 0.9-2 Bedside Lactic Acid Venous 1.15 0.90-1.70 mmol/L Bedside Troponin I 0.040 0-0.045 ng/ml Diagnostic Radiology CXR Per radiologist read: 1. Cardiomegaly with evidence of congestive failure. 2. Changes of chronic interstitial lung disease are similar to previous. 3. Small pleural effusions with bibasilar consolidation. This is likely related to chronic interstitial lung disease and is similar to previous. Superimposed pneumonia or pulmonary edema is not excluded. Clinical correlation will be required. EKG NSR 68 BPM, QTc 404 Impression Assessment and Plan 89 year old female with significant lung disease presents to the ED complaining of increased SOB, hypoxia ACUTE ON CHRONIC RESPIRATORY FAILURE -Admit to tele -Likely multifactorial from pulmonary fibrosis, CHF, poor reserve -r/o Flu -no signs of acidosis - Bicarb, AG WNL -Continue BIPAP -IV steroids, duonebs -Lasix today, reassess in AM before additional dosing -Pulmonary consult for further input -CBC, PRP, Mg in AM PULMONARY FIBROSIS -likely contributing to above -was on prednisone taper -will place on Solu-Medrol -pulmonary consult for further input follows with Dr. Gonzalez -continue BIPAP wean as able to 4L NC(baseline) DIASTOLIC CHF/PULMONARY HTN - with ACUTE EXACERBATION -likely contributing to above -recent echo with preserved EF -appears volume overloaded -give additional 20mg IV lasix for total of 40mg today -reassess volume status, renal function in AM before additional diuresis -I&Os, daily weights HTN -stable -continue Amlodipine, BB, hydralazine, Imdur, losartan -monitor in tele CAD -denies chest pain -continue BB, ASA, Statin, Plavix, Imdur -nitro prn -serial Narda ANEMIA -hgb stable -follow H&H CKD STGE 3 -crea 1.8 which is near baseline -will repeat in AM before additional diuresis -avoid nephrotoxins as able DEPRESSION -continue Lexapro GERD -continue PPI DVT PROPHYLAXIS: Sq heparin CODE STATUS: LEVEL 5 DNR per senior living paperwork DISPO:In my clinical judgment this beneficiary meets acute admission criteria, established by [facility], that includes being hospitalized through two midnights. Patient seen in collaboration with Dr. Hollis Attending Addendum Pt was seen and examined with family member at bedside. Agreed with Yesenia CABRERA physical exam, assessment and plan. 89 year old female with PMHx of Pulmonary fibrosis,CHF, CKD stage 3, HTN, CAD presents to the ED complaining of worsening SOB. Patient said that for the last few days, she has been more SOB with minimal exertion and orthopnea as well. This morning her saturation dropped in the 50's on 4 L NC. She was put on BIPAP and brought to the ED for further eval. Denies any chest pain, palpitation , cough, dizziness and fever. General- very pleasant, no distress Head- atraumatic Eyes- PERRL, EOMI ENT- oropharynx clear Neck- supple, no JVD Lungs- Poor air entry, no wheezing Heart- regular rhythm; no murmur Abdomen- normal bowel sounds, soft Extremities- +edema, no calf tenderness Neuro- alert, oriented, PERRL, EOMI Skin- warm & dry ACUTE ON CHRONIC RESPIRATORY FAILURE Possible related to CHF vs pulmonary etiology CHR showed Cardiomegaly with evidence of congestive failure Will give lasix 40 IV today Repeat cxr in am check for flu Continue BIPAP for now duoneb for neb treatment Consult pulmonary will monitor in telemetry EKG, Lab, imaging reviewed Please refer to Yesenia CABRERA's documentation for other problems. Darek Hollis MD VTE Prophylaxis VTE Risk Assessment Done? Y/N: Yes Risk Level: Moderate
[2016-05-13] MEDS: HEPARIN SOD 5000 UNIT/0.5 ML CARP SQ SCH ×2 (14:00→20:23)
[2016-05-13] MEDS ORDERED: FUROSEMIDE INJ 20 MG in SYRINGE 0 ML IV STA (14:38)
[2016-05-13] MEDS: LOSARTAN POTASSIUM 50 MG TAB PO SCH (16:07)
[2016-05-13 19:03] LABS: INFLUENZA A PCR Neg for Influ A (NEG); INFLUENZA B PCR Neg for Influ B (NEG)
[2016-05-13 20:06] LABS: CKMB/CK RATIO 2.6 (0-3.0)
[2016-05-13] MEDS: METHYLDOPA 250 MG TAB PO SCH (20:17)
[2016-05-13] MEDS: METHYLPREDNISOLONE IV 40 MG in SYRINGE 0 ML IV SCH (20:17)
[2016-05-13] MEDS: CARVEDILOL 12.5 MG TAB PO SCH (20:18)
[2016-05-13] MEDS ORDERED: AMLODIPINE BESYLATE 5 MG TAB PO SCH (21:00)
[2016-05-14] VITALS (13 sets, daily range): BP systolic 122–156; BP diastolic 55–70; PULSE 58–78; TEMP 36.3–36.9; O2SAT 94–98
[2016-05-14 03:36] LABS: HEMATOCRIT 30.4 % (37-47); MEAN CELL VOLUME 91.8 fL (80-100); MEAN CORPUSCULAR HGB CONC 31.6 g/dl (32-36); MEAN PLATELET VOLUME 10.6 fL (7.4-10.4); PLATELET COUNT 211 K/uL (130-400); RED BLOOD COUNT 3.31 M/uL (4.2-5.4); WHITE BLOOD COUNT 5.91 K/uL (4.8-10.8)
[2016-05-14 03:43] LABS: BUN/CREATININE RATIO 40.4 (10-20); CALCIUM 8.5 mg/dl (8.5-10.1); CREATININE 1.8 mg/dl (0.60-1.20); MAGNESIUM 2.2 mg/dl (1.8-2.4); POTASSIUM 4.6 mmol/L (3.5-5.1)
[2016-05-14] MEDS: HEPARIN SOD 5000 UNIT/0.5 ML CARP SQ SCH ×4 (05:34→20:08)
[2016-05-14] MEDS: ALBUT/IPRATROP 3MG/0.5MG NEB 3 ML VIAL INH SCH ×4 (07:58→20:41)
[2016-05-14] MEDS: PANTOprazole SOD 40 MG TAB PO SCH (09:14)
[2016-05-14] MEDS: CARVEDILOL 12.5 MG TAB PO SCH ×2 (09:15→20:10)
[2016-05-14] MEDS: ASPIRIN 81 MG ECTAB PO SCH (09:15)
[2016-05-14] MEDS: LOSARTAN POTASSIUM 50 MG TAB PO SCH ×2 (09:15→17:30)
[2016-05-14] MEDS: ISOSORBIDE MONONITRATE 60 MG TABCR PO SCH (09:16)
[2016-05-14] MEDS: CHOLECALCIFEROL 1000 INTER.UNIT TAB PO SCH (09:17)
[2016-05-14] MEDS: MULTIVITAMIN TAB PO SCH (09:17)
[2016-05-14] MEDS: CLOPIDOGREL BISULFATE 75 MG TAB PO SCH (09:17)
[2016-05-14] MEDS: ESCITALOPRAM OXALATE 10 MG TAB PO SCH (09:17)
[2016-05-14] MEDS: METHYLPREDNISOLONE IV 40 MG in SYRINGE 0 ML IV SCH ×2 (09:18→21:21)
[2016-05-14] MEDS: ATORVASTATIN 10 MG TAB PO SCH (09:18)
[2016-05-14] MEDS: METHYLDOPA 250 MG TAB PO SCH ×2 (09:18→20:11)
--- NOTE | 2016-05-14 09:27 | DIAGNOSTIC IMAGING REPORT ---
CHEST 2 VIEWS ROUTINE CLINICAL HISTORY: Follow-up congestive heart failure. COMPARISON STUDY: Chest radiograph May 13, 2016. FINDINGS: There are median sternotomy wires. No pneumothorax or pleural effusion is identified. Diffuse interstitial thickening is unchanged. There is no lobar consolidation. IMPRESSION: No change in diffuse interstitial thickening which favors interstitial lung disease. Mild superimposed pulmonary edema would be difficult to exclude. Electronically signed by: Ryan Rich M.D. 05/14/2016 9:26 AM Dictated Date/Time: 05/14/2016 9:24 AM
--- NOTE | 2016-05-14 10:10 | PULMONARY CONSULTATION ---
DATE OF CONSULTATION: 05/14/2016 HISTORY OF PRESENT ILLNESS: The patient is a very pleasant 89-year-old female who has known interstitial lung disease. She has been evaluated in [place]. No biopsies were recommended. She has been hospitalized numerous times with hypoxemia and worsening shortness of breath. She developed shortness of breath over 3-4 day period of time. She had a minimal cough, but severe exertional dyspnea. She actually is a resident of [facility] and has been going through therapy there without difficulty. She was able to walk around at therapy room several times with oxygen at 4 liters per minute without difficulty, but then became more short of breath. As the prednisone was generally tapered down to 20 mg, she seems to get worse. She was on 10 mg daily. Once she gets below 20, she seems to get into trouble. She had been on some Lasix for peripheral edema, probably related to right heart dysfunction. Nonetheless, she presented to the Emergency Room with complaints of shortness of breath and was seen by Dr. Shakeel Garcia with low oxygen saturations off BiPAP. Apparently, she states that it was down in the 55% area on room air that was confirmed by EMS. In the Emergency Room, she had an oxygen saturation of 100% on BiPAP. Apparently, that was 60% FIO2. She had a chest x-ray that showed some basilar consolidation and pleural effusions, probably related to chronic interstitial lung disease. She has not had a cough or significant sputum production, chest pain, fevers or night sweats. Denies any aspiration. She was admitted to the hospital and Dr. Corey has asked me to evaluate the patient from a pulmonary standpoint. The patient used the bathroom this morning, was sitting in her chair, doing crossword puzzles and states that she feels considerably improved on higher oxygen. She wore a CPAP last night. PAST MEDICAL HISTORY: Most significant for interstitial lung disease, which is ongoing. She carries a history of coronary artery disease with a STEMI with PTCA and stenting of a previous saphenous vein bypass graft to the right PDA in 2010. She had a total proximal LAD stenosis as well. She carries a history of coronary artery disease with bypass in the past, severe interstitial lung disease, carotid stenosis, diabetes mellitus, obesity, GERD, carcinoma of the breast, hypertension, osteoarthritis, and pulmonary fibrosis. The etiology is uncertain. It certainly could have been related to treatment for breast cancer in the past, but I believe at this point, that is likely. She has renal artery stenosis and obstructive sleep apnea on CPAP at [facility]. She has had a cholecystectomy, coronary artery stenting, carotid endarterectomy, iliac artery stent, stent into renal artery and partial mastectomy of the right breast. SOCIAL HISTORY: She has never been a tobacco or alcohol user. She is a resident of [facility] now. Does well with her therapy there. She has never used any alcohol. Her reflux is under good control. ALLERGIES: SHE HAS ALLERGIES TO CLONIDINE AND ADHESIVE TAPE. MEDICATIONS: Noted. PHYSICAL EXAMINATION: VITAL SIGNS: Blood pressure 149/61, pulse is 60 and regular, respiratory rate 20, and oxygen saturation 96% on 40% FiO2 or 4 liters. She is afebrile. Her weight is 90 kilograms. When I reviewed her records, she was just here on April 20 and her weight was 83.8 kilograms, so she has gained 6 kilograms since the 27 of April. HEENT AND NECK: Reveal a small posterior pharynx. There is no neck vein distention or HJR. No bruits auscultated. Thyroid is normal to palpation. No adenopathy is noted. CHEST: Expansion of the thorax is fairly good with deep inspiration. HEART: Regular rate and rhythm. I do not detect any murmurs or gallops. LUNGS: Reveal Velcro type crackles at the lung bases. I thought that the mid lung nettles show some crackles, but less audible. The upper lung zones and anterior lung zones are clear. No fremitus is noted. ABDOMEN: Soft and obese, nontender. EXTREMITIES: She has +2 edema in the pretibial area. LABORATORY DATA: White count 5.9, hemoglobin 9.6, hematocrit 30.4%, and platelet count 211,000 with an unremarkable differential. BUN is elevated at 73 with a creatinine of 1.8. There was about the same at 55/1.8 on 21 of April. Chest film reveals changes consistent with interstitial fibrosis. MRSA DNA surveillance screen is negative. Influenza A and B PCR is negative. Coagulation profile is unremarkable. The electrocardiogram reveals normal sinus rhythm with nonspecific ST-T wave changes. IMPRESSIONS: 1. Respiratory insufficiency related to interstitial lung disease. 2. Interstitial lung disease. This is worse when she tapers the prednisone down below 20 mg. 3. Diabetes mellitus. 4. Coronary artery disease. RECOMMENDATIONS: 1. Continue with her present medications. I think the infection is unlikely and I do not think she needs any antimicrobial agents at this point, but I will continue on methylprednisolone that can be tapered down tomorrow to 40 mg of prednisone with a very slow taper over 3-6 months down to 10 mg. 2. Continue on high flow O2 at 4 liters per minute. 3. Good DVT prophylaxis. 4. With the Lasix, I will need to follow the BUN and creatinine carefully since she does have chronic kidney disease. She will be followed by Dr. Ramirez starting tomorrow. AMAN
--- NOTE | 2016-05-14 12:11 | Progress Note ---
Medicine Progress Note Date & Time of Visit: May 14, 2016 at 11:53. Subjective 89 yo F with h/o ILD presents with worsening SOB and MILLIGAN x 3 days at [facility] -pt denies productive cough but has had some -no change in sputum -no fevers, chills, wheezing, headache, chest pain, or worsening lower extremity edema, which she states is chronic -she has been on prednisone PO as and outpatient [employer] and chronically Objective Last 8 Hrs Date Time Temp Pulse Resp B/P Pulse Ox O2 Delivery O2 Flow Rate FiO2 05/14/16 11:20 77 18 98 Nasal Cannula 5.0 05/14/16 08:00 98 Nasal Cannula 5.0 05/14/16 07:58 63 18 98 Nasal Cannula 5.0 05/14/16 07:07 36.5 60 20 149/61 96 05/14/16 04:10 36.9 72 20 122/70 95 CPAP 05/14/16 04:00 Nasal Cannula 5.0 BiPAP Physical Exam: GEN: Obese, in no acute distress, alert and appropriate, no conversational dyspnea or tachypnea on 5L NC HEENT: NC/AT, normal sclerae CARDIO: reg rate, 3/6 harsh LIVE heard throughout precordium LUNGS: CTA bilaterally, crackles heard at bases bilaterally, no rales or wheezes , good diaphragmatic excursion ABD: soft, non-tender, non-distended, no rebound or guarding EXTREMITY: 3+ pitting edema bilaterally, extremities are warm and well-perfused NEURO: CN 2-12 grossly intact, mentating well MUSC: moves all extremities equally SKIN: warm and dry Laboratory Results: 05/14/16 02:11 05/14/16 02:11 Test 05/13/16 10:30 05/13/16 10:36 05/13/16 10:38 05/13/16 16:33 Immature Granulocyte % (Auto) 0.9 % White Blood Count 10.24 K/uL (4.8-10.8) Red Blood Count 3.66 M/uL (4.2-5.4) Hemoglobin 11.0 g/dL (12.0-16.0) Hematocrit 33.8 % (37-47) Mean Corpuscular Volume 92.3 fL (80-100) Mean Corpuscular Hemoglobin 30.1 pg (25-34) Mean Corpuscular Hemoglobin Concent 32.5 g/dl (32-36) Platelet Count 201 K/uL (130-400) Mean Platelet Volume 10.8 fL (7.4-10.4) Neutrophils (%) (Auto) 83.4 % Lymphocytes (%) (Auto) 5.5 % Monocytes (%) (Auto) 7.7 % Eosinophils (%) (Auto) 2.3 % Basophils (%) (Auto) 0.2 % Neutrophils # (Auto) 8.54 K/uL (1.4-6.5) Lymphocytes # (Auto) 0.56 K/uL (1.2-3.4) Monocytes # (Auto) 0.79 K/uL (0.11-0.59) Eosinophils # (Auto) 0.24 K/uL (0-0.5) Basophils # (Auto) 0.02 K/uL (0-0.2) Immature Granulocyte # (Auto) 0.09 K/uL (0.00-0.02) Prothrombin Time 10.7 SECONDS (9.0-12.0) Prothromb Time International Ratio 1.0 (0.9-1.1) Activated Partial Thromboplast Time 26.1 SECONDS (21.0-31.0) Partial Thromboplastin Ratio 1.0 Total Bilirubin 0.5 mg/dl (0.2-1) Aspartate Amino Transf (AST/SGOT) 19 U/L (15-37) Alanine Aminotransferase (ALT/SGPT) 37 U/L (12-78) Alkaline Phosphatase 59 U/L (45-117) Pro-B-Type Natriuretic Peptide 2861 pg/ml (0-1800) Total Protein 6.3 gm/dl (6.4-8.2) Albumin 2.7 gm/dl (3.4-5.0) Globulin 3.6 gm/dl (2.5-4.0) Albumin/Globulin Ratio 0.8 (0.9-2) Bedside Lactic Acid Venous 1.15 mmol/L (0.90-1.70) Bedside Troponin I 0.040 ng/ml (0-0.045) Bedside Glucose 161 mg/dl (70-90) Test 05/13/16 16:50 05/14/16 02:11 Influenza Type A (RT-PCR) Neg for Influ A (NEG) Influenza Type B (RT-PCR) Neg for Influ B (NEG) Red Blood Count 3.31 M/uL (4.2-5.4) Mean Corpuscular Volume 91.8 fL (80-100) Mean Corpuscular Hemoglobin 29.0 pg (25-34) Mean Corpuscular Hemoglobin Concent 31.6 g/dl (32-36) RDW Standard Deviation 54.1 fL (36.4-46.3) RDW Coefficient of Variation 16.2 % (11.5-14.5) Mean Platelet Volume 10.6 fL (7.4-10.4) Anion Gap 6.0 mmol/L (3-11) Est Creatinine Clear Calc Drug Dose 21.8 ml/min Estimated GFR () 28.4 Estimated GFR (Non- 24.5 BUN/Creatinine Ratio 40.4 (10-20) Calcium Level 8.5 mg/dl (8.5-10.1) Magnesium Level 2.2 mg/dl (1.8-2.4) Total Creatine Kinase 20 U/L (26-192) Creatine Kinase MB 0.8 ng/ml (0.5-3.6) Creatine Kinase MB Ratio 4.0 (0-3.0) Troponin I 0.036 ng/ml (0-0.045) Date/Time Source Procedure Growth Status 05/13/16 17:40 Nasal MRSA DNA Surveillance Screen - Final Specimen Negative for MRSA by DNA Probe Complete Last 24 Hours Test 05/13/16 16:33 05/13/16 16:50 05/13/16 19:35 05/14/16 02:11 Bedside Glucose 161 mg/dl Influenza Type A (RT-PCR) Neg for Influ A Influenza Type B (RT-PCR) Neg for Influ B Total Creatine Kinase 23 U/L 20 U/L Creatine Kinase MB 0.6 ng/ml 0.8 ng/ml Creatine Kinase MB Ratio 2.6 4.0 Troponin I 0.041 ng/ml 0.036 ng/ml White Blood Count 5.91 K/uL Red Blood Count 3.31 M/uL Hemoglobin 9.6 g/dL Hematocrit 30.4 % Mean Corpuscular Volume 91.8 fL Mean Corpuscular Hemoglobin 29.0 pg Mean Corpuscular Hemoglobin Concent 31.6 g/dl RDW Standard Deviation 54.1 fL RDW Coefficient of Variation 16.2 % Platelet Count 211 K/uL Mean Platelet Volume 10.6 fL Sodium Level 143 mmol/L Potassium Level 4.6 mmol/L Chloride Level 105 mmol/L Carbon Dioxide Level 32 mmol/L Anion Gap 6.0 mmol/L Blood Urea Nitrogen 73 mg/dl Creatinine 1.80 mg/dl Est Creatinine Clear Calc Drug Dose 21.8 ml/min Estimated GFR () 28.4 Estimated GFR (Non- 24.5 BUN/Creatinine Ratio 40.4 Random Glucose 137 mg/dl Calcium Level 8.5 mg/dl Magnesium Level 2.2 mg/dl Date/Time Source Procedure Growth Status 05/13/16 17:40 Nasal MRSA DNA Surveillance Screen - Final Specimen Negative for MRSA by DNA Probe Complete Diagnostic Imaging: CHEST 2 VIEWS ROUTINE CLINICAL HISTORY: Follow-up congestive heart failure. COMPARISON STUDY: Chest radiograph May 13, 2016. FINDINGS: There are median sternotomy wires. No pneumothorax or pleural effusion is identified. Diffuse interstitial thickening is unchanged. There is no lobar consolidation. IMPRESSION: No change in diffuse interstitial thickening which favors interstitial lung disease. Mild superimposed pulmonary edema would be difficult to exclude. Assessment & Plan 89 yo F with h/o ILD presents with worsening SOB and MILLIGAN x 3 days at [facility] 1. Acute on chronic respiratory failure-doing well on 5L NC at this time, baseline is 4L via NC with BIPAP use at night. Reports that she had a good night. Worsened hypoxia likely 2/2 ILD flare with outpatient prednisone wean. Doing well on IV steroids, which pulm would like to continue through today and cont changing to prednisone in the morning. Flu is negative, no PNA clinically and patient doesn't appear to be infected as no fever or significant respiratory symptoms such as cough productive of sputum, etc. 2. Acute diastolic CHF-likely contributing to hypoxia. Volume overloaded on exam with chronic LE edema. Lasix PO at home daily alternates between 20mg and 40mg. She was given 20mg IV yesterday with only 400cc out recorded. Recent echo in Mar 2016 with preserved EF. Will start 40 IV daily and monitor diuresis with daily standing weights. 3. HTN-controlled, stop Norvasc in setting of chronic LE edema. Cont Coreg, Hydralazine, Imdur, Cozaar and Methyldopa 4. CAD-chronic, stable. H/O CABG in past. Currently denies chest pain. Serial cardiac enzymes overnight were negative. EKG does not show signs of active ischemia. Cont medical management with Coreg, ASA, Lipitor, Plavix and Imdur 5. Anemia-chronic, stable. Likely multifactorial in the setting of chronic disease. Monitor PRN 6. CKD-III-at baseline, monitor PRP while diuresing. Avoid nephrotoxic substances and renally dose meds as appropriate 7. Depression-stable, cont Lexapro 8. GERD-cont Protonix DVT PROPHYLAXIS: Sq heparin CODE STATUS: LEVEL 5 DNR per retirement paperwork Dispo: uncertain at this time. Bianca Dang DO [facility] Hospitalist Current Inpatient Medications: Current Inpatient Medications Medications (Trade) Dose Ordered Sig/Rey Route Start Time Stop Time Status Last Admin Dose Admin Heparin Sodium (Porcine) (Heparin Sq 5000 Unit/0.5ml) 5,000 unit Q8 SQ 05/13/16 14:00 06/12/16 13:59 05/13/16 20:23 5,000 UNIT Acetaminophen (Tylenol Tab) 650 mg Q4H PRN PO 05/13/16 11:45 06/12/16 11:44 Ondansetron HCl (Zofran Inj) 4 mg Q6H PRN IV 05/13/16 11:45 06/12/16 11:44 Nitroglycerin (Nitrostat Tab) 0.4 mg UD PRN SL 05/13/16 11:45 06/12/16 11:44 Albuterol/ Ipratropium (Duoneb) 3 ml QIDR INH 05/13/16 12:00 06/12/16 11:59 05/14/16 11:20 3 ML Aspirin (Ecotrin Tab) 81 mg DAILY PO 05/14/16 09:00 06/13/16 08:59 05/14/16 09:15 81 MG Atorvastatin Calcium (Lipitor Tab) 10 mg DAILY PO 05/14/16 09:00 06/13/16 08:59 05/14/16 09:18 10 MG Carvedilol (Coreg Tab) 12.5 mg BID PO 05/13/16 21:00 06/12/16 20:59 05/14/16 09:15 12.5 MG Clopidogrel Bisulfate (plAVix TAB) 75 mg DAILY PO 05/14/16 09:00 06/13/16 08:59 05/14/16 09:17 75 MG Escitalopram Oxalate (Lexapro Tab) 10 mg DAILY PO 05/14/16 09:00 06/13/16 08:59 05/14/16 09:17 10 MG Hydralazine HCl (Apresoline Tab) 100 mg TID PO 05/13/16 14:00 06/12/16 13:59 05/14/16 09:15 100 MG Isosorbide Mononitrate (Imdur Ext Rel Tab) 120 mg DAILY PO 05/14/16 09:00 06/13/16 08:59 05/14/16 09:16 120 MG Lorazepam (Ativan Tab) 0.5 mg Q12 PRN PO 05/13/16 12:00 06/12/16 11:59 Losartan Potassium (coZAAR TAB) 50 mg BID17 PO 05/13/16 17:00 06/12/16 16:59 05/14/16 09:15 50 MG Methyldopa (Aldomet Tab) 1,000 mg BID PO 05/13/16 21:00 06/12/16 20:59 05/14/16 09:18 1,000 MG Multivitamins (Multivitamin Tab) 1 tab DAILY PO 05/14/16 09:00 06/13/16 08:59 05/14/16 09:17 1 TAB Pantoprazole Sodium (Protonix Tab) 40 mg DAILY PO 05/14/16 09:00 06/13/16 08:59 05/14/16 09:14 40 MG Tramadol HCl (Ultram Tab) 50 mg Q12H PRN PO 05/13/16 12:00 06/12/16 11:59 Amlodipine Besylate (Norvasc Tab) 10 mg QPM PO 05/13/16 21:00 06/12/16 20:59 05/13/16 20:18 10 MG Cholecalciferol 5000 inter.unit 5,000 inter.unit DAILY PO 05/14/16 09:00 06/13/16 08:59 05/14/16 09:17 5,000 INTER.UNIT Methylprednisolone Sodium Succinate/ Syringe (Solu-Medrol IV/ Syringe) 0.64 ml @ 1.5 mls/min BID IV 05/13/16 21:00 06/12/16 20:59 05/14/16 09:18 1.5 MLS/MIN
[2016-05-14] MEDS: FUROSEMIDE INJ 40 MG in SYRINGE 0 ML IV SCH (12:50)
[2016-05-15] VITALS (16 sets, daily range): BP systolic 147–165; BP diastolic 61–80; PULSE 54–82; TEMP 36.3–37; O2SAT 93–99
[2016-05-15] MEDS: HEPARIN SOD 5000 UNIT/0.5 ML CARP SQ SCH ×3 (05:45→20:30)
[2016-05-15 06:31] LABS: ESTIMATED AVERAGE GLUCOSE 131 mg/dl; HA1C FLAG Normal (Normal)
[2016-05-15] MEDS: ALBUT/IPRATROP 3MG/0.5MG NEB 3 ML VIAL INH SCH ×4 (07:37→20:40)
[2016-05-15] MEDS: CHOLECALCIFEROL 1000 INTER.UNIT TAB PO SCH (08:17)
[2016-05-15] MEDS: LOSARTAN POTASSIUM 50 MG TAB PO SCH ×2 (08:18→17:11)
[2016-05-15] MEDS: PANTOprazole SOD 40 MG TAB PO SCH (08:18)
[2016-05-15] MEDS: CLOPIDOGREL BISULFATE 75 MG TAB PO SCH (08:19)
[2016-05-15] MEDS: CARVEDILOL 12.5 MG TAB PO SCH ×2 (08:19→20:29)
[2016-05-15] MEDS: MULTIVITAMIN TAB PO SCH (08:19)
[2016-05-15] MEDS: ESCITALOPRAM OXALATE 10 MG TAB PO SCH (08:20)
[2016-05-15] MEDS: ATORVASTATIN 10 MG TAB PO SCH (08:20)
[2016-05-15] MEDS: ASPIRIN 81 MG ECTAB PO SCH (08:20)
[2016-05-15] MEDS: ISOSORBIDE MONONITRATE 60 MG TABCR PO SCH (08:20)
[2016-05-15] MEDS: METHYLDOPA 250 MG TAB PO SCH ×2 (08:21→20:30)
[2016-05-15] MEDS: METHYLPREDNISOLONE IV 40 MG in SYRINGE 0 ML IV SCH ×2 (08:25→20:30)
[2016-05-15] MEDS: FUROSEMIDE INJ 40 MG in SYRINGE 0 ML IV SCH (08:26)
--- NOTE | 2016-05-15 16:23 | Pulmonology Progress Note ---
Pulmonary Progress Note Date of Service May 15, 2016. Attending Dr. Ramirez Subjective Feeling improved today. Some difficulty with BiPAP mask fit. Comfortable at rest. Dyspnea provoked with minimal activity as is her baseline. Cough is modest , dry, persistent, unchanged. No GI upset, fevers, chills. Objective 89-yo female admitted to [facility] 05/13/16 with acute on chronic hypoxic respiratory failure. She is well known to the hospital with admission 03/2016 and early 2016 with acute hypoxic exacerbation of O2-dependent ILD/pulmonary fibrosis and diastolic HF. PMHx includes: pulmonary fibrosis O2-dependent since 2014, 4LPM [employer], with traction bronchiectasis and cor pulmonale, h/o breast CA s/p radiation on the right, pulmonary nodules, CKD III, CAD s/p CABG and PTCA, and diastolic dysfunction Patient admitted to [facility] from [facility] with hypoxia and peripheral edema. Following her last admission she had been stable on tapered prednisone ( tapered to 10mg - [employer]), daily furosemide, and nocturnal BiPAP. ON admission: WBC: 10.24, Hgb/Hct/plts: 11/33.8/201, bNP: 2861, influenza: negative. CXR consistent with cardiomegaly and vascular congestion with chronic interstitial changes and small bibasilar effusions - this was relatively unchanged from prior images. She received additional diuresis, IV steroids and BiPAP support with clinical improvement. Today: - 95-98% on 5LPM - Afebrile, hypertensive Physical Exam: Constitutional: Well developed, well nourished elderly female sitting in chair at bedside. No acute distress. Head: + facial symmetry Eyes: EOMi, PERRLA, no conjunctival injection Mouth: Moist mucous membranes. No erythema, exudate, or post nasal gtt Neck: Trachea midline. No adenopathy or masses Respiratory: Non-labored respirations. Fine bibasilar and lateral crackles. No clubbing or cyanosis. Cardiovascular: RRR, II/IV systolic murmur. +2 radial pulses. <1s capillary refill. MSK/Extremities: Moving and developed symmetrically. No +1 edema bilateral LEs to mid-doe. No calf tenderness. Neurologic: A&O, data recall in-tact. Appropriate affect. Assessment & Plan 89-yo female hospital day # 3 with re-admission with acute hypoxic respiratory failure secondary to pulmonary fibrosis and diastolic HF. Her fluid balance has improved and she has responded well clinically. Continues to require 5LPM but otherwise comfortable at rest which is her baseline. Would recommend down- titration of her steroid tomorrow with transition to PO Sunday. Continue BiPAP QHS as previously prescribed. Will continue to follow along. Data Medications: Current Inpatient Medications Medications (Trade) Dose Ordered Sig/Rey Route Start Time Stop Time Status Last Admin Dose Admin Heparin Sodium (Porcine) (Heparin Sq 5000 Unit/0.5ml) 5,000 unit Q8 SQ 05/13/16 14:00 06/12/16 13:59 05/13/16 20:23 5,000 UNIT Acetaminophen (Tylenol Tab) 650 mg Q4H PRN PO 05/13/16 11:45 06/12/16 11:44 Ondansetron HCl (Zofran Inj) 4 mg Q6H PRN IV 05/13/16 11:45 06/12/16 11:44 Nitroglycerin (Nitrostat Tab) 0.4 mg UD PRN SL 05/13/16 11:45 06/12/16 11:44 Albuterol/ Ipratropium (Duoneb) 3 ml QIDR INH 05/13/16 12:00 06/12/16 11:59 05/15/16 12:21 3 ML Aspirin (Ecotrin Tab) 81 mg DAILY PO 05/14/16 09:00 06/13/16 08:59 05/15/16 08:20 81 MG Atorvastatin Calcium (Lipitor Tab) 10 mg DAILY PO 05/14/16 09:00 06/13/16 08:59 05/15/16 08:20 10 MG Carvedilol (Coreg Tab) 12.5 mg BID PO 05/13/16 21:00 06/12/16 20:59 05/15/16 08:19 12.5 MG Clopidogrel Bisulfate (plAVix TAB) 75 mg DAILY PO 05/14/16 09:00 06/13/16 08:59 05/15/16 08:19 75 MG Escitalopram Oxalate (Lexapro Tab) 10 mg DAILY PO 05/14/16 09:00 06/13/16 08:59 05/15/16 08:20 10 MG Hydralazine HCl (Apresoline Tab) 100 mg TID PO 05/13/16 14:00 06/12/16 13:59 05/15/16 13:35 100 MG Isosorbide Mononitrate (Imdur Ext Rel Tab) 120 mg DAILY PO 05/14/16 09:00 06/13/16 08:59 05/15/16 08:20 120 MG Lorazepam (Ativan Tab) 0.5 mg Q12 PRN PO 05/13/16 12:00 06/12/16 11:59 Losartan Potassium (coZAAR TAB) 50 mg BID17 PO 05/13/16 17:00 06/12/16 16:59 05/15/16 08:18 50 MG Methyldopa (Aldomet Tab) 1,000 mg BID PO 05/13/16 21:00 06/12/16 20:59 05/15/16 08:21 1,000 MG Multivitamins (Multivitamin Tab) 1 tab DAILY PO 05/14/16 09:00 06/13/16 08:59 05/15/16 08:19 1 TAB Pantoprazole Sodium (Protonix Tab) 40 mg DAILY PO 05/14/16 09:00 06/13/16 08:59 05/15/16 08:18 40 MG Tramadol HCl (Ultram Tab) 50 mg Q12H PRN PO 05/13/16 12:00 06/12/16 11:59 Cholecalciferol 5000 inter.unit 5,000 inter.unit DAILY PO 05/14/16 09:00 06/13/16 08:59 05/15/16 08:17 5,000 INTER.UNIT Methylprednisolone Sodium Succinate 40 mg/Syringe 0.64 ml @ 1.5 mls/min BID IV 05/13/16 21:00 06/12/16 20:59 05/15/16 08:25 1.5 MLS/MIN Furosemide/Syringe (Lasix Inj/ Syringe) 4 ml @ 4 mls/min DAILY IV 05/14/16 12:15 06/13/16 12:14 05/15/16 08:26 4 MLS/MIN I & O: 24-Hour Column 05/15/16 07:59 Intake Total 1015 ml Output Total 2650 ml Balance -1635 ml Vital Signs: Date Time Temp Pulse Resp B/P Pulse Ox O2 Delivery O2 Flow Rate FiO2 05/15/16 15:33 37.0 60 16 156/61 96 05/15/16 12:21 78 18 99 Nasal Cannula 5.0 05/15/16 12:06 97 Nasal Cannula 5.0 05/15/16 11:24 36.3 58 18 159/68 97 Nasal Cannula 5.0 05/15/16 11:18 63 95 05/15/16 08:00 95 Nasal Cannula 5.0 05/15/16 07:50 36.5 63 20 165/71 95 5.0 05/15/16 07:40 78 18 99 Nasal Cannula 5.0 05/15/16 04:53 36.6 82 18 147/80 95 CPAP 05/15/16 04:40 98 Nasal Cannula 5.0 05/15/16 00:05 98 Nasal Cannula 5.0 05/14/16 23:17 36.4 59 20 153/55 96 Nasal Cannula 5.0 05/14/16 20:41 78 18 96 Nasal Cannula 5.0 05/14/16 20:27 36.3 59 18 156/57 96 Nasal Cannula 5.0 05/14/16 20:00 Nasal Cannula
--- NOTE | 2016-05-15 18:02 | Progress Note ---
Internal Med Progress Note Date of Service: May 15, 2016. Provider Documentation: SUBJECTIVE: sitting on the chair comfortably says sob is better has some cough ambulated in room afebrile OBJECTIVE: Vital Signs-as noted below Exam: General-alert and oriented x 3 Not in distress ENT-normal hearing Neck-no neck masses Lungs-cta b/l no wheezing mild bibasilar crackles Heart-s1 and s2 heard regular rate and rhythm no murmurs' Abdomen-soft bowel sounds present non tender no distension Extremities-no edema no erythema Neuro-alert and awake moves extremities Lab data as noted below. ASSESSMENT & PLAN: 89 yo F with h/o ILD presents with worsening SOB and MILLIGAN x 3 days at [facility] 1. Acute on chronic respiratory failure- Improved to continue oxygen 5lts. On 4lts at home with bipap q hs continue iv solumedrol steroids wean as per pulmonary. 2. Acute diastolic CHF-ON Lasix PO at home daily alternates between 20mg and 40mg. Currently on iv lasix 40mg daily will monitor. 3. HTN stopped Norvasc in setting of chronic LE edema. To Cont Coreg, Hydralazine, Imdur, Cozaar and Methyldopa. Will monitor. 4. CAD-chronic, stable. H/O CABG in past. Stable on Coreg, ASA, Lipitor, Plavix and Imdur. 5. Anemia-chronic, stable. Likely multifactorial in the setting of chronic disease. Will monitor labs. 6. CKD-III-at baseline, will f/u labs while on iv Lasix. 7. Depression-stable on Lexapro. 8. GERD-On Protonix DVT PROPHYLAXIS hep sub q refusing scds DISPOSITION to be determined Vital Signs: Date Time Temp Pulse Resp B/P Pulse Ox O2 Delivery O2 Flow Rate FiO2 05/15/16 16:13 54 18 99 Nasal Cannula 5.0 05/15/16 16:00 96 Nasal Cannula 5.0 05/15/16 15:33 37.0 60 16 156/61 96 05/15/16 12:21 78 18 99 Nasal Cannula 5.0 05/15/16 12:06 97 Nasal Cannula 5.0 05/15/16 11:24 36.3 58 18 159/68 97 Nasal Cannula 5.0 05/15/16 11:18 63 95 05/15/16 08:00 95 Nasal Cannula 5.0 05/15/16 07:50 36.5 63 20 165/71 95 5.0 05/15/16 07:40 78 18 99 Nasal Cannula 5.0 05/15/16 04:53 36.6 82 18 147/80 95 CPAP 05/15/16 04:40 98 Nasal Cannula 5.0 05/15/16 00:05 98 Nasal Cannula 5.0 05/14/16 23:17 36.4 59 20 153/55 96 Nasal Cannula 5.0 05/14/16 20:41 78 18 96 Nasal Cannula 5.0 05/14/16 20:27 36.3 59 18 156/57 96 Nasal Cannula 5.0 05/14/16 20:00 Nasal Cannula
[2016-05-16] VITALS (12 sets, daily range): BP systolic 142–180; BP diastolic 57–76; PULSE 56–77; TEMP 36.4–37; O2SAT 92–97
[2016-05-16] MEDS: HEPARIN SOD 5000 UNIT/0.5 ML CARP SQ SCH ×3 (05:09→19:33)
[2016-05-16 06:55] LABS: HEMATOCRIT 30.1 % (37-47); MEAN CELL VOLUME 90.1 fL (80-100); MEAN CORPUSCULAR HGB CONC 32.2 g/dl (32-36); MEAN PLATELET VOLUME 10.4 fL (7.4-10.4); PLATELET COUNT 235 K/uL (130-400); RED BLOOD COUNT 3.34 M/uL (4.2-5.4)
[2016-05-16 06:58] LABS: BUN/CREATININE RATIO 47.8 (10-20); CALCIUM 8.9 mg/dl (8.5-10.1); CREATININE 1.9 mg/dl (0.60-1.20); MAGNESIUM 2.2 mg/dl (1.8-2.4); POTASSIUM 4.7 mmol/L (3.5-5.1)
[2016-05-16] MEDS: ALBUT/IPRATROP 3MG/0.5MG NEB 3 ML VIAL INH SCH ×4 (07:35→20:38)
[2016-05-16] MEDS: CLOPIDOGREL BISULFATE 75 MG TAB PO SCH (08:27)
[2016-05-16] MEDS: METHYLPREDNISOLONE IV 40 MG in SYRINGE 0 ML IV SCH ×2 (08:27→21:04)
[2016-05-16] MEDS: FUROSEMIDE INJ 40 MG in SYRINGE 0 ML IV SCH (08:27)
[2016-05-16] MEDS: ESCITALOPRAM OXALATE 10 MG TAB PO SCH (08:27)
[2016-05-16] MEDS: ISOSORBIDE MONONITRATE 60 MG TABCR PO SCH (08:28)
[2016-05-16] MEDS: ASPIRIN 81 MG ECTAB PO SCH (08:28)
[2016-05-16] MEDS: CHOLECALCIFEROL 1000 INTER.UNIT TAB PO SCH (08:29)
[2016-05-16] MEDS: MULTIVITAMIN TAB PO SCH (08:29)
[2016-05-16] MEDS: LOSARTAN POTASSIUM 50 MG TAB PO SCH ×2 (08:29→17:05)
[2016-05-16] MEDS: PANTOprazole SOD 40 MG TAB PO SCH (08:30)
[2016-05-16] MEDS: ATORVASTATIN 10 MG TAB PO SCH (08:30)
[2016-05-16] MEDS: METHYLDOPA 250 MG TAB PO SCH ×2 (08:31→19:33)
[2016-05-16] MEDS: CARVEDILOL 12.5 MG TAB PO SCH ×2 (09:44→19:33)
--- NOTE | 2016-05-16 17:00 | Progress Note ---
Internal Med Progress Note Date of Service: May 16, 2016. Provider Documentation: SUBJECTIVE: sitting on the chair comfortably seems back to her baseline resp status no cough eating fine ambulated ok OBJECTIVE: Vital Signs-as noted below Exam: General-alert and oriented x 3 Not in distress ENT-normal hearing Neck-no neck masses Lungs-cta b/l no wheezing mild bibasilar crackles Heart-s1 and s2 heard regular rate and rhythm no murmurs' Abdomen-soft bowel sounds present non tender no distension Extremities-b/l pedal edema present no erythema Neuro-alert and awake moves extremities Lab data as noted below. ASSESSMENT & PLAN: 89 yo F with h/o ILD presents with worsening SOB and MILLIGAN x 3 days at [facility] 1. Acute on chronic respiratory failure- Improved Currently on 4lts. On 4lts at home with bipap q hs continue iv solumedrol steroids wean as per pulmonary. will start on po steroids in am. 2. Acute diastolic CHF-ON Lasix PO at home daily alternates between 20mg and 40mg. Currently on iv lasix 40mg daily which will be continued will monitor.f/u labs 3. HTN stopped Norvasc in setting of chronic LE edema. To Cont Coreg, Hydralazine, Imdur, Cozaar and Methyldopa. Will monitor. 4. CAD-chronic, stable. H/O CABG in past. Stable on Coreg, ASA, Lipitor, Plavix and Imdur. 5. Anemia-chronic, stable. Likely multifactorial in the setting of chronic disease. hb 9.7 today.Will monitor labs. 6. CKD-III-at baseline, will f/u labs while on iv Lasix. 7. Depression-stable on Lexapro. 8. GERD-On Protonix DVT PROPHYLAXIS hep sub q refusing scds DISPOSITION to be determined pt/ot social service for d/c planning Vital Signs: Date Time Temp Pulse Resp B/P Pulse Ox O2 Delivery O2 Flow Rate FiO2 05/16/16 16:00 Nasal Cannula 4.0 05/16/16 15:43 58 16 95 Nasal Cannula 4.0 05/16/16 14:44 37.0 57 20 151/61 95 05/16/16 11:55 Nasal Cannula 4.0 05/16/16 11:41 77 12 97 Nasal Cannula 4.0 05/16/16 07:59 Nasal Cannula 4.0 05/16/16 07:51 36.5 58 20 170/63 94 Nasal Cannula 4.0 05/16/16 07:35 56 12 97 Nasal Cannula 4.0 05/16/16 04:18 36.9 72 18 146/76 96 05/16/16 04:12 Nasal Cannula 4.0 05/16/16 00:00 96 Nasal Cannula 4.0 05/15/16 23:33 36.3 54 20 160/80 98 Nasal Cannula 4.0 05/15/16 20:40 56 18 98 Nasal Cannula 4.0 05/15/16 20:00 96 Nasal Cannula 5.0 05/15/16 20:00 36.5 59 18 155/65 93 Nasal Cannula 4.0 05/15/16 20:00 93 Nasal Cannula 4.0 Lab Results: Results Past 24 Hours Test 05/16/16 05:41 Range/Units White Blood Count 8.70 4.8-10.8 K/uL Red Blood Count 3.34 4.2-5.4 M/uL Hemoglobin 9.7 12.0-16.0 g/dL Hematocrit 30.1 37-47 % Mean Corpuscular Volume 90.1 80-100 fL Mean Corpuscular Hemoglobin 29.0 25-34 pg Mean Corpuscular Hemoglobin Concent 32.2 32-36 g/dl RDW Standard Deviation 53.2 36.4-46.3 fL RDW Coefficient of Variation 16.3 11.5-14.5 % Platelet Count 235 130-400 K/uL Mean Platelet Volume 10.4 7.4-10.4 fL Sodium Level 143 136-145 mmol/L Potassium Level 4.7 3.5-5.1 mmol/L Chloride Level 104 98-107 mmol/L Carbon Dioxide Level 30 21-32 mmol/L Anion Gap 9.0 3-11 mmol/L Blood Urea Nitrogen 91 7-18 mg/dl Creatinine 1.90 0.60-1.20 mg/dl Est Creatinine Clear Calc Drug Dose 20.0 ml/min Estimated GFR () 26.6 Estimated GFR (Non- 23.0 BUN/Creatinine Ratio 47.8 10-20 Random Glucose 128 70-99 mg/dl Calcium Level 8.9 8.5-10.1 mg/dl Magnesium Level 2.2 1.8-2.4 mg/dl
[2016-05-17 03:05] VITALS: BP 154/66; PULSE 70; TEMP 36.5; O2SAT 92
[2016-05-17] MEDS: HEPARIN SOD 5000 UNIT/0.5 ML CARP SQ SCH (05:12)
[2016-05-17 06:54] LABS: BUN/CREATININE RATIO 43.9 (10-20); CALCIUM 8.7 mg/dl (8.5-10.1); CREATININE 1.9 mg/dl (0.60-1.20); POTASSIUM 4.5 mmol/L (3.5-5.1)
[2016-05-17 07:04] VITALS: PULSE 86; O2SAT 92
[2016-05-17] MEDS: ALBUT/IPRATROP 3MG/0.5MG NEB 3 ML VIAL INH SCH ×2 (07:12→11:25)
[2016-05-17 07:54] VITALS: BP 179/74; PULSE 66; TEMP 36.6; O2SAT 97
[2016-05-17] MEDS: FUROSEMIDE INJ 40 MG in SYRINGE 0 ML IV SCH (09:08)
[2016-05-17] MEDS: ESCITALOPRAM OXALATE 10 MG TAB PO SCH (09:08)
[2016-05-17] MEDS: METHYLPREDNISOLONE IV 40 MG in SYRINGE 0 ML IV SCH (09:08)
[2016-05-17] MEDS: METHYLDOPA 250 MG TAB PO SCH (09:08)
[2016-05-17] MEDS: CARVEDILOL 12.5 MG TAB PO SCH (09:08)
[2016-05-17] MEDS: CLOPIDOGREL BISULFATE 75 MG TAB PO SCH (09:08)
[2016-05-17] MEDS: MULTIVITAMIN TAB PO SCH (09:08)
[2016-05-17] MEDS: ASPIRIN 81 MG ECTAB PO SCH (09:09)
[2016-05-17] MEDS: CHOLECALCIFEROL 1000 INTER.UNIT TAB PO SCH (09:09)
[2016-05-17] MEDS: LOSARTAN POTASSIUM 50 MG TAB PO SCH (09:09)
[2016-05-17] MEDS: ATORVASTATIN 10 MG TAB PO SCH (09:09)
[2016-05-17] MEDS: PANTOprazole SOD 40 MG TAB PO SCH (09:09)
[2016-05-17] MEDS: ISOSORBIDE MONONITRATE 60 MG TABCR PO SCH (09:09)
[2016-05-17] MEDS ORDERED: AMLODIPINE BESYLATE 5 MG TAB PO ONE (11:15)
[2016-05-17 11:27] VITALS: PULSE 64; O2SAT 90
[2016-05-17] MEDS ORDERED: FURO40TA3 PO (11:36)
[2016-05-17] MEDS ORDERED: PRED-301 PO (11:36)
--- NOTE | 2016-05-17 11:40 | Discharge Instructions ---
Discharge Instructions Date of Service May 17, 2016. Admission Reason for Admission: Acute And Chronic Respiratory Failure Discharge Discharge Diagnosis / Problem: ACUTE ON CHRONIC RESP FAILURE, INTERSITITIAL LUNG DISEASE FLARE, ACUTE CHF Discharge Goals Goal(s): Decrease discomfort, Improve function Activity Recommendations Activity Level: Assistance Required Therapies: Physical Therapy, Occupational Therapy . Additional Information Patient informed of condition: Yes Advance Directives: Yes DNR: Yes Level of Care: Skilled Communicable Disease: No Prognosis: Stable Oxygen at (LPM): 4-5LTS VIA NASAL CANULA Heck Catheter: No Instructions / Follow-Up Instructions / Follow-Up FOLLOWUP WITH FAMILY DOCTOR IN ONE WEEK FOLLOWUP WITH PULMONARY IN 2-3 WEEKS TAPERING OF STEROIDS PER PULMONARY. LAB: BMP WITH MG LEVELS IN ONE WEEK AND FOLLOW RESULTS WITH FAMILY DOCTOR. BLOOD PRESSURE FOLLOWUP WITH FAMILY DOCTOR. Current Hospital Diet Patient's current hospital diet: AHA Diet (Heart Healthy), Low Sodium Diet (2gm Na) Discharge Diet Recommended Diet: AHA Diet (Heart Healthy) Pending Studies Studies pending at discharge: no Physician Orders On Transfer Special Precautions: FALL AND ASPIRATION PRECAUTIONS Vital Signs: EVERY 8HRS Additional Orders: Call your Primary Care doctor if any of the following symptoms or problems start or get worse: * Shortness of breath or difficulty breathing * Wake up at night short of breath * Chest pain * Cough * Swelling of your hands, feet, or legs * More fatigued or tired with your normal activity * Palpitations - sudden fast heart beats WEIGHT * Weigh yourself every morning after using the bathroom. * Use the same scale. * Wear the same amount of clothing. * Write your weight down on a chart. * Call your Primary Care doctor if you gain more than 2-3 pounds in 1-2 days. MEDICATIONS * Use this discharge instruction sheet for medication instructions. * Take your medications at the time your doctor ordered. * Do not skip a dose of your medicines. * If you miss a dose of medicine, take it as soon as possible, but DO NOT DOUBLE A DOSE. * Read your medicine information when you get home. * Know all of the side effects of your medicine. If in doubt, ask your pharmacist * Call your Primary Care doctor's office if you have any side effects. * Be sure all of your doctors know what medicine and herbs you take (including cold, flu, and herbal medicine). Take the following with you to your follow-up doctor appointments: * Weight Chart * Medication List * List of questions Do not drink excessive alcohol, beer or wine. Laboratory Results Hemoglobin A1c Test 05/14/16 02:11 Range/Units Estimated Average Glucose 131 mg/dl Hemoglobin A1c 6.2 H 4.5-5.6 % Medical Emergencies . Who to Call and When: Medical Emergencies: If at any time you feel your situation is an emergency, please call 911 immediately. . Non-Emergent Contact Non-Emergency issues call your: Primary Care Provider . . "Provider Documentation" section prepared by Phong Mireles. Core Measure Problem Core Measures: None
[2016-05-17 11:56] VITALS: BP 147/60; PULSE 69; TEMP 36.7; O2SAT 91
[2016-05-17 13:18] VITALS: BP 147/60; PULSE 69; TEMP 36.7; O2SAT 91
--- NOTE | 2016-05-17 20:10 | Progress Note ---
Internal Med Progress Note Date of Service: May 17, 2016. Provider Documentation: SUBJECTIVE: rsting comfortably back to her baseline resp status no cough eating fine ok for discharge OBJECTIVE: Vital Signs-as noted below Exam: General-alert and oriented x 3 Not in distress ENT-normal hearing Neck-no neck masses Lungs-cta b/l no wheezing mild bibasilar crackles Heart-s1 and s2 heard regular rate and rhythm no murmurs' Abdomen-soft bowel sounds present non tender no distension Extremities-b/l pedal edema present no erythema Neuro-alert and awake moves extremities Lab data as noted below. ASSESSMENT & PLAN: 89 yo F with h/o ILD presents with worsening SOB and MILLIGAN x 3 days at [facility] 1. Acute on chronic respiratory failure- Improved Currently on 4lts. On 4lts at home with bipap q hs continue iv solumedrol steroids wean as per pulmonary. discharged on prednsone taper. 2. Acute diastolic CHF-ON Lasix PO at home daily alternates between 20mg and 40mg. Currently on iv lasix 40mg daily which will be continued will monitordischarged on lasix 40mg daily. followup labs with pcp. 3. HTN a. To Cont Coreg, Hydralazine, Imdur, Norvasc Cozaar and Methyldopa. f/ u with pcp 4. CAD-chronic, stable. H/O CABG in past. Stable on Coreg, ASA, Lipitor, Plavix and Imdur. 5. Anemia-chronic, stable. Likely multifactorial in the setting of chronic disease. hb 9.7 today.Will monitor labs. 6. CKD-III-at baseline, will f/u labs while on iv Lasix. 7. Depression-stable on Lexapro. 8. GERD-On Protonix discharged to [facility] Vital Signs: Date Time Temp Pulse Resp B/P Pulse Ox O2 Delivery O2 Flow Rate FiO2 05/17/16 13:18 36.7 69 22 91 Nasal Cannula 05/17/16 11:56 36.7 69 22 147/60 91 Nasal Cannula 4.0 05/17/16 11:27 64 16 90 Nasal Cannula 4.0 05/17/16 08:00 Nasal Cannula 4.0 05/17/16 07:54 36.6 66 20 179/74 97 Nasal Cannula 4.0 05/17/16 07:04 86 16 92 Nasal Cannula 4.0 05/17/16 04:00 Nasal Cannula 4.0 05/17/16 03:05 36.5 70 20 154/66 92 Nasal Cannula 4.0 05/17/16 00:01 Nasal Cannula 4.0 05/16/16 23:25 36.6 64 18 166/66 96 Nasal Cannula 4.0 05/16/16 20:38 68 16 92 Nasal Cannula 4.0 Lab Results: Results Past 24 Hours Test 05/17/16 05:53 Range/Units Sodium Level 144 136-145 mmol/L Potassium Level 4.5 3.5-5.1 mmol/L Chloride Level 105 98-107 mmol/L Carbon Dioxide Level 32 21-32 mmol/L Anion Gap 7.0 3-11 mmol/L Blood Urea Nitrogen 83 7-18 mg/dl Creatinine 1.90 0.60-1.20 mg/dl Est Creatinine Clear Calc Drug Dose 20.2 ml/min Estimated GFR () 26.6 Estimated GFR (Non- 23.0 BUN/Creatinine Ratio 43.9 10-20 Random Glucose 134 70-99 mg/dl Calcium Level 8.7 8.5-10.1 mg/dl
--- NOTE | 2016-05-18 19:10 | Discharge Summary ---
Discharge Summary Date of Service May 18, 2016. Discharge Summary Admission Date: May 13, 2016 at 14:06 Discharge Date: May 17, 2016 Discharge Disposition: detention facility Principal Diagnosis: ACUTE ON CHRONIC RESP FAILURE INTERSTITIAL LUNG DISEASE FLARE ACUTE CHF Secondary Diagnoses/Problems: 1) Carotid stenosis Status: Chronic (2) Chronic respiratory failure Permanent Comment: home O2 Status: Chronic (3) Coronary artery disease Permanent Comment: 1997 - CABG x 2 2007 - vein graft stenosis, PCI of SVG -> LAD s/p BMS, PCI of SVG -> RCA s/p BMS x 20 Jun 2010 - STEMI, total occlusion of proximal segment of the right PDA which was the area of prior stenting, s/p PTCA and stenting of the saphenous vein bypass graft to the right PDA with REBEL posterior Complete angiography at that time revealed a total proximal LAD stenosis with a patent SVG to the mid LAD, mild atherosclertoic disease in the left circumflex coronary artery, and a total mid RCA occlusion with the total proximal SVG to the right PDA. Status: Chronic (4) Diverticulosis of colon Status: Chronic (5) DM type 2 (diabetes mellitus, type 2) Status: Chronic (6) Dyslipidemia Status: Chronic (7) GERD (gastroesophageal reflux disease) Status: Chronic (8) History of breast cancer Permanent Comment: right breast Status: Chronic (9) Hypertension Status: Chronic (10) Osteoarthritis Status: Chronic (11) Pulmonary fibrosis Permanent Comment: Followed by Dr. Gonzalez Status: Chronic (12) Renal artery stenosis, chinik Permanent Comment: Right renal artery stent, [facility] approximately in 2008 Status: Chronic (13) Sleep apnea Status: Chronic Procedures: CXR: 1. Cardiomegaly with evidence of congestive failure. 2. Changes of chronic interstitial lung disease are similar to previous. 3. Small pleural effusions with bibasilar consolidation. This is likely related to chronic interstitial lung disease and is similar to previous. Superimposed pneumonia or pulmonary edema is not excluded. Clinical correlation will be required. Consultations: PULMONARY Medication Reconciliation New Medications: Furosemide (Lasix) 40 Mg Tab 40 MG PO DAILY for 30 Days, #30 TAB 2 Refills Prednisone (Prednisone) 5 Mg Tab 40 MG PO UD, #60 TAB 2 Refills PREDNISONE 40MG PO DAILY X 7 DAYS THEN PREDNISONE 35MG PO DAILY X 7 DAYS THEN PREDNISONE 30MG PO DAILY X 7 DAYS THEN PREDNISONE 25MG PO DAILY X 7 DAYS THEN PREDNISONE 20MG PO DAILY AND FURTHER TAPER PER PULMONARY Continued Medications: Amlodipine Besylate (Amlodipine Besylate) 10 Mg Tab 10 MG PO QPM Aspirin (Aspirin EC Low Dose) 81 Mg Ectab 81 MG PO DAILY Atorvastatin (Lipitor) 10 Mg Tab 10 MG PO DAILY, TAB Carvedilol (Carvedilol) 12.5 Mg Tab 12.5 MG PO BID for 30 Days, TAB Cholecalciferol (Vitamin D3) 5,000 Unit Tab 5000 UNITS PO DAILY Clopidogrel (Plavix) 75 Mg Tab 75 MG PO DAILY Escitalopram Oxalate (Lexapro) 10 Mg Tab 10 MG PO DAILY Hydralazine Hcl (Apresoline) 100 Mg Tab 100 MG PO TID Ipratropium-Albuterol (Duoneb) 3 Ml Nebu 1 TREATMENT NEB QID PRN for Wheezing Ipratropium-Albuterol (Combivent Respimat) 1 Aer Aer 1 PUFFS INH QID PRN for Wheezing Isosorbide Mononitrate Ext Rel (Imdur Ext Rel) 120 Mg Ertab 120 MG PO DAILY, #31 Lorazepam (Ativan) 0.5 Mg Tab 0.5 MG PO Q12 PRN for Anxiety Losartan Potassium (Losartan Potassium) 50 Mg Tab 50 MG PO BID17 for 30 Days, #60 TAB Methyldopa (Aldomet) 500 Mg Tab 1000 MG PO BID, #120 Multivitamin (Multivitamin) Tab 1 TAB PO DAILY, TAB Nitroglycerin (Nitrostat) 0.4 Mg Sub 0.4 MG UT PRN 1 TAB SL EVERY 5 MINS X3 DOSES NEEDED FOR CHEST PAIN Oxygen (Oxygen) Gas 3-4 LITERS NA CONTINOUS MAY INCREASE TO 5 LITERS FOR ACTIVITY Pantoprazole Sodium (Protonix) 40 Mg Tab 40 MG PO DAILY, #30 TAB Tramadol Hcl (Ultram) 50 Mg Tab 50 MG PO Q12H PRN for Pain, TAB PRN PAIN Discontinued Medications: Furosemide (Furosemide) 20 Mg Tab 20 MG PO Q2D ALTERNATING WITH 40MG TABS Furosemide (Lasix) 40 Mg Tab 40 MG PO Q2D ALTERNATING WITH 20MG TABS Prednisone Tab (Prednisone) 10 Mg Tab 10 MG PO DAILY TAKE X5 DAYS THEN DECREASE TO 5MG DAILY PT STARTED 05/09/2016 Admission Information HPI (per Admitting provider): Patient seen and examined. 89 year old female with PMHx of Pulmonary fibrosis, CHF, CKD stage 3, HTN, CAD and other problems listed below presents to the ED complaining of SOB x 4 days. Patient reports she has started to become more SOB with minimal exertion for several days. This morning she became SOB and pulse ox was 55% on 4L. She was placed on BIPAP and transferred to the ED. She reports she feels like she is getting a "cold" she reports an occasional dry cough. She denies fevers, chills, sputum chest pain, nausea, vomiting, diarrhea , dysuria, calf pain and edema. She is at [facility] for rehab but will become a permanent resident. She is currently on a prednisone taper and currently at 10mg daily. She take Lasix 40mg every other day and 20mg on the other days. Family reports that her leg look more swollen. In the ED patient is saturating well on BIPAP. AG and bicarb are WNL. There is no leukocytosis, CXR shows CHF. She received duonebs, Lasix and Solu-Medrol. She is resting comfortably on BIPAP and reports she is feeling much better. She will be admitted for further workup and treatment. Physical Exam (per Admitting): General Appearance: + pertinent finding (Pleasant WD/WN 89 year old female lying inbed in NAD on BIPAP with family at bedside ) Head: normocephalic, atraumatic Eyes: PERRL, EOMI, sclerae normal ENT: hearing grossly normal, pharynx normal Neck: supple, no JVD Respiratory/Chest: chest non-tender, no respiratory distress, no accessory muscle use, + pertinent finding (decreased breath sounds, poor air entry ) Cardiovascular: regular rate, rhythm, no gallop, no JVD, no murmur, normal peripheral pulses Abdomen/GI: normal bowel sounds, non tender, soft Extremities/Musculoskelatal: no calf tenderness, normal capillary refill, + pedal edema (+2 edema, weeping skin ) Neurologic/Psych: alert, oriented x 3, + pertinent finding (no focal deficits noted ) Skin: normal color, warm/dry, no rash Lymphatic: no adenopathy Hospital Course 89 yo F with h/o ILD presents with worsening SOB and MILLIGAN x 3 days at [facility] 1. Acute on chronic respiratory failure- Improved Currently on 4lts. On 4lts at home with bipap q hs continue iv solumedrol steroids wean as per pulmonary. discharged on prednsone taper. 2. Acute diastolic CHF-ON Lasix PO at home daily alternates between 20mg and 40mg. Currently on iv lasix 40mg daily which will be continued will monitordischarged on lasix 40mg daily. followup labs with pcp. 3. HTN a. To Cont Coreg, Hydralazine, Imdur, Norvasc Cozaar and Methyldopa. f/ u with pcp 4. CAD-chronic, stable. H/O CABG in past. Stable on Coreg, ASA, Lipitor, Plavix and Imdur. 5. Anemia-chronic, stable. Likely multifactorial in the setting of chronic disease. hb 9.7 today.Will monitor labs. 6. CKD-III-at baseline, will f/u labs while on iv Lasix. 7. Depression-stable on Lexapro. 8. GERD-On Protonix [facility] to [facility] Total time spent on discharge = 40MINUTES This includes examination of the patient, discharge planning, medication reconciliation, and communication with other providers. Discharge Instructions Please take this sheet to every appointment for the next month Discharge Instructions Date of Service May 17, 2016. Admission Reason for Admission: Acute And Chronic Respiratory Failure Discharge Discharge Diagnosis / Problem: ACUTE ON CHRONIC RESP FAILURE, INTERSITITIAL LUNG DISEASE FLARE, ACUTE CHF Discharge Goals Goal(s): Decrease discomfort, Improve function Activity Recommendations Activity Level: Assistance Required Therapies: Physical Therapy, Occupational Therapy . Additional Information Patient informed of condition: Yes Advance Directives: Yes DNR: Yes Level of Care: Skilled Communicable Disease: No Prognosis: Stable Oxygen at (LPM): 4-5LTS VIA NASAL CANULA Heck Catheter: No Instructions / Follow-Up Instructions / Follow-Up FOLLOWUP WITH FAMILY DOCTOR IN ONE WEEK FOLLOWUP WITH PULMONARY IN 2-3 WEEKS TAPERING OF STEROIDS PER PULMONARY. LAB: BMP WITH MG LEVELS IN ONE WEEK AND FOLLOW RESULTS WITH FAMILY DOCTOR. BLOOD PRESSURE FOLLOWUP WITH FAMILY DOCTOR. Current Hospital Diet Patient's current hospital diet: AHA Diet (Heart Healthy), Low Sodium Diet (2gm Na) Discharge Diet Recommended Diet: AHA Diet (Heart Healthy) Pending Studies Studies pending at discharge: no Physician Orders On Transfer Special Precautions: FALL AND ASPIRATION PRECAUTIONS Vital Signs: EVERY 8HRS Additional Orders: Call your Primary Care doctor if any of the following symptoms or problems start or get worse: * Shortness of breath or difficulty breathing * Wake up at night short of breath * Chest pain * Cough * Swelling of your hands, feet, or legs * More fatigued or tired with your normal activity * Palpitations - sudden fast heart beats WEIGHT * Weigh yourself every morning after using the bathroom. * Use the same scale. * Wear the same amount of clothing. * Write your weight down on a chart. * Call your Primary Care doctor if you gain more than 2-3 pounds in 1-2 days. MEDICATIONS * Use this discharge instruction sheet for medication instructions. * Take your medications at the time your doctor ordered. * Do not skip a dose of your medicines. * If you miss a dose of medicine, take it as soon as possible, but DO NOT DOUBLE A DOSE. * Read your medicine information when you get home. * Know all of the side effects of your medicine. If in doubt, ask your pharmacist * Call your Primary Care doctor's office if you have any side effects. * Be sure all of your doctors know what medicine and herbs you take (including cold, flu, and herbal medicine). Take the following with you to your follow-up doctor appointments: * Weight Chart * Medication List * List of questions Do not drink excessive alcohol, beer or wine. Laboratory Results Hemoglobin A1c Test 05/14/16 02:11 Range/Units Estimated Average Glucose 131 mg/dl Hemoglobin A1c 6.2 H 4.5-5.6 % Medical Emergencies . Who to Call and When: Medical Emergencies: If at any time you feel your situation is an emergency, please call 911 immediately. . Non-Emergent Contact Non-Emergency issues call your: Primary Care Provider . . "Provider Documentation" section prepared by Phong Mireles. Core Measure Problem Core Measures: None
[2016-07-24] MEDS ORDERED: CALC0.2510 PO (15:43)
[2016-07-24] MEDS ORDERED: CARV12.52 PO (15:49)
[2016-07-24] MEDS ORDERED: ACET-1311 PO (16:04)
[2016-07-24] MEDS ORDERED: GUAI100S25 PO (16:11)
[2016-07-24] MEDS ORDERED: RBTUDL5 PO (16:16)
[2016-07-24] MEDS ORDERED: IPRASOL4 INH (16:19)
[2016-07-24] MEDS ORDERED: SALINE NASAL SPRAY NAE (16:21)
[2016-07-27] MEDS ORDERED: SACC250C3 PO (11:40)
[2016-07-27] MEDS ORDERED: PRED10TA PO (11:40)
[2016-07-27] MEDS ORDERED: LEVO1TAB35 PO (11:40)
[2016-07-27] MEDS ORDERED: LSX80 PO (11:40)
[2016-07-27] MEDS ORDERED: LXP10 PO (11:40)
[2016-07-27] MEDS ORDERED: CRG125 PO (11:40)
== END 2016-05-17 14:15 | DRG 196 ==
LOC: CANRESERV → ENRESERVDT → ENRESERVTM → EDBD 10:03 → C.EDB 10:16 → C.MED 14:06 → UNDODISIN 05-17 13:33
PROVIDERS: ADMIT Internal Medicine; ATTEND Internal Medicine
DX: J84.9 Interstitial pulmonary disease, unspecified (principal); I50.33 Acute on chronic diastolic (congestive) heart failure; J96.21 Acute and chronic respiratory failure with hypoxia; K21.9 Gastro-esophageal reflux disease without esophagitis; I25.10 Atherosclerotic heart disease of native coronary artery without angina pectoris; Z85.3 Personal history of malignant neoplasm of breast; J84.10 Pulmonary fibrosis, unspecified; Z95.1 Presence of aortocoronary bypass graft; F32.9 Major depressive disorder, single episode, unspecified; N18.3 Chronic kidney disease, stage 3 (moderate); I12.9 Hypertensive chronic kidney disease with stage 1 through stage 4 chronic kidney disease, or unspecified chronic kidney disease; E78.5 Hyperlipidemia, unspecified; Z66 Do not resuscitate; I27.2 Other secondary pulmonary hypertension; G47.33 Obstructive sleep apnea (adult) (pediatric); D64.9 Anemia, unspecified; I25.2 Old myocardial infarction; E11.21 Type 2 diabetes mellitus with diabetic nephropathy; I65.29 Occlusion and stenosis of unspecified carotid artery; K57.30 Diverticulosis of large intestine without perforation or abscess without bleeding; M19.90 Unspecified osteoarthritis, unspecified site; E66.9 Obesity, unspecified; Z68.36 Body mass index [BMI] 36.0-36.9, adult

== ENCOUNTER → 2016-06-27 | Outpatient (CLI) | payer OTHER ==
[~2016-06-27] MED LIST changes: +ACET-1311 PO; -ATV5 PO; +CALC0.2510 PO; +CARV12.52 PO; -FURO-85 PO; +FURO40TA3 PO; +GUAI100S25 PO; +IPRASOL4 INH; +IPRASOL4 NEB; +LEVO1TAB35 PO; +LORA-741 PO; -LSX20 PO; +LSX80 PO; +LXP10 PO; +NITR0.4S UT; +NRV/10 PO; -NRV5 PO; -NTRGSL/4 UT; -PRD10 PO; +PRED-301 PO; +PRED10TA PO; +RBTUDL5 PO; +SACC250C3 PO; +SALINE NASAL SPRAY NAE
[2016-06-27 08:15] LABS: ALT/SGPT 38 U/L (12-78); AST/SGOT 15 U/L (15-37); BLOOD UREA NITROGEN 69 mg/dl (7-18); BUN/CREATININE RATIO 42.9 (10-20); CARBON DIOXIDE 37 mmol/L (21-32); CHLORIDE 101 mmol/L (98-107); GLUCOSE 93 mg/dl (70-99); POTASSIUM 4.6 mmol/L (3.5-5.1); SODIUM 144 mmol/L (136-145)
[2016-06-27 08:18] LABS: ALB/GLOB RATIO 0.9 (0.9-2); ALKALINE PHOSPHATASE 43 U/L (45-117)
[2016-06-27 08:51] LABS: CALCIUM 9.6 mg/dl (8.5-10.1)
== END ==
LOC: C.LABCC 07:52
PROVIDERS: ATTEND Internal Medicine
DX: N18.9 Chronic kidney disease, unspecified (principal); R60.0 Localized edema

== ENCOUNTER → 2016-06-30 | Outpatient (CLI) | payer OTHER ==
[2016-06-30 09:03] LABS: BLOOD UREA NITROGEN 75 mg/dl (7-18); BUN/CREATININE RATIO 39.5 (10-20); CALCIUM 8.8 mg/dl (8.5-10.1); CARBON DIOXIDE 31 mmol/L (21-32); CHLORIDE 104 mmol/L (98-107); GLUCOSE 82 mg/dl (70-99); POTASSIUM 4.4 mmol/L (3.5-5.1); SODIUM 144 mmol/L (136-145)
== END ==
LOC: C.LABCC 07:50
PROVIDERS: ATTEND Internal Medicine
DX: N18.9 Chronic kidney disease, unspecified (principal); R60.0 Localized edema

== ENCOUNTER → 2016-07-07 | Outpatient (CLI) | payer OTHER ==
[2016-07-07 08:47] LABS: BLOOD UREA NITROGEN 92 mg/dl (7-18); BUN/CREATININE RATIO 46.1 (10-20); CARBON DIOXIDE 33 mmol/L (21-32); CHLORIDE 104 mmol/L (98-107); GLUCOSE 98 mg/dl (70-99); POTASSIUM 4.7 mmol/L (3.5-5.1); SODIUM 142 mmol/L (136-145)
[2016-07-07 09:01] LABS: CALCIUM 8.5 mg/dl (8.5-10.1)
== END ==
LOC: C.LABCC 08:09
PROVIDERS: ATTEND Internal Medicine
DX: N18.9 Chronic kidney disease, unspecified (principal); R60.9 Edema, unspecified

== ENCOUNTER → 2016-07-10 | Outpatient (CLI) | payer OTHER ==
[2016-07-10 09:30] LABS: BLOOD UREA NITROGEN 103 mg/dl (7-18); BUN/CREATININE RATIO 46.9 (10-20); CARBON DIOXIDE 31 mmol/L (21-32); CHLORIDE 106 mmol/L (98-107); GLUCOSE 94 mg/dl (70-99); POTASSIUM 4.7 mmol/L (3.5-5.1); SODIUM 142 mmol/L (136-145)
[2016-07-10 09:57] LABS: CALCIUM 8.7 mg/dl (8.5-10.1)
== END ==
LOC: C.LABCC 08:06
PROVIDERS: ATTEND Internal Medicine
DX: N18.3 Chronic kidney disease, stage 3 (moderate) (principal); R60.9 Edema, unspecified

== ENCOUNTER → 2016-07-13 | Outpatient (CLI) | payer OTHER ==
[2016-07-13 09:58] LABS: BLOOD UREA NITROGEN 85 mg/dl (7-18); BUN/CREATININE RATIO 38.4 (10-20); CARBON DIOXIDE 32 mmol/L (21-32); CHLORIDE 107 mmol/L (98-107); GLUCOSE 99 mg/dl (70-99); POTASSIUM 4.7 mmol/L (3.5-5.1); SODIUM 144 mmol/L (136-145)
== END | disposition home or self-care (01) ==
LOC: C.LABCC 07:56
PROVIDERS: ATTEND Internal Medicine
DX: N28.9 Disorder of kidney and ureter, unspecified (principal)

== ENCOUNTER → 2016-07-18 | Outpatient (CLI) | payer OTHER ==
[2016-07-18 10:10] LABS: BLOOD UREA NITROGEN 102 mg/dl (7-18); BUN/CREATININE RATIO 36.4 (10-20); CARBON DIOXIDE 28 mmol/L (21-32); CHLORIDE 105 mmol/L (98-107); GLUCOSE 91 mg/dl (70-99); POTASSIUM 5.5 mmol/L (3.5-5.1); SODIUM 140 mmol/L (136-145)
== END ==
LOC: C.LABCC 09:42
PROVIDERS: ATTEND Internal Medicine
DX: N18.9 Chronic kidney disease, unspecified (principal)

== ENCOUNTER → 2016-07-20 | Outpatient (CLI) | payer OTHER ==
[2016-07-20 10:39] LABS: CALCIUM 9.1 mg/dl (8.5-10.1)
[2016-07-20 10:43] LABS: BLOOD UREA NITROGEN 96 mg/dl (7-18); BUN/CREATININE RATIO 38.6 (10-20); CARBON DIOXIDE 28 mmol/L (21-32); CHLORIDE 107 mmol/L (98-107); GLUCOSE 143 mg/dl (70-99); POTASSIUM 5.9 mmol/L (3.5-5.1); SODIUM 141 mmol/L (136-145)
== END ==
LOC: C.LABCC 08:34
PROVIDERS: ATTEND Internal Medicine
DX: N28.9 Disorder of kidney and ureter, unspecified (principal)

== ENCOUNTER → 2016-07-21 | Outpatient (CLI) | payer OTHER ==
[2016-07-21 08:57] LABS: BLOOD UREA NITROGEN 93 mg/dl (7-18); BUN/CREATININE RATIO 40.3 (10-20); CARBON DIOXIDE 27 mmol/L (21-32); CHLORIDE 108 mmol/L (98-107); GLUCOSE 134 mg/dl (70-99); SODIUM 143 mmol/L (136-145)
[2016-07-21 09:03] LABS: CALCIUM 8.5 mg/dl (8.5-10.1)
== END ==
LOC: C.LABCC 08:03
PROVIDERS: ATTEND Internal Medicine
DX: N28.9 Disorder of kidney and ureter, unspecified (principal)

== ENCOUNTER → 2016-07-24 | Outpatient (CLI) | payer OTHER ==
[2016-07-24 08:08] LABS: BASO % 0.1 %; BASO ABS # 0.01 K/uL (0-0.2); EOS % 2.6 %; HEMATOCRIT 29.2 % (37-47); IG% 1.1 %; LYMPH ABS # 1.38 K/uL (1.2-3.4); MEAN CORPUSCULAR HEMOGLOBIN 30.4 pg (25-34); MEAN CORPUSCULAR HGB CONC 30.1 g/dl (32-36); MEAN PLATELET VOLUME 10.6 fL (7.4-10.4); MONO % 8.3 %; NEUT % 68.9 %; PLATELET COUNT 269 K/uL (130-400); RED BLOOD COUNT 2.89 M/uL (4.2-5.4); WHITE BLOOD COUNT 7.26 K/uL (4.8-10.8)
[2016-07-24 08:18] LABS: BLOOD UREA NITROGEN 85 mg/dl (7-18); BUN/CREATININE RATIO 42.4 (10-20); CARBON DIOXIDE 28 mmol/L (21-32); CHLORIDE 112 mmol/L (98-107); GLUCOSE 90 mg/dl (70-99); POTASSIUM 5.3 mmol/L (3.5-5.1); SODIUM 147 mmol/L (136-145)
[2016-07-24 08:23] LABS: CALCIUM 8.6 mg/dl (8.5-10.1)
[2016-07-24 08:29] LABS: COMPLETE YES; TEAR DROP CELLS 1+
== END ==
LOC: C.LABCC 07:45
PROVIDERS: ATTEND Internal Medicine
DX: N18.9 Chronic kidney disease, unspecified (principal)

== ENCOUNTER → 2016-09-11 | Outpatient (CLI) | payer OTHER ==
[~2016-09-11] MED LIST changes: -ATOR10TA82 PO; +ATOR10TA88 PO; -CARV12.52 PO; -CZR50 PO; -ESCI1TAB9 PO; -FURO40TA3 PO; -IPRASOL4 INH; -OXGN; -PRED-301 PO; -RBTUDL5 PO
[2016-09-11 18:01] LABS: URINE APPEARANCE CLOUDY (CLEAR); URINE BILIRUBIN NEG (NEG); URINE COLOR YELLOW; URINE EPITHELIAL CELL AUTO 20-30 /lpf (0-5); URINE NITRITE NEG (NEG); URINE PH 7.5 (4.5-7.5); URINE SPECIFIC GRAVITY 1.014 (1.000-1.030); UROBILINOGEN NEG (NEG); ZZURINE CULT IF INDIC CATH YES
[2016-09-11 18:04] LABS: URINE APPEARANCE CLOUDY (CLEAR); URINE BILIRUBIN NEG (NEG); URINE COLOR YELLOW; URINE EPITHELIAL CELL AUTO >30 /lpf (0-5); URINE NITRITE NEG (NEG); URINE PH >= 9.0 (4.5-7.5); URINE SPECIFIC GRAVITY 1.016 (1.000-1.030); UROBILINOGEN NEG (NEG); ZZUR CULT IF INDIC CLEAN CATCH YES
[2016-09-11 18:07] LABS: MANUAL MICROSCOPIC REQUIRED? NO; REVIEW REQ? NO
[2016-09-11 18:08] LABS: MANUAL MICROSCOPIC REQUIRED? NO; REVIEW REQ? YES
[2016-09-11 18:09] LABS: SULFASALICYLIC ACID POS (NEG)
== END ==
LOC: C.LABCC 17:36
PROVIDERS: ATTEND Internal Medicine
DX: R41.82 Altered mental status, unspecified (principal)

== ENCOUNTER → 2016-09-21 | Outpatient (CLI) | payer OTHER ==
[2016-09-21 08:52] LABS: BLOOD UREA NITROGEN 91 mg/dl (7-18); BUN/CREATININE RATIO 43.5 (10-20); CALCIUM 9.2 mg/dl (8.5-10.1); CARBON DIOXIDE 36 mmol/L (21-32); CHLORIDE 97 mmol/L (98-107); GLUCOSE 89 mg/dl (70-99); POTASSIUM 3.6 mmol/L (3.5-5.1); SODIUM 137 mmol/L (136-145)
== END ==
LOC: C.LABCC 07:39
PROVIDERS: ATTEND Internal Medicine
DX: N18.9 Chronic kidney disease, unspecified (principal)

== ENCOUNTER → 2016-10-16 | Outpatient (CLI) | payer OTHER ==
[2016-10-16 09:43] LABS: BASO % 0.3 %; BASO ABS # 0.03 K/uL (0-0.2); COMPLETE YES; EOS % 1.8 %; HEMATOCRIT 32.9 % (37-47); IG% 0.9 %; LYMPH % 15.1 %; LYMPH ABS # 1.32 K/uL (1.2-3.4); MEAN CELL VOLUME 94.5 fL (80-100); MEAN CORPUSCULAR HEMOGLOBIN 29.3 pg (25-34); MEAN PLATELET VOLUME 11.1 fL (7.4-10.4); MONO % 9.6 %; NEUT % 72.3 %; PLATELET COUNT 238 K/uL (130-400); RED BLOOD COUNT 3.48 M/uL (4.2-5.4); WHITE BLOOD COUNT 8.75 K/uL (4.8-10.8)
[2016-10-16 10:18] LABS: BLOOD UREA NITROGEN 82 mg/dl (7-18); BUN/CREATININE RATIO 45.7 (10-20); CALCIUM 9.1 mg/dl (8.5-10.1); CARBON DIOXIDE 34 mmol/L (21-32); CHLORIDE 100 mmol/L (98-107); GLUCOSE 98 mg/dl (70-99); POTASSIUM 3.6 mmol/L (3.5-5.1); SODIUM 142 mmol/L (136-145)
== END | disposition home or self-care (01) ==
LOC: C.LABCC 09:21
PROVIDERS: ATTEND Internal Medicine
DX: N18.4 Chronic kidney disease, stage 4 (severe) (principal)